=== PATIENT | male | born 1970 | race Caucasian/White ===

== ENCOUNTER 2016-03-31 20:56 | Emergency (ER) | payer MEDICARE, MEDICAID ==
[~2016-03-31] VITALS: Ht 162.6 cm; Wt 72.7 kg
[~2016-03-31 20:56] MED LIST: AGM875T PO
[2016-03-31 21:12] VITALS: BP 136/99; PULSE 100; RESP 18; O2SAT 100
--- NOTE | 2016-03-31 22:31 | ED.REPORT ---
HPI-General Illness Date of Service Mar 31, 2016 ED Provider: Austin Kaur MD Patient is a homeless 46 year old male with a history of polysubstance abuse, spina bifida, diverting colostomy, and hypertension who presents to the ED via EMS after he lost his colostomy bag and supplies today, with the patient presenting to the ED covered in stool. The patient states that he recently met some people that have been helping him and they dropped him off at the [facility] today. The [facility] did not have space for him and he was just waiting for his friends to return. He therefore called EMS because he was cold and needed assistance with his colostomy. His friends will be able to pick him up in the morning. The patient was staying at another house prior to this, but states that he was not treated well there. Per EMS his house is to be raided tonight, which is why he cannot return there. He is on SSA and states that he was recently paid, but that his "money disappeared". Patient is wheelchair bound. He reports ongoing swelling of his legs denies any other medical complaints. Nursing Notes Stated Complaint: HOMELESS, PEDAL EDEMA Chief Complaint: General Complaint Nursing Notes Reviewed: Yes Allergies: Coded Allergies: No Known Allergies (Verified Allergy, Unknown, 10/10/15) Scheduled Amoxicillin/Clav K 875-125 mg (Amoxicillin/Clav K 875-125 mg) 875 Mg Tab 1 TAB PO BID General Time Seen by MD: 22:30 Chief Complaint Multip medical complaints (lost ostomy supplies) Hx Obtained From: Patient, EMS Arrived By: Ambulance Sudden in Onset?: No Onset Occurred: Onset unknown (today) Symptom Duration: Since onset Location: : Abdomen Quality: Painful Severity: Current: Mild Severity: Maximum: Mild Recent Healthcare: No recent doctor visit, No recent hospitalization Similar Sx Previous: No Past Medical History Past Medical History Notes: PCP: [facility] Past Medical History Spina bifida History of abdominal wall cellulitis July 2015, resolved (treated with zinc and Zosyn initially, switch to by mouth Augmentin, resolved) GERD History of substance abuse per EMR skin breakdown of buttocks, s/p diveriting colostomy Chiari 2 malformation s/p CHURCH [employer]IC[employer] shunt with revision in 2001 prediabetic Substance abuse: Amphetamine, ETOH, tobacco. Reports: Hypertension Past Surgical History Diverting colostomy Shunt revisions Smoking History Current Every Day Smoker Social History Homeless per notes Alcohol Use: 1-3 per week Drug Use: In recovery, THC Other Social History: Poor social support, Homeless Ambulatory Status Wheelchair Review of Systems Full Review of Systems Constitutional: Denies: Chills, Fever GI: Reports: Abdominal pain, Denies: Diarrhea Musculoskeletal: Reports: Extremity swelling, Denies: Extremity pain Complete sys rev & neg: except as marked. Physical Exam Vital Signs Vital Signs Date Time Temp Pulse Resp B/P Pulse Ox O2 Delivery O2 Flow Rate FiO2 04/01/16 04:32 36.9 100 18 122/69 98 Room Air 03/31/16 21:12 36.6 100 18 136/99 100 Room Air Initial VS: Reviewed, Vital signs abnormal Skin: Warm, Dry, No cyanosis Neurologic: Alert, Oriented, Nonfocal Psychiatric: Mood/affect normal, Behavior normal, Normal thought content General/Constitutional: Awake, Alert, No acute distress wheelchair bound Head / Eyes: Normocephalic, PERRL ENT: Airway patent, Mucous membranes moist Neck: Supple, Full range of motion Respiratory / Chest: Breath sounds NL, Breath sounds = bilat, No respiratory distress, No rales, No rhonchi, No wheezing Cardiovascular: Heart rate NL, Regular rhythm, No murmurs Abdomen: Soft, Non-tender stoma present, with minor skin breakdown surrounding the stoma Upper Extremities Upper Extremity / MS: Neurologic intact, Vascular intact Lower Extremity / Pelvis / MS: Neurologic intact, Vascular intact bilareral below the knee leg atrophy and 3+ pitting edema Re-Eval/Medical Decision Med Decision/Clinical Course 46-year-old male who lost his housing and lost his colostomy supplies. He presents here covered with stool. He was cleaned up and a new colostomy bag was put on. He also has long-standing peripheral edema both ankles. He has some skin breakdown around the colostomy bag. He is wheelchair-bound due to his spina bifida. With the given weather and the baseline condition of this patient would not be schulte to discharge him to the streets. He will be seen by social work for disposition this morning. His care is being turned over at change of shift to the oncoming physician. Source of Hx: Old records Time of Eval: 22:45 Re-Evaluation/Progress Note: Patient will be allowed to stay in the ED overnight until he can be picked up in the morning. Patient understands and agrees with this plan. All questions addressed. Discharge & Departure Shift Change Sign-Out Patient Care Transferred: Yes Discussed Complaint(s): Yes Patient is waiting to be picked up in the AM Primary Impression: Complication of ostomy Additional Impression: Homelessness Referrals: [facility] (PCP) Care Transferred to: Dr. May Care Transferred at: 06:00 Marleni Attestation Portions of this note were transcribed by Sandra Zavala. I, Dr. Kaur personally performed the history, physical exam and medical decision-making; I reviewed and confirmed the accuracy of the information in the transcribed note. Signed by: Marleni Pineda, 04/01/2016 0542 copies to: [facility] Austin Kaur MD Mar 31, 2016 22:31 Sandra Zavala Mar 31, 2016 22:47
[2016-04-01 04:32] VITALS: BP 122/69; PULSE 100; RESP 18; O2SAT 98
== END 2016-04-01 10:30 ==
LOC: SED 20:56 → EDBD 20:56 → SED 04-01 10:30
DX: K94.09 Other complications of colostomy (principal); I10 Essential (primary) hypertension; F17.200 Nicotine dependence, unspecified, uncomplicated; Q05.9 Spina bifida, unspecified; R60.0 Localized edema; F15.10 Other stimulant abuse, uncomplicated; F12.10 Cannabis abuse, uncomplicated; Z59.0 Homelessness; Z99.3 Dependence on wheelchair

== ENCOUNTER 2016-04-04 18:31 | Inpatient (IN) | payer MEDICARE, MEDICAID ==
[~2016-04-04] VITALS: Ht 162.6 cm; Wt 67.2 kg
--- NOTE | 2016-04-04 18:49 | ED.REPORT ---
HPI-Rash / Abscess Date of Service Apr 04, 2016 ED Provider: Judith Whyte MD The patient is a 46 year old homeless male with history of spina bifida an who presents to the ED complaining of a blistering rash to his groin and backside. Associated symptoms of incontinence of bowel and bladder (baseline). The patient has been wheelchair bound since a recent fall and living on the street in a cardboard box while waiting to get into the [facility]. He denies fever, abdominal pain, and any other symptoms at this time. He has been seen in the ED for similar symptoms before. Nursing Notes Stated Complaint: MENTAL HEALTH EVALUATION Chief Complaint: Skin Rash/Abscess Nursing Notes Reviewed: Yes Allergies: Coded Allergies: No Known Allergies (Verified Allergy, Unknown, 10/10/15) Scheduled Amoxicillin/Clav K 875-125 mg (Amoxicillin/Clav K 875-125 mg) 875 Mg Tab 1 TAB PO BID General Time Seen by MD: 18:48 Chief Complaint Blisters, Rash Hx Obtained From: Patient Arrived By: Walk-in Onset Occurred: Onset unknown Symptom Duration: Since onset Location: : Back Quality: Painful Severity: Current: Moderate Severity: Maximum: Moderate Recent Healthcare: No recent doctor visit, No recent hospitalization Similar Sx Previous: Yes Past Medical History Past Medical History Notes: PCP: [facility] Past Medical History Spina bifida History of abdominal wall cellulitis July 2015, resolved (treated with zinc and Zosyn initially, switch to by mouth Augmentin, resolved) GERD History of substance abuse per EMR skin breakdown of buttocks, s/p diveriting colostomy Chiari 2 malformation s/p MANAGER REIMBURSEMENT shunt with revision in 2001 prediabetic Substance abuse: Amphetamine, ETOH, tobacco. Reports: Hypertension Past Surgical History Diverting colostomy Shunt revisions Smoking History Current Every Day Smoker Social History Homeless per notes Alcohol Use: 1-3 per week Drug Use: In recovery, THC Other Social History: Poor social support, Homeless Ambulatory Status Wheelchair Review of Systems Respiratory: Denies: Non-productive cough, Shortness of breath Cardiovascular: Denies: Chest pain GI: Denies: Abdominal pain Skin: Reports Rash Complete sys rev & neg: except as marked. Male: Reports Incontinence Neurologic: Reports: Numbness (lower extremities, secondary to spina bifida) Physical Exam Initial Vital Signs Vital Signs (First) Date Time Temp Pulse Resp B/P Pulse Ox O2 Delivery O2 Flow Rate FiO2 04/04/16 18:48 36.2 04/04/16 19:44 89 18 133/83 96 Room Air Initial VS: Reviewed Head / Eyes: Atraumatic, Normocephalic, PERRL ENT: Mucous membranes moist, Conjunctiva normal, No scleral icterus Neck: Supple, Non-tender, Full range of motion Cardiovascular: Regular rate & rhythm, Heart sounds normal, Intact distal pulses Neurologic: Alert, Oriented, Nonfocal Psychiatric: Mood/affect normal, Behavior normal, Normal thought content General/Constitutional: Awake, Alert, No acute distress Presents in clothing soaked in his own waste Eryhthema, induration, and edema over entire right lateral to medial thigh, extends to left medial thigh but left lateral thigh spared. Extends over perineum and across entire. Confluent vesicular rash over abdomen, extremely tender to palpation. No hemorrhagic bullae. Respiratory / Chest: Atraumatic, Breath sounds NL, Breath sounds = bilat, No respiratory distress, No rales, No rhonchi, No wheezing, No crepitus Abdomen/GI: Confluent vesicular rash over abdomen, extremely tender to palpation. No hemorrhagic bullae. Red stoma in colostomy bag, left side of abdomen Back: Atraumatic, Full range of motion Interpretation & Diagnostics Lab Results Interpretation Result Diagram: 04/04/16192404/04/161924 Test 04/04/16 19:25 04/04/16 20:00 White Blood Count 11.0th/mm3 (3.8-10.1) Red Blood Count 4.82mil/mm3 (4.40-5.80) Hemoglobin 13.6g/dL (13.8-17.2) Hematocrit 42.0% (41.0-50.0) Mean Corpuscular Volume 87.1fL (81-100) Mean Corpuscular Hemoglobin 28.2pg (27.0-35.0) Mean Corpuscular Hemoglobin Concent 32.4% (32.0-37.0) Red Cell Distribution Width 15.8% (12.3-15.4) Platelet Count 485bil/L (150-400) Neutrophils (%) (Auto) 56.6% (40-74) Lymphocytes (%) (Auto) 32.3% (14-46) Monocytes (%) (Auto) 7.9% (4-12) Eosinophils (%) (Auto) 2.5% (0-5) Basophils (%) (Auto) 0.3% (0-3) Sodium Level 141mEq/L (134-144) Potassium Level 4.4mEq/L (3.5-5.2) Chloride Level 103mEq/L (97-108) Carbon Dioxide Level 22mmol/L (18-29) Blood Urea Nitrogen 17mg/dL (6-24) Creatinine 0.73mg/dL (0.76-1.27) Estimat Glomerular Filtration Rate 122mL/min (>59) Glucose Level 145mg/dL (60-99) Calcium Level 8.4mg/dL (8.5-10.1) Magnesium Level 2.0mg/dL (1.6-2.6) Total Bilirubin 0.2mg/dL (0.0-1.2) Aspartate Amino Transf (AST/SGOT) 12U/L (0-50) Alanine Aminotransferase (ALT/SGPT) 8U/L (0-44) Alkaline Phosphatase 104U/L (25-150) Total Protein 7.3g/dL (6.4-8.4) Albumin 3.2g/dL (3.4-5.0) Procalcitonin 0.05ng/mL (0.00-0.08) Urine Color Yellow (YELLOW) Urine Appearance Cloudy (CLEAR,HAZY) Urine pH 8.5 (5.0-8.0) Urine Specific [place] 1.020 (1.003-1.035) Urine Protein 100mg/dL (NEG,TRACE) Urine Glucose (UA) Negativemg/dL (NEGATIVE) Urine Ketones Tracemg/dL (NEGATIVE) Urine Occult Blood Trace (NEGATIVE) Urine Nitrite Positive (NEGATIVE) Urine Bilirubin Negative (NEGATIVE) Urine Urobilinogen Normalmg/dL (NORMAL) Urine Leukocyte Esterase Moderate (NEGATIVE) Urine RBC 0-2/hpf (0-2) Urine WBC 6-10/hpf (0-5) Urine Epithelial Cells None/hpf (NONE-MOD) Urine Crystals None seen (NONE SEEN) Urine Bacteria Few/hpf (NONE-FEW) Urine Hyaline Casts None/lpf (NONE) Urine Granular Casts None seen (NONE SEEN) Urine Waxy Casts None seen (NONE SEEN) Urine Red Blood Cell Casts None seen (NONE SEEN) Urine White Blood Cell Casts None seen (NONE SEEN) Urine Mucus None seen (None Seen) Urine Trichomonas None seen (NONE SEEN) Urine Yeast None (NONE SEEN) Urinalysis Comment Amorphous sediment Urine Culture Reflexed Indicated CT Abd / Pelvis Interpretation IMPRESSION: No definite perineal inflammatory stranding or abscess. Normal appendix. No acute abnormality. Dictated by: Tone Inman M.D. on 04/04/2016 at 21:05 Approved by: Tone Inman M.D. on 04/04/2016 at 21:11 Study type: Abdominal CT IV contrast Interpretation / Wet Read by: Interpret - Radiologist Re-Eval/Medical Decision Med Decision/Clinical Course 46-year-old male with past medical history of spina bifida here with rash to his groin. Differential diagnosis includes but is not limited to cellulitis versus necrotizing fasciitis versus Remington's gangrene versus fungal infection. Patient shows a very mild lactic acidosis, along with leukocytosis. He also has urinary tract infection, likely secondary to his spina bifida. Given the constellation of disease, along with his inability to care for himself properly I have admitted him to the hospital. He had a CT scan which did not show any evidence of air in his perineum. He does not have tenderness out of proportion to exam, and I do not feel he has necrotizing fasciitis or Remington's gangrene at this time. He is accepted by the hospitalist and is amenable to admission at this time. I have started him on broad-spectrum antibiotics along with fluid resuscitation Source of Hx: Old records Re-Evaluation/Progress : Time of Eval: 21:48 Re-Evaluation/Progress Note: Rechecked the patient. Discussed plan for admission. The patient understands and agrees to the plan. All questions addressed. Consultation : Referral / Consult Name: Issa Winn MD Consulted With: Hospitalist Call Returned at: 21:34 Note: Discussed the patient's history and symptoms with Dr. Winn, hospitalist, who agrees to admit the patient. Counseled Regarding: Diagnosis, Lab results, Need for admission Discharge & Departure Impression: Primary Impression: Cellulitis Site of cellulitis: trunk Site of cellulitis of trunk: groin Qualified Code : L03.314 - Cellulitis of groin Disposition: ADMITTED TO HOSPITAL Discharge Condition All VS Reviewed: Yes Condition: Stable Referrals: [facility] (PCP) Scribe Attestation Portions of this note were transcribed by Norman Gayle. I, Dr. Whyte, personally performed the history, physical exam, and medical decision-making; I reviewed and confirmed the accuracy of the information in the transcribed note. Signed by: Marleni John. 04/04/16, 21:49. copies to: [facility] Judith Whyte MD Apr 04, 2016 18:49 NORMAN GAYLE Apr 04, 2016 19:18
[2016-04-04] MEDS ORDERED: 0.9% Sodium Chloride 1,000 ML IV ONE ×2 (19:11→21:30)
[2016-04-04] MEDS ORDERED: Piperacillin-Tazo 3.375 Gm Inj 3.375 GM in Dextrose 5% Minibag Plus 50 ML IV ONE (19:15)
[2016-04-04] MEDS ORDERED: Vancomycin Dose per Pharmacist XX ONE (19:15)
[2016-04-04 19:44] VITALS: BP 133/83; PULSE 89; RESP 18; O2SAT 96
[2016-04-04] MEDS ORDERED: Vancomycin Inj 1,250 MG in 0.9% Sodium Chloride 250 ML IV ONE (19:45)
[2016-04-04 19:47] LABS: BASOPHILS % (AUTO) 0.3 % (0-3); EOSINOPHILS % (AUTO) 2.5 % (0-5); MONOCYTES % (AUTO) 7.9 % (4-12); Mean Corpuscular Hemoglobin 28.2 pg (27.0-35.0); Mean Corpuscular Volume 87.1 fL (81-100); NEUTROPHILS % (AUTO) 56.6 % (40-74); Platelet Count 485 bil/L (150-400)
[2016-04-04 20:30] LABS: APPEARANCE,URINE CLOUDY (CLEAR,HAZY); COLOR,URINE YELLOW (YELLOW); OCCULT BLOOD,URINE TRACE (NEGATIVE); PH,URINE 8.5 (5.0-8.0); UROBILINOGEN,URINE NORMAL (NORMAL)
--- NOTE | 2016-04-04 21:13 | DRSVH ---
PROCEDURE: CT ABDOMEN AND PELVIS WITH CONTRAST ([id number]) INDICATIONS: perineal cellulitis TECHNIQUE: After the administration of intravenous contrast, 5 mm thick sections acquired from the diaphragm to the symphysis. 5 mm coronal and sagittal reformats were acquired. For radiation dose reduction, the following was used: automated exposure control, adjustment of mA and/or kV according to patient rafaela harris COMPARISON: [facility], CT, CT ABD PELVIS W CON, 08/04/2015, 8:11. FINDINGS: Image quality: Excellent. ABDOMEN: Lung bases: Lung bases are clear. Heart size is normal. Solid organs: Liver and spleen are normal in size and enhancement. Gallbladder absent or contracted .. Biliary system is non dilated. Pancreas enhances normally. No adrenal nodules. Kidneys demonst rate normal size and enhancement, without hydronephrosis. Peritoneum and bowel: Bowel loops demonstrate normal wall thickness and caliber. No free fluid or a ir. There is a left-sided ostomy. Ventricular shunt tubing incidentally noted. Normal appendix Nodes and vessels: No retroperitoneal or mesenteric adenopathy by size criteria. Aorta and inferior vena cava are normal in size. Miscellaneous: No ventral hernias. Diffuse muscle atrophy PELVIS: Genitourinary: The bladder is decompressed and a Melgar catheter is present Miscellaneous: No inguinal hernias or adenopathy. No definite perineal stranding. No abscess seen. There is subcutaneous stranding superficial to the initial tuberosities bilaterally however this is g rossly unchanged since 08/04/15 Bones: No suspicious bony lesions. Age indeterminate mild anterior wedging of T12, possibly physiolo gic IMPRESSION: No definite perineal inflammatory stranding or abscess. Normal appendix. No acute abnormality. Dictated by: Tone Inman M.D. on 04/04/2016 at 21:05 Approved by: Tone Inman M.D. on 04/04/2016 at 21:11
--- NOTE | 2016-04-04 21:40 | NUR ---
Admit Pt arrived by stretcher with all belongings, moved from stretcher to bed without assistance. Alert and oriented, pleasant and cooperative. Oriented to room and call light. Will continue to monitor.
[2016-04-04] MEDS ORDERED: Alum-Mag Hydrox-Simeth 30 mL Suspension PO PRN (21:45)
[2016-04-04] MEDS ORDERED: Ondansetron 2 mg/mL 2 mL Inj IVPUSH PRN (21:45)
[2016-04-04] MEDS ORDERED: Polyethylene Glycol (PEG) 17 Gm Powder PO PRN (22:15)
[2016-04-04] MEDS ORDERED: Alum-Mag Hydrox-Simeth 30 mL Suspension PO ONE (22:15)
[2016-04-04 23:13] VITALS: BP 142/86; PULSE 81; RESP 18; O2SAT 98
--- NOTE | 2016-04-05 00:21 | PCM.HPMED ---
Subjective Date of Service Apr 04, 2016 Primary Provider: Admitting Physician: Issa Winn MD Primary Care Physician: [facility] Attending Physician: Issa Winn MD Chief Complaint: Abdominal skin irritation History of Present Illness: Patient is a 46-year-old homeless male with spina bifida with colostomy and urinary incontinence, and Chiari 2 malformation s/p CERTIFIED DRUG COUNSELOR shunt presenting with "skin irritation" to his abdomen, groin and back. Of note, the patient has been seen in the ED and been hospitalized in the past for similar issues relating to cellulitis and skin breakdown as a result of ostomy and urinary incontinence. The patient reports that he has been awaiting placement into the [facility] and in the meantime has been staying in a makeshift group home made of plywood where he is exposed to the elements. The patient has urinary incontinence and ambulating issues as a result of the spina bifida and reports that he does not have the opportunity to move very much in the makeshift group home , thus he routinely soils himself. The patient says the skin around his abdomen , groin and flank has become increasingly irritating and painful over the past two or three days which prompted him to visit the ED for further evaluation. The patient denies any drainage or bleeding from these areas; denies fever, chills, abdominal pain, nausea, emesis, dysuria. In the ED, vitals: temp 36.2, HR 89, RR 18 satting 96% on room air, BP 133/83. Notable labs: WBC 11.0, lactic acid 2.7. Patient was started on vancomycin and Zosyn in the ED. Review of Systems: Review of Systems: A comprehensive review of systems was conducted with the patient and found to be negative except as above in the History of Present Illness. Allergies Coded Allergies: No Known Allergies (Verified Allergy, Unknown, 10/10/15) Home Medications None reported PMH Spinal Bifida with leg weakness Bowel and bladder incontinence Chiari 2 malformation s/p CERTIFIED DRUG COUNSELOR shunt with multiple revisions, most recent revision in 2001 Prediabetic Hypertension GERD Substance abuse: Amphetamine, ETOH, tobacco Surgical History Diverting colostomy CERTIFIED DRUG COUNSELOR shunt with multiple revisions, most recent revision in 2001 Family History Mother is alive but health is unknown Father had pancreatic cancer but in his 70s from unknown cause Social History Occupation: Unemployed Hx Alcohol Use: Yes Hx Substance Use: Yes (Last used meth one week ago) Smoking Status: Current Every Day Smoker (1/2 to 1PPD) Living Arrangement: Homeless Exam Vital Signs Vital Sign - Last Date Time Temp Pulse Resp B/P Pulse Ox O2 Delivery O2 Flow Rate FiO2 04/04/16 23:13 36.7 81 18 142/86 98 Room Air Exam General: Disheveled. No acute distress, well-developed, well-nourished, appropriately interactive HEENT: Normocephalic, atraumatic. External ears without defect. Pupils equal, round, and reactive to light. Anicteric sclerae, moist conjunctivae, and no lid lag. Oropharynx free of erythema and cobble stoning with moist mucosa. Poor dentition. Neck: Supple. Small palpable mass, either lymphadenopathy of right cervical lymph nodes or part of CERTIFIED DRUG COUNSELOR shunt. Well healed surgical incision scars. Cardiovascular: Regular rate and rhythm with no murmurs, rubs, or gallops appreciated Pulmonary: Clear to auscultation bilaterally with no crackles, wheezes, or rhonchi. Normal respiratory effort with no use of accessory muscles. Abdomen: Bowel tones present. Soft, nontender, nondistended. Lower abdomen with erythema and skin breakdown. Colostomy on left side of abdomen. Well healed surgical incisions. Genitourinary: Melgar catheter in place. Extremities: No clubbing, cyanosis, edema, or lymphadenopathy appreciated. Right 5th toe with dried blood and healing wound over nail bed. Skin: Erythema and areas of skin breakdown of lower abdomen, groin, flank and buttock. 1.5 to 2cm ulcer with eschar proximal to left malleolus. Neurological: Cranial nerves grossly intact. Decreased motor strength in lower extremities bilaterally. Atrophy of lower extremities, left > right. Psychiatric: Normal mood and affect. Alert and oriented to person, place, and time. Lab and Diagnostics Result Diagram: 04/04/16192404/04/161924 X-Rays, CTs and MRIs Date of Service: 04/04/161910 PROCEDURE: CT ABDOMEN AND PELVIS WITH CONTRAST ([id number]) INDICATIONS: perineal cellulitis TECHNIQUE: After the administration of intravenous contrast, 5 mm thick sections acquired from the diaphragm to the symphysis. 5 mm coronal and sagittal reformats were acquired. For radiation dose reduction, the following was used: automated exposure control, adjustment of mA and/or kV according to patient size. COMPARISON: [facility], CT, CT ABD PELVIS W CON, 08/04/2015, 8:11. FINDINGS: Image quality: Excellent. ABDOMEN: Lung bases: Lung bases are clear. Heart size is normal. Solid organs: Liver and spleen are normal in size and enhancement. Gallbladder absent or contracted.. Biliary system is non dilated. Pancreas enhances normally. No adrenal nodules. Kidneys demonstrate normal size and enhancement, without hydronephrosis. Peritoneum and bowel: Bowel loops demonstrate normal wall thickness and caliber. No free fluid or air. There is a left-sided ostomy. Ventricular shunt tubing incidentally noted. Normal appendix Nodes and vessels: No retroperitoneal or mesenteric adenopathy by size criteria. Aorta and inferior vena cava are normal in size. Miscellaneous: No ventral hernias. Diffuse muscle atrophy PELVIS: Genitourinary: The bladder is decompressed and a Melgar catheter is present Miscellaneous: No inguinal hernias or adenopathy. No definite perineal stranding. No abscess seen. There is subcutaneous stranding superficial to the initial tuberosities bilaterally however this is grossly unchanged since 08/04/15 Bones: No suspicious bony lesions. Age indeterminate mild anterior wedging of T12, possibly physiologic IMPRESSION: No definite perineal inflammatory stranding or abscess. Normal appendix. No acute abnormality. Dictated by: Tone Inman M.D. on 04/04/2016 at 21:05 Approved by: Tone Inman M.D. on 04/04/2016 at 21:11 Assessment & Plan Patient is a 46-year-old homeless male with spina bifida with colostomy and urinary incontinence, and Chiari 2 malformation s/p CERTIFIED DRUG COUNSELOR shunt presenting with "skin irritation" to his abdomen, groin and back and admitted for cellulitis. 1. Cellulitis of lower abdomen, groin. Present on admission. Active -CT abdomen and pelvis reads no definite perineal inflammatory stranding or abscess. -Likely result of prolonged exposure to urine and feces -Pending: Blood cultures, MRSA screen, urine culture -Continue Zosyn and vancomycin. De-escalate with results of tests, cultures -Wound care 2. Urinary tract infection, chronic. Present on admission. Active -UA with nitrite, leukocyte esterase, pyuria and bacteria -Urine culture -Antibiotics per #1 3. Hyperlactatemia, acute. Present on admission. Active -Lactic acid 2.7 on admit -IV fluids -Trend 4. Substance abuse, chronic. Present on admission. Active -Patient reports last using methamphetamine last week -Social work referral for substance abuse and to possibly assist with placement 5. GERD, chronic. Present on admission -Pantoprazole daily -Maalox PRN 6. Hypertension, chronic. Present on admission -Currently normotensive -Follow with vitals Patient Status: Patient is admitted under inpatient status with expected length of stay greater than 2 midnights due to severity of presenting symptoms and complexity of treatment plan. VTE Prophylaxis: Sub-Q Heparin (Unfractionated) Resuscitation Status: CPR: Attempt Resuscitation Attending Statement The patient was seen and examined together with Dr. Grimes on 04/04 and I agree with the history, exam and plan as outlined in the note above. Karl Grimes DO Apr 04, 2016 23:43 Issa Winn MD Apr 05, 2016 00:32
[2016-04-05] MEDS: Heparin 5,000 Unit/mL Inj SUBQ SCH ×3 (01:06→16:30)
--- NOTE | 2016-04-05 01:21 | PCM.CONPHA ---
Subjective Date of Service: Apr 05, 2016 Requesting Provider: Karl Grimes DO Abdominal skin irritation Reason for Pharmacy Consult: Vancomycin Dosing Objective Vital Signs Date Time Temp Pulse Resp B/P Pulse Ox O2 Delivery O2 Flow Rate FiO2 04/04/16 23:13 36.7 81 18 142/86 98 Room Air 04/04/16 22:16 89 18 133/83 96 Room Air 04/04/16 19:44 89 18 133/83 96 Room Air 04/04/16 18:48 36.2 Intake and Output 04/03/16 04/04/16 04/05/16 00:00 00:00 00:00 Intake Total 2000 ml Balance 2000 ml Weight (Kilograms): 70.000 Height (Feet): 5 Height (Inches): 4.00 Test 04/04/16 19:25 04/04/16 20:00 04/04/16 22:50 White Blood Count 11.0th/mm3 (3.8-10.1) Red Blood Count 4.82mil/mm3 (4.40-5.80) Hemoglobin 13.6g/dL (13.8-17.2) Hematocrit 42.0% (41.0-50.0) Mean Corpuscular Volume 87.1fL (81-100) Mean Corpuscular Hemoglobin 28.2pg (27.0-35.0) Mean Corpuscular Hemoglobin Concent 32.4% (32.0-37.0) Red Cell Distribution Width 15.8% (12.3-15.4) Platelet Count 485bil/L (150-400) Neutrophils (%) (Auto) 56.6% (40-74) Lymphocytes (%) (Auto) 32.3% (14-46) Monocytes (%) (Auto) 7.9% (4-12) Eosinophils (%) (Auto) 2.5% (0-5) Basophils (%) (Auto) 0.3% (0-3) Sodium Level 141mEq/L (134-144) Potassium Level 4.4mEq/L (3.5-5.2) Chloride Level 103mEq/L (97-108) Carbon Dioxide Level 22mmol/L (18-29) Blood Urea Nitrogen 17mg/dL (6-24) Creatinine 0.73mg/dL (0.76-1.27) Estimat Glomerular Filtration Rate 122mL/min (>59) Glucose Level 145mg/dL (60-99) Calcium Level 8.4mg/dL (8.5-10.1) Magnesium Level 2.0mg/dL (1.6-2.6) Total Bilirubin 0.2mg/dL (0.0-1.2) Aspartate Amino Transf (AST/SGOT) 12U/L (0-50) Alanine Aminotransferase (ALT/SGPT) 8U/L (0-44) Alkaline Phosphatase 104U/L (25-150) Total Protein 7.3g/dL (6.4-8.4) Albumin 3.2g/dL (3.4-5.0) Procalcitonin 0.05ng/mL (0.00-0.08) Urine Color Yellow (YELLOW) Urine Appearance Cloudy (CLEAR,HAZY) Urine pH 8.5 (5.0-8.0) Urine Specific [place] 1.020 (1.003-1.035) Urine Protein 100mg/dL (NEG,TRACE) Urine Glucose (UA) Negativemg/dL (NEGATIVE) Urine Ketones Tracemg/dL (NEGATIVE) Urine Occult Blood Trace (NEGATIVE) Urine Nitrite Positive (NEGATIVE) Urine Bilirubin Negative (NEGATIVE) Urine Urobilinogen Normalmg/dL (NORMAL) Urine Leukocyte Esterase Moderate (NEGATIVE) Urine RBC 0-2/hpf (0-2) Urine WBC 6-10/hpf (0-5) Urine Epithelial Cells None/hpf (NONE-MOD) Urine Crystals None seen (NONE SEEN) Urine Bacteria Few/hpf (NONE-FEW) Urine Hyaline Casts None/lpf (NONE) Urine Granular Casts None seen (NONE SEEN) Urine Waxy Casts None seen (NONE SEEN) Urine Red Blood Cell Casts None seen (NONE SEEN) Urine White Blood Cell Casts None seen (NONE SEEN) Urine Mucus None seen (None Seen) Urine Trichomonas None seen (NONE SEEN) Urine Yeast None (NONE SEEN) Urinalysis Comment Amorphous sediment Urine Culture Reflexed Indicated Lactic Acid Level 2.5mmol/L (0.4-2.0) Assessment/Plan Assessment/Plan A: * Vancomycin dosing for 46 y/o man with cellulitis and UTI * Patient received a vancomycin 1250 mg IV loading dose in the ED * He is also being started on Zosyn * Estimated CrCL is 96 mL/min (Cockcroft & Gault) * Estimated vancomycin half-life is 8 hours and estimated Vd is 45 liters P: * Start vancomycin 1000 mg IV every 12 hours * This dose is estimated to result in a trough of about 14 mcg/mL * Target trough range of 10 - 15 mcg/mL * Drawing a trough level prior to the fourth vancomycin dose Thank you. Pharmacy will continue to follow. Mary Anderson, PharmD Mary Anderson Apr 05, 2016 01:21
[2016-04-05 06:29] VITALS: BP 113/73; PULSE 80; RESP 18; O2SAT 97
[2016-04-05] MEDS: Piperacillin-Tazo 3.375 Gm Inj 3.375 GM in Dextrose 5% Minibag Plus 50 ML IV SCH ×2 (08:00→19:43)
[2016-04-05] MEDS: Vancomycin Dose per Pharmacist XX SCH (08:30)
[2016-04-05] MEDS ORDERED: Vancomycin Inj 1,000 MG in IV Premix 1 EACH IV SCH (08:30)
[2016-04-05 09:26] LABS: BASOPHILS % (AUTO) 0.4 % (0-3); EOSINOPHILS % (AUTO) 3.4 % (0-5); MONOCYTES % (AUTO) 8.5 % (4-12); Mean Corpuscular Volume 88.2 fL (81-100); NEUTROPHILS % (AUTO) 46.3 % (40-74); Platelet Count 401 bil/L (150-400)
[2016-04-05] MEDS: Alum-Mag Hydrox-Simeth 30 mL Suspension PO PRN ×3 (09:28→19:43)
[2016-04-05] MEDS: 0.9% Sodium Chloride 1,000 ML IV SCH ×3 (10:53→19:31)
[2016-04-05] MEDS: Vancomycin Inj 1,000 MG in IV Premix 1 EACH IV SCH ×2 (10:54→23:20)
--- NOTE | 2016-04-05 13:03 | NUR ---
[facility] signed
[2016-04-05 13:06] VITALS: BP 135/85; PULSE 86; RESP 20; O2SAT 97
--- NOTE | 2016-04-05 14:55 | NUR ---
heartburn pt continues to complain of heartburn and "acid burps". MOM given earlier with temp. relief. This RN suggested to pt to cut back on the coffee and increase the water intake. This RN also suggested that pt have the head of bed up while he eats and for some time after.
[2016-04-05] MEDS: Ondansetron 2 mg/mL 2 mL Inj IVPUSH PRN ×2 (15:27→19:43)
--- NOTE | 2016-04-05 15:34 | NUR ---
nausea/vomiting vomiting, pt states that this has just happened to him throughout his life. pt states that it is gas build up. He requests "7-up" ramon mist given and 8mg Zofran. pt resting in bed with emesis basin.
--- NOTE | 2016-04-05 17:02 | PCM.PNMED ---
Subjective Date of Service Apr 05, 2016 Subjective denies any new issues/complaints Exam Vital Signs Vital Sign - Last Date Time Temp Pulse Resp B/P Pulse Ox O2 Delivery O2 Flow Rate FiO2 04/05/16 13:06 36.9 86 20 135/85 97 Room Air Intake and Output 04/04/16 04/04/16 04/05/16 Cumulative From/Thru 15:00 23:00 07:00 04/04/16 18:48 - 04/05/16 06:27 Intake Total 2000 ml 641 ml 2641 ml Balance 2000 ml 641 ml 2641 ml IV Total 2000 ml 641 ml 2641 ml Exam General: No acute distress, cooperative. alert HEENT: Normocephalic, atraumatic.Anicteric sclerae Neck: Supple. Full ROM Cardiovascular: Regular rate and rhythm with no murmurs Pulmonary: Clear to auscultation bilaterally with no crackles, wheezes, or rhonchi. Normal respiratory effort with no use of accessory muscles. Abdomen: Bowel tones present. Soft, nontender, nondistended. Lower abdomen with erythema and skin breakdown. Colostomy on left side of abdomen. Well healed surgical incisions. Genitourinary: Melgar catheter in place. Extremities: No clubbing, cyanosis, edema, or lymphadenopathy appreciated. Right 5th toe with dried blood and healing wound over nail bed. Skin: Erythema and areas of skin breakdown of lower abdomen, groin, flank and buttock. 1.5 to 2cm ulcer with eschar proximal to left malleolus. Neurological: Cranial nerves grossly intact. Decreased motor strength in lower extremities bilaterally. Atrophy of lower extremities, left > right. Psychiatric: Normal mood and affect. Alert and oriented to person, place, and time. IVs and Medications Medications Reviewed: Medications were reviewed in detail Lab and Diagnostics Result Diagram: 04/05/1691404/05/16914 X-Rays, CTs and MRIs Date of Service: 04/04/161910 PROCEDURE: CT ABDOMEN AND PELVIS WITH CONTRAST ([id number]) INDICATIONS: perineal cellulitis TECHNIQUE: After the administration of intravenous contrast, 5 mm thick sections acquired from the diaphragm to the symphysis. 5 mm coronal and sagittal reformats were acquired. For radiation dose reduction, the following was used: automated exposure control, adjustment of mA and/or kV according to patient size. COMPARISON: [facility], CT, CT ABD PELVIS W CON, 08/04/2015, 8:11. FINDINGS: Image quality: Excellent. ABDOMEN: Lung bases: Lung bases are clear. Heart size is normal. Solid organs: Liver and spleen are normal in size and enhancement. Gallbladder absent or contracted.. Biliary system is non dilated. Pancreas enhances normally. No adrenal nodules. Kidneys demonstrate normal size and enhancement, without hydronephrosis. Peritoneum and bowel: Bowel loops demonstrate normal wall thickness and caliber. No free fluid or air. There is a left-sided ostomy. Ventricular shunt tubing incidentally noted. Normal appendix Nodes and vessels: No retroperitoneal or mesenteric adenopathy by size criteria. Aorta and inferior vena cava are normal in size. Miscellaneous: No ventral hernias. Diffuse muscle atrophy PELVIS: Genitourinary: The bladder is decompressed and a Melgar catheter is present Miscellaneous: No inguinal hernias or adenopathy. No definite perineal stranding. No abscess seen. There is subcutaneous stranding superficial to the initial tuberosities bilaterally however this is grossly unchanged since 08/04/15 Bones: No suspicious bony lesions. Age indeterminate mild anterior wedging of T12, possibly physiologic IMPRESSION: No definite perineal inflammatory stranding or abscess. Normal appendix. No acute abnormality. Dictated by: Tone Inman M.D. on 04/04/2016 at 21:05 Approved by: Tone Inman M.D. on 04/04/2016 at 21:11 Assessment & Plan 46-year-old homeless male with spina bifida with colostomy and urinary incontinence, and Chiari 2 malformation s/p COIN BOX COLLECTOR shunt presenting with "skin irritation" to his abdomen, groin and back and admitted for cellulitis. # Cellulitis of lower abdomen, groin. Present on admission. Active -CT abdomen and pelvis reads no definite perineal inflammatory stranding or abscess. -Likely result of prolonged exposure to urine and feces -Pending: Blood cultures, MRSA screen, urine culture -Continue Zosyn and vancomycin. De-escalate with results of tests, cultures -Wound care # Urinary tract infection, chronic. Present on admission. Active -UA with nitrite, leukocyte esterase, pyuria and bacteria -Urine culture -Antibiotics as noted above # Hyperlactatemia, acute. Present on admission. Resolved -Lactic acid 2.7 on admit # Substance abuse, chronic. Present on admission. Active -Patient reports last using methamphetamine last week -Social work referral for substance abuse and to possibly assist with placement # GERD, chronic. Present on admission -Pantoprazole daily -Maalox PRN # Hypertension, chronic. Present on admission -Currently normotensive -Follow with vitals Dispo: 2-4 days VTE Prophylaxis: Sub-Q Heparin (Unfractionated) VTE Mechanical Devices: Venous Foot Pump Resuscitation Status: CPR: Attempt Resuscitation Titi Trevino Apr 05, 2016 17:02
[2016-04-05 21:06] VITALS: BP 155/85; PULSE 83; RESP 18; O2SAT 97
[2016-04-06] MEDS: Heparin 5,000 Unit/mL Inj SUBQ SCH ×4 (00:10→23:37)
[2016-04-06 04:26] VITALS: BP 152/87; PULSE 64; RESP 16; O2SAT 98
--- NOTE | 2016-04-06 05:30 | NUR ---
Pressure Ulcer/Heartburn Pt have a pressure on left sacral area. Cleanse pt's ulcer wound with saline and applied xeroform dressing on the area of ulcer and cover with 4x4 gauze and hypafix. Pt denies sensation around sacral area per pt, because of his condition. Noted Liquid stool passing on pt's colostomy bag. Pt would complain of heartburn and would frequently request some maalox. No further complains after. Addendum: 04/06/16 at 0557 by KEATON MIKE RN Q2 turns and P500 LEONIDES bed currently on pt.
[2016-04-06] MEDS: 0.9% Sodium Chloride 1,000 ML IV SCH ×2 (05:52→16:12)
[2016-04-06] MEDS: Piperacillin-Tazo 3.375 Gm Inj 3.375 GM in Dextrose 5% Minibag Plus 50 ML IV SCH ×2 (08:15→20:31)
[2016-04-06] MEDS: Vancomycin Dose per Pharmacist XX SCH (08:30)
[2016-04-06] MEDS: Alum-Mag Hydrox-Simeth 30 mL Suspension PO PRN ×2 (08:42→23:37)
[2016-04-06] MEDS ORDERED: Vancomycin Serum Trough XX ONE ×2 (10:30→22:30)
[2016-04-06] MEDS: Vancomycin Inj 1,000 MG in IV Premix 1 EACH IV SCH ×2 (10:56→23:30)
--- NOTE | 2016-04-06 12:51 | NUR ---
vanco trough drawn while being infused with vanco pharmacy re-ordered trough for 2229
--- NOTE | 2016-04-06 12:59 | PCM.PHAPRO ---
Progress Abdominal skin irritation Lab drawn late and after start of vanco infusion. New trough set for next dose. Chavo Potts Apr 06, 2016 12:59
--- NOTE | 2016-04-06 15:18 | NUR ---
Social Work Note: Initial Assessment Data& Assessment: EMR reviewed. SW met with pt at bedside to discuss discharge planning, SW role explained. Alcon Redmond Jr is a 46 year old male admitted on 04/04/2016 for cellulitis. Pt has Medicare and [facility] supplemental insurance coverage. Pt goes to [facility] and denies any problems with obtaining his ostomy supplies. Pt states, "it gets changed when it needs to." Pt is independent at baseline and can walk when he is feeling his best but does have a wheelchair for ambulation assistance otherwise. Pt is homeless in [place] and receives enough resources every month to stay in a hotel. Pt explained he trusted the wrong people and "a lot of my money is missing from my account." Pt did state he is making connections at [employer] [facility] recently and hopes to get a spot at the skilled nursing when a bed becomes available. Pt reflected on the fact that the skilled nursing has become more strict over the years. Pt stated that he is unable to return to two local hotels due to being kicked out from having other people stay with him. Per MD, pt has had recent meth use. Pt explained he used last week, but "only sporadically, I am not addicted...What I am addicted to is nicotine." Pt denies any discomfort from lack of nicotine at this time and declines the need for a patch. Pt declines any DPOA paperwork at this time, explained "my family is useless." Pt denies any other needs at this time. SW to continue to follow for any further MD recommendations. SW to continue to follow if any needs arise. RAD[facility] phone number provided on pt [facility]. Plan: Anticipated discharge back into the community when medically ready. Pt denies any other needs at this time. SW to continue to follow for any further MD recommendations. SW to continue to follow if any needs arise. [facility] phone number provided on pt [facility]. TONY Moses Addendum: 02/12/17 at 1529 by JOE DELGADO Amended: Links added.
--- NOTE | 2016-04-06 16:16 | PCM.PNMED ---
Subjective Date of Service Apr 06, 2016 Subjective denies any new issues/complaints Exam Vital Signs Vital Sign - Last Date Time Temp Pulse Resp B/P Pulse Ox O2 Delivery O2 Flow Rate FiO2 04/06/16 04:26 36.8 64 16 152/87 98 Room Air Intake and Output 04/05/16 04/05/16 04/06/16 Cumulative From/Thru 15:00 23:00 07:00 04/04/16 18:48 - 04/06/16 06:01 Intake Total 400 ml 2957 ml 1323 ml 7321 ml Output Total 900 ml 1600 ml 3900 ml 6400 ml Balance -500 ml 1357 ml -2577 ml 921 ml Intake Oral 400 ml 1044 ml 300 ml 1744 ml IV Total 1913 ml 1023 ml 5577 ml Output Urine Total 550 ml 1600 ml 2800 ml 4950 ml Stool Total 350 ml 350 ml Emesis 1100 ml 1100 ml # Bowel Movements 1 1 Exam General: No acute distress, cooperative. alert HEENT: Normocephalic, atraumatic.Anicteric sclerae Neck: Supple. Full ROM Cardiovascular: Regular rate and rhythm with no murmurs Pulmonary: Clear to auscultation bilaterally with no crackles, wheezes, or rhonchi. Normal respiratory effort with no use of accessory muscles. Abdomen: Bowel tones present. Soft, nontender, nondistended. Lower abdomen with erythema and skin breakdown. Colostomy on left side of abdomen. Well healed surgical incisions. Genitourinary: Melgar catheter in place. Extremities: No clubbing, cyanosis, edema, or lymphadenopathy appreciated. Right 5th toe with dried blood and healing wound over nail bed. Skin: Erythema and areas of skin breakdown of lower abdomen, groin, flank and buttock. 1.5 to 2cm ulcer with eschar proximal to left malleolus. (improving) Neurological: Cranial nerves grossly intact. Decreased motor strength in lower extremities bilaterally. Atrophy of lower extremities, left > right. Psychiatric: Normal mood and affect. Alert and oriented to person, place, and time. IVs and Medications Medications Reviewed: Medications were reviewed in detail Lab and Diagnostics Result Diagram: 04/05/1691404/05/16914 X-Rays, CTs and MRIs Date of Service: 04/04/161910 PROCEDURE: CT ABDOMEN AND PELVIS WITH CONTRAST ([id number]) INDICATIONS: perineal cellulitis TECHNIQUE: After the administration of intravenous contrast, 5 mm thick sections acquired from the diaphragm to the symphysis. 5 mm coronal and sagittal reformats were acquired. For radiation dose reduction, the following was used: automated exposure control, adjustment of mA and/or kV according to patient size. COMPARISON: [facility], CT, CT ABD PELVIS W CON, 08/04/2015, 8:11. FINDINGS: Image quality: Excellent. ABDOMEN: Lung bases: Lung bases are clear. Heart size is normal. Solid organs: Liver and spleen are normal in size and enhancement. Gallbladder absent or contracted.. Biliary system is non dilated. Pancreas enhances normally. No adrenal nodules. Kidneys demonstrate normal size and enhancement, without hydronephrosis. Peritoneum and bowel: Bowel loops demonstrate normal wall thickness and caliber. No free fluid or air. There is a left-sided ostomy. Ventricular shunt tubing incidentally noted. Normal appendix Nodes and vessels: No retroperitoneal or mesenteric adenopathy by size criteria. Aorta and inferior vena cava are normal in size. Miscellaneous: No ventral hernias. Diffuse muscle atrophy PELVIS: Genitourinary: The bladder is decompressed and a Melgar catheter is present Miscellaneous: No inguinal hernias or adenopathy. No definite perineal stranding. No abscess seen. There is subcutaneous stranding superficial to the initial tuberosities bilaterally however this is grossly unchanged since 08/04/15 Bones: No suspicious bony lesions. Age indeterminate mild anterior wedging of T12, possibly physiologic IMPRESSION: No definite perineal inflammatory stranding or abscess. Normal appendix. No acute abnormality. Dictated by: Tone Inman M.D. on 04/04/2016 at 21:05 Approved by: Tone Inman M.D. on 04/04/2016 at 21:11 Assessment & Plan 46-year-old homeless male with spina bifida with colostomy and urinary incontinence, and Chiari 2 malformation s/p PROGRAMMING DIRECTOR shunt presenting with "skin irritation" to his abdomen, groin and back and admitted for cellulitis. # Cellulitis of lower abdomen, groin. Present on admission. Active -CT abdomen and pelvis reads no definite perineal inflammatory stranding or abscess. -Likely result of prolonged exposure to urine and feces -Pending: Blood cultures, MRSA screen, urine culture -Continue Zosyn and vancomycin. De-escalate with results of tests, cultures -Wound care # Acute bacteremia. poa. - blood culture from admission coming back positive - c/w Abx as noted above and f/u final culture results - ID consult when available # Urinary tract infection, chronic. Present on admission. Active -UA with nitrite, leukocyte esterase, pyuria and bacteria -Urine culture -Antibiotics as noted above # Hyperlactatemia, acute. Present on admission. Resolved -Lactic acid 2.7 on admit # Substance abuse, chronic. Present on admission. Active -Patient reports last using methamphetamine last week -Social work referral for substance abuse and to possibly assist with placement # GERD, chronic. Present on admission -Pantoprazole daily -Maalox PRN # Hypertension, chronic. Present on admission -Currently normotensive -Follow with vitals Dispo: 2-4 days VTE Prophylaxis: Sub-Q Heparin (Unfractionated) VTE Mechanical Devices: Venous Foot Pump Resuscitation Status: CPR: Attempt Resuscitation Time spent 35 min Titi Trevino Apr 06, 2016 16:16
--- NOTE | 2016-04-06 18:21 | NUR ---
wound dressing hospital out of small Mepilex so this RN cut a large Mepilex to cover deep tissue injury. Wound care has been ordered to evaluate.
--- NOTE | 2016-04-06 18:22 | NUR ---
heartburn pt continues to complain of chronic heartburn, doc paged per patient request to get some Prevacid-no response yet. pt given M.O.M. with relief eventually.
[2016-04-06 21:14] VITALS: BP 136/84; PULSE 81; RESP 20; O2SAT 97
--- NOTE | 2016-04-07 00:35 | PCM.PHAPRO ---
Progress Date of Service: Apr 07, 2016 Vancomycin dosing for 46 y/o man O: * The patient is on vancomycin 1000 mg IV every 12 hours * Trough level prior to the fifth dose of vancomycin was 13.8 mcg/mL * SCr was 0.61 mg/dL on 04/05 * MRSA nasal screen is negative * 1/2 blood cultures is positive so far A: * The trough level is appropriate and will likely increase as vancomycin concentrations reaches steady-state * Renal function appears stable P: * Continue current vancomycin dose * Draw another trough level after 3 more doses * Target vancomycin trough range of 15 - 20 mcg/mL due to the positive blood culture * Continue to monitor renal function Thank you. Pharmacy will continue to follow. Mary Anderson, PharmD Mary Anderson Apr 07, 2016 00:35
[2016-04-07 05:43] VITALS: BP 149/101; PULSE 90; RESP 20; O2SAT 98
[2016-04-07] MEDS: Alum-Mag Hydrox-Simeth 30 mL Suspension PO PRN ×3 (05:48→18:02)
--- NOTE | 2016-04-07 07:21 | NUR ---
Acid Reflux Pt complaint of acid reflux all night and received Maalox over the sift PRN. Md communication sent asking for daily antacid.
[2016-04-07 07:33] LABS: BASOPHILS % (AUTO) 0.4 % (0-3); MONOCYTES % (AUTO) 7.2 % (4-12); Mean Corpuscular Hemoglobin 28.6 pg (27.0-35.0); Mean Corpuscular Volume 87.7 fL (81-100); NEUTROPHILS % (AUTO) 44.1 % (40-74); Platelet Count 414 bil/L (150-400)
[2016-04-07 08:28] LABS: Magnesium 2.7 mg/dL (1.6-2.6)
[2016-04-07] MEDS: Vancomycin Dose per Pharmacist XX SCH (08:30)
[2016-04-07] MEDS: Piperacillin-Tazo 3.375 Gm Inj 3.375 GM in Dextrose 5% Minibag Plus 50 ML IV SCH ×2 (09:24→21:34)
[2016-04-07] MEDS: Heparin 5,000 Unit/mL Inj SUBQ SCH ×2 (09:24→17:10)
[2016-04-07] MEDS: Vancomycin Inj 1,000 MG in IV Premix 1 EACH IV SCH ×2 (11:26→23:20)
[2016-04-07 12:16] VITALS: BP 167/101; PULSE 83; RESP 20; O2SAT 97
--- NOTE | 2016-04-07 12:56 | NUR ---
Wound Care Patient seen for wound care evaluation for left leg and left sacrum. Rash to abdomen and groin largely resolved at this time. Patient has tube of moisturizing cream at bedside. Instructed to cont to apply to abdomen and groin as needed for itching and to reduce dry skin. Patient found to have unstageable pressure ulcer to left buttock measuring 2.7cm W x 3.2cm L x 0.1cm D, 100% yellow slough and minimal yellow drainage. Pressure ulcer present on admission. Cleaned wound with NS. Applied aquacel AG and covered with sacral Mepliex. Wound to left lateral leg, however patient reports no known cause but likely trauma. Patient reports he cannot feel that area of his leg. Loose scab covering wound removed with cleaning with 4x4. Wound measures 1cmW x 1cmL x 0.1cmD with 100% beefy red granulation tissue and no drainage. Applied aquacel AG and covered with 1/2 of 4x4 and secured with tape. Feet examined. patient has lost toe nail to right 5th toe. Toe with dark brown/bloody scab present but no apparent open area. Instructed patient in importance of checking feet daily due to no sensation in feet. Instructed patient to wear shoes as much as able to protect feet and to check for sores or areas of redness daily. Due to patient being homeless, self-care is very challenging for patient. Discussed ostomy supplies with patient. He states he goes to pick them up, but does not remember where he gets them. Patient states he typically does not have a problem with leaks using current appliances. Nursing to change wound q48 hours and PRN soiling. Wound care to follow up as needed. Patient instructed to keep weight off of left buttock by resting on right side or fully on left side and avoiding supine position. Pt repositions self toward right side to eat lunch following wound care visit. Recommend continued use of P500 bed and turning q2 hours.
[2016-04-07] MEDS: Pantoprazole 40 mg ER24 Tablet PO SCH (13:05)
[2016-04-07] MEDS ORDERED: 0.9% Sodium Chloride 250 ML ONE (15:05)
[2016-04-07] MEDS: Ondansetron 2 mg/mL 2 mL Inj IVPUSH PRN (15:14)
--- NOTE | 2016-04-07 15:19 | PCM.PNMED ---
Subjective Date of Service Apr 07, 2016 Subjective denies any new issues/complaints Exam Vital Signs Vital Sign - Last Date Time Temp Pulse Resp B/P Pulse Ox O2 Delivery O2 Flow Rate FiO2 04/07/16 12:16 36.8 83 20 167/101 97 Room Air Intake and Output 04/06/16 04/06/16 04/07/16 Cumulative From/Thru 15:00 23:00 07:00 04/04/16 18:48 - 04/06/16 20:14 Intake Total 2363 ml 9684 ml Output Total 4100 ml 39020 ml Balance -1737 ml -816 ml Intake Oral 992 ml 2736 ml IV Total 1371 ml 6948 ml Output Urine Total 4050 ml 9000 ml Stool Total 50 ml 400 ml Emesis 1100 ml # Bowel Movements 1 Exam General: No acute distress, cooperative. alert HEENT: Normocephalic, atraumatic.Anicteric sclerae Neck: Supple. Full ROM Cardiovascular: Regular rate and rhythm with no murmurs Pulmonary: Clear to auscultation bilaterally with no crackles, wheezes, or rhonchi. Normal respiratory effort with no use of accessory muscles. Abdomen: Bowel tones present. Soft, nontender, nondistended. Lower abdomen with erythema and skin breakdown. Colostomy on left side of abdomen. Well healed surgical incisions. Genitourinary: Melgar catheter in place. Extremities: No clubbing, cyanosis, edema, or lymphadenopathy appreciated. Right 5th toe with dried blood and healing wound over nail bed. Skin: Erythema and areas of skin breakdown of lower abdomen, groin, flank and buttock. 1.5 to 2cm ulcer with eschar proximal to left malleolus. (improving) Neurological: Cranial nerves grossly intact. Decreased motor strength in lower extremities bilaterally. Atrophy of lower extremities, left > right. Psychiatric: Normal mood and affect. Alert and oriented to person, place, and time. IVs and Medications Medications Reviewed: Medications were reviewed in detail Lab and Diagnostics Result Diagram: 04/07/1671904/07/16719 X-Rays, CTs and MRIs Date of Service: 04/04/161910 PROCEDURE: CT ABDOMEN AND PELVIS WITH CONTRAST ([id number]) INDICATIONS: perineal cellulitis TECHNIQUE: After the administration of intravenous contrast, 5 mm thick sections acquired from the diaphragm to the symphysis. 5 mm coronal and sagittal reformats were acquired. For radiation dose reduction, the following was used: automated exposure control, adjustment of mA and/or kV according to patient size. COMPARISON: [facility], CT, CT ABD PELVIS W CON, 08/04/2015, 8:11. FINDINGS: Image quality: Excellent. ABDOMEN: Lung bases: Lung bases are clear. Heart size is normal. Solid organs: Liver and spleen are normal in size and enhancement. Gallbladder absent or contracted.. Biliary system is non dilated. Pancreas enhances normally. No adrenal nodules. Kidneys demonstrate normal size and enhancement, without hydronephrosis. Peritoneum and bowel: Bowel loops demonstrate normal wall thickness and caliber. No free fluid or air. There is a left-sided ostomy. Ventricular shunt tubing incidentally noted. Normal appendix Nodes and vessels: No retroperitoneal or mesenteric adenopathy by size criteria. Aorta and inferior vena cava are normal in size. Miscellaneous: No ventral hernias. Diffuse muscle atrophy PELVIS: Genitourinary: The bladder is decompressed and a Melgar catheter is present Miscellaneous: No inguinal hernias or adenopathy. No definite perineal stranding. No abscess seen. There is subcutaneous stranding superficial to the initial tuberosities bilaterally however this is grossly unchanged since 08/04/15 Bones: No suspicious bony lesions. Age indeterminate mild anterior wedging of T12, possibly physiologic IMPRESSION: No definite perineal inflammatory stranding or abscess. Normal appendix. No acute abnormality. Dictated by: Tone Inman M.D. on 04/04/2016 at 21:05 Approved by: Tone Inman M.D. on 04/04/2016 at 21:11 Assessment & Plan 46-year-old homeless male with spina bifida with colostomy and urinary incontinence, and Chiari 2 malformation s/p [employer] shunt presenting with "skin irritation" to his abdomen, groin and back and admitted for cellulitis. # Cellulitis of lower abdomen, groin. Present on admission. Active -CT abdomen and pelvis reads no definite perineal inflammatory stranding or abscess. -Likely result of prolonged exposure to urine and feces -Pending: Blood cultures, MRSA screen, urine culture -Continue Zosyn and vancomycin. De-escalate with results of tests, cultures -Wound care # Acute bacteremia. poa. - blood culture from admission coming back positive - c/w Abx as noted above and f/u final culture results - ID consult when available # Urinary tract infection, chronic. Present on admission. Active -UA with nitrite, leukocyte esterase, pyuria and bacteria -Urine culture -Antibiotics as noted above # Hyperlactatemia, acute. Present on admission. Resolved -Lactic acid 2.7 on admit # Substance abuse, chronic. Present on admission. Active -Patient reports last using methamphetamine last week -Social work referral for substance abuse and to possibly assist with placement # GERD, chronic. Present on admission -Pantoprazole daily -Maalox PRN # Hypertension, chronic. Present on admission -Currently normotensive -Follow with vitals Dispo: 2-4 days VTE Prophylaxis: Sub-Q Heparin (Unfractionated) VTE Mechanical Devices: Venous Foot Pump Resuscitation Status: CPR: Attempt Resuscitation Time spent 25 min Titi Trevino Apr 07, 2016 15:19
--- NOTE | 2016-04-07 18:08 | NUR ---
VIPIN/acid reflux Pt experienced intermittent VIPIN in 2nd half of day shift, pt thinks from acid reflux. Maalox x2 given and zofran given in addition to PO protonix. Pt encouraged to eat conservatively, but ate full dinner and had VIPIN again. Continuing to monitor, aware.
[2016-04-07 21:34] VITALS: BP 148/82; PULSE 87; RESP 18; O2SAT 97
[2016-04-08] MEDS: Heparin 5,000 Unit/mL Inj SUBQ SCH ×3 (00:47→16:28)
[2016-04-08 05:10] VITALS: BP 120/79; PULSE 83; RESP 20; O2SAT 97
--- NOTE | 2016-04-08 05:33 | NUR ---
NOC Activity Pt denies chest pain, sob, n/v or abd discomfort. VSS and has been afebrile overnight. Colostomy reinforced and emptied as needed. Catheter care provided and cleansed perineal area. IV ABx administered as scheduled. Will continue to monitor.
[2016-04-08] MEDS: Pantoprazole 40 mg ER24 Tablet PO SCH (06:37)
[2016-04-08 08:07] VITALS: BP 147/98; PULSE 83; RESP 20; O2SAT 97
[2016-04-08] MEDS: Piperacillin-Tazo 3.375 Gm Inj 3.375 GM in Dextrose 5% Minibag Plus 50 ML IV SCH ×2 (08:27→21:10)
[2016-04-08] MEDS: Vancomycin Dose per Pharmacist XX SCH (08:30)
[2016-04-08] MEDS ORDERED: Vancomycin Serum Trough XX ONE (10:30)
[2016-04-08 13:31] VITALS: BP 148/79; PULSE 88; RESP 20; O2SAT 97
--- NOTE | 2016-04-08 14:26 | PCM.PHAPRO ---
Progress Date of Service: Apr 08, 2016 Vancomycin dosing for 46 y/o man O: The patient is on vancomycin 1000 mg IV every 12 hours Trough level prior to the fifth dose of vancomycin was 13.8 mcg/Ml, and today is 18.7 which is right in range SCr yesterday was 0.81 mg/dL on 04/07 MRSA nasal screen is negative 1/2 blood cultures is positive so far A: The trough level is appropriate Renal function appears stable P: Continue current vancomycin dose which has not yet been given due to patient loosing iv access. Dose scheduled for 11 am currently 1430, nursing to give as soon as new line established and pharmacy to retime Draw another trough level after 3 more doses Target vancomycin trough range of 15 - 20 mcg/mL due to the positive blood culture Continue to monitor renal function Thank you. Pharmacy will continue to follow. Marianela Martinez PharmD Apr 08, 2016 14:26
[2016-04-08] MEDS: Vancomycin Inj 1,000 MG in IV Premix 1 EACH IV SCH (16:28)
--- NOTE | 2016-04-08 16:35 | NUR ---
LASHELL Assumed care of pt at 1500. Per pt report, lashell to Talib pineda changed "a few hours ago." Lashell is CDI. Addendum: 04/08/16 at 1819 by MARILEE TORRE RN ordered cx of wound bed, done this afternoon. Pt tolerated well.
--- NOTE | 2016-04-08 17:06 | PCM.PNMED ---
Subjective Date of Service Apr 08, 2016 Subjective denies any new issues/complaints Exam Vital Signs Vital Sign - Last Date Time Temp Pulse Resp B/P Pulse Ox O2 Delivery O2 Flow Rate FiO2 04/08/16 13:31 36.9 88 20 148/79 97 Room Air Intake and Output 04/07/16 04/07/16 04/08/16 Cumulative From/Thru 15:00 23:00 07:00 04/04/16 18:48 - 04/08/16 06:53 Intake Total 592 ml 1788 ml 746 ml 58991 ml Output Total 2300 ml 2540 ml 1350 ml 40611 ml Balance -1708 ml -752 ml -604 ml -3880 ml Intake Oral 592 ml 670 ml 637 ml 4635 ml IV Total 1118 ml 109 ml 8175 ml Output Urine Total 2200 ml 1400 ml 750 ml 60260 ml Stool Total 100 ml 1140 ml 600 ml 2240 ml Emesis 1100 ml # Bowel Movements 1 Exam General: No acute distress, cooperative. alert HEENT: Normocephalic, atraumatic.Anicteric sclerae Neck: Supple. Full ROM Cardiovascular: Regular rate and rhythm with no murmurs Pulmonary: Clear to auscultation bilaterally with no crackles, wheezes, or rhonchi. Normal respiratory effort with no use of accessory muscles. Abdomen: Bowel tones present. Soft, nontender, nondistended. Lower abdomen with erythema and skin breakdown. Colostomy on left side of abdomen. Well healed surgical incisions. Genitourinary: Melgar catheter in place. Extremities: No clubbing, cyanosis, edema, or lymphadenopathy appreciated. Right 5th toe with dried blood and healing wound over nail bed. Skin: Erythema and areas of skin breakdown of lower abdomen, groin, flank and buttock. 1.5 to 2cm ulcer with eschar proximal to left malleolus. (improving) Neurological: Cranial nerves grossly intact. Decreased motor strength in lower extremities bilaterally. Atrophy of lower extremities, left > right. Psychiatric: Normal mood and affect. Alert and oriented to person, place, and time. IVs and Medications Medications Reviewed: Medications were reviewed in detail Lab and Diagnostics Result Diagram: 04/07/16 0720 04/07/16 0720 X-Rays, CTs and MRIs Date of Service: 04/04/161910 PROCEDURE: CT ABDOMEN AND PELVIS WITH CONTRAST ([id number]) INDICATIONS: perineal cellulitis TECHNIQUE: After the administration of intravenous contrast, 5 mm thick sections acquired from the diaphragm to the symphysis. 5 mm coronal and sagittal reformats were acquired. For radiation dose reduction, the following was used: automated exposure control, adjustment of mA and/or kV according to patient size. COMPARISON: [facility], CT, CT ABD PELVIS W CON, 08/04/2015, 8:11. FINDINGS: Image quality: Excellent. ABDOMEN: Lung bases: Lung bases are clear. Heart size is normal. Solid organs: Liver and spleen are normal in size and enhancement. Gallbladder absent or contracted.. Biliary system is non dilated. Pancreas enhances normally. No adrenal nodules. Kidneys demonstrate normal size and enhancement, without hydronephrosis. Peritoneum and bowel: Bowel loops demonstrate normal wall thickness and caliber. No free fluid or air. There is a left-sided ostomy. Ventricular shunt tubing incidentally noted. Normal appendix Nodes and vessels: No retroperitoneal or mesenteric adenopathy by size criteria. Aorta and inferior vena cava are normal in size. Miscellaneous: No ventral hernias. Diffuse muscle atrophy PELVIS: Genitourinary: The bladder is decompressed and a Melgar catheter is present Miscellaneous: No inguinal hernias or adenopathy. No definite perineal stranding. No abscess seen. There is subcutaneous stranding superficial to the initial tuberosities bilaterally however this is grossly unchanged since 08/04/15 Bones: No suspicious bony lesions. Age indeterminate mild anterior wedging of T12, possibly physiologic IMPRESSION: No definite perineal inflammatory stranding or abscess. Normal appendix. No acute abnormality. Dictated by: Tone Inman M.D. on 04/04/2016 at 21:05 Approved by: Tone Inman M.D. on 04/04/2016 at 21:11 Assessment & Plan 46-year-old homeless male with spina bifida with colostomy and urinary incontinence, and Chiari 2 malformation s/p [place] [employer] shunt presenting with "skin irritation" to his abdomen, groin and back and admitted for cellulitis. # Cellulitis of lower abdomen, groin. Present on admission. Active -CT abdomen and pelvis reads no definite perineal inflammatory stranding or abscess. -Likely result of prolonged exposure to urine and feces -Pending: Blood cultures, - MRSA screen negative -Continue Zosyn - stop vancomycin. -Wound care -ID consulted today. will f/u w/ recs # Acute bacteremia. poa. - blood culture from admission coming back positive - c/w Abx as noted above and f/u final culture results - ID consult as noted # Urinary tract infection, chronic. Present on admission. Active -UA with nitrite, leukocyte esterase, pyuria and bacteria -Urine culture suggests contamination -Antibiotics as noted above # Hyperlactatemia, acute. Present on admission. Resolved -Lactic acid 2.7 on admit # Substance abuse, chronic. Present on admission. Active -Patient reports last using methamphetamine last week -Social work referral for substance abuse and to possibly assist with placement # GERD, chronic. Present on admission -Pantoprazole daily -Maalox PRN # Hypertension, chronic. Present on admission -Currently normotensive -Follow with vitals Dispo: 2-4 days VTE Prophylaxis: Sub-Q Heparin (Unfractionated) VTE Mechanical Devices: Venous Foot Pump Resuscitation Status: CPR: Attempt Resuscitation Time spent 35 min Titi Trevino Apr 08, 2016 17:06
--- NOTE | 2016-04-08 19:45 | PROG NOTE ---
[address] [address] PROGRESS NOTE PATIENT: RAMIREZ HATFIELD : 1970 MR#: [id number] ADMIT: 04/04/2016 JOB ID: [id number] DATE: 04/08/[address] Trevino for this timely consult. REASON FOR CONSULT: Decubitus ulcer and diffuse buttock and perianal inflammation. HISTORY OF PRESENT ILLNESS: The patient is an unfortunate, 46-year-old gentleman with spina bifida whose ability to ambulate is quite limited. He is also anesthetic below the waist and is incontinent of stool in urine. He has a colostomy for stool and uses a Melgar catheter for urine but, unfortunately, often has troubles in terms of taking care of these appliances as he is essentially homeless and has been admitted in the past with basically skin breakdown and irritation from urine and/or stool on his skin. I saw the patient a couple of times last year, most recently in July. At that time, he had inflammation of his buttocks and genital area due to incontinence. We treated him with a short course of oral antibiotics as it was difficult to exclude a soft tissue infection. He improved but, unfortunately, there was no real answer to his living situation so he ended up essentially becoming homeless in a wheelchair again. Most recently he has been staying in a lean-to a friend helped him construct which basically is a piece of plywood over his head and no protection from the cold with limited protection from wind and rain afforded by the plywood over his head. He is hoping to get into [facility], but this as I recall is exactly what he was hoping for seven months ago when we last interacted with him. He continues to have troubles with his colostomy and with fecal soilage. The patient was admitted once again this time on April 04 with issues related to skin breakdown due to urine and stool incontinence. The patient reports he can ambulate small distances but usually is in a wheelchair as his legs are quite weak. He reports that he often has stool and sometimes urine around his groin and buttocks leading to the skin irritation and redness. This has become slowly more irritating and led friends or associates to bring him to the ED where he was admitted on April 04 for possible new infection and/or skin breakdown. Despite all the skin excoriation, inflammation and at least one small ulcer, the patient says he has no fevers, chills, or sweats. He additionally denies any pulmonary or GI symptoms and states he is able to eat without difficulty. He reports he continues to smoke cigarettes, drink alcohol occasionally and use meth when available. PAST MEDICAL HISTORY: 1. Spina bifida with lower extremity weakness which we would best characterize as paraparesis rather than paraplegia as he can use his legs a bit and walk short distances. 2. Diverting colostomy done 2016 at [facility] to facilitate healing of a chronic left buttock wound. 3. Urinary incontinence which is usually managed by either a condom or Melgar catheter. 4. Hydrocephalus with failed DP and VA shunts and a currently functioning VA shunt. 5. Chronic homelessness. SOCIAL HISTORY: The patient smokes cigarettes on a daily basis when he is not in the hospital. He drinks alcohol occasionally and occasionally uses meth. He uses meth by the inhalational route. FAMILY HISTORY: Negative for tuberculosis in parents, siblings or associates. REVIEW OF SYSTEMS: Was done. The patient says he has no headache, sore throat, cough, shortness of breath, chest pain, nausea or vomiting. He has not had increased stool output out of his colostomy, but at times it has not been functioning well and he has had stool all over his lower body. When available, he will use a condom or Melgar catheter. He has no sensation below the waist and is not aware of any painful skin lesions obviously below that level. He can ambulate short distances as was noted. He has noticed no real change in his overall strength. The remainder of the review of systems was done but was negative or noncontributory. PHYSICAL EXAMINATION: Reveals a consistently afebrile gentleman who is currently 36.9 temperature, pulse 88, respiratory rate 20, blood pressure 148/79, saturating well on room air. Examination of oral cavity is unremarkable. No thrush or hairy leukoplakia is noted. The eyes are without conjunctivitis or scleral icterus. Nose is normal. Head without temporal wasting. The patient is quite alert and oriented x3. Neck is supple. Lungs relatively clear anteriorly and posteriorly. Cardiac tones: Regular rate and rhythm without new murmur or gallop. Abdomen is soft and nontender. A colostomy is present and the appliance is well applied at this time. He has a Melgar catheter present. There is diffuse erythema but without any overwhelming evidence of cellulitis which is basically everywhere between his upper thighs and around his buttocks and in the perineal area. This area appears excoriated and inflamed because of the presence of urine and/or feces but is not grossly infected. There is, however, noted a 3 x 2 cm open decubitus ulcer on the left buttock area and it is about 1 cm deep and I did culture the bottom of this area. The lower extremities are weak and somewhat contractured, but the patient can move them and is able to very easily move himself around in bed and stretch his legs or move his legs as needed to facilitate the exam. I did not attempt to watch him walk, but I did on a prior admission and he can ambulate short distances though with some difficulty. He is completely anesthetic below the waist, however. The feet are without evidence of inflammation. There is no edema or skin breakdown around the heels and the area below the knees is free of any of the excoriation or inflammation seen above the knees. LABORATORIES: Include white count 10,000, basically normal diff, platelet count slightly increased to 414,000. Creatinine 0.81. Pro calcitonin is negative x2. Urinalysis with 6-10 white cells. Streptozyme negative. Micro studies include one set of apparently heavily contaminated blood cultures which grew Staph saprophyticus, interestingly, as well as Staph epidermidis and diphtheroids. The other set of blood cultures was sterile. Urine grew mixed giacomo. MRSA screen was negative. IMAGING: Has included an abdominal CT which shows no definite peroneal inflammatory stranding or abscess. IMPRESSION: I see no evidence for ongoing infection in this patient. As before, when I had the opportunity to evaluate him in the summer of 2016, the patient appears to have a lot of soft tissue irritation from living out in the elements and being intermittently incontinent of stool and/or urine and spending time, unfortunately, sitting in his own stool or urine. Essentially all of his skin and soft tissue problems are related to being homeless and living in the elements with poorly fitting or no stool colostomy and/or urinary appliance. At this point, I see nothing that really looks like infection though the decubitus area could, of course, be infected but it appears to have a fairly clean base and no surrounding cellulitis. RECOMMENDATIONS: 1. I have obtained a culture of the decubitus ulcer. 2. I would stop the vancomycin as it will add nothing but toxicity here and the patient is MRSA negative. 3. We can continue short-term with the Zosyn, but I think that a long course of antibiotics will not be indicated here as I am not certain there is any infection. 4. I will check back in two days to see what we found with our culture and to recommend some outpatient antibiotics if needed. 5. The real solution to this patient's issues and frequent admissions, of course, is a place to live rather than expensive medical care. If the patient had a room over his head and a warm and dry environment with as good a fitting colostomy appliance as available, I am almost certain he would not require hospital admission on a recurrent basis. 6. Thank you very much for this consult.
[2016-04-08 21:06] VITALS: BP 127/77; PULSE 92; RESP 20; O2SAT 97
[2016-04-09] MEDS: Heparin 5,000 Unit/mL Inj SUBQ SCH ×4 (00:07→23:18)
[2016-04-09 06:03] VITALS: BP 137/90; PULSE 74; RESP 20; O2SAT 97
--- NOTE | 2016-04-09 06:33 | NUR ---
NOC activity/Wound Care Pt denies chest pain, sob, n/v or abd discomfort. VSS, Afebrile overnight. Wound care to pt's decubitus ulcer provided, cleansed with saline spray and applied aquacell dressing and covered with mepilex per wound care instructions. Hourly rounding done, colostomy emptied as needed.
[2016-04-09] MEDS: Pantoprazole 40 mg ER24 Tablet PO SCH (08:25)
[2016-04-09] MEDS: Piperacillin-Tazo 3.375 Gm Inj 3.375 GM in Dextrose 5% Minibag Plus 50 ML IV SCH ×2 (08:26→21:06)
--- NOTE | 2016-04-09 11:28 | NUR ---
Social Work: Continued d/c planning Data: Pt is on day 5 of hospitalization. EMR reviewed, pt discussed in rounds. MD states pt likely to remain in hospital for at least 2 more days. No d/c planning needs anticipated at this time. ACADEMIC ADVISING DIRECTOR will continue to follow if needs arise. Assessment: Pt who is independent at baseline. Plan: Pt will d/c back to community when medically stable for d/c. No d/c planning needs anticipated at this time. ACADEMIC ADVISING DIRECTOR will continue to follow if needs arise. TONY Engle
[2016-04-09 14:50] VITALS: BP 139/92; PULSE 51; RESP 20; O2SAT 98
--- NOTE | 2016-04-09 17:34 | PCM.PNMED ---
Subjective Date of Service Apr 09, 2016 Subjective denies any new issues/complaints Exam Vital Signs Vital Sign - Last Date Time Temp Pulse Resp B/P Pulse Ox O2 Delivery O2 Flow Rate FiO2 04/09/16 14:50 37.3 51 20 139/92 98 Room Air Intake and Output 04/08/16 04/08/16 04/09/16 Cumulative From/Thru 15:00 23:00 07:00 04/04/16 18:48 - 04/09/16 06:40 Intake Total 1516 ml 700 ml 40538 ml Output Total 2400 ml 1800 ml 18014 ml Balance -884 ml -1100 ml -5864 ml Intake Oral 1172 ml 700 ml 6507 ml IV Total 344 ml 8519 ml Output Urine Total 2200 ml 1800 ml 49672 ml Stool Total 200 ml 0 ml 2440 ml Emesis 1100 ml # Bowel Movements 1 Exam General: No acute distress, cooperative. alert HEENT: Normocephalic, atraumatic.Anicteric sclerae Neck: Supple. Full ROM Cardiovascular: Regular rate and rhythm Pulmonary: Clear to auscultation bilaterally Abdomen: Bowel tones present. Soft, nontender, nondistended. Colostomy on left side of abdomen. Genitourinary: Melgar catheter in place. Extremities: No clubbing, cyanosis, edema, Skin: Erythema and areas of skin breakdown of lower abdomen, groin, flank and buttock much improved compared to admission. Neurological: non-focal. normal speech Psychiatric: Normal mood and affect. Alert and oriented to person, place, and time. IVs and Medications Medications Reviewed: Medications were reviewed in detail Lab and Diagnostics Result Diagram: 04/07/1671904/07/16719 X-Rays, CTs and MRIs Date of Service: 04/04/161910 PROCEDURE: CT ABDOMEN AND PELVIS WITH CONTRAST (PNL-7102) INDICATIONS: perineal cellulitis TECHNIQUE: After the administration of intravenous contrast, 5 mm thick sections acquired from the diaphragm to the symphysis. 5 mm coronal and sagittal reformats were acquired. For radiation dose reduction, the following was used: automated exposure control, adjustment of mA and/or kV according to patient size. COMPARISON: [facility], CT, CT ABD PELVIS W CON, 08/04/2015, 8:11. FINDINGS: Image quality: Excellent. ABDOMEN: Lung bases: Lung bases are clear. Heart size is normal. Solid organs: Liver and spleen are normal in size and enhancement. Gallbladder absent or contracted.. Biliary system is non dilated. Pancreas enhances normally. No adrenal nodules. Kidneys demonstrate normal size and enhancement, without hydronephrosis. Peritoneum and bowel: Bowel loops demonstrate normal wall thickness and caliber. No free fluid or air. There is a left-sided ostomy. Ventricular shunt tubing incidentally noted. Normal appendix Nodes and vessels: No retroperitoneal or mesenteric adenopathy by size criteria. Aorta and inferior vena cava are normal in size. Miscellaneous: No ventral hernias. Diffuse muscle atrophy PELVIS: Genitourinary: The bladder is decompressed and a Melgar catheter is present Miscellaneous: No inguinal hernias or adenopathy. No definite perineal stranding. No abscess seen. There is subcutaneous stranding superficial to the initial tuberosities bilaterally however this is grossly unchanged since 08/04/15 Bones: No suspicious bony lesions. Age indeterminate mild anterior wedging of T12, possibly physiologic IMPRESSION: No definite perineal inflammatory stranding or abscess. Normal appendix. No acute abnormality. Dictated by: Tone Inman M.D. on 04/04/2016 at 21:05 Approved by: Tone Inman M.D. 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 # Cellulitis of lower abdomen, groin. Present on admission. Active -CT abdomen and pelvis reads no definite perineal inflammatory stranding or abscess. -Likely result of prolonged exposure to urine and feces -Pending: Blood cultures, - MRSA screen negative -Continue Zosyn - stopped vancomycin. -Wound care - appreciate ID consult. will f/u w/ recs # Acute bacteremia. poa. - blood culture from admission showing Coag Neg Staph and Diphtheroids - ID consult and Abx as noted # Urinary tract infection, chronic. Present on admission. Active -UA with nitrite, leukocyte esterase, pyuria and bacteria -Urine culture suggests contamination -Antibiotics as noted above # Hyperlactatemia, acute. Present on admission. Resolved -Lactic acid 2.7 on admit # Substance abuse, chronic. Present on admission. Active -Patient reports last using methamphetamine last week -Social work referral for substance abuse and to possibly assist with placement # GERD, chronic. Present on admission -Pantoprazole daily -Maalox PRN # Hypertension, chronic. Present on admission -Currently normotensive -Follow with vitals Dispo: 1-2 days VTE Prophylaxis: Sub-Q Heparin (Unfractionated) VTE Mechanical Devices: Venous Foot Pump Resuscitation Status: CPR: Attempt Resuscitation Time spent 25 min Titi Trevino Apr 09, 2016 17:34
[2016-04-09] MEDS ORDERED: 0.9% Sodium Chloride 250 ML ONE (19:55)
[2016-04-09 20:40] VITALS: BP 149/84; PULSE 88; RESP 20; O2SAT 98
[2016-04-10 04:43] VITALS: BP 153/92; PULSE 93; RESP 20; O2SAT 96
[2016-04-10] MEDS: Pantoprazole 40 mg ER24 Tablet PO SCH ×2 (06:25→08:17)
[2016-04-10] MEDS: Heparin 5,000 Unit/mL Inj SUBQ SCH ×2 (08:15→17:37)
[2016-04-10] MEDS: Piperacillin-Tazo 3.375 Gm Inj 3.375 GM in Dextrose 5% Minibag Plus 50 ML IV SCH ×2 (08:15→20:09)
[2016-04-10] MEDS ORDERED: Vancomycin Serum Trough XX ONE (10:30)
[2016-04-10 14:00] VITALS: BP 139/84; PULSE 88; RESP 20; O2SAT 96
--- NOTE | 2016-04-10 15:55 | PROG NOTE ---
[address] [address] PROGRESS NOTE PATIENT: RAMIREZ HATFIELD : 1970 MR#: [id number] ADMIT: 04/04/2016 JOB ID: [id number] DATE: 04/10/2016 INFECTIOUS DISEASE FOLLOW UP NOTE: REASON FOR FOLLOW UP: Decubitus ulcer right buttock. INTERVAL HISTORY: Overnight, the patient has had no fevers, chills or sweats. He denies any pulmonary or GI symptoms. He does have some degree of perirectal pain which is a chronic problem. PHYSICAL EXAMINATION: Reveals an afebrile gentleman, temperature 36.6, pulse 93, respiratory rate 20, blood pressure 153/92, saturating 96% on room air. He is in no acute distress. Abdomen benign. The decubitus ulcer measuring about 3 x 1 cm has not changed significantly. It is fairly shallow and appears uninfected and it is located just lateral to the anus on the right buttock cheek. The diffuse excoriation and erythema around the groin and genitals is resolving as the patient is here in the hospital with good hygiene and clean bedding. No other notable changes. LABORATORIES: Include a white count of 10,200. Creatinine 0.81. Procalcitonin 0. Micro studies include a nasal screen for MRSA which interestingly was negative. Urine with mixed giacomo. A single blood culture grew two species of coag-negative Staph and diphtheroids, all of which were sensitive to tetracycline. Of greatest interest, however, is the swab that I had done on the decub which grew MRSA. This is a bit surprising in view of the fact that his nasal swab has not grown MRSA and he has not been MRSA positive in the past. IMPRESSION: This patient has a diffuse excoriation and inflammation around the groin and buttock area which is due to be living out in the elements and sitting sometimes in stool and urine. He has problems like this recurrently. It gets better when he is in the hospital. This time he has a significant but fairly shallow ulceration with a clean base and no surrounding significant cellulitis. It does not appear really to be very infected but it is growing MRSA. RECOMMENDATIONS: 1. The patient is on Zosyn and has been for the past six days. I would end this tomorrow night as we will be able to basically complete one week of therapy. 2. I would start the patient on doxycycline 100 p.o. b.i.d. This should be taken for two weeks or so. 3. Nasal mupirocin or Bactroban should be used for the next 10 days. 4. As I have mentioned in this admission and prior notes, the main thing for this patient is to find a place to live where he could take good care of his colostomy, stay clean, dry and out of his own urine and feces. He currently lives in a lean to and basically is subjected to the ravages of the elements plus problems with his colostomy not fitting well and ending up sitting in stool and urine. If this gentleman with paraparesis and spina bifida could be maintained in better surroundings, I think many or all of his admissions could be prevented. 5. ID will go ahead and sign off on this case. There are no longer any active issues. Please do not hesitate to call me back if problems develop.
--- NOTE | 2016-04-10 17:59 | NUR ---
Wound Pt seen at bedside, he reports ostomy appliance is working well. Ulceration at his left buttock is without a dressing on it as dressing has migrated to another part of his anatomy. Wound is cleaned with saline and gauze, unstageable pressure ulcer to left buttock measuring 2.7cm W x 3.2cm L x 0.1cm D, 100% yellow slough and minimal yellow drainage. Redressed with a larger sacral adhesive foam dressing. Spoke to nursing later in the day, nurse reports ostomy appliance not working well, will follow up on that in the am.
[2016-04-10] MEDS: Mupirocin 2% 22 Gm Ointment NASAL SCH (20:09)
[2016-04-10 20:14] VITALS: BP 149/85; PULSE 68; RESP 18; O2SAT 98
[2016-04-11] MEDS: Heparin 5,000 Unit/mL Inj SUBQ SCH ×4 (00:13→23:34)
--- NOTE | 2016-04-11 02:17 | NUR ---
Uneventful Night: Pt rested intermittently through the night with no complaints of pain or discomfort. Denies n/v or SOB. Colostomy empted frequently during the night. Call light within reach, using appropriately. Pleasant and cooperative with care.
[2016-04-11 05:09] VITALS: BP 152/78; PULSE 74; RESP 18; O2SAT 97
[2016-04-11 07:13] LABS: BASOPHILS % (AUTO) 0.6 % (0-3); EOSINOPHILS % (AUTO) 5.5 % (0-5); MONOCYTES % (AUTO) 7.2 % (4-12); Mean Corpuscular Hemoglobin 28.5 pg (27.0-35.0); Mean Corpuscular Volume 88.3 fL (81-100); NEUTROPHILS % (AUTO) 43.5 % (40-74); Platelet Count 390 bil/L (150-400)
[2016-04-11 07:39] LABS: Magnesium 2.2 mg/dL (1.6-2.6)
[2016-04-11] MEDS: Piperacillin-Tazo 3.375 Gm Inj 3.375 GM in Dextrose 5% Minibag Plus 50 ML IV SCH ×2 (08:03→23:26)
[2016-04-11] MEDS: Mupirocin 2% 22 Gm Ointment NASAL SCH ×2 (08:05→21:46)
[2016-04-11] MEDS: Pantoprazole 40 mg ER24 Tablet PO SCH (08:07)
[2016-04-11] MEDS ORDERED: MUPI22OI2 NASAL (09:25)
[2016-04-11] MEDS ORDERED: DOXY100T2 PO (09:25)
[2016-04-11 10:40] VITALS: BP 153/104; PULSE 89; RESP 16; O2SAT 98
--- NOTE | 2016-04-11 11:46 | NUR ---
Evaluation completed. Please go to "Notes" then click on "Assessments and Notes" (bottom left corner of screen). Then select appropriate discipline tab on top of screen.
[2016-04-11 12:58] VITALS: BP 130/84; PULSE 66; RESP 16; O2SAT 99
--- NOTE | 2016-04-11 13:26 | PCM.PNMED ---
Subjective Date of Service Apr 11, 2016 Subjective Pt notes no acute changes. He still feels weaker than his previous baseline. He is none the less able to get around some. Denies fever/chills. Pain at ulcer site is minimal , well tolerated. NO other acute complaints/concerns at time of my exam. Exam Vital Signs Vital Sign - Last Date Time Temp Pulse Resp B/P Pulse Ox O2 Delivery O2 Flow Rate FiO2 04/11/16 12:58 36.8 66 16 130/84 99 Room Air Intake and Output 04/10/16 04/10/16 04/11/16 Cumulative From/Thru 15:00 23:00 07:00 04/04/16 18:48 - 04/11/16 06:43 Intake Total 1300 ml 400 ml 82411 ml Output Total 1800 ml 2600 ml 21785 ml Balance -500 ml -2200 ml -9909 ml Intake Oral 1300 ml 400 ml 68743 ml IV Total 8574 ml Output Urine Total 1400 ml 2000 ml 69168 ml Stool Total 400 ml 600 ml 3940 ml Emesis 1100 ml # Bowel Movements 1 General: Alert, Oriented X3, Cooperative, No Acute Distress Mouth: Mucous Membr Moist/[place] Chest & Lungs: Chest Wall Normal Cardiovascular: Exam Unremarkable Extremities: No cyanosis/clubbing/edma bilat, Other (chronic defmorjtiy opf feet/lower extremity. ) Skin: Other (stable ulceration of perineal region, well healing, no evidence of worsening infection. Good granulation tissue noted. ) Neurological: Other (chornic neurologic defiits, stable from previous exam. ) IVs and Medications Medications Reviewed: Medications were reviewed in detail Lab and Diagnostics Result Diagram: 04/11/16 0704/11/16 07 X-Rays, CTs and MRIs Date of Service: 04/04/161910 PROCEDURE: CT ABDOMEN AND PELVIS WITH CONTRAST ([id number]) INDICATIONS: perineal cellulitis TECHNIQUE: After the administration of intravenous contrast, 5 mm thick sections acquired from the diaphragm to the symphysis. 5 mm coronal and sagittal reformats were acquired. For radiation dose reduction, the following was used: automated exposure control, adjustment of mA and/or kV according to patient size. COMPARISON: [facility], CT, CT ABD PELVIS W CON, 08/04/2015, 8:11. FINDINGS: Image quality: Excellent. ABDOMEN: Lung bases: Lung bases are clear. Heart size is normal. Solid organs: Liver and spleen are normal in size and enhancement. Gallbladder absent or contracted.. Biliary system is non dilated. Pancreas enhances normally. No adrenal nodules. Kidneys demonstrate normal size and enhancement, without hydronephrosis. Peritoneum and bowel: Bowel loops demonstrate normal wall thickness and caliber. No free fluid or air. There is a left-sided ostomy. Ventricular shunt tubing incidentally noted. Normal appendix Nodes and vessels: No retroperitoneal or mesenteric adenopathy by size criteria. Aorta and inferior vena cava are normal in size. Miscellaneous: No ventral hernias. Diffuse muscle atrophy PELVIS: Genitourinary: The bladder is decompressed and a Melgar catheter is present Miscellaneous: No inguinal hernias or adenopathy. No definite perineal stranding. No abscess seen. There is subcutaneous stranding superficial to the initial tuberosities bilaterally however this is grossly unchanged since 08/04/15 Bones: No suspicious bony lesions. Age indeterminate mild anterior wedging of T12, possibly physiologic IMPRESSION: No definite perineal inflammatory stranding or abscess. Normal appendix. No acute abnormality. Dictated by: Tone Inman M.D. on 04/04/2016 at 21:05 Approved by: Tone Inman M.D. 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 # Cellulitis of lower abdomen, groin. Present on admission. Active -CT abdomen and pelvis reads no definite perineal inflammatory stranding or abscess. -Likely result of prolonged exposure to urine and feces -Pending: Blood cultures, - MRSA screen negative -Continue Zosyn while in hospital, plan for 1 time antibiotic dose as per ID recs prior to discharge. - stopped vancomycin. -Wound care - Appreciate ID consult and advice. #Mood disorder/Thoughts of self harm: - As per PT note, pt stated during exam he would take his life if discharged home. We will discuss further, however this must be considered and addressed prior to DC which should be occurring shortly. # Acute bacteremia. poa. - Blood culture from admission showing Coag Neg Staph and Diphtheroids - ID consult and Abx as noted # Urinary tract infection, chronic. Present on admission. Active -UA with nitrite, leukocyte esterase, pyuria and bacteria -Urine culture suggests contamination -Antibiotics as noted above # Hyperlactatemia, acute. Present on admission. Resolved -Lactic acid 2.7 on admit # Substance abuse, chronic. Present on admission. Active -Patient reports last using methamphetamine last week -Social work referral for substance abuse and to possibly assist with placement # GERD, chronic. Present on admission -Pantoprazole daily -Maalox PRN # Hypertension, chronic. Present on admission -Currently normotensive -Follow with vitals Dispo: 1 day either to home (street/homeless) or perhaps psychiatric facility. VTE Prophylaxis: Sub-Q Heparin (Unfractionated) VTE Mechanical Devices: Venous Foot Pump Resuscitation Status: CPR: Attempt Resuscitation Time spent 25 minutes Santana Roberts DO Apr 11, 2016 13:26
--- NOTE | 2016-04-11 13:28 | PCM.PNMED ---
Subjective Date of Service Apr 10, 2016 Subjective Please note, care provided on 04/10/2016 , at which time interview history and physical examination was obtained . Assessment and plan was documented to reflect active planning at time of my evaluation , documentation was delayed one day yet none low last reflex decision making , and clinical assessment on day of examination Pt notes still experiencing no significant pain in region of ulceration, but has been observing during wound care dressing and notes its presence. denies fever/chills overnight. Good appetite. No acute changes over past 24 hours. Exam Vital Signs Vital Sign - Last Date Time Temp Pulse Resp B/P Pulse Ox O2 Delivery O2 Flow Rate FiO2 04/11/16 12:58 36.8 66 16 130/84 99 Room Air Intake and Output 04/10/16 04/10/16 04/11/16 Cumulative From/Thru 15:00 23:00 07:00 04/04/16 18:48 - 04/11/16 06:43 Intake Total 1300 ml 400 ml 97720 ml Output Total 1800 ml 2600 ml 53893 ml Balance -500 ml -2200 ml -9909 ml Intake Oral 1300 ml 400 ml 13606 ml IV Total 8574 ml Output Urine Total 1400 ml 2000 ml 50160 ml Stool Total 400 ml 600 ml 3940 ml Emesis 1100 ml # Bowel Movements 1 Exam General: Alert, Oriented X3, Cooperative, No Acute Distress Mouth: Mucous Membrane Moist/[place] Chest & Lungs: Chest Wall Normal Cardiovascular: Exam Unremarkable Extremities: Chronic deformity of feet/lower extremity. Otherwise well perfused. Skin: Appears to be healing ulceration of perineal region, beefy red tissue with no evidence of worsening infection. Good granulation tissue noted. No odor. Neurological: Chronic neurologic deficits, stable from previous exam. ) IVs and Medications Medications Reviewed: Medications were reviewed in detail Lab and Diagnostics Result Diagram: 04/11/16 0704/11/16 07 X-Rays, CTs and MRIs Date of Service: 04/04/161910 PROCEDURE: CT ABDOMEN AND PELVIS WITH CONTRAST ([id number]) INDICATIONS: perineal cellulitis TECHNIQUE: After the administration of intravenous contrast, 5 mm thick sections acquired from the diaphragm to the symphysis. 5 mm coronal and sagittal reformats were acquired. For radiation dose reduction, the following was used: automated exposure control, adjustment of mA and/or kV according to patient size. COMPARISON: [facility], CT, CT ABD PELVIS W CON, 08/04/2015, 8:11. FINDINGS: Image quality: Excellent. ABDOMEN: Lung bases: Lung bases are clear. Heart size is normal. Solid organs: Liver and spleen are normal in size and enhancement. Gallbladder absent or contracted.. Biliary system is non dilated. Pancreas enhances normally. No adrenal nodules. Kidneys demonstrate normal size and enhancement, without hydronephrosis. Peritoneum and bowel: Bowel loops demonstrate normal wall thickness and caliber. No free fluid or air. There is a left-sided ostomy. Ventricular shunt tubing incidentally noted. Normal appendix Nodes and vessels: No retroperitoneal or mesenteric adenopathy by size criteria. Aorta and inferior vena cava are normal in size. Miscellaneous: No ventral hernias. Diffuse muscle atrophy PELVIS: Genitourinary: The bladder is decompressed and a Melgar catheter is present Miscellaneous: No inguinal hernias or adenopathy. No definite perineal stranding. No abscess seen. There is subcutaneous stranding superficial to the initial tuberosities bilaterally however this is grossly unchanged since 08/04/15 Bones: No suspicious bony lesions. Age indeterminate mild anterior wedging of T12, possibly physiologic IMPRESSION: No definite perineal inflammatory stranding or abscess. Normal appendix. No acute abnormality. Dictated by: Tone Inman M.D. on 04/04/2016 at 21:05 Approved by: Tone Inman M.D. on 04/04/2016 at 21:11 Assessment & Plan 46-year-old homeless male with spina bifida with colostomy and urinary incontinence, and Chiari 2 malformation s/p RN SURGERY ICU shunt presenting with "skin irritation" to his abdomen, groin and back and admitted for cellulitis. # Cellulitis of lower abdomen, groin. Present on admission. Active -CT abdomen and pelvis reads no definite perineal inflammatory stranding or abscess. -Likely result of prolonged exposure to urine and feces -Pending: Blood cultures, - MRSA screen negative -Continue Zosyn at this time, awaiting further recommendations from ID specialist. - stopped vancomycin. -Wound care - Appreciate ID consult and advice. # Acute bacteremia. poa. - Blood culture from admission showing Coag Neg Staph and Diphtheroids - ID consult and Abx as noted # Urinary tract infection, chronic. Present on admission. Active -UA with nitrite, leukocyte esterase, pyuria and bacteria -Urine culture suggests contamination -Antibiotics as noted above # Hyperlactatemia, acute. Present on admission. Resolved -Lactic acid 2.7 on admit # Substance abuse, chronic. Present on admission. Active -Patient reports last using methamphetamine last week -Social work referral for substance abuse and to possibly assist with placement # GERD, chronic. Present on admission -Pantoprazole daily -Maalox PRN # Hypertension, chronic. Present on admission -Currently normotensive -Follow with vitals Dispo: 1-2 days pending antibiotic recommendation from ID regarding DC plan. Please note, care provided on 04/10/2016 , at which time interview history and physical examination was obtained . Assessment and plan was documented to reflect active planning at time of my evaluation , documentation was delayed one day yet none low last reflex decision making , and clinical assessment on day of examination Pain Evaluation: Adequate Pain Control VTE Prophylaxis: Sub-Q Heparin (Unfractionated) VTE Mechanical Devices: Venous Foot Pump Resuscitation Status: CPR: Attempt Resuscitation Time spent 20 minutes Santana Roberts DO Apr 11, 2016 13:28
--- NOTE | 2016-04-11 16:02 | NUR ---
Social Work: Readiness for d/c Data: Pt is on day 7 of hospitalization. EMR reviewed. Pt discussed in rounds. MD states pt likely ready for d/c. PT states that pt reported to them that "if I go back to the streets, I'll off myself". AIDS NURSE notified who states he will request a consult from Psych. AIDS NURSE will continue to follow. Assessment: homeless pt, independent at baseline. Plan: Pt will likely d/c back to homelessness when medically stable, psych to see pt on 04/12/16. AIDS NURSE will continue to follow. TONY Engle
--- NOTE | 2016-04-11 19:13 | NUR ---
Suicidal Ideation, Colostomy Pt had D/C proposed for today. During PT eval, patient stated he would "off himself" if discharged back to the street instead of to a home. Provider notified; psych eval planned for tomorrow. Colostomy leaking; assisted with redressing. Skin intact. Appliance intact at this time.
[2016-04-11 20:46] VITALS: BP 134/78; PULSE 82; RESP 16; O2SAT 98
[2016-04-12 05:12] VITALS: BP 122/81; PULSE 66; RESP 16; O2SAT 99
--- NOTE | 2016-04-12 06:12 | NUR ---
IV Pt IV infiltrated. Removed, intact. New access in Right hand. Call light within reach. No complaints of pain or discomfort during the night. Pleasant and cooperative with care.
[2016-04-12] MEDS: Pantoprazole 40 mg ER24 Tablet PO SCH (06:24)
[2016-04-12] MEDS: Heparin 5,000 Unit/mL Inj SUBQ SCH ×2 (10:29→17:14)
[2016-04-12] MEDS: Mupirocin 2% 22 Gm Ointment NASAL SCH ×2 (10:29→20:38)
[2016-04-12 13:40] VITALS: BP 132/81; PULSE 86; RESP 16; O2SAT 97
--- NOTE | 2016-04-12 15:32 | PCM.PNMED ---
Subjective Date of Service Apr 12, 2016 Subjective Patient is doing overall well, but his responses guarded. Says his relief having Melgar catheter removed. Nonetheless his outlook for future remains weak, and considerations of taking his life should he find himself back on the street are still present. No other acute complaints concerns at this time. As any fever chills over the past 24 hours. Exam Vital Signs Vital Sign - Last Date Time Temp Pulse Resp B/P Pulse Ox O2 Delivery O2 Flow Rate FiO2 04/12/16 14:53 Room Air 04/12/16 13:40 36.6 86 16 132/81 97 Intake and Output 04/11/16 04/11/16 04/12/16 Cumulative From/Thru 15:00 23:00 07:00 04/04/16 18:48 - 04/12/16 06:30 Intake Total 1282 ml 400 ml 85518 ml Output Total 900 ml 0 ml 39562 ml Balance 382 ml 400 ml -9127 ml Intake Oral 1192 ml 400 ml 99031 ml IV Total 90 ml 8664 ml Output Urine Total 400 ml 98373 ml Stool Total 500 ml 0 ml 4440 ml Emesis 1100 ml # Voids 2 3 5 # Bowel Movements 1 Exam General: Alert, Oriented X3, Cooperative, No Acute Distress Mouth: Mucous Membrane Moist/[place] Chest & Lungs: Chest Wall Normal Cardiovascular: Exam Unremarkable Extremities: No cyanosis/clubbing/edema bilaterally,chronic deformity of feet/ lower extremity. Skin: Stable ulceration of perineal region, well healing, no evidence of worsening infection. Good granulation tissue noted. Neurological: Chronic neurologic deficits, stable from previous exam. IVs and Medications Medications Reviewed: Medications were reviewed in detail Lab and Diagnostics Result Diagram: 04/11/1669904/11/16 07 X-Rays, CTs and MRIs Date of Service: 04/04/161910 PROCEDURE: CT ABDOMEN AND PELVIS WITH CONTRAST ([id number]) INDICATIONS: perineal cellulitis TECHNIQUE: After the administration of intravenous contrast, 5 mm thick sections acquired from the diaphragm to the symphysis. 5 mm coronal and sagittal reformats were acquired. For radiation dose reduction, the following was used: automated exposure control, adjustment of mA and/or kV according to patient size. COMPARISON: [facility], CT, CT ABD PELVIS W CON, 08/04/2015, 8:11. FINDINGS: Image quality: Excellent. ABDOMEN: Lung bases: Lung bases are clear. Heart size is normal. Solid organs: Liver and spleen are normal in size and enhancement. Gallbladder absent or contracted.. Biliary system is non dilated. Pancreas enhances normally. No adrenal nodules. Kidneys demonstrate normal size and enhancement, without hydronephrosis. Peritoneum and bowel: Bowel loops demonstrate normal wall thickness and caliber. No free fluid or air. There is a left-sided ostomy. Ventricular shunt tubing incidentally noted. Normal appendix Nodes and vessels: No retroperitoneal or mesenteric adenopathy by size criteria. Aorta and inferior vena cava are normal in size. Miscellaneous: No ventral hernias. Diffuse muscle atrophy PELVIS: Genitourinary: The bladder is decompressed and a Melgar catheter is present Miscellaneous: No inguinal hernias or adenopathy. No definite perineal stranding. No abscess seen. There is subcutaneous stranding superficial to the initial tuberosities bilaterally however this is grossly unchanged since 08/04/15 Bones: No suspicious bony lesions. Age indeterminate mild anterior wedging of T12, possibly physiologic IMPRESSION: No definite perineal inflammatory stranding or abscess. Normal appendix. No acute abnormality. Dictated by: Tone Inman M.D. on 04/04/2016 at 21:05 Approved by: Tone Inman M.D. on 04/04/2016 at 21:11 Assessment & Plan 46-year-old homeless male with spina bifida with colostomy and urinary incontinence, and Chiari 2 malformation s/p LORRY WEIGHER shunt presenting with "skin irritation" to his abdomen, groin and back and admitted for cellulitis. # Cellulitis of lower abdomen, groin. Present on admission. Active -CT abdomen and pelvis reads no definite perineal inflammatory stranding or abscess. -Likely result of prolonged exposure to urine and feces -Pending: Blood cultures, - MRSA screen negative -Continue Zosyn while in hospital, plan for transition to oral antibiotic therapy at time of discharge. - stopped vancomycin. -Wound care consulted. - Appreciate ID consult and advice. #Mood disorder/Thoughts of self harm/suicidal ideation: - Patient continues to experience some thoughts of self-harm . Psychiatric consultation to evaluate further as still pending . We will discuss further, however this must be considered and addressed prior to DC which should be occurring shortly. # Acute bacteremia. poa. - Blood culture from admission showing Coag Neg Staph and Diphtheroids - ID consult and Abx as noted # Urinary tract infection, chronic. Present on admission. Active -UA with nitrite, leukocyte esterase, pyuria and bacteria -Urine culture suggests contamination -Antibiotics as noted above # Hyperlactatemia, acute. Present on admission. Resolved -Lactic acid 2.7 on admit # Substance abuse, chronic. Present on admission. Active -Patient reports last using methamphetamine last week -Social work referral for substance abuse and to possibly assist with placement # GERD, chronic. Present on admission -Pantoprazole daily -Maalox PRN # Hypertension, chronic. Present on admission -Currently normotensive -Follow with vitals Pain Evaluation: Adequate Pain Control VTE Prophylaxis: Sub-Q Heparin (Unfractionated) VTE Mechanical Devices: Venous Foot Pump Resuscitation Status: CPR: Attempt Resuscitation Time spent 25 minutes Santana Roberts DO Apr 12, 2016 15:32
--- NOTE | 2016-04-12 18:22 | NUR ---
Dressing Change/skin Dressing change for R posterior buttock would per intervention notes Q48H. Change pt brief, Dressing had fallen partially off. Open wound had slough build up, used aqua irene and patted dry with 4x4 gauze. Placed Mepilex over as directed, smaller mepilex can be used to limit covering area.
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
[2016-04-12 20:30] VITALS: BP 123/87; PULSE 74; RESP 16; O2SAT 97
[2016-04-13] MEDS: Heparin 5,000 Unit/mL Inj SUBQ SCH ×3 (00:37→16:36)
--- NOTE | 2016-04-13 04:23 | NUR ---
IV PT accidentally pulled IV out of arm, intact. No redness or swelling at site. New access established in left hand. Call light within reach. Pleasant and cooperative with care.
[2016-04-13 05:12] VITALS: BP 120/73; PULSE 66; RESP 16; O2SAT 98
[2016-04-13] MEDS: Pantoprazole 40 mg ER24 Tablet PO SCH (06:46)
[2016-04-13 07:09] LABS: BASOPHILS % (AUTO) 0.6 % (0-3); EOSINOPHILS % (AUTO) 4.9 % (0-5); MONOCYTES % (AUTO) 6.9 % (4-12); Mean Corpuscular Hemoglobin 28.6 pg (27.0-35.0); Mean Corpuscular Volume 89.4 fL (81-100); NEUTROPHILS % (AUTO) 48.8 % (40-74); Platelet Count 400 bil/L (150-400)
[2016-04-13] MEDS: Mupirocin 2% 22 Gm Ointment NASAL SCH ×2 (09:06→21:31)
--- NOTE | 2016-04-13 09:50 | NUR ---
AUDREY signed TONY Engle
[2016-04-13 13:02] VITALS: BP 128/78; PULSE 71; RESP 16; O2SAT 97
--- NOTE | 2016-04-13 17:05 | PCM.PNMED ---
Subjective Date of Service Apr 13, 2016 Subjective Patient is still feeling down, not optimistic about future, overall in stable condition. Denies fever chills overnight. He is eating well, no other acute complaints. Exam Vital Signs Vital Sign - Last Date Time Temp Pulse Resp B/P Pulse Ox O2 Delivery O2 Flow Rate FiO2 04/13/16 14:06 Room Air 04/13/16 13:02 36.5 71 16 128/78 97 Intake and Output 04/12/16 04/12/16 04/13/16 Cumulative From/Thru 15:00 23:00 07:00 04/04/16 18:48 - 04/13/16 06:53 Intake Total 1458 ml 400 ml 03965 ml Output Total 300 ml 250 ml 92788 ml Balance 1158 ml 150 ml -7819 ml Intake Oral 1458 ml 400 ml 25734 ml IV Total 8664 ml Output Urine Total 00642 ml Stool Total 300 ml 250 ml 4990 ml Emesis 1100 ml # Voids 2 3 10 # Bowel Movements 1 Exam General: Alert, Oriented X3, Cooperative, No Acute Distress Mouth: Mucous Membrane Moist/[place] Chest & Lungs: Chest Wall Normal Cardiovascular: Exam Unremarkable Extremities: No cyanosis/clubbing/edema bilaterally,chronic deformity of feet/ lower extremity. Skin: Stable ulceration of perineal region, well healing, no evidence of worsening infection. Good granulation tissue noted. Neurological: Chronic neurologic deficits, stable from previous exam. IVs and Medications Medications Reviewed: Medications were reviewed in detail Lab and Diagnostics Result Diagram: 04/13/1662404/13/16624 X-Rays, CTs and MRIs Date of Service: 04/04/161910 PROCEDURE: CT ABDOMEN AND PELVIS WITH CONTRAST ([id number]) INDICATIONS: perineal cellulitis TECHNIQUE: After the administration of intravenous contrast, 5 mm thick sections acquired from the diaphragm to the symphysis. 5 mm coronal and sagittal reformats were acquired. For radiation dose reduction, the following was used: automated exposure control, adjustment of mA and/or kV according to patient size. COMPARISON: [facility], CT, CT ABD PELVIS W CON, 08/04/2015, 8:11. FINDINGS: Image quality: Excellent. ABDOMEN: Lung bases: Lung bases are clear. Heart size is normal. Solid organs: Liver and spleen are normal in size and enhancement. Gallbladder absent or contracted.. Biliary system is non dilated. Pancreas enhances normally. No adrenal nodules. Kidneys demonstrate normal size and enhancement, without hydronephrosis. Peritoneum and bowel: Bowel loops demonstrate normal wall thickness and caliber. No free fluid or air. There is a left-sided ostomy. Ventricular shunt tubing incidentally noted. Normal appendix Nodes and vessels: No retroperitoneal or mesenteric adenopathy by size criteria. Aorta and inferior vena cava are normal in size. Miscellaneous: No ventral hernias. Diffuse muscle atrophy PELVIS: Genitourinary: The bladder is decompressed and a Melgar catheter is present Miscellaneous: No inguinal hernias or adenopathy. No definite perineal stranding. No abscess seen. There is subcutaneous stranding superficial to the initial tuberosities bilaterally however this is grossly unchanged since 08/04/15 Bones: No suspicious bony lesions. Age indeterminate mild anterior wedging of T12, possibly physiologic IMPRESSION: No definite perineal inflammatory stranding or abscess. Normal appendix. No acute abnormality. Dictated by: Tone Inman M.D. on 04/04/2016 at 21:05 Approved by: Tone Inman M.D. on 04/04/2016 at 21:11 Assessment & Plan 46-year-old homeless male with spina bifida with colostomy and urinary incontinence, and Chiari 2 malformation s/p RN OUTPATIENT SURGERY shunt presenting with "skin irritation" to his abdomen, groin and back and admitted for cellulitis. # Cellulitis of lower abdomen, groin. Present on admission. Active -CT abdomen and pelvis reads no definite perineal inflammatory stranding or abscess. -Likely result of prolonged exposure to urine and feces - MRSA screen negative - Continue Zosyn while in hospital, plan for transition to oral antibiotic therapy at time of discharge. - stopped vancomycin as there is no sign of MRSA -Wound care consulted for treatment while inpatient. - Appreciate ID consulted and appreciate advice. - Patient demonstrated a returning white count past 2 days, he will remain in hospital overnight further evaluation and trending of leukocytosis, anticipate discharge with stable medical condition and downtrending white count as soon as tomorrow. #Mood disorder/Thoughts of self harm/suicidal ideation: - Patient continues to experience some thoughts of self-harm . However following psychiatric consultation and appears not much more can be done for him in inpatient setting and he does not seem a good candidate for inpatient mental health facility. - Psychiatrist recommends outpatient follow-up for further treatment of mood disorder. - Additionally they initiated Prozac yesterday, for treatment of mood disorder, this should be continued on discharge and may be titrated to good effect an outpatient setting. # Acute bacteremia. poa. - Blood culture from admission showing Coag Neg Staph and Diphtheroids - ID consult and Abx as noted # Urinary tract infection, chronic. Present on admission. Active -UA with nitrite, leukocyte esterase, pyuria and bacteria -Urine culture suggests contamination -Antibiotics as noted above # Hyperlactatemia, acute. Present on admission. Resolved -Lactic acid 2.7 on admit # Substance abuse, chronic. Present on admission. Active -Patient reports last using methamphetamine last week -Social work referral for substance abuse and to possibly assist with placement # GERD, chronic. Present on admission -Pantoprazole daily -Maalox PRN # Hypertension, chronic. Present on admission -Currently normotensive -Follow with vitals Disposition: Likely discharge back to Street, with them returning white count as soon as tomorrow. Patient unfortunately has few resources and no alternative placement is available at this time as per social work. Pain Evaluation: Adequate Pain Control VTE Prophylaxis: Sub-Q Heparin (Unfractionated) VTE Mechanical Devices: Venous Foot Pump Resuscitation Status: CPR: Attempt Resuscitation Time spent 20 minutes Santana Roberts DO Apr 13, 2016 17:05
[2016-04-13 21:31] VITALS: BP 149/74; PULSE 73; RESP 16; O2SAT 97
[2016-04-14] MEDS: Heparin 5,000 Unit/mL Inj SUBQ SCH ×3 (01:56→18:09)
--- NOTE | 2016-04-14 03:59 | NUR ---
Dressing change: Mepilex dressing changed to left buttock. Minimal yellow drainage noted to dressing. Pt has been incontinent of urine a couple time thus far this shift, unclear if Mepilex was soiled so the dressing was just changed. Wound washed with saline.
[2016-04-14 05:14] VITALS: BP 138/81; PULSE 83; RESP 16; O2SAT 98
[2016-04-14] MEDS: Pantoprazole 40 mg ER24 Tablet PO SCH (06:16)
[2016-04-14 08:36] LABS: BASOPHILS % (AUTO) 0.6 % (0-3); EOSINOPHILS % (AUTO) 3.9 % (0-5); MONOCYTES % (AUTO) 7.6 % (4-12); Mean Corpuscular Hemoglobin 28.7 pg (27.0-35.0); Mean Corpuscular Volume 89.8 fL (81-100); NEUTROPHILS % (AUTO) 47.1 % (40-74); Platelet Count 420 bil/L (150-400)
[2016-04-14] MEDS: Mupirocin 2% 22 Gm Ointment NASAL SCH ×2 (09:16→20:04)
[2016-04-14 13:30] VITALS: BP 139/90; PULSE 76; RESP 16; O2SAT 97
--- NOTE | 2016-04-14 15:43 | PCM.PNMED ---
Subjective Date of Service Apr 14, 2016 Subjective Leukocytosis persists at 11.2, on doxycycline, patient continues to threaten suicidal ideation if discharged to the streets. Exam Vital Signs Vital Sign - Last Date Time Temp Pulse Resp B/P Pulse Ox O2 Delivery O2 Flow Rate FiO2 04/14/16 13:30 36.8 76 16 139/90 97 Room Air Intake and Output 04/13/16 04/13/16 04/14/16 Cumulative From/Thru 15:00 23:00 07:00 04/04/16 18:48 - 04/13/16 19:21 Intake Total 1192 ml 61705 ml Output Total 900 ml 50528 ml Balance 292 ml -7527 ml Intake Oral 1192 ml 82162 ml IV Total 8664 ml Output Urine Total 450 ml 44737 ml Stool Total 450 ml 5440 ml Emesis 1100 ml # Voids 10 # Bowel Movements 1 Exam General: Alert, Oriented X3, Cooperative, No Acute Distress Mouth: Mucous Membrane Moist/[place] Chest & Lungs: Chest Wall Normal Cardiovascular: Exam Unremarkable abd colostomy in place. Mild erythema around colostomy site Extremities: No cyanosis/clubbing/edema bilaterally,chronic deformity of feet/ lower extremity. Skin: Stable ulceration of perineal region, well healing, no evidence of worsening infection. Good granulation tissue noted. Neurological: Chronic neurologic deficits, stable from previous exam. IVs and Medications Medications Reviewed: Medications were reviewed in detail Lab and Diagnostics Result Diagram: 04/14/1681404/14/16814 X-Rays, CTs and MRIs Date of Service: 04/04/161910 PROCEDURE: CT ABDOMEN AND PELVIS WITH CONTRAST ([id number]) INDICATIONS: perineal cellulitis TECHNIQUE: After the administration of intravenous contrast, 5 mm thick sections acquired from the diaphragm to the symphysis. 5 mm coronal and sagittal reformats were acquired. For radiation dose reduction, the following was used: automated exposure control, adjustment of mA and/or kV according to patient size. COMPARISON: [facility], CT, CT ABD PELVIS W CON, 08/04/2015, 8:11. FINDINGS: Image quality: Excellent. ABDOMEN: Lung bases: Lung bases are clear. Heart size is normal. Solid organs: Liver and spleen are normal in size and enhancement. Gallbladder absent or contracted.. Biliary system is non dilated. Pancreas enhances normally. No adrenal nodules. Kidneys demonstrate normal size and enhancement, without hydronephrosis. Peritoneum and bowel: Bowel loops demonstrate normal wall thickness and caliber. No free fluid or air. There is a left-sided ostomy. Ventricular shunt tubing incidentally noted. Normal appendix Nodes and vessels: No retroperitoneal or mesenteric adenopathy by size criteria. Aorta and inferior vena cava are normal in size. Miscellaneous: No ventral hernias. Diffuse muscle atrophy PELVIS: Genitourinary: The bladder is decompressed and a Melgar catheter is present Miscellaneous: No inguinal hernias or adenopathy. No definite perineal stranding. No abscess seen. There is subcutaneous stranding superficial to the initial tuberosities bilaterally however this is grossly unchanged since 08/04/15 Bones: No suspicious bony lesions. Age indeterminate mild anterior wedging of T12, possibly physiologic IMPRESSION: No definite perineal inflammatory stranding or abscess. Normal appendix. No acute abnormality. Dictated by: Tone Inman M.D. on 04/04/2016 at 21:05 Approved by: Tone Inman M.D. on 04/04/2016 at 21:11 Assessment & Plan 46-year-old homeless male with spina bifida with colostomy and urinary incontinence, and Chiari 2 malformation s/p PARADICHLOROBENZENE TENDER shunt presenting with "skin irritation" to his abdomen, groin and back and admitted for cellulitis. # Cellulitis of lower abdomen, groin. Present on admission. Active -CT abdomen and pelvis reads no definite perineal inflammatory stranding or abscess. -Likely result of prolonged exposure to urine and feces - MRSA screen negative -Currently on doxycycline. Plan to treat for 2 Weeks .Initially treated with Zosyn and vancomycin - Appreciate ID consulted and appreciate advice. - Patient demonstrated a returning white count past 2 days, he will remain in hospital overnight further evaluation and trending of leukocytosis, anticipate discharge with stable medical condition and downtrending white count in 1-2 days #Mood disorder/Thoughts of self harm/suicidal ideation: - Patient continues to experience some thoughts of self-harm . However following psychiatric consultation and appears not much more can be done for him in inpatient setting and he does not seem a good candidate for inpatient mental health facility. - Psychiatrist recommends outpatient follow-up for further treatment of mood disorder. - Additionally they initiated Prozac 04/12, for treatment of mood disorder, this should be continued on discharge and may be titrated to good effect an outpatient setting. # Acute bacteremia. poa. - Blood culture from admission showing Coag Neg Staph and Diphtheroids - ID consult and Abx as noted # Urinary tract infection, chronic. Present on admission. Active -UA with nitrite, leukocyte esterase, pyuria and bacteria -Urine culture suggests contamination -Antibiotics as noted above # Hyperlactatemia, acute. Present on admission. Resolved -Lactic acid 2.7 on admit # Substance abuse, chronic. Present on admission. Active -Patient reports last using methamphetamine last week -Social work referral for substance abuse and to possibly assist with placement # GERD, chronic. Present on admission -Pantoprazole daily -Maalox PRN # Hypertension, chronic. Present on admission -Currently normotensive -Follow with vitals Disposition: Likely discharge back to Street, if leukocytosis continues to improve. Patient unfortunately has few resources and no alternative placement is available at this time as per social work. VTE Prophylaxis: Sub-Q Heparin (Unfractionated) Resuscitation Status: CPR: Attempt Resuscitation Pablo Clay MD Apr 14, 2016 15:43
--- NOTE | 2016-04-14 16:53 | NUR ---
Ostomy Ostomy appliance changed. Skin intact. Only c/o at this time is increased gas production at this time. Pt comfortable at this time and making needs known with call light.
[2016-04-14 20:51] VITALS: BP 124/75; PULSE 67; RESP 16; O2SAT 96
[2016-04-15] MEDS: Heparin 5,000 Unit/mL Inj SUBQ SCH ×2 (01:09→08:38)
[2016-04-15 04:49] VITALS: BP 115/73; PULSE 70; RESP 16; O2SAT 96
[2016-04-15] MEDS: Pantoprazole 40 mg ER24 Tablet PO SCH (06:30)
--- NOTE | 2016-04-15 06:37 | NUR ---
Uneventful Night Pt no complains,denies any pain/SOB/NV/Fever/chills. Colostomy no leaking, Mepilex CDI at left buttock.Alert and orientedx3, pleasant, cooperative,no suicide ideation, sleeping most night. VSS.
[2016-04-15] MEDS: Mupirocin 2% 22 Gm Ointment NASAL SCH (08:38)
[2016-04-15 08:56] LABS: BASOPHILS % (AUTO) 0.6 % (0-3); EOSINOPHILS % (AUTO) 4.4 % (0-5); MONOCYTES % (AUTO) 7.2 % (4-12); Mean Corpuscular Hemoglobin 28.6 pg (27.0-35.0); Mean Corpuscular Volume 89.3 fL (81-100); NEUTROPHILS % (AUTO) 50.2 % (40-74); Platelet Count 390 bil/L (150-400)
[2016-04-15 13:27] VITALS: BP 136/86; PULSE 73; RESP 18; O2SAT 97
[2016-04-15] MEDS ORDERED: FLUO20CA25 PO (13:58)
--- NOTE | 2016-04-15 13:58 | PCM.DIMED ---
Discharge Instructions Date of Service Apr 15, 2016 Dates of Hospitalization Apr 04, 2016 at 22:08 Discharge Diagnosis Discharge Diagnosis perianal cellulitis due to leakage of colostomy bag Medication Instructions Please finish taking Doxycyclin, antibiotics for your infection Please take prozac 20mg everyday You can use Mupirocin ointment on your infected area twice a day Patient Instructions You were hospitalized with infection in your perineal area, which likely due to poor management of colostomy bag, You were recommended to go to assisted and information, resources and transportation were given upon discharge. Please note that it's very important to keep your colostomy bag clean, make sure it's not leaking, change the bag as scheduled. Follow-up plan You will be set up with new primary doctor in Residency clinic. Please follow up in 2weeks. Follow-up with PCP in: 2 weeks Fliippo Levy MD Apr 15, 2016 13:57 Filippo Levy MD Apr 15, 2016 13:57
--- NOTE | 2016-04-15 14:53 | NUR ---
NUTRITION ASSESSMENT ASSESS: Pt is a 46 yo male admitted w/ perirectal cellulitis. Per notes, CT of pts abdomen showed no definite abscess or inflammation; cellulitis likely related to prolonged exposure to urine and feces. Psychiatry is following pt as he states suicidal ideation. Pt continues to have good PO intake w/ 100% of all meals consumed. PMHX: Spinal bifida w/ leg weakness, bowel/bladder incontinence, Chiari 2 malformation s/p SECURITY SYSTEMS INTEGRATOR shunt w/ multiple revisions, prediabetic, HTN, GERD, substance abuse, diverting colostomy. LABS: Reviewed. 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 GI: 800 ml via colostomy SKIN: Inder 21 unstageable PU to left buttock per wound eval. CURRENT WT: 67.2 kg BMI: 25.4 kg/m2 Admit Wt: 70 kg DIET: General PO 100% EST. NEEDS: Wound Kcals: 6501-1408 kcal/day (30-35 kcal/kg BW) Pro: 80-100 g/day (1.2-1.5 g/kg BW) NUTRITION DIAGNOSIS: 1.) Increased nutrient needs related to wound healing as evidenced by unstageable pressure ulcer. NUTRITION INTERVENTION: 1.) Will continue to monitor PO intake. MONITOR / EVAL: PO intake, GI, skin, wt, nutrition status, POC. Will continue to monitor per low nutritional risk guidelines. Addendum: 04/15/16 at [address] Student documentation reviewed and I agree with above note. MOISES.
--- NOTE | 2016-04-15 15:58 | NUR ---
Faxed [facility] form to [facility] for 1600 brain picker. Patient did not bring his wheelchair to hospital and he is [facility]. Addendum: 04/15/16 at 1612 by ALICIA REEVES Patient is not able to be transported via [facility] because he is not eligible for the transportation program anymore. Spoke with DEPARTMENT CHAIR operations supervisor 2nd shift and she okayed wheelchair van through [facility] for return to [facility]. Called and left message at [employer] [facility] with information for brain picker.
--- NOTE | 2016-04-15 17:00 | NUR ---
DISCHARGE Pt discharged this afternoon at 1700 [facility]. Pt states he was admitted with a w/c. RADHA, charge weigher and this RN reviewed all admission notes as well at ER notes which state pt arrived to ED via EMS and no mention of w/c. economic adviser called ED who denied having a w/c. No mention of w/c anywhere in any notes from this stay. Pt transported back to [facility] as he states it "may have been left there." IV dc'd intact. All belongings returned including phone and insulation cupola charger and 3 bags of belongings. Discussed discharge paperwork and all instructions for diet, activity, medications, wound care and follow up which pt reported as understanding.
--- NOTE | 2016-04-15 17:18 | NUR ---
Social Work Discharge: Order for discharge acknowledged. Homeless [facility] resources provided to patient. Patient states having transported to hospital with wheelchair. Patient was brought in by EMT and no documentation of a wheelchair being present with patient upon arrival. Patient now states possibility of wheelchair being at the [facility]. UR specialist coordinated transport to the [facility] today at 5pm. Patient in agreement. No other needs identified at this time. PLAN: [facility] via [facility] transport Ab JIMENEZ
--- NOTE | 2016-04-16 16:46 | PCM.DC.MED ---
Discharge Summary Date of Service Apr 16, 2016 Dates of Hospitalization Date of Hospital Admission Apr 04, 2016 at 22:08 Date of Discharge: Apr 15, 2016 Providers: Admitting Physician: Issa Winn MD Primary Care Physician: [facility] Attending Physician: Issa Winn MD Diagnosis at Time of Discharge Diagnosis at Time of Discharge perianal cellulitis due to leakage of colostomy bag Consultations Psychiatry Procedures XRay, CTs & MRIs Date of Service: 04/04/161910 PROCEDURE: CT ABDOMEN AND PELVIS WITH CONTRAST ([id number]) INDICATIONS: perineal cellulitis TECHNIQUE: After the administration of intravenous contrast, 5 mm thick sections acquired from the diaphragm to the symphysis. 5 mm coronal and sagittal reformats were acquired. For radiation dose reduction, the following was used: automated exposure control, adjustment of mA and/or kV according to patient size. COMPARISON: [facility], CT, CT ABD PELVIS W CON, 08/04/2015, 8:11. FINDINGS: Image quality: Excellent. ABDOMEN: Lung bases: Lung bases are clear. Heart size is normal. Solid organs: Liver and spleen are normal in size and enhancement. Gallbladder absent or contracted.. Biliary system is non dilated. Pancreas enhances normally. No adrenal nodules. Kidneys demonstrate normal size and enhancement, without hydronephrosis. Peritoneum and bowel: Bowel loops demonstrate normal wall thickness and caliber. No free fluid or air. There is a left-sided ostomy. Ventricular shunt tubing incidentally noted. Normal appendix Nodes and vessels: No retroperitoneal or mesenteric adenopathy by size criteria. Aorta and inferior vena cava are normal in size. Miscellaneous: No ventral hernias. Diffuse muscle atrophy PELVIS: Genitourinary: The bladder is decompressed and a Melgar catheter is present Miscellaneous: No inguinal hernias or adenopathy. No definite perineal stranding. No abscess seen. There is subcutaneous stranding superficial to the initial tuberosities bilaterally however this is grossly unchanged since 08/04/15 Bones: No suspicious bony lesions. Age indeterminate mild anterior wedging of T12, possibly physiologic IMPRESSION: No definite perineal inflammatory stranding or abscess. Normal appendix. No acute abnormality. Dictated by: Tone Inman M.D. on 04/04/2016 at 21:05 Approved by: Tone Inman M.D. on 04/04/2016 at 21:11 Brief History History of present illness performed by on 04/04 Patient is a 46-year-old homeless male with spina bifida with colostomy and urinary incontinence, and Chiari 2 malformation s/p EXPLOSIVE ORDNANCE TECHNICIAN shunt presenting with "skin irritation" to his abdomen, groin and back. Of note, the patient has been seen in the ED and been hospitalized in the past for similar issues relating to cellulitis and skin breakdown as a result of ostomy and urinary incontinence. The patient reports that he has been awaiting placement into the [facility] and in the meantime has been staying in a makeshift retirement made of [employer] where he is exposed to the elements. The patient has urinary incontinence and ambulating issues as a result of the spina bifida and reports that he does not have the opportunity to move very much in the makeshift retirement , thus he routinely soils himself. The patient says the skin around his abdomen , groin and flank has become increasingly irritating and painful over the past two or three days which prompted him to visit the ED for further evaluation. The patient denies any drainage or bleeding from these areas; denies fever, chills, abdominal pain, nausea, emesis, dysuria. In the ED, vitals: temp 36.2, HR 89, RR 18 satting 96% on room air, BP 133/83. Notable labs: WBC 11.0, lactic acid 2.7. Patient was started on vancomycin and Zosyn in the ED. Hospital Course 46-year-old homeless male with spina bifida with colostomy and urinary incontinence, and Chiari 2 malformation s/p EXPLOSIVE ORDNANCE TECHNICIAN shunt presenting with "skin irritation" to his abdomen, groin and back and admitted for cellulitis. # Cellulitis of lower abdomen, groin. CT abdomen and pelvis reads no definite perineal inflammatory stranding or abscess, it was thought be the result of prolonged exposure to urine and feces from poor management of colostomy bag with leakage. MRSA screen negative, pt Initially treated with Zosyn and vancomycin then switched to doxycycline. Plan to treat for 2 Weeks per ID consult. #Mood disorder/Thoughts of self harm/suicidal ideation, Patient continues to experience some thoughts of self-harm . However following psychiatric consultation and appears not much more can be done for him in inpatient setting and he does not seem a good candidate for inpatient mental health facility. Psychiatrist recommends outpatient follow-up with [facility] for further treatment of mood disorder. initiated Prozac 04/12, for treatment of mood disorder, continued upon d/c # GERD, chronic. Pantoprazole daily # Hypertension, chronic. Present on admission disposition: pt is undomiciled, therefore, discharge to [facility]" pt was informed about resources regarding his supplies, future follow up, [facility]CP [facility] also arranged prior to d /c Exam Vital Signs (Last) Date Time Temp Pulse Resp B/P Pulse Ox O2 Delivery O2 Flow Rate FiO2 04/15/16 13:27 36.8 73 18 136/86 97 Room Air Exam NAD, comfortably laying down on the bed no JVD, MMM, no LAD RRR, nl s1, s2 no mrg CTAB, no w,c S,ND,NT,normoactive BS+ warm, no edema, pulses 2/2 Test 04/04/16 20:00 04/05/16 02:59 04/06/16 06:05 04/07/16 07:20 Urine Color Yellow (YELLOW) Urine Appearance Cloudy (CLEAR,HAZY) Urine pH 8.5 (5.0-8.0) Urine Specific [place] 1.020 (1.003-1.035) Urine Protein 100mg/dL (NEG,TRACE) Urine Glucose (UA) Negativemg/dL (NEGATIVE) Urine Ketones Tracemg/dL (NEGATIVE) Urine Occult Blood Trace (NEGATIVE) Urine Nitrite Positive (NEGATIVE) Urine Bilirubin Negative (NEGATIVE) Urine Urobilinogen Normalmg/dL (NORMAL) Urine Leukocyte Esterase Moderate (NEGATIVE) Urine RBC 0-2/hpf (0-2) Urine WBC 6-10/hpf (0-5) Urine Epithelial Cells None/hpf (NONE-MOD) Urine Crystals None seen (NONE SEEN) Urine Bacteria Few/hpf (NONE-FEW) Urine Hyaline Casts None/lpf (NONE) Urine Granular Casts None seen (NONE SEEN) Urine Waxy Casts None seen (NONE SEEN) Urine Red Blood Cell Casts None seen (NONE SEEN) Urine White Blood Cell Casts None seen (NONE SEEN) Urine Mucus None seen (None Seen) Urine Trichomonas None seen (NONE SEEN) Urine Yeast None (NONE SEEN) Urinalysis Comment Amorphous sediment Urine Culture Reflexed Indicated Lactic Acid Level 1.8mmol/L (0.4-2.0) Hold Purple Top Tube Received (Received) Hold [place] Top Tube Received (Received) Procalcitonin 0.05ng/mL (0.00-0.08) Test 04/08/16 10:15 04/11/16 07:00 04/15/16 08:30 Vancomycin Level Trough 18.7mcg/mL Magnesium Level 2.2mg/dL (1.6-2.6) White Blood Count 10.3th/mm3 (3.8-10.1) Red Blood Count 4.47mil/mm3 (4.40-5.80) Hemoglobin 12.8g/dL (13.8-17.2) Hematocrit 39.9% (41.0-50.0) Mean Corpuscular Volume 89.3fL (81-100) Mean Corpuscular Hemoglobin 28.6pg (27.0-35.0) Mean Corpuscular Hemoglobin Concent 32.1% (32.0-37.0) Red Cell Distribution Width 17.2% (12.3-15.4) Platelet Count 390bil/L (150-400) Neutrophils (%) (Auto) 50.2% (40-74) Lymphocytes (%) (Auto) 36.6% (14-46) Monocytes (%) (Auto) 7.2% (4-12) Eosinophils (%) (Auto) 4.4% (0-5) Basophils (%) (Auto) 0.6% (0-3) Sodium Level 138mEq/L (134-144) Potassium Level 4.2mEq/L (3.5-5.2) Chloride Level 103mEq/L (97-108) Carbon Dioxide Level 23mmol/L (18-29) Blood Urea Nitrogen 18mg/dL (6-24) Creatinine 0.72mg/dL (0.76-1.27) Estimat Glomerular Filtration Rate 124mL/min (>59) Glucose Level 117mg/dL (60-99) Calcium Level 8.9mg/dL (8.5-10.1) Total Bilirubin 0.2mg/dL (0.0-1.2) Aspartate Amino Transf (AST/SGOT) 27U/L (0-50) Alanine Aminotransferase (ALT/SGPT) 39U/L (0-44) Alkaline Phosphatase 77U/L (25-150) Total Protein 6.4g/dL (6.4-8.4) Albumin 3.6g/dL (3.4-5.0) Discharge Medications Discharge Medications Doxycycline Hyclate (Doxycycline Hyclate) 100 Mg Tablet 100 MG PO BID Prescribed by: FELICIA FONG DO Fluoxetine (Fluoxetine) 20 Mg Capsule 20 MG PO DAILY Prescribed by: FILIPPO YEN MD Mupirocin (Mupirocin Ointment) 22 Gm Oint...g. 1 APPLIC NASAL BID Prescribed by: FELICIA FONG,DO Additional med instructions Please finish taking Doxycyclin, antibiotics for your infection Please take prozac 20mg everyday You can use Mupirocin ointment on your infected area twice a day Followup Plan Disposition: [facility] Follow-up plan You will be set up with new primary doctor in [facility]. Please follow up in 2weeks. Patient Instructions You were hospitalized with infection in your perineal area, which likely due to poor management of colostomy bag, You were recommended to go to retirement and information, resources and transportation were given upon discharge. Please note that it's very important to keep your colostomy bag clean, make sure it's not leaking, change the bag as scheduled. Follow-up with PCP in: 2 weeks Time spent 65min Filippo Yen MD Apr 16, 2016 16:46
== END 2016-04-15 17:06 | disposition home or self-care (01) | DRG 603 ==
LOC: EDUNIT# 18:31 → SED 18:31 → EDBD 18:31 → MPC 22:08 → OBSVTOIN 22:08
PROVIDERS: ADMIT Hospitalist; ATTEND Hospitalist
DX: L03.314 Cellulitis of groin (principal); E87.2 Acidosis; R78.81 Bacteremia; G82.20 Paraplegia, unspecified; N39.0 Urinary tract infection, site not specified; R45.851 Suicidal ideations; L89.320 Pressure ulcer of left buttock, unstageable; F39 Unspecified mood [affective] disorder; K21.9 Gastro-esophageal reflux disease without esophagitis; F17.200 Nicotine dependence, unspecified, uncomplicated; R32 Unspecified urinary incontinence; I10 Essential (primary) hypertension; Z59.0 Homelessness; Q07.01 Arnold-Chiari syndrome with spina bifida; Z93.3 Colostomy status

== ENCOUNTER 2016-04-15 17:37 | Emergency (ER) | payer MEDICARE, MEDICAID ==
[~2016-04-15] VITALS: Ht 162.6 cm; Wt 72.0 kg
[~2016-04-15 17:37] MED LIST changes: -AGM875T PO; +DOXY100T2 PO; +FLUO20CA25 PO; +MUPI22OI2 NASAL
[2016-04-15 17:59] VITALS: PULSE 80; RESP 18; O2SAT 100
--- NOTE | 2016-04-15 19:04 | ED.REPORT ---
HPI-General Illness Date of Service Apr 15, 2016 ED Provider: Raman May MD A 46 year old male with a history of colostomy, spina bifida, hypertension, and GERD was referred to the ED from the [facility]. The pt was discharged from the hospital today and told that he had a bed at [facility]. When he arrived at [facility], he was informed that there was no bed and told to come back to the ED. Pt states that he has "nowhere to go" and is "stuck here." Nursing Notes Stated Complaint: NO BED AT [facility], WAS TOLD TO COME TO ER Chief Complaint: General Complaint Nursing Notes Reviewed: Yes Allergies: Coded Allergies: No Known Allergies (Verified Allergy, Unknown, 04/05/16) Scheduled Doxycycline Hyclate (Doxycycline Hyclate) 100 Mg Tablet 100 MG PO BID Fluoxetine (Fluoxetine) 20 Mg Capsule 20 MG PO DAILY Mupirocin (Mupirocin Ointment) 22 Gm Oint...g. 1 APPLIC NASAL BID General Time Seen by MD: 18:23 Chief Complaint Other (Homelessness) Hx Obtained From: Patient Arrived By: Wheelchair Sudden in Onset?: No Recent Healthcare: Recent doctor visit, Recent hospitalization Similar Sx Previous: Yes Past Medical History Past Medical History Notes: PCP: [facility] Past Medical History Spina bifida History of abdominal wall cellulitis July 2015, resolved (treated with zinc and Zosyn initially, switch to by mouth Augmentin, resolved) GERD History of substance abuse per EMR skin breakdown of buttocks, s/p diveriting colostomy Chiari 2 malformation s/p PICKER MACHINE OPERATOR shunt with revision in 2001 prediabetic Substance abuse: Amphetamine, ETOH, tobacco. Reports: Hypertension Past Surgical History Diverting colostomy Shunt revisions Smoking History Current Every Day Smoker Social History Homeless per notes Alcohol Use: 1-3 per week Drug Use: In recovery, THC Other Social History: Poor social support, Homeless Ambulatory Status Wheelchair Review of Systems no bed at [facility] Full Review of Systems Constitutional: Denies: Fever Cardiovascular: Denies: Chest pain GI: Denies: Abdominal pain Musculoskeletal: Denies: Back pain Skin: Denies Rash Complete sys rev & neg: except as marked. Physical Exam Vital Signs Vital Signs Date Time Temp Pulse Resp B/P Pulse Ox O2 Delivery O2 Flow Rate FiO2 04/15/16 17:59 36.0 80 18 100 Room Air Initial VS: Reviewed General/Constitutional: Awake, Alert disheveled wheelchair-bound Head / Eyes: Atraumatic, Normocephalic, PERRL, EOMI ENT: Atraumatic, Airway patent, Mucous membranes moist Neck: Atraumatic, Full range of motion Respiratory / Chest: Atraumatic, No respiratory distress Cardiovascular: Heart rate NL Abdomen: Atraumatic Back: Atraumatic, Full range of motion Upper Extremities Upper Extremity / MS: Atraumatic, Full range of motion Lower Extremity / Pelvis / MS: Atraumatic Skin: Atraumatic, Color NL, Warm, Dry Neurologic: Oriented X3, Speech NL, No sensory deficits Psychiatric: Affect NL, Mood NL Re-Eval/Medical Decision Med Decision/Clinical Course 46-year-old male who was discharged today from the hospital plan to go to [facility]. He went there and they did not have any beds and told him to come here. He is requesting a place to stay. I consulted the case management social worker who informed me there is no housing options for him at this time. He will unfortunately have to be discharged to the streets. He is advised to check with [facility] again tomorrow. Return precautions given. Source of Hx: Old records Time of Eval: 18:23 Re-Evaluation/Progress Note: Pt informed of the plan for discharge during the intial interview. The pt understands and agrees with the plan. All questions are addressed at this time. Counseled Regarding: Diagnosis, Need for follow-up, When/why to return to ED Discharge & Departure Primary Impression: Homelessness Disposition: Home Discharge Condition All VS Reviewed: Yes Condition: Stable Additional Instructions: Thank you for entrusting us with your care today. Check back with the [facility] tomorrow morning to see if they have a bed at that point. Return to the emergency department if you develop any new or worsening symptoms. Referrals: [facility] (PCP) Marleni Attestation Portions of this note were transcribed by Hue De León. I, Dr. May personally performed the history, physical exam and medical decision-making; I reviewed and confirmed the accuracy of the information in the transcribed note. Signed by: Marleni Kerr, 04/15/2016 and 19:57. copies to: [facility] Rmaan May MD Apr 15, 2016 19:04 HUE DE LEÓN Apr 15, 2016 19:10
== END 2016-04-15 19:19 | disposition home or self-care (01) ==
LOC: SED 17:37
DX: Z59.0 Homelessness (principal); K21.9 Gastro-esophageal reflux disease without esophagitis; I10 Essential (primary) hypertension; F17.200 Nicotine dependence, unspecified, uncomplicated

== ENCOUNTER 2016-04-16 20:22 | Emergency (ER) | payer MEDICARE, MEDICAID ==
[2016-04-16 20:30] VITALS: BP 145/96; PULSE 102; RESP 16; O2SAT 98
--- NOTE | 2016-04-16 20:34 | ED.REPORT ---
HPI-General Illness Date of Service Apr 16, 2016 ED Provider: MD Jose This is a 46 year old male with a history of spina bifida presenting to the emergency department complaining of pain at ostomy site that worsened today. Also reports diffuse myalgias and low back pain. Denies fever, chills, nausea, vomiting, constipation, diarrhea, cough, or shortness of breath. Pt is homeless Nursing Notes Stated Complaint: COLOSTOMY ISSUE Chief Complaint: General Complaint Nursing Notes Reviewed: Yes Allergies: Coded Allergies: No Known Allergies (Verified Allergy, Unknown, 04/05/16) Scheduled Doxycycline Hyclate (Doxycycline Hyclate) 100 Mg Tablet 100 MG PO BID Fluoxetine (Fluoxetine) 20 Mg Capsule 20 MG PO DAILY Mupirocin (Mupirocin Ointment) 22 Gm Oint...g. 1 APPLIC NASAL BID General Time Seen by MD: 20:34 Chief Complaint Other Hx Obtained From: Patient Arrived By: Walk-in Sudden in Onset?: Yes Onset Occurred: Yesterday Symptom Duration: Since onset Severity: Current: Mild Recent Healthcare: No recent doctor visit, No recent hospitalization Similar Sx Previous: No Past Medical History Past Medical History Notes: PCP: [facility] Past Medical History Spina bifida History of abdominal wall cellulitis July 2015, resolved (treated with zinc and Zosyn initially, switch to by mouth Augmentin, resolved) GERD History of substance abuse per EMR skin breakdown of buttocks, s/p diveriting colostomy 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 Reports: Hypertension Past Surgical History Diverting colostomy Shunt revisions Smoking History Current Every Day Smoker Social History Homeless per notes Alcohol Use: 1-3 per week Drug Use: In recovery, THC Other Social History: Poor social support, Homeless Ambulatory Status Wheelchair Review of Systems Full Review of Systems Constitutional: Reports: Malaise, Denies: Chills, Fever Respiratory: Denies: Non-productive cough, Shortness of breath GI: Denies: Nausea, Vomiting Male: Denies Dysuria Complete sys rev & neg: except as marked. Physical Exam Vital Signs Vital Signs Date Time Temp Pulse Resp B/P Pulse Ox O2 Delivery O2 Flow Rate FiO2 04/16/16 23:07 36.8 94 16 105/84 99 Room Air 04/16/16 23:06 94 16 105/84 99 Room Air 04/16/16 20:30 36.8 102 16 145/96 98 Room Air Initial VS: Reviewed Head / Eyes: Atraumatic, Normocephalic, PERRL ENT: Mucous membranes moist, Conjunctiva normal, No scleral icterus Neck: Supple, Non-tender, Full range of motion Respiratory: Breath sounds normal, Clear to auscultation, No respiratory distress Cardiovascular: Regular rate & rhythm, Heart sounds normal, Intact distal pulses Extremities: Vascular intact, No swelling, No tenderness Skin: Warm, Dry, No cyanosis Psychiatric: Mood/affect normal, Behavior normal, Normal thought content General/Constitutional: Awake, Alert Abdomen: Soft, No rebound Erythema with surrounding excoriation at ostomy site. Neurologic: Oriented X3, Speech NL Chronic neurologic deficits Interpretation & Diagnostics Lab Results Interpretation Result Diagram: 04/16/16205004/16/162050 Test 04/16/16 20:51 04/16/16 21:57 White Blood Count 15.1th/mm3 (3.8-10.1) Red Blood Count 5.25mil/mm3 (4.40-5.80) Hemoglobin 15.2g/dL (13.8-17.2) Hematocrit 45.7% (41.0-50.0) Mean Corpuscular Volume 87.0fL (81-100) Mean Corpuscular Hemoglobin 29.0pg (27.0-35.0) Mean Corpuscular Hemoglobin Concent 33.3% (32.0-37.0) Red Cell Distribution Width 17.3% (12.3-15.4) Platelet Count 454bil/L (150-400) Neutrophils (%) (Auto) 72.8% (40-74) Lymphocytes (%) (Auto) 19.3% (14-46) Monocytes (%) (Auto) 6.5% (4-12) Eosinophils (%) (Auto) 0.8% (0-5) Basophils (%) (Auto) 0.3% (0-3) Sodium Level 134mEq/L (134-144) Potassium Level 4.0mEq/L (3.5-5.2) Chloride Level 97mEq/L (97-108) Carbon Dioxide Level 21mmol/L (18-29) Blood Urea Nitrogen 23mg/dL (6-24) Creatinine 0.79mg/dL (0.76-1.27) Estimat Glomerular Filtration Rate 111mL/min (>59) Glucose Level 111mg/dL (60-99) Calcium Level 9.1mg/dL (8.5-10.1) Total Bilirubin 0.2mg/dL (0.0-1.2) Aspartate Amino Transf (AST/SGOT) 17U/L (0-50) Alanine Aminotransferase (ALT/SGPT) 35U/L (0-44) Alkaline Phosphatase 95U/L (25-150) Total Protein 7.5g/dL (6.4-8.4) Albumin 3.8g/dL (3.4-5.0) Hold Mock Top Tube Received (Received) Urine Color Yellow (YELLOW) Urine Appearance Hazy (CLEAR,HAZY) Urine pH 5.5 (5.0-8.0) Urine Specific [place] 1.030 (1.003-1.035) Urine Protein Negativemg/dL (NEG,TRACE) Urine Glucose (UA) Negativemg/dL (NEGATIVE) Urine Ketones Negativemg/dL (NEGATIVE) Urine Occult Blood Trace (NEGATIVE) Urine Nitrite Negative (NEGATIVE) Urine Bilirubin Negative (NEGATIVE) Urine Urobilinogen Normalmg/dL (NORMAL) Urine Leukocyte Esterase Trace (NEGATIVE) Urine RBC 0-2/hpf (0-2) Urine WBC 6-10/hpf (0-5) Urine Epithelial Cells Moderate/hpf (NONE-MOD) Urine Crystals None seen (NONE SEEN) Urine Bacteria Moderate/hpf (NONE-FEW) Urine Hyaline Casts 5/20/lpf (NONE) Urine Granular Casts None seen (NONE SEEN) Urine Waxy Casts None seen (NONE SEEN) Urine Red Blood Cell Casts None seen (NONE SEEN) Urine White Blood Cell Casts None seen (NONE SEEN) Urine Mucus Present (None Seen) Urine Trichomonas None seen (NONE SEEN) Urine Yeast None (NONE SEEN) Urinalysis Comment None Urine Culture Reflexed Indicated Re-Eval/Medical Decision Med Decision/Clinical Course 46-year-old male with very mild appearing cellulitis around his ostomy site as well as evidence of a urinary tract infection. No indicators of sepsis. He was tachycardic on presentation however this came down to about 95. He tells me that he had to use his wheelchair and wheeled himself up a hill before getting her hospital anything since with heart rate was fast. Otherwise heart rate came down to the 90s. He was never tachypneic or hypotensive. He does have a mild leukocytosis but otherwise labs look good. I will place him on a course of Keflex and Bactrim. This should cover staph and strep to the anterior abdominal wall as well as urinary tract pathogens. Short course of [place] present provided as a take home pack. Recommended close outpatient follow -up. Counseled Regarding: Diagnosis, Lab results, Need for follow-up Discharge & Departure Primary Impression: Abdominal wall cellulitis Additional Impression: UTI (urinary tract infection) Urinary tract infection type: acute cystitis Hematuria presence: without hematuria Qualified Code: N30.00 - Acute cystitis without hematuria Disposition: Home Discharge Condition All VS Reviewed: Yes Condition: Stable Patient Instructions: Cellulitis (ED), Urinary Tract Infection in Men (ED) Additional Instructions: Take Keflex 4 times daily for 5 days. Take Bactrim twice daily for 5 days. These are both for your urinary tract infection as well as the abdominal wall cellulitis. Take 1-2 [place] every 6 hours as needed for the pain. Do not drive or drink alcohol or consume acetaminophen for taking the [place]. You do have an elevated white blood cell count 80 be followed up with. I would like to set up a follow-up with [facility] for the next 2-3 days. Return to the department for any problems or any worsening symptoms. Referrals: [facility] (PCP) Scribe Attestation Portions of this note were transcribed by Robe Cardona. I, Dr. Garcia personally performed the history, physical exam and medical decision-making; I reviewed and confirmed the accuracy of the information in the transcribed note. Signed by: Robe Cardona. 04/16/2016, 03:00. Artemio Garcia DO Apr 16, 2016 20:34 ROBE CARDONA Apr 16, 2016 20:44
[2016-04-16] MEDS ORDERED: HYDROcodone-APAP 5-325 mg Tablet PO ONE (20:45)
[2016-04-16 21:01] LABS: BASOPHILS % (AUTO) 0.3 % (0-3); EOSINOPHILS % (AUTO) 0.8 % (0-5); MONOCYTES % (AUTO) 6.5 % (4-12); NEUTROPHILS % (AUTO) 72.8 % (40-74); Platelet Count 454 bil/L (150-400)
[2016-04-16] MEDS ORDERED: _HYDROcodone/APAP 5-325 mg Tablet PO PRN (21:50)
[2016-04-16 22:08] LABS: APPEARANCE,URINE HAZY (CLEAR,HAZY); COLOR,URINE YELLOW (YELLOW)
[2016-04-16 22:09] LABS: OCCULT BLOOD,URINE TRACE (NEGATIVE); PH,URINE 5.5 (5.0-8.0); UROBILINOGEN,URINE NORMAL (NORMAL)
[2016-04-16] MEDS ORDERED: Trimethoprim-Sulfa 160 mg-800 mg Tablet PO ONE (22:40)
[2016-04-16 23:06] VITALS: BP 105/84; PULSE 94; RESP 16; O2SAT 99
[2016-04-16 23:07] VITALS: BP 105/84; PULSE 94; RESP 16; O2SAT 99
== END 2016-04-16 23:08 | disposition home or self-care (01) ==
LOC: SED 20:22 → EDBD 20:22 → SED 23:08
DX: L03.311 Cellulitis of abdominal wall (principal); N30.00 Acute cystitis without hematuria; M54.5 Low back pain; M79.1 Myalgia; K21.9 Gastro-esophageal reflux disease without esophagitis; I10 Essential (primary) hypertension; F17.200 Nicotine dependence, unspecified, uncomplicated; Z59.0 Homelessness; Z93.3 Colostomy status

== ENCOUNTER 2016-06-01 17:00 | Emergency (ER) | payer MEDICARE, MEDICAID ==
[~2016-06-01] VITALS: Ht 162.6 cm; Wt 72.7 kg
[2016-06-01 17:06] VITALS: BP 133/84; PULSE 96; RESP 18; O2SAT 100
--- NOTE | 2016-06-01 17:21 | ED.REPORT ---
HPI-General Illness Date of Service Jun 01, 2016 ED Provider: Nursing Notes Stated Complaint: COLOSTOMY SUPPLIES Chief Complaint: General Complaint Allergies: Coded Allergies: No Known Allergies (Verified Allergy, Unknown, 04/05/16) Scheduled Doxycycline Hyclate (Doxycycline Hyclate) 100 Mg Tablet 100 MG PO BID Fluoxetine (Fluoxetine) 20 Mg Capsule 20 MG PO DAILY Mupirocin (Mupirocin Ointment) 22 Gm Oint...g. 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 Reports: Hypertension Past Surgical History Diverting colostomy Shunt revisions Smoking History Current Every Day Smoker Social History Homeless per notes Alcohol Use: 1-3 per week Drug Use: In recovery, THC Other Social History: Poor social support, Homeless Ambulatory Status Wheelchair Physical Exam Vital Signs Vital Signs Date Time Temp Pulse Resp B/P Pulse Ox O2 Delivery O2 Flow Rate FiO2 06/01/16 17:06 36.8 96 18 133/84 100 Room Air Discharge & Departure Referrals: [facility] (PCP) Raman May MD Jun 01, 2016 17:21
--- NOTE | 2016-06-01 18:07 | ED.REPORT ---
HPI-General Illness Date of Service Jun 01, 2016 ED Provider: Raman May MD This is a 46 year old homeless male with a history of spina bifida with colostomy and urinary incontinence, Chiari 2 malformation s/p LEARNING DEVELOPER shunt , GERD, HTN, substance abuse presenting to the emergency department via EMS after found in urine and feces just prior to arrival. Patient is homeless and reports he is out of colostomy supplies. Recent admission 04/04-04/16/16 due to perianal cellulitis. Pt was provided with housing resources at last visit. However, pt states he is homeless at this time. He is no longer living with the roommate he was placed with and states, "On pay day I do mine and he does his thing." Patient is unable to provide additional information when questioned about this. Of note, [facility] report states: "utilize ED for emergent situations only, PCP almost always has same day appointments, patient is able to get ostomy supplies with PCP, pt is connected with Wound Care, BARIATRIC NURSE for consult for community resources." Nursing Notes Stated Complaint: COLOSTOMY SUPPLIES Chief Complaint: General Complaint Nursing Notes Reviewed: Yes Allergies: Coded Allergies: No Known Allergies (Verified Allergy, Unknown, 04/05/16) Scheduled Doxycycline Hyclate (Doxycycline Hyclate) 100 Mg Tablet 100 MG PO BID Fluoxetine (Fluoxetine) 20 Mg Capsule 20 MG PO DAILY Mupirocin (Mupirocin Ointment) 22 Gm Oint...g. 1 APPLIC NASAL BID General Time Seen by MD: 18:06 Chief Complaint Other Hx Obtained From: Patient Arrived By: Walk-in Sudden in Onset?: Yes Onset Occurred: Yesterday Symptom Duration: Since onset Severity: Current: Mild Pertinent Negative: Pt denies other symptoms Recent Healthcare: No recent doctor visit, No recent hospitalization Similar Sx Previous: No Past Medical History Past Medical History Notes: PCP: [facility] Past Medical History Spina bifida History of abdominal wall cellulitis July 2015, resolved (treated with zinc and Zosyn initially, switch to by mouth Augmentin, resolved) GERD History of substance abuse per EMR skin breakdown of buttocks, s/p diveriting colostomy Chiari 2 malformation s/p LEARNING DEVELOPER shunt with revision in 2001 prediabetic Substance abuse: Amphetamine, ETOH, tobacco. Reports: Hypertension Past Surgical History Diverting colostomy Shunt revisions Smoking History Current Every Day Smoker Social History Homeless per notes Alcohol Use: 1-3 per week Drug Use: In recovery, THC Other Social History: Poor social support, Homeless Ambulatory Status Wheelchair Review of Systems Full Review of Systems Constitutional: Denies: Chills, Fever Complete sys rev & neg: except as marked. Physical Exam Vital Signs Vital Signs Date Time Temp Pulse Resp B/P Pulse Ox O2 Delivery O2 Flow Rate FiO2 06/01/16 17:06 36.8 96 18 133/84 100 Room Air Initial VS: Reviewed Head / Eyes: Atraumatic, Normocephalic, PERRL ENT: Mucous membranes moist, Conjunctiva normal, No scleral icterus Neck: Supple, Non-tender, Full range of motion Respiratory: Breath sounds normal, Clear to auscultation, No respiratory distress Cardiovascular: Regular rate & rhythm, Heart sounds normal, Intact distal pulses Abdomen / GI: Soft, Non-tender, No guarding, No rebound, No distention Extremities: Vascular intact, Neuro intact Neurologic: Alert Psychiatric: Mood/affect normal, Behavior normal, Normal thought content Lower Extremity / Pelvis / MS: Neurologic intact, Vascular intact Bilateral lower extremities are edematous and erythematous which is unchanged from usual examination Skin: Warm, Dry Stage III decubitus ulcer to the L of sacrum with granulation tissue, no surroudning erythema or edema. Re-Eval/Medical Decision Med Decision/Clinical Course 46-year-old male frequent utilizer of the emergency department with past medical history of spina bifida, colostomy, homelessness here with concern for ulcer on his sacrum. Differential diagnosis includes but is not limited to sacral decub versus cellulitis versus malingering versus misuse of the emergency department. I have seen this patient several times, and his sacral decubitus ulcer actually looks much better than it usually does. Additionally, the blistering in his groin and stomach also look vastly improved from the last several times I have seen him. He has no signs of sepsis at this time, with no hypotension, no tachycardia, no fever. I do not feel he requires any lab work or imaging. He has been cleaned up, advised to follow-up with his primary care physician for ostomy supplies, advised to follow up with wound care, and given very strict return precautions. He is amenable to discharge. Counseled Regarding: Diagnosis, Lab results, Need for follow-up Discharge & Departure Primary Impression: Decubitus ulcer Pressure ulcer location: sacral region Pressure ulcer stage: stage 3 Qualified Code: L89.153 - Pressure ulcer of sacral region, stage 3 Disposition: Home Discharge Condition All VS Reviewed: Yes Condition: Stable Additional Instructions: Please use the resources that have been provided to you previously by the social media content specialist. Follow up with your primary care provider and with Wound Care, call tomorrow to schedule an appointment. Return to the emergency department for any new or worsening symptoms Referrals: [facility] (PCP) Scribe Attestation Portions of this note were transcribed by Jesika Durham. I, Dr. Whyte personally performed the history, physical exam and medical decision-making; I reviewed and confirmed the accuracy of the information in the transcribed note. Signed by: aimee Lawrence. 06/01/2016, 03:00. Judith Whyte MD Jun 01, 2016 18:07 JESIKA DURHAM Jun 01, 2016 18:28
[2016-06-01 20:24] VITALS: BP 144/89; PULSE 102; RESP 18; O2SAT 100
[2016-06-01 20:35] VITALS: BP 144/89; PULSE 102; RESP 18; O2SAT 100
--- NOTE | 2016-06-10 10:08 | NUR ---
Ostomy supplies Patient uses a 1 piece EasiClose Wide outlet [employer] Ostomy Pouch. #[id number] 04/30"-2 03/02".
== END 2016-06-01 20:43 | disposition home or self-care (01) ==
LOC: SED 17:00
DX: L89.153 Pressure ulcer of sacral region, stage 3 (principal); I10 Essential (primary) hypertension; Z93.3 Colostomy status; Z59.0 Homelessness; F17.200 Nicotine dependence, unspecified, uncomplicated

== ENCOUNTER 2016-06-13 10:04 | Inpatient (IN) | payer MEDICARE, MEDICAID ==
[~2016-06-13] VITALS: Ht 162.6 cm; Wt 70.9 kg
--- NOTE | 2016-06-13 10:43 | ED.REPORT ---
HPI-General Illness Date of Service Jun 13, 2016 ED Provider: Janes Marin MD The patient is a 46 year old homeless male with history of spina bifida, abdominal wall cellulitis, s/p diverting colostomy, Chiari 2 malformation s/p [employer] shunt with revision in 2001, hypertension, GERD, and substance abuse, who was brought to the emergency department by medics covered in feces complaining of a colostomy problem. The patient has not been able to take care of his colostomy like he should. He has multiple skin lesions to his abdomen and thighs. He complains of abdominal pain. He denies fever, chills, chest pain, shortness of breath or cough. He is currently in a wheelchair due to weakness and regular falls. Nursing Notes Stated Complaint: ABDOMINAL PAIN Nursing Notes Reviewed: Yes Allergies: Coded Allergies: No Known Allergies (Verified Allergy, Unknown, 04/05/16) Scheduled Doxycycline Hyclate (Doxycycline Hyclate) 100 Mg Tablet 100 MG PO BID Fluoxetine (Fluoxetine) 20 Mg Capsule 20 MG PO DAILY Mupirocin (Mupirocin Ointment) 22 Gm Oint...g. 1 APPLIC NASAL BID General Time Seen by MD: 10:26 Chief Complaint Abdominal pain, Other (multiple skin lesions) Hx Obtained From: Patient, EMS Arrived By: Ambulance Sudden in Onset?: No Onset Occurred: More than a week ago... Symptom Duration: Since onset Location: : Abdomen Quality: Painful Severity: Current: Moderate Severity: Maximum: Severe Recent Healthcare: No recent hospitalization Similar Sx Previous: Yes Past Medical History Past Medical History Notes: PCP: [facility] Past Medical History Spina bifida History of abdominal wall cellulitis July 2015, resolved (treated with zinc and Zosyn initially, switch to by mouth Augmentin, resolved) GERD History of substance abuse per EMR Skin breakdown of buttocks, s/p diveriting colostomy Chiari 2 malformation s/p [employer] 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 Reports: Hypertension Past Surgical History Diverting colostomy Shunt revisions Family History Noncontributory Smoking History Current Every Day Smoker Social History Homeless per notes Alcohol Use: 1-3 per week Drug Use: In recovery, THC Other Social History: Poor social support, Homeless Ambulatory Status Wheelchair Review of Systems +multiple skin ulcerations Full Review of Systems Constitutional: Denies: Chills, Fever Respiratory: Denies: Non-productive cough, Shortness of breath Cardiovascular: Denies: Chest pain GI: Reports: Abdominal pain Skin: Reports Rash Complete sys rev & neg: except as marked. Physical Exam Vital Signs Vital Signs Date Time Temp Pulse Resp B/P Pulse Ox O2 Delivery O2 Flow Rate FiO2 06/13/16 13:27 106 14 96/45 100 Room Air 06/13/16 11:05 36.7 104 14 125/92 100 Room Air Initial VS: Reviewed Head / Eyes: Atraumatic, Normocephalic, PERRL ENT: Mucous membranes moist, Conjunctiva normal Neck: Supple, Non-tender, Full range of motion Respiratory: Breath sounds normal, Clear to auscultation, No respiratory distress Cardiovascular: Regular rate & rhythm, Heart sounds normal, Intact distal pulses Extremities: Neuro intact Neurologic: Alert, Oriented, Nonfocal Psychiatric: Mood/affect normal, Behavior normal, Normal thought content General/Constitutional: Awake, Alert Abdomen: Soft There is an ostomy present in the LLQ. There is sign surrounding skin erythema and breakdown. Upper Extremities Upper Extremity / MS: No deformity, Neurologic intact, Vascular intact Lower Extremity / Pelvis / MS: Neurologic intact He has pitting edema about his bilateral feet. His feet are cold but do appear well perfused. He has a significant ulceration of his right little toe that extends down to bone. There is erythema extending proximally up to the mid foot. Skin: Warm : There is significant skin breakdown about the groin and scrotum region with erythema and induration of the penis, scrotum, and perineum. He also has a large ulcer about the left buttock that appears to extend down to the subcutaneous region. I am unable to see if it involves the bone. Interpretation & Diagnostics Lab Results Interpretation Result Diagram: 06/13/16 1306 06/13/16 1306 Test 06/13/16 13:06 06/13/16 16:25 White Blood Count 16.1th/mm3 (3.8-10.1) Red Blood Count 4.83mil/mm3 (4.40-5.80) Hemoglobin 13.8g/dL (13.8-17.2) Hematocrit 43.5% (41.0-50.0) Mean Corpuscular Volume 90.1fL (81-100) Mean Corpuscular Hemoglobin 28.6pg (27.0-35.0) Mean Corpuscular Hemoglobin Concent 31.7% (32.0-37.0) Red Cell Distribution Width 15.6% (12.3-15.4) Platelet Count 564bil/L (150-400) Neutrophils (%) (Auto) 70.3% (40-74) Lymphocytes (%) (Auto) 17.7% (14-46) Monocytes (%) (Auto) 9.6% (4-12) Eosinophils (%) (Auto) 1.3% (0-5) Basophils (%) (Auto) 0.7% (0-3) Prothrombin Time 10.7sec (8.1-12.5) Prothromb Time International Ratio 1.00ratio Sodium Level 138mEq/L (134-144) Potassium Level 4.1mEq/L (3.5-5.2) Chloride Level 103mEq/L (97-108) Carbon Dioxide Level 16mmol/L (18-29) Blood Urea Nitrogen 21mg/dL (6-24) Creatinine 0.58mg/dL (0.76-1.27) Estimat Glomerular Filtration Rate 159mL/min (>59) Glucose Level 99mg/dL (60-99) Lactic Acid Level 1.7mmol/L (0.4-2.0) Calcium Level 9.3mg/dL (8.5-10.1) Total Bilirubin 0.3mg/dL (0.0-1.2) Aspartate Amino Transf (AST/SGOT) 13U/L (0-50) Alanine Aminotransferase (ALT/SGPT) 10U/L (0-44) Alkaline Phosphatase 87U/L (25-150) Total Protein 7.2g/dL (6.4-8.4) Albumin 3.6g/dL (3.4-5.0) Urine Color Yellow (YELLOW) Urine Appearance Hazy (CLEAR,HAZY) Urine pH 5.5 (5.0-8.0) Urine Specific [place] 1.020 (1.003-1.035) Urine Protein Tracemg/dL (NEG,TRACE) Urine Glucose (UA) Negativemg/dL (NEGATIVE) Urine Ketones Tracemg/dL (NEGATIVE) Urine Occult Blood Moderate (NEGATIVE) Urine Nitrite Negative (NEGATIVE) Urine Bilirubin Negative (NEGATIVE) Urine Urobilinogen Normalmg/dL (NORMAL) Urine Leukocyte Esterase Moderate (NEGATIVE) Urine RBC 3-10/hpf (0-2) Urine WBC >50/hpf (0-5) Urine Epithelial Cells Many/hpf (NONE-MOD) Urine Crystals None seen (NONE SEEN) Urine Bacteria Few/hpf (NONE-FEW) Urine Hyaline Casts None/lpf (NONE) Urine Granular Casts None seen (NONE SEEN) Urine Waxy Casts None seen (NONE SEEN) Urine Red Blood Cell Casts None seen (NONE SEEN) Urine White Blood Cell Casts None seen (NONE SEEN) Urine Mucus None seen (None Seen) Urine Trichomonas None seen (NONE SEEN) Urine Yeast None (NONE SEEN) Urinalysis Comment None Urine Culture Reflexed Indicated ECG Interpretation ECG Interpretation: Sinus rhythm with a rate of [address] segment elevations No T wave abnormalities Inferior Q waves are present No prior EKG available for comparison Time: 13:10 Interpreted by: ED physician X-Ray Chest Interpretation Chest Xray Interpretation: IMPRESSION: No acute cardiopulmonary disease. Dictated by: Kathy Hernandez M.D. on 06/13/2016 at 12:31 Interpretation / Wet Read by: Interpret - Radiologist CT Abd / Pelvis Interpretation IMPRESSION: 1. No CT findings to suggest Remington's gangrene. No perineal soft tissue abscesses. 2. Irregularly contracted gallbladder as before may reflect extensive mural scarring. Recommend correlation with any prior gallbladder surgeries, and consider nonemergent limited abdominal ultrasound for further characterization. 3. Left lower quadrant peristomal hernia as before, containing several nonobstructed small bowel loops. 4. Background spina bifida as before. Dictated by: Fei Stern M.D. on 06/13/2016 at 16:09 Interpretation / Wet Read by: Interpret - Radiologist Re-Eval/Medical Decision Med Decision/Clinical Course The patient is a 46 year old homeless male with history of spina bifida, abdominal wall cellulitis, s/p diverting colostomy, Chiari 2 malformation s/p [employer] shunt with revision in 2001, hypertension, GERD, and substance abuse, who was brought to the emergency department by medics covered in feces complaining of a colostomy problem. The patient has not been able to take care of his colostomy like he should. He has multiple skin lesions to his abdomen and thighs. He complains of abdominal pain. He denies fever, chills, chest pain, shortness of breath or cough. He is currently in a wheelchair due to weakness and regular falls. Upon arrival the patient is borderline tachycardic though otherwise hemodynamically stable and afebrile. He is nontoxic in appearance however examination of his perineum and scrotum reveals extensive skin breakdown, erythema, induration and a large decubitus ulcer that is deep and probes down at least into the subcutaneous tissues. There is significant swelling and erythema of the scrotum and penis as well. There is no crepitance. Given initial concern for possible evolving Remington's gangrene the patient was aggressively treated with vancomycin, meropenem, and clindamycin. CT scan was obtained as below: 1. No CT findings to suggest Remington's gangrene. No perineal soft tissue abscesses. 2. Irregularly contracted gallbladder as before may reflect extensive mural scarring. Recommend correlation with any prior gallbladder surgeries, and consider nonemergent limited abdominal ultrasound for further characterization. 3. Left lower quadrant peristomal hernia as before, containing several nonobstructed small bowel loops. 4. Background spina bifida as before. Laboratory studies were notable as below: Leukocytosis of 16 Stable hematocrit CMP unremarkable Lactic acid 1.7 Coag studies normal Urinalysis consistent with UTI Given the above imaging findings the patient's presentation at this time seems more consistent with significant skin breakdown, maceration, fungal infection and cellulitis. He has been initially treated with broad-spectrum antibiotics of these can likely be narrowed somewhat. Regardless, the patient is unable to care for himself with significant infection, skin breakdown and ulceration about the perineum and buttock region. He requires admission and IV antibiotics. He likely requires placement in a long-term care facility as he is unable to care for himself and is currently homeless and at serious risk for developing life-threatening infection related to the condition of his skin and perineum. Discussed with admitting hospitalist and accepted for further management. Source of Hx: Old records, EMS Time of Eval: 16:00 Re-Evaluation/Progress Note: The patient is aware of plan for admission. Consultation : Referral / Consult Name: Filippo Levy MD Consulted With: Hospitalist Call Returned at: 17:07 Traffic Supervisor: Will see patient, Agrees with eval, Agrees with plan, Accepts admit Counseled Regarding: Diagnosis, Lab results, Need for admission Discharge & Departure Primary Impression: Sepsis Sepsis type: sepsis due to unspecified organism Qualified Code: A41.9 - Sepsis, unspecified organism Additional Impressions: Abdominal wall cellulitis Cellulitis of perineum Scrotal edema Spina bifida Spinal region: unspecified Presence of hydrocephalus: unspecified hydrocephalus presence Qualified Code: Q05.9 - Spina bifida, unspecified Leukocytosis Leukocytosis type: unspecified Qualified Code: D72.829 - Elevated white blood cell count, unspecified Urinary tract infection Urinary tract infection type: site unspecified Hematuria presence: with hematuria Qualified Code: N39.0 - Urinary tract infection, site not specified History of colostomy Disposition: ADMITTED TO HOSPITAL Discharge Condition All VS Reviewed: Yes Condition: Stable Referrals: [facility] (PCP) Crit Care Except Billable Proc Time Spent: 105-134 minutes Services Performed: Patient management by me, Time spent at bedside, Reviewing test results, Reviewing imaging, Discussing patient care, Documentation in record, Time with fam/surrogate Scribe Attestation Portions of this note were transcribed by Etelvina Mccurdy. I, Dr. Marin personally performed the history, physical exam and medical decision-making; I reviewed and confirmed the accuracy of the information in the transcribed note. Signed by: Marleni Valentin, 06/13/2016 at 1715. copies to: [facility] Janes Marin MD Jun 13, 2016 10:43 Etelvina Mccurdy Jun 13, 2016 11:09
[2016-06-13 11:05] VITALS: BP 125/92; PULSE 104; RESP 14; O2SAT 100
[2016-06-13] MEDS ORDERED: 0.9% Sodium Chloride 1,000 ML IV ONE (11:17)
[2016-06-13] MEDS ORDERED: HYDROmorphone 0.5 mg/0.5 mL iSecure Syringe IVPUSH PRN (11:20)
[2016-06-13] MEDS ORDERED: Ondansetron 2 mg/mL 2 mL Inj IVPUSH ONE (11:20)
[2016-06-13] MEDS ORDERED: Clindamycin Inj 900 MG in IV Premix 1 EACH IV ONE (11:20)
[2016-06-13] MEDS ORDERED: Meropenem Inj 2,000 MG in 0.9% Sodium Chloride 100 ML IV ONE (11:20)
[2016-06-13] MEDS ORDERED: Vancomycin Dose per Pharmacist XX ONE (11:20)
[2016-06-13] MEDS ORDERED: Ondansetron 2 mg/mL 2 mL Inj IVPUSH PRN (11:25)
[2016-06-13] MEDS ORDERED: Vancomycin Inj 1,500 MG in 0.9% Sodium Chloride 500 ML IV ONE (12:20)
--- NOTE | 2016-06-13 12:33 | DRSVH ---
PROCEDURE: X-RAY CHEST ONE VIEW, PORTABLE ([id number]) INDICATIONS: SHORTNESS OF BREATH TECHNIQUE: One view of the chest was acquired. COMPARISON: [facility], CR, XR CHEST 2VW, 08/04/2015, 9:15. FINDINGS: Lordotic AP view. Surgical changes and devices: None. Lungs and pleura: No pleural effusions or pneumothorax. Lungs are clear. Mediastinum: Mediastinal contours appear normal. Heart size is normal. Bones and chest wall: No suspicious bony lesions. Overlying soft tissues appear unremarkable. IMPRESSION: No acute cardiopulmonary disease. Dictated by: Kathy Hernandez M.D. on 06/13/2016 at 12:31 Approved by: Kathy Hernandez M.D. on 06/13/2016 at 12:32
[2016-06-13 13:13] LABS: BASOPHILS % (AUTO) 0.7 % (0-3); EOSINOPHILS % (AUTO) 1.3 % (0-5); MONOCYTES % (AUTO) 9.6 % (4-12); Mean Corpuscular Hemoglobin 28.6 pg (27.0-35.0); Mean Corpuscular Volume 90.1 fL (81-100); NEUTROPHILS % (AUTO) 70.3 % (40-74); Platelet Count 564 bil/L (150-400)
[2016-06-13 13:27] VITALS: BP 96/45; PULSE 106; RESP 14; O2SAT 100
--- NOTE | 2016-06-13 15:17 | DRSVH ---
PROCEDURE: X-RAY PICC LINE PLACEMENT BY NURSE ([id number]) INDICATIONS: 46-year-old male with PICC placement. COMPARISON: [facility], CR, XR CHEST 1VW (PORTABLE), 06/13/2016, 11:22. FINDINGS: PICC was placed by the intravenous therapy team from the left side. Fluoroscopic spot aicha m demonstrates tip of PICC in the lower superior vena cava. Portions of ventriculoperitoneal shunt p roject over the medial right thorax. IMPRESSION: Tip of left PICC lies within the lower superior vena cava. Dictated by: Fei Stern M.D. on 06/13/2016 at 15:15 Approved by: Fei Stern M.D. on 06/13/2016 at 15:16
--- NOTE | 2016-06-13 16:20 | DRSVH ---
PROCEDURE: CT ABDOMEN AND PELVIS WITH CONTRAST ([id number]) INDICATIONS: 46-year-old male with perineal scrotal infection. Assess for Remington's gangrene. TECHNIQUE: After the administration of intravenous contrast, 5 mm thick sections acquired from the diaphragm to the symphysis. 5 mm coronal and sagittal reformats were acquired. For radiation dose reduction, the following was used: automated exposure control, adjustment of mA and/or kV according to patient siz e. COMPARISON: [facility], CT, CT ABD PELVIS W CON, 04/04/2016, 20:33. [facility], CT, CT ABD PELVIS W CON, 08/04/2015, 8:11. FINDINGS: Image quality: Excellent. ABDOMEN: Lung bases: Lung bases are clear. Heart size is normal. Solid organs: Liver and spleen are normal in size and enhancement. Gallbladder remains small and ir regular in overall shape. Biliary system is non dilated. Pancreas enhances normally. No adrenal no dules. Kidneys demonstrate normal size and enhancement, without hydronephrosis. Peritoneum and bowel: Bowel loops demonstrate normal wall thickness and caliber, status post segment al sigmoid colon resection with left lower quadrant colostomy. The appendix is normal in caliber. Ilor triculoperitoneal shunt is again noted, with small free fluid around the inferior portions of the vinay nt. Nodes and vessels: No retroperitoneal or mesenteric adenopathy by size criteria. Aorta and inferior vena cava are normal in size, with mild aortic atherosclerosis. Miscellaneous: Peristomal hernia is again noted, containing several nonobstructed small bowel loops. PELVIS: Genitourinary: The bladder is decompressed by a Melgar catheter as before. Miscellaneous: No inguinal hernias. Bilateral prominent inguinal lymph nodes are unchanged. The per ineal soft tissues demonstrate no suspicious gas or rim-enhancing fluid collections to suggest absces s. Bones: No suspicious bony lesions. No vertebral body compression fractures. Spina bifida is again n oted. IMPRESSION: 1. No CT findings to suggest Remington's gangrene. No perineal soft tissue abscesses. 2. Irregularly contracted gallbladder as before may reflect extensive mural scarring. Recommend corre lation with any prior gallbladder surgeries, and consider nonemergent limited abdominal ultrasound fo r further characterization. 3. Left lower quadrant peristomal hernia as before, containing several nonobstructed small bowel loop s. 4. Background spina bifida as before. Dictated by: Fei Stern M.D. on 06/13/2016 at 16:09 Approved by: Fei Stern M.D. on 06/13/2016 at 16:18
[2016-06-13 16:45] LABS: APPEARANCE,URINE HAZY (CLEAR,HAZY); COLOR,URINE YELLOW (YELLOW); PH,URINE 5.5 (5.0-8.0)
[2016-06-13 16:46] LABS: OCCULT BLOOD,URINE MODERATE (NEGATIVE); UROBILINOGEN,URINE NORMAL (NORMAL)
[2016-06-13] MEDS: Vancomycin Dose per Pharmacist XX SCH (17:15)
[2016-06-13 17:40] VITALS: BP 106/74; PULSE 88; RESP 18; O2SAT 98
--- NOTE | 2016-06-13 18:05 | PCM.HPMED ---
Subjective Date of Service Jun 13, 2016 Primary Provider: Admitting Physician: [facility]: Chief Complaint: multiple skin breaks with leaking urine, History of Present Illness: Patient is a 46-year-old homeless male with spina bifida with colostomy and urinary incontinence, and Chiari 2 malformation s/p CEREAL CHEMIST shunt presenting with "skin irritation" to his abdomen, groin and back. Of note, pt had been hospitalized with similar problems in the past, last hospitalization in , pt was treated for celullitis, likely resuled from urinary incontinence, limited mobility with Spina Bifida. [facility], however, pt stated that he was rejected, therefore stayed on the street since then, getting free meal from [employer]. About week ago, pt noticed his skin lesions on his lower abdomen getting worse, oozing, progressively got worse, irritated and painful. decided to seek for help today. ED, VS BP stable, [id number], RR14, afebrile, 100% on RA. patient was noticed extensive excoriated erythema on lower abdomen, perineum and sacral area , with foul smelly, oozing and tender given concern for Remington's gangrene, ABD CT obtained which showed no Remington's gangrene or abscess, no bony involvement. patient received vancomycin, meropenem, clindamycin. labs showed elevated wbc, lactate1.7, UA showed hazy urine, pyuria, many epithelial cells, few bacteria, moderate leukEST. CXR showed no acute findings. Upon interview, pt was pleasant, but not very good historian, c/o pain on skin lesions, but able to communicate, answer some questions. Review of Systems: Pertinent positives as noted in history of present illness. All other systems were reviewed and are negative Allergies Coded Allergies: No Known Allergies (Verified Allergy, Unknown, 04/05/16) Home Medications none PMH PMH Spinal Bifida with leg weakness Bowel and bladder incontinence Chiari 2 malformation s/p CEREAL CHEMIST shunt with multiple revisions, most recent revision in 2001 Prediabetic Hypertension GERD Substance abuse: Amphetamine, ETOH, tobacco Surgical History Diverting colostomy CEREAL CHEMIST shunt with multiple revisions, most recent revision in 2001 Family History Mother is alive but health is unknown Father had pancreatic cancer but in his 70s from unknown cause Social History Hx Alcohol Use: Yes (a week ago) Hx Substance Use: Yes (meth a week ago) Smoking Status: Current Every Day Smoker Exam Vital Signs Vital Sign - Last Date Time Temp Pulse Resp B/P Pulse Ox O2 Delivery O2 Flow Rate FiO2 06/13/16 13:27 106 14 96/45 100 Room Air 06/13/16 11:05 36.7 Exam relatively groomed upper body, clean skin, NAD MMM, no JVD RRR, nl s1 s2 no mrg CTAB no w,c below periumbilical area to upper thigh, diffuse erythema with multiple excoriations with scabs, tender to palpate, oozing. Lt buttock, gr3 pressure sore covered with foul smelly urine, irritated, erythematous. bilateral lower distal ext: mild diffuse erythema, blanching, non-tender. Lab and Diagnostics Result Diagram: 06/13/16 1306 06/13/16 1306 X-Rays, CTs and MRIs PROCEDURE: CT ABDOMEN AND PELVIS WITH CONTRAST ([id number]) INDICATIONS: 46-year-old male with perineal scrotal infection. Assess for Remington's gangrene. TECHNIQUE: After the administration of intravenous contrast, 5 mm thick sections acquired from the diaphragm to the symphysis. 5 mm coronal and sagittal reformats were acquired. For radiation dose reduction, the following was used: automated exposure control, adjustment of mA and/or kV according to patient size. COMPARISON: [facility], CT, CT ABD PELVIS W CON, 04/04/2016, 20:33. [facility], CT, CT ABD PELVIS W CON, 08/04/2015, 8:11. FINDINGS: Image quality: Excellent. ABDOMEN: Lung bases: Lung bases are clear. Heart size is normal. Solid organs: Liver and spleen are normal in size and enhancement. Gallbladder remains small and irregular in overall shape. Biliary system is non dilated. Pancreas enhances normally. No adrenal nodules. Kidneys demonstrate normal size and enhancement, without hydronephrosis. Peritoneum and bowel: Bowel loops demonstrate normal wall thickness and caliber , status post segmental sigmoid colon resection with left lower quadrant colostomy. The appendix is normal in caliber. Ventriculoperitoneal shunt is again noted, with small free fluid around the inferior portions of the shunt. Nodes and vessels: No retroperitoneal or mesenteric adenopathy by size criteria. Aorta and inferior vena cava are normal in size, with mild aortic atherosclerosis. Miscellaneous: Peristomal hernia is again noted, containing several nonobstructed small bowel loops. PELVIS: Genitourinary: The bladder is decompressed by a Melgar catheter as before. Miscellaneous: No inguinal hernias. Bilateral prominent inguinal lymph nodes are unchanged. The perineal soft tissues demonstrate no suspicious gas or rim- enhancing fluid collections to suggest abscess. Bones: No suspicious bony lesions. No vertebral body compression fractures. Spina bifida is again noted. IMPRESSION: 1. No CT findings to suggest Remington's gangrene. No perineal soft tissue abscesses. 2. Irregularly contracted gallbladder as before may reflect extensive mural scarring. Recommend correlation with any prior gallbladder surgeries, and consider nonemergent limited abdominal ultrasound for further characterization. 3. Left lower quadrant peristomal hernia as before, containing several nonobstructed small bowel loops. 4. Background spina bifida as before. Dictated by: Fei Stern M.D. on 06/13/2016 at 16:09 Approved by: Fei Stern M.D. on 06/13/2016 at 16:18 PROCEDURE: X-RAY CHEST ONE VIEW, PORTABLE ([id number]) INDICATIONS: SHORTNESS OF BREATH TECHNIQUE: One view of the chest was acquired. COMPARISON: [facility], CR, XR CHEST 2VW, 08/04/2015, 9:15. FINDINGS: Lordotic AP view. Surgical changes and devices: None. Lungs and pleura: No pleural effusions or pneumothorax. Lungs are clear. Mediastinum: Mediastinal contours appear normal. Heart size is normal. Bones and chest wall: No suspicious bony lesions. Overlying soft tissues appear unremarkable. IMPRESSION: No acute cardiopulmonary disease. Dictated by: Kathy Hernandez M.D. on 06/13/2016 at 12:31 Approved by: Kathy Hernandez M.D. on 06/13/2016 at 12:32 Assessment & Plan Patient is a 46-year-old homeless male with spina bifida with colostomy and urinary incontinence, and Chiari 2 malformation s/p CEREAL CHEMIST shunt presenting with "skin irritation" to his abdomen, groin and back. acute, active extensive erythematous rash, likely cellulitis resulted from urinary leakage with incontinence, POA, CT abd didn't show deep tissue involvement, gangrene or abscess.pt dosen't look toxic and only have elevated wbc. -s/p vanc, meropenem, clindamycin, Of note, pt was given vanc/zosyn last time, then switched to Doxycyclin oral upon d/c for 2wk per ID rec. -Given last hospitalization MRSA+ with relatively nontoxic cellulitis with clean base, which seems very similar at this admission, will continue vancomycin only, -MRSA swab, -wound care consult placed, surgery consult was considered with discussion with ED provider, however, given no focus for surgical intervention, it was deferred. chronic, stable Spina Bifida, ostomy care, per RN staffs previously documented Mood disorder/Thoughts of self harm/suicidal ideation, currently denied, patient was previously given Prozac for mood disorder, but unfortunately lost follow up. hx of Substance abuse, chronic. previous using methamphetamine GERD, chronic. Pantoprazole prn, HTN, diet controlled dispo:Patient will be admitted with inpatient status with expectation of inpatient therapy for more than 2 midnights greatly appreciate SW/CM input, as this is recurrent admission with similar problems. diet:regular dvt ppx:LMWH Full Code Time spent 65min Filippo Levy MD Jun 13, 2016 17:08
[2016-06-13 19:10] VITALS: BP 102/69; PULSE 87; RESP 16; O2SAT 98
[2016-06-13 19:14] VITALS: BP 129/84; PULSE 111; RESP 20; O2SAT 100
--- NOTE | 2016-06-13 19:21 | NUR ---
Admission Patient arrived to floor via gurney from ED. Belongings placed in closet in room. Patient states he can ambulate yet mostly uses a WC which is not currently with him. Multiple skin breakdown areas. Placed in P500 bed. Report given to Manju jimenes RN.
--- NOTE | 2016-06-13 19:33 | PCM.PHAPRO ---
Progress Date of Service: Jun 13, 2016 multiple skin breaks with leaking urine, Vancomycin Management Per Pharmacy: Indication: Cellulitis Goal vancomycin trough: 10-15 Labs: WBC: 16.1 SrCr: 0.58 mg/dL Est CrCl ~ 120 mL/min Nephrotoxic Risk Factors: None Recommendation: Bolus: Vancomycin 1500 mg IV x 1 (~20 mg/kg) Maintenance: Vancomycin 1000 mg IV Q12h Vanco Trough: Draw on 06/16 @ 0730 prior to 5th dose Pharmacy to continue to monitor and adjust medications as needed. Thank You, April Duncan, Pharm D. April Duncan Jun 13, 2016 19:33
--- NOTE | 2016-06-13 20:01 | NUR ---
MED REC PATIENT REPORTS HE HAS NOT TAKEN ANY PRESCRIPTION MEDICATIONS IN AT LEAST A MONTH.
--- NOTE | 2016-06-13 20:02 | NUR ---
ADMIT RN NOTE PATIENT'S HISTORY OBTAINED. PATIENT DID GET ANGRY AT TIMES DURING THE INTERIVEW, BECAUSE HE STATES "I CANT REMEMBER EVERYTHING." VERBAL REPORT TO BINDERY MANAGER RN. PLAN TO ORDER SKIN PROTOCOL. PATIENT IS CURRENTLY IN A LEONIDES BED.
[2016-06-13] MEDS: 0.9% Sodium Chloride 1,000 ML IV SCH (20:46)
[2016-06-13] MEDS ORDERED: OMEP20CA11 PO (20:58)
[2016-06-13] MEDS ORDERED: FLUT9.9S NS (20:58)
[2016-06-13] MEDS ORDERED: ALBU8.5H2 INHALATION (20:58)
[2016-06-13] MEDS ORDERED: LISI-567 PO (20:58)
[2016-06-13] MEDS ORDERED: AMIT10TA6 PO (20:59)
[2016-06-13] MEDS ORDERED: FLUO20CA25 PO (20:59)
--- NOTE | 2016-06-13 23:48 | NUR ---
Skin Integrity/Clinitron Bed 2 Nurse skin check performed with list on white board of areas of concern. Pt is NOT MOBILE, despite prior reports. He "can't remember the last time he walked" and uses a wheelchair. Legs and feet are very swollen and red, with BL 5th toe sores/scabs, upper leg scabs and blisters, scrotal/eugene area with deeper blisters/scabs and sores. Very Large area with escar on Left Hip - wound care will need to evaluate further if pressure ulcer. Low back and sacral area has the blisters and scabs as well. Upper body relatively unscathed. See Skin assessment for more details.
--- NOTE | 2016-06-14 00:39 | NUR ---
Assessment time should state 06/13/16 @ 2000 (not 0800) Addendum: 06/14/16 at 0040 by JOYCE CLEANING RN Amended: Links added.
--- NOTE | 2016-06-14 00:42 | NUR ---
Transfer of Care Report and Transfer of Care was given at 0020 to Lyly Conn RN. Patient is currently resting quietly in Clinitron Bed. No complaints of pain or discomfort, SOB or chest pain since admit.
--- NOTE | 2016-06-14 03:17 | NUR ---
dressing - skin integrity placed wet to dry dressing on left buttock. one gauze damp with normal saline and abd placed on top with hypa fix tape. criticaid ointment placed on sacral/eugene area excoriated skin. patient tolerated moderately. has alot of feeling to the scrotal/groin area. given emotional support. Addendum: 06/14/16 at 0608 by MARA HOLLIS RN small skin tear to right buttock, sanguinoous drainage applied moist saline gauze to wound.
[2016-06-14 05:59] VITALS: BP 103/67; PULSE 100; RESP 18; O2SAT 95
[2016-06-14] MEDS: 0.9% Sodium Chloride 1,000 ML IV SCH ×2 (06:11→18:07)
[2016-06-14 08:00] VITALS: PULSE 100
[2016-06-14 08:20] LABS: BASOPHILS % (AUTO) 0.7 % (0-3); EOSINOPHILS % (AUTO) 3.4 % (0-5); MONOCYTES % (AUTO) 8.3 % (4-12); Mean Corpuscular Hemoglobin 28.7 pg (27.0-35.0); NEUTROPHILS % (AUTO) 55.3 % (40-74); Platelet Count 466 bil/L (150-400)
[2016-06-14] MEDS: Vancomycin Dose per Pharmacist XX SCH (08:30)
[2016-06-14 08:51] LABS: Magnesium 1.9 mg/dL (1.6-2.6); Phosphorus 2.7 mg/dL (2.5-4.9)
[2016-06-14] MEDS: Vancomycin 1 Gm/200 mL NS Premix IV SCH ×2 (09:21→21:28)
[2016-06-14 09:49] VITALS: BP 100/67; PULSE 100; RESP 20; O2SAT 99
--- NOTE | 2016-06-14 11:05 | PCM.PNMED ---
Subjective Date of Service Jun 14, 2016 Subjective No overnight event Patient thinks that his lesions were less painful Exam Vital Signs Vital Sign - Last Date Time Temp Pulse Resp B/P Pulse Ox O2 Delivery O2 Flow Rate FiO2 06/14/16 09:49 36.9 100 20 100/67 99 Room Air Intake and Output 06/13/16 06/13/16 06/14/16 Cumulative From/Thru 15:00 23:00 07:00 06/13/16 11:05 - 06/14/16 06:44 Intake Total 2248 ml 2248 ml Output Total 650 ml 650 ml Balance 1598 ml 1598 ml Intake Oral 960 ml 960 ml IV Total 1288 ml 1288 ml Output Urine Total 450 ml 450 ml Stool Total 200 ml 200 ml Exam relatively groomed upper body, clean skin, NAD MMM, no JVD RRR, nl s1 s2 no mrg CTAB no w,c below periumbilical area to upper thigh, diffuse erythema with multiple excoriations with scabs, tender to palpate, oozing. less erythematous than previous day Lt buttock, gr3 pressure sore covered with foul smelly urine, irritated, erythematous. bilateral lower distal ext: mild diffuse erythema, 2+pitting edema, blanching, non-tender. Rt foot big toe-blackish discolored. IVs and Medications Medications Reviewed: Medications were reviewed in detail Lab and Diagnostics Result Diagram: 06/14/16 0800 06/14/16 0800 X-Rays, CTs and MRIs PROCEDURE: CT ABDOMEN AND PELVIS WITH CONTRAST ([id number]) INDICATIONS: 46-year-old male with perineal scrotal infection. Assess for Remington's gangrene. TECHNIQUE: After the administration of intravenous contrast, 5 mm thick sections acquired from the diaphragm to the symphysis. 5 mm coronal and sagittal reformats were acquired. For radiation dose reduction, the following was used: automated exposure control, adjustment of mA and/or kV according to patient size. COMPARISON: [facility], CT, CT ABD PELVIS W CON, 04/04/2016, 20:33. [facility], CT, CT ABD PELVIS W CON, 08/04/2015, 8:11. FINDINGS: Image quality: Excellent. ABDOMEN: Lung bases: Lung bases are clear. Heart size is normal. Solid organs: Liver and spleen are normal in size and enhancement. Gallbladder remains small and irregular in overall shape. Biliary system is non dilated. Pancreas enhances normally. No adrenal nodules. Kidneys demonstrate normal size and enhancement, without hydronephrosis. Peritoneum and bowel: Bowel loops demonstrate normal wall thickness and caliber , status post segmental sigmoid colon resection with left lower quadrant colostomy. The appendix is normal in caliber. Ventriculoperitoneal shunt is again noted, with small free fluid around the inferior portions of the shunt. Nodes and vessels: No retroperitoneal or mesenteric adenopathy by size criteria. Aorta and inferior vena cava are normal in size, with mild aortic atherosclerosis. Miscellaneous: Peristomal hernia is again noted, containing several nonobstructed small bowel loops. PELVIS: Genitourinary: The bladder is decompressed by a Melgar catheter as before. Miscellaneous: No inguinal hernias. Bilateral prominent inguinal lymph nodes are unchanged. The perineal soft tissues demonstrate no suspicious gas or rim- enhancing fluid collections to suggest abscess. Bones: No suspicious bony lesions. No vertebral body compression fractures. Spina bifida is again noted. IMPRESSION: 1. No CT findings to suggest Remington's gangrene. No perineal soft tissue abscesses. 2. Irregularly contracted gallbladder as before may reflect extensive mural scarring. Recommend correlation with any prior gallbladder surgeries, and consider nonemergent limited abdominal ultrasound for further characterization. 3. Left lower quadrant peristomal hernia as before, containing several nonobstructed small bowel loops. 4. Background spina bifida as before. Dictated by: Fei Stern M.D. on 06/13/2016 at 16:09 Approved by: Fei Stern M.D. on 06/13/2016 at 16:18 PROCEDURE: X-RAY CHEST ONE VIEW, PORTABLE ([id number]) INDICATIONS: SHORTNESS OF BREATH TECHNIQUE: One view of the chest was acquired. COMPARISON: [facility], CR, XR CHEST 2VW, 08/04/2015, 9:15. FINDINGS: Lordotic AP view. Surgical changes and devices: None. Lungs and pleura: No pleural effusions or pneumothorax. Lungs are clear. Mediastinum: Mediastinal contours appear normal. Heart size is normal. Bones and chest wall: No suspicious bony lesions. Overlying soft tissues appear unremarkable. IMPRESSION: No acute cardiopulmonary disease. Dictated by: Kathy Hernandez M.D. on 06/13/2016 at 12:31 Approved by: Kathy Hernandez M.D. 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 acute, active extensive erythematous rash, likely cellulitis resulted from urinary leakage with incontinence, POA, CT abd didn't show deep tissue involvement, gangrene or abscess.pt dosen't look toxic and only have elevated wbc. -pt clinically improving with current tx. -s/p vanc, meropenem, clindamycin, Of note, pt was given vanc/zosyn last time, then switched to Doxycyclin oral upon d/c for 2wk per ID rec. -Given last hospitalization MRSA+ with relatively nontoxic cellulitis with clean base, which seems very similar at this admission, will continue vancomycin only, -MRSA swab, -wound care consult placed, surgery consult was considered with discussion with ED provider, however, given no focus for surgical intervention, it was deferred. Rt foot gangrene looking toe, POA, -appreciate Podiatry input, -foot xray today chronic, stable Spina Bifida, ostomy care, per RN staffs previously documented Mood disorder/Thoughts of self harm/suicidal ideation, currently denied, patient was previously given Prozac for mood disorder, but unfortunately lost follow up. hx of Substance abuse, chronic. previous using methamphetamine GERD, chronic. Pantoprazole prn, HTN, diet controlled dispo:likely 3-4more days, needs to have better dispo plan prior to d/c greatly appreciate SW/CM input, as this is recurrent admission with similar problems. diet:regular dvt ppx:LMWH Full Code Time spent 35min Filippo Levy MD Jun 14, 2016 11:05
--- NOTE | 2016-06-14 11:10 | DRSVH ---
PROCEDURE: X-RAY RIGHT FOOT COMPLETE, MINIMUM THREE VIEWS ([id number]) INDICATIONS: Rt gangrenous big toe TECHNIQUE: 3 views of the foot were acquired. COMPARISON: None. FINDINGS: Bones: No fractures or dislocations. No suspicious bony lesions. Soft tissues: No tibiotalar joint effusion. Achilles tendon appears normal. IMPRESSION: There is soft tissue swelling over the forefoot but no gas in the soft tissues or evidenc e of osteomyelitis or foreign body is found. Dictated by: Mariano Martinez M.D. on 06/14/2016 at 11:06 Approved by: Mariano Martinez M.D. on 06/14/2016 at 11:08
[2016-06-14] MEDS: HYDROmorphone 1 mg/mL Inj IVPUSH PRN (11:50)
[2016-06-14 13:09] VITALS: BP 116/73; PULSE 102; RESP 20; O2SAT 97
--- NOTE | 2016-06-14 14:42 | NUR ---
Social Work: Initial Assessment Data & Assessment: See initial Assessment. EMR reviewed. Patient is a 46 y/o male that admitted for sepsis and cellulitis per H&P. SW met with patient at bedside to complete initial assessment, SW role reviewed and discharge planning discussed. Patient confirmed that tiffany gies to [facility] for primary care and has medicare and [facility] for insurance coverage. Patient does not have a NOK/Advance Directive/DPOA and declined the information. Patient stated that he does have a sister named Ana Paula Redmond that lives in [place]. Patient does not have any VA or LTC benefits. Patient re-admit score is 3 high risk. Patient is homeless and stated that [facility]. Patient denied any drug use or history, but patient's pass medical records document meth. use. Patient declined CDP or CD assessment. Patient states that he has a WC, but [facility]. Patient does not drive. Patient declined CDP or CD assessment. SW provided contact information on patient's board. SW will continue to follow patient for discharge planning needs. Plan: Patient is likely to discharge back to homelessness. SW will continue to follow and assist patient throughout stay. Kristen Garner LMSW, [facility] Addendum: 06/14/16 at 1506 by KRISTEN GARNER Amended: Links added.
[2016-06-14] MEDS: Alum-Mag Hydrox-Simeth 30 mL Suspension PO PRN (15:46)
--- NOTE | 2016-06-14 17:37 | PCM.CHPPOD ---
Subjective Date of service Jun 14, 2016 History of Present Illness 46-year-old homeless male visit for cellulitis and sepsis, podiatry consult requested regarding gangrenous fifth digit right foot. Patient is wheelchair bound although states he can "technically walk". [place] [address] He denies history of foot infections or nonhealing wound previously. He acknowledges that his feet are completely insensate due to spina bifida. He states that he feels reasonably well systemically at the moment. Reason for Consultation Gangrene fifth digit right foot Allergy Allergies: Coded Allergies: No Known Allergies (Verified Allergy, Unknown, 04/05/16) Medications Albuterol HFA (Proair HFA) 8.5 Gm Hfa.aer.ad 2 PUFFS INHALATION Q4H PRN PRN For Shortness of Breath Amitriptyline (Amitriptyline) 10 Mg Tablet 10 MG PO HS PRN PRN For Insomnia Fluoxetine (Fluoxetine) 20 Mg Capsule 20 MG PO QAM Fluticasone Propionate (Flonase Allergy Relief) 50 Mcg/Actuation [place].susp 1 SPRAY NS HS Lisinopril (Lisinopril) 20 Mg Tablet 20 MG PO QAM Omeprazole (Omeprazole) 20 Mg Capsule.dr 20 MG PO QAM Past Medical History Surgeries: Yes (shunt revision, colostomy, skin graft for pressure ulcer) Medical History: Surgical History: Social History Hx Alcohol Use: Yes (3-4x monthly) Hx Substance Use: Yes (over 2 weeks ago meth, rarely marijuana) Smoking Status: Current Every Day Smoker Podiatry Consult Exam Vital Signs Vital Sign - Last Date Time Temp Pulse Resp B/P Pulse Ox O2 Delivery O2 Flow Rate FiO2 06/14/16 13:09 37.1 102 20 116/73 97 Room Air Intake and Output 06/13/16 06/13/16 06/14/16 Cumulative From/Thru 15:00 23:00 07:00 06/13/16 11:05 - 06/14/16 06:44 Intake Total 2248 ml 2248 ml Output Total 650 ml 650 ml Balance 1598 ml 1598 ml Intake Oral 960 ml 960 ml IV Total 1288 ml 1288 ml Output Urine Total 450 ml 450 ml Stool Total 200 ml 200 ml Result Diagram: 06/14/16 0800 06/14/16 0800 Lab Test 06/13/16 13:06 06/13/16 16:25 4/22/17 08:00 Prothrombin Time 10.7sec (8.1-12.5) Prothromb Time International Ratio 1.00ratio Lactic Acid Level 1.7mmol/L (0.4-2.0) Prealbumin 17mg/dL (20-40) Urine Color Yellow (YELLOW) Urine Appearance Hazy (CLEAR,HAZY) Urine pH 5.5 (5.0-8.0) Urine Specific [place] 1.020 (1.003-1.035) Urine Protein Tracemg/dL (NEG,TRACE) Urine Glucose (UA) Negativemg/dL (NEGATIVE) Urine Ketones Tracemg/dL (NEGATIVE) Urine Occult Blood Moderate (NEGATIVE) Urine Nitrite Negative (NEGATIVE) Urine Bilirubin Negative (NEGATIVE) Urine Urobilinogen Normalmg/dL (NORMAL) Urine Leukocyte Esterase Moderate (NEGATIVE) Urine RBC 3-10/hpf (0-2) Urine WBC >50/hpf (0-5) Urine Epithelial Cells Many/hpf (NONE-MOD) Urine Crystals None seen (NONE SEEN) Urine Bacteria Few/hpf (NONE-FEW) Urine Hyaline Casts None/lpf (NONE) Urine Granular Casts None seen (NONE SEEN) Urine Waxy Casts None seen (NONE SEEN) Urine Red Blood Cell Casts None seen (NONE SEEN) Urine White Blood Cell Casts None seen (NONE SEEN) Urine Mucus None seen (None Seen) Urine Trichomonas None seen (NONE SEEN) Urine Yeast None (NONE SEEN) Urinalysis Comment None Urine Culture Reflexed Indicated White Blood Count 10.1th/mm3 (3.8-10.1) Red Blood Count 3.48mil/mm3 (4.40-5.80) Hemoglobin 10.0g/dL (13.8-17.2) Hematocrit 32.0% (41.0-50.0) Mean Corpuscular Volume 92.0fL (81-100) Mean Corpuscular Hemoglobin 28.7pg (27.0-35.0) Mean Corpuscular Hemoglobin Concent 31.3% (32.0-37.0) Red Cell Distribution Width 15.5% (12.3-15.4) Platelet Count 466bil/L (150-400) Neutrophils (%) (Auto) 55.3% (40-74) Lymphocytes (%) (Auto) 32.0% (14-46) Monocytes (%) (Auto) 8.3% (4-12) Eosinophils (%) (Auto) 3.4% (0-5) Basophils (%) (Auto) 0.7% (0-3) Erythrocyte Sedimentation Rate 46mm/hr (0-15) Sodium Level 140mEq/L (134-144) Potassium Level 3.5mEq/L (3.5-5.2) Chloride Level 109mEq/L (97-108) Carbon Dioxide Level 19mmol/L (18-29) Blood Urea Nitrogen 14mg/dL (6-24) Creatinine 0.54mg/dL (0.76-1.27) Estimat Glomerular Filtration Rate 173mL/min (>59) Glucose Level 91mg/dL (60-99) Calcium Level 7.9mg/dL (8.5-10.1) Phosphorus Level 2.7mg/dL (2.5-4.9) Magnesium Level 1.9mg/dL (1.6-2.6) Total Bilirubin 0.2mg/dL (0.0-1.2) Aspartate Amino Transf (AST/SGOT) 7U/L (0-50) Alanine Aminotransferase (ALT/SGPT) 7U/L (0-44) Alkaline Phosphatase 68U/L (25-150) Total Protein 5.3g/dL (6.4-8.4) Albumin 2.5g/dL (3.4-5.0) Procalcitonin 0.06ng/mL (0.00-0.08) Exam General: Alert Lower Extremities: Bilateral: Edema localized Extremity pink Extremity warm Lower Extremity Pulses: Palpable: Left Dorsalis Pedis Left Posterior Tibal Right Dorsalis Pedis Right Posterior Tibal Podiatry WOUND : Wound Location/Description Conversant male resting comfortably on a Clinitron bed. The feet do appear to be sufficiently pressure offloaded. Feet are insensate. Pulses are readily palpable, capillary refill is brisk. There is +2-3 over 4 generalized bilateral pedal edema. There are diffuse localized areas of superficial epithelial necrosis, none of which appear to be actually ulcerative. The fifth digit right foot and soft tissues overlying the fifth metatarsophalangeal joint do show dry gangrene with no fluctuance, exudation or purulence at the necrotic/ soft tissue interface. Nails are mildly dystrophic, webspaces without fissures or maceration. There are no significant forefoot or digital deformities. Diffuse atrophy of the calves noted bilaterally. X-ray exam negative for osteomyelitis or soft tissue gas, fractures but are positive for diffuse bilateral pedal edema. Assessment & Plan Assessment Dry gangrene fifth digit right foot, multiple superficial epithelial pressure sores none of which appear frankly ulcerative at present. Severe bilateral insensitivity secondary to spina bifida. Bilateral pedal edema. Problems: Plan Findings discussed with patient and at this juncture I do not feel surgical intervention is warranted would be indicated if wet gangrene develops. My preference is to allow dry gangrenous digits to evolve naturally. I do not feel the fifth digit needs any dressings of present. Stress need to this patient the importance of strict pressure avoidance, keeping his feet protected in warm and monitoring closely for evidence of developing lesions such that they may be addressed early. Patient would benefit through periodic at risk foot care on an outpatient basis. We will have nursing staff monitor the feet and contact the podiatry service if there is a developing need for surgical debridement. Abiel Bowens DPM Jun 14, 2016 17:37
[2016-06-14 18:03] VITALS: BP 117/69; PULSE 90; RESP 20; O2SAT 97
--- NOTE | 2016-06-14 18:18 | NUR ---
Skin Care/Dressing Change Tunneling skin wound on L buttock. Wet to dry gauze with ABD covering and Hypafix tape securement. Dressing to be changed every 12H or PRN soiling. WC to be following up on Thursday as reported by previous shift. Applied criticaid ointment over eugene area scabs/scars/sores. And Skin care with shield wipes. Pt reports no sensation in lower legs down to feet and on buttock/seat area. Did not c/o pain with skin care/dressing change.
--- NOTE | 2016-06-14 18:25 | NUR ---
Mood/Personal items Pt inquired about cell phone and wanted to make a call. Help pt to look through belongings in closet. Could not find. Most all belongings are soiled with foul odor. Pt reports that EMS services told him they had it when they brought him in. Pt became agitated and started swearing. Told pt I would look into it to see if they were in the ED. Made call to ED, told that pt had accused hospital staff of stealing his wheelchair during last visit, so they confirmed that his belongings were [facility] where he was picked up at. Updated pt with information. Pt calmed and apologized for outburst. Pt mostly pleasant and cooperative.
[2016-06-14 22:18] VITALS: BP 121/77; PULSE 94; RESP 22; O2SAT 96
[2016-06-15] VITALS (10 sets, daily range): BP systolic 111–134; BP diastolic 66–83; PULSE 66–97; RESP 20–22; O2SAT 95–99
--- NOTE | 2016-06-15 00:07 | NUR ---
skin care/ dressing change changed left buttock wound - wet to dry dressing. normal saline with 4x4. covered with abd. and secured with hypafix tape. patient tolerated. lomas exudate. foul smelling. black tissue also observed. previous dressing quite dry when removed, used ns wound wash to ease the gauze off. cleaned groin sacral and eugene areas with moist wash cloths. then applied critic aid ointment. left groin has more sores than the right. it is difficult to clean the scrotum because of limited range of motion to bilateral lower extremities. there appears to be a small wound to the lower scrotum. but visiblity is very limited. i applied criticaid to the scrotum. cleaned penis and correia. cleaned abdomen and applied criticaid. cleaned lumbar area and applied criticaid. reminded patient not to put his feet on the foot rail. applied pillow to the rail for protection. changed linen. given supportive care.
[2016-06-15] MEDS: 0.9% Sodium Chloride 1,000 ML IV SCH ×3 (00:22→22:02)
[2016-06-15] MEDS: Ondansetron 2 mg/mL 2 mL Inj IVPUSH PRN ×2 (04:48→10:58)
[2016-06-15 04:52] LABS: BASOPHILS % (AUTO) 0.3 % (0-3); MONOCYTES % (AUTO) 7.7 % (4-12); Mean Corpuscular Volume 91.8 fL (81-100); NEUTROPHILS % (AUTO) 60.9 % (40-74); Platelet Count 493 bil/L (150-400)
[2016-06-15 05:15] LABS: Magnesium 1.5 mg/dL (1.6-2.6); Phosphorus 2.6 mg/dL (2.5-4.9)
[2016-06-15] MEDS: Alum-Mag Hydrox-Simeth 30 mL Suspension PO PRN (05:17)
--- NOTE | 2016-06-15 05:22 | NUR ---
Nausea and Vomiting pt had more than 500mL of emesis while vomiting. Observed undigested food on the emesis. Zofran administered. MD notified and aware. Stoma cleaned and new colostomy bag provided. VSS and has been afebrile. Will continue to monitor.
[2016-06-15] MEDS ORDERED: Magnesium Sulf 2 Gm/50mL Water 2 GM in IV Premix 1 EACH IV ONE (07:20)
[2016-06-15] MEDS: Vancomycin Dose per Pharmacist XX SCH (08:30)
[2016-06-15] MEDS: cefTRIAXone Inj 2,000 MG in Dextrose 5% Minibag Plus 50 ML IV SCH (09:27)
[2016-06-15] MEDS: Vancomycin 1 Gm/200 mL NS Premix IV SCH ×2 (10:17→22:04)
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
[2016-06-15 15:42] LABS: APPEARANCE,URINE CLEAR (CLEAR,HAZY); COLOR,URINE YELLOW (YELLOW); OCCULT BLOOD,URINE TRACE (NEGATIVE); PH,URINE 7.5 (5.0-8.0); UROBILINOGEN,URINE NORMAL (NORMAL)
--- NOTE | 2016-06-15 18:13 | NUR ---
Nausea/Vomiting Patient complained of nausea with vomiting. Patient was administered 8mg IV Ondansetron. Medication was effective and patient stopped vomiting and was able to rest.
[2016-06-16] VITALS (8 sets, daily range): BP systolic 113–135; BP diastolic 71–89; PULSE 74–87; RESP 18–20; O2SAT 95–98
[2016-06-16] MEDS: Alum-Mag Hydrox-Simeth 30 mL Suspension PO PRN ×2 (01:03→17:29)
--- NOTE | 2016-06-16 06:37 | NUR ---
Dressing Change buttock dressings were changed by RN with assistance around 00:30, wet to dry 4x4 guaze dressings were placed, abd pad on top, held on by hypaflex tape. pt tolerated well. Criticaid was placed on macerated skin in the groin region after area cleansed. clean pad was placed under pt. drainage was noted to be sero-sang on some areas, purulent drainage on other areas, strong odor is present. skin has scattered scabs that flake away, scattered areas had minimal dried blood, the pt verbalized "I don't like scabs, I get rid of them". pt is on a Clinitron bed, tolerating well. using call light to make needs known, placed within reach. hourly rounding in effect.
[2016-06-16 06:42] LABS: BASOPHILS % (AUTO) 0.4 % (0-3); EOSINOPHILS % (AUTO) 3.7 % (0-5); MONOCYTES % (AUTO) 7.4 % (4-12); Mean Corpuscular Hemoglobin 28.4 pg (27.0-35.0); Mean Corpuscular Volume 90.8 fL (81-100); NEUTROPHILS % (AUTO) 50.2 % (40-74); Platelet Count 393 bil/L (150-400)
[2016-06-16 07:17] LABS: Magnesium 2.3 mg/dL (1.6-2.6); Phosphorus 2.4 mg/dL (2.5-4.9)
[2016-06-16] MEDS ORDERED: Vancomycin Serum Trough XX ONE (07:30)
[2016-06-16] MEDS: cefTRIAXone Inj 2,000 MG in Dextrose 5% Minibag Plus 50 ML IV SCH (07:43)
--- NOTE | 2016-06-16 08:10 | PCM.PHAPRO ---
Progress multiple skin breaks with leaking urine, Vancomycin trough returned at 15.9. Target of 10-15. Preceding dose administered late and trough drawn early. True trough likely in target. Will continue therapy and continue to monitor. RTM PharmD. Chavo Potts Pharm.D Jun 16, 2016 08:10
--- NOTE | 2016-06-16 09:02 | NUR ---
AUDREY AUDREY signed
[2016-06-16] MEDS: Vancomycin Dose per Pharmacist XX SCH (09:14)
[2016-06-16] MEDS: Vancomycin 1 Gm/200 mL NS Premix IV SCH (10:07)
[2016-06-16] MEDS: 0.9% Sodium Chloride 1,000 ML IV SCH (10:07)
--- NOTE | 2016-06-16 10:44 | NUR ---
Evaluation completed. Please go to "Notes" then click on "Assessments and Notes" (bottom left corner of screen). Then select appropriate discipline tab on top of screen.
--- NOTE | 2016-06-16 13:13 | NUR ---
Wound Care [facility] Patient well-known to wound care services from previous hospitalizations. Patient with long-standing pressure ulcer to left buttock. Patient is homeless and has history of spina bifida with colostomy and urinary incontinence. Patient unable to ambulate and uses wheelchair with absent to decreased sensation in bilateral legs and buttocks leading to multiple pressure ulcers. Due to homelessness, patient with poor hygiene leading to history of rashes and cellulitis. Patient now admitted for abdominal wall cellulitis and pressure ulcers. All wounds present on admission and are chronic ulcers. Cellulitis improving with IV antibiotic treatment. Recommend continued use of moisture barrier cream to abdomen and groin to diffuse red rash. Patient with unstageable pressure ulcer to right 5th toe with significant areas of eschar that extend to lateral ankle. This area has been evaluated by fountain operator who recommends no dressing and keeping area dry. Entire area measures 15cmL x 5cm W with area of breakdown 100% dry black eschar. Patient also with unstageable pressure ulcer to left distal lateral leg measuring 6cm L x 5cm W with excoriated area, non-blanchable redness and area of 100% black hard eschar measuring 2cmL x 2cm W to proximal, posterior edge. Discussed pressure resulting from sitting posture when patient is in wheelchair. Patient states he crosses left leg over right leg and right foot presses agains foot pedal in wheelchair. Patient states he uses only right footrest for wheelchair, therefore unable to change position of legs frequently. Patient instructed in importance of eliminating pressure to lateral right foot and area of breakdown on left leg to decrease further breakdown of right foot and facilitate healing of left leg. Patient teaches back need to eliminate pressure and teaches back other ways to position in wheelchair. Patient with unstageable pressure ulcer to right buttock (ischial tuberosity) measuring 2.7cm L x 1.2cm W x 0.2cm D. Wound bed 50% black hard eschar and 50% dark red tissues. Minimal bloody drainage. Cleansed with sterile water. Covered with sterile water moist AquacelAG and covered with Mepilex foam and Hypafix tape. Wound to left buttock Stage IV down to tendon and possible bone but unable to fully visualize. Wound measures 6.2cm L x 3cm W x 3.6cm D with moderate bloody drainage noted. Wound bed 10% dry eschar around edges, 75% red dusky tissue, and 15% tendon at base of wound. Cleansed with sterile water. Packed with sterile water moist AquacelAG and covered with mepilex foam and hypafix tape. Patient with multiple pin-hole sized openings and scabs to posterior left thigh. patient instructed not to scratch these areas and allow to heal. Larger unstageable pressure ulcer to left greater trochanter measuring 3cm L x 1.2cm W with 100% intact scab. Wound left open to air due to intact scab and patient with ostomy and catheter. Patient using Clinitron bed to decrease overall pressure to skin. Patient is able to turn and reposition in bed using rails. Nursing to change wound dressings PRN soiling. Wound care to follow up as needed.
--- NOTE | 2016-06-16 13:58 | NUR ---
NUTRITION ASSESSMENT ASSESS: 46 yo male admitted with sepsis and cellulitis likely related to prolonged exposure to urine and feces. Pt with good po intake. PMHX: Spinal bifida w/ leg weakness, bowel/bladder incontinence, Chiari 2 malformation s/p PLUMBING TECHNICIAN shunt w/ multiple revisions, prediabetic, HTN, GERD, substance abuse, diverting colostomy. LABS: Reviewed. Cr 8.2, Phos 2.4, Alb 2.7, PAB 15. MEDS: Reviewed. GI: 75 ml via colostomy today. SKIN: Unstageable PU on R 5 toe, left distal lateral leg, R buttock (ischial tuberosity) and L greater trochanter. Stage IV PU on L buttock. CURRENT WT: Admit Wt: 70.9 kg DIET: General PO 100% EST. NEEDS: Wounds Kcals: 5240-3863 kcal/day (35-40 kcal/kg BW) Pro: 105-140 g/day (1.5-2.0 g/kg BW) NUTRITION DIAGNOSIS: 1.) Increased nutrient needs related to increased demand for nutrients for wound healing as evidenced by multiple pressure ulcers. NUTRITION INTERVENTION: 1.) Will add melia BID. 2.) Will add Ensure BID to encourage adequate po intake to meet pt est. needs. MONITOR / EVAL: PO intake, labs, weights, wounds, nutrition status. Will continue to monitor per moderate nutritional risk guidelines.
--- NOTE | 2016-06-16 21:10 | CONS ---
[address] [address] CONSULTATION REPORT PATIENT: RAMIREZ HATFIELD : 1970 MR#: [id number] ADMIT: 06/13/2016 JOB ID: [id number] DATE OF SERVICE: 06/16/[address] Octavio Braun for this consult. REASON FOR CONSULTATION: Proteus urinary tract infection and possible soft tissue infection in a gentleman with spina bifida and hemiplegia and paraparesis. HISTORY OF THE PRESENT ILLNESS: This is a 46-year-old gentleman who is well known to me from multiple prior admissions. The patient's primary problem is underlying spina bifida which has left him with paraparesis and very weak lower extremities, as well as urinary incontinence. He also has a history of recurrent decubitus-type ulcers and for that reason received an elective colostomy in the past to divert stool away from his decubitus. He sometimes uses a Melgar but oftentimes does not. In addition to his spina bifida, his main problem in life is homelessness. Patient is occasionally at [facility] but oftentimes is literally on the street living in a wheelchair. Because of a colostomy bag that does not fit well, he is often sitting in a combination of stool and urine secondary to his urinary incontinence and has almost continual skin breakdown around his perineum, buttocks and lower intertriginous zones, I last saw the patient at this facility in March. We were unsure as to whether he had a soft tissue infection, which is often the case, and elected to treat him for about one week with Zosyn before discontinuing antibiotics. The patient is now readmitted with a variety of issues, including worsening condition of the skin over his lower abdomen and perineum and dry gangrene found on the right side of his forefoot. There were concerns that he might even have Remington-type gangrene when he 1st arrived in the ED and was admitted on June 13, but the patient really did not have a lot of constitutional symptoms to go along with his cutaneous symptoms and has improved here in the hospital over the last two or three days. At the time of admission and now the patient denies fevers, chills, or sweats. He has no significant new pulmonary symptoms though he does have a great deal of GERD, which is painful to him and for which he is requesting help. He does not have diarrhea but he does have a colostomy which has some rather loose stool in it and occasionally breaks and leaves him covered. He has irritation all around his lower abdomen and perineum on an ongoing basis. He notes that he used to be able to walk a few steps with a cane which was very beneficial and more recently he has gotten weaker in the lower extremities and can get around only in very limited fashion and primarily has to use his wheelchair. He is completely unaware of the dry gangrene which has evolved just over the last couple months in his right lateral forefoot. He has no idea how this started or what factors may be associated with its progression. PAST MEDICAL HISTORY: 1. Spina bifida with paraparesis and an absence of sensation below the waist. 2. Diverting colostomy done in 2016 at [facility] to help heal a large left buttock decubitus. 3. Urinary incontinence which is sometimes managed by [place] condom or Melgar catheter or sometimes with nothing. 4. Hydrocephalus with a functioning ventricular shunt. Notes in the chart differ as to whether this is a CREDIT CHECKER or a [facility] shunt. 5. Chronic homelessness. SOCIAL HISTORY: The patient smokes cigarettes. Drinks alcohol occasionally and sometimes uses methamphetamine. He also smokes marijuana, and when he uses meth he smokes it as well. FAMILY HISTORY: Negative for tuberculosis in 1st degree relatives, though he has been to [facility] where he was treated empirically with a prolonged course of rifampin after a close contact with tuberculosis. REVIEW OF SYSTEMS: The patient currently has no headache. No change in vision. No trouble swallowing, though he does have severe, painful gastric reflux. No nausea or vomiting at this point, though he did have some episode of nausea three days ago. He has a colostomy which is functioning but occasionally breaks and leaves him soiled. He is not currently using a Melgar or a condom catheter prior to admission, but since admission, a Melgar has been installed and it is not giving him any problems. He notes chronic pain and excoriation around his perineum and genital area. Patient also notes his lower extremities are becoming weaker which limits his ambulation greatly. He is insensate below the waist and that has not changed. Remainder of the review of systems was noncontributory or was negative. PHYSICAL EXAMINATION: Reveals a gentleman who appears about the same as I have seen him on many prior admissions. His temperature is 36.8, and he has been afebrile since admission. Note that he was afebrile on his March admission as well. Pulse 76, respiratory rate 20, blood pressure 113/71. He is saturating well on room air. He is in no acute distress. He is awake and alert. Eyes without conjunctivitis. Oral cavity negative. No thrush or pharyngitis. His neck is supple. No cervical adenopathy is noted. Eyes: Without conjunctivitis or scleral icterus. Lungs reasonably clear posteriorly. Cardiac tones: Regular rate and rhythm. Abdomen soft, nontender. A colostomy is present. Below the level of the colostomy, there is diffuse inflammation of the lower abdominal wall, perineum, inguinal zone, extending up onto the buttocks. This area is diffusely erythematous, angry-looking, and really unchanged from prior admissions, when his skin has had exactly the same appearance. There is no skin breakdown, however, open wounds, or areas of necrosis that would be consistent with Remington gangrene. He has a Melgar catheter present today. No suprapubic fullness is noted. The legs are wasted bilaterally and with minimal overlying edema, about 1+ perhaps. The knees and hips are without evidence of synovitis. The patient's lower extremities in general are without cellulitis but the right lateral forefoot is grossly ischemic with dry gangrene enveloping the right 5th toe and extending a bit up onto the surface of the foot itself. This area has no odor and there is obviously no wet gangrene. This is purely a dry gangrene phenomenon. The remainder of his toes seem reasonably uninvolved with this process. None of this is painful given the patient's insensate lower extremities. Neurologically, the patient has about 3/5 strength in his lower extremities bilaterally and that is unchanged from prior. He does not have flexion contractures but rather just weak, somewhat atrophic legs. Remainder of the physical exam is unremarkable. LABORATORIES: White count was 15 when he came in. Within 12 hours, it had dropped, interestingly, to 10,000 and has remained there thereafter. A diff on the white count is basically normal, and has been normal since admission. Sed rate is 46 at this time. Creatinine 0.58. LFTs are normal. Procalcitonin basically negative. Toxicology on this admission: Vancomycin trough 16. Urinalysis, when he came in, had greater than 50 white cells, and that urine grew Proteus. A followup urinalysis was negative. Streptozyme was negative. MRSA PCR of the nares negative. Blood cultures are negative. Urine growing Proteus which is quite susceptible to all standard agents except nitrofurantoin. A chest x-ray done on admission shows no acute cardiopulmonary disease. An abdominal CT scan shows no changes consistent with Remington's. Possible scarring of the gallbladder, and spina bifida. An x-ray of the right foot shows soft tissue swelling over the forefoot but no gas or osteo. IMPRESSION: This is always a challenging case. This patient has been admitted on numerous occasions with basically soft tissue inflammation around the perineum, groin, and buttocks secondary to stool and urine resting on these surfaces for prolonged periods. The new feature of this admission is the dry gangrene involving the right lateral forefoot and specifically the fifth toe. I have read the family member caretaker's consultation and I am inclined to agree that the dry gangrene does not need immediate surgical intervention and I suspect it also does not need any antibiotic intervention. The patient's Proteus urinary tract infection does deserve a short course of therapy but it does seem to be strictly a lower urinary tract infection and probably five days or so of ceftriaxone would be adequate. There is currently no evidence for MRSA infection or any infection that would require vancomycin. RECOMMENDATIONS: 1. I would continue ceftriaxone for a total of 3-5 days. 2. I have taken the liberty of discontinuing the vancomycin as I see no indication. 3. As I have noted in prior consults on this patient over the last couple years, I think the main thing that would help this patient is to have a clean dry place to live where he can take care of himself. Having the patient out on the street in the rain with an ill-fitting colostomy and urinary incontinence will inevitably lead to more soft tissue inflammation and problems. Sitting in a wheelchair with his right forefoot resting against a solid object probably also contributed to the dry gangrene we see now, and if he had a place to stay, it would seem to alleviate or prevent a lot of these ongoing problems.
[2016-06-16] MEDS ORDERED: Vancomycin 1 Gm/200 mL NS Premix IV SCH (22:00)
--- NOTE | 2016-06-16 23:14 | PCM.PNMED ---
Subjective Date of Service Jun 16, 2016 Subjective The patient is feeling better and has no new complaints. Exam Vital Signs Vital Sign - Last Date Time Temp Pulse Resp B/P Pulse Ox O2 Delivery O2 Flow Rate FiO2 06/16/16 22:17 37.0 74 18 127/77 97 Room Air Intake and Output 06/15/16 06/15/16 06/16/16 Cumulative From/Thru 15:00 23:00 07:00 06/13/16 11:05 - 06/16/16 06:42 Intake Total 1958 ml 1535 ml 00642 ml Output Total 900 ml 1000 ml 6950 ml Balance 1058 ml 535 ml 3628 ml Intake Oral 837 ml 400 ml 4565 ml IV Total 1121 ml 1135 ml 6013 ml Output Urine Total 900 ml 925 ml 5825 ml Stool Total 75 ml 625 ml Emesis 500 ml # Bowel Movements 1 Exam General: Patient is resting comfortably on his Clinitron bed. He is in no apparent distress. HEENT: Head is atraumatic and normocephalic. Eyes: Pupils are equally round and reactive to light and accommodation. Extraocular muscles are intact. Sclera are white, anicteric. Subconjunctival mucosa is pink. Ears and nose are unremarkable. Oropharynx: There is no mucosal lesions, there is no thrush, there is no pharyngitis. Neck: Is supple, there are no nodes, or masses or tenderness. Chest: Is clear to auscultation and percussion. There are no rales, rhonchi, wheezes or rubs. Heart: Rate, rhythm is regular. There is no murmur, rub or gallop. Abdomen: Good bowel sounds are present. Abdomen is soft, nontender, no organomegaly or masses were appreciated. The ostomy in the left lower quadrant is unremarkable the surrounding erythema has improved and there is some dry skin. The erythema in the perineal area also has improved Extremities: Are symmetrical and well perfused. The erythema on the left inner thigh has improved significantly. Neurologic: Patient has spina bifida and weakness of the lower extremities. Gait was not tested this time apparently patient is unable to walk very well at all. Normally gets around in a wheelchair. Cranial nerves II through XII are intact. There are no new sensory or motor deficits. Psychiatric: Patients mood is calm and shows no sign of agitation. Genital: Deferred Rectal: Deferred Lab and Diagnostics Result Diagram: 06/16/1662406/16/16624 X-Rays, CTs and MRIs PROCEDURE: CT ABDOMEN AND PELVIS WITH CONTRAST ([id number]) INDICATIONS: 46-year-old male with perineal scrotal infection. Assess for Remington's gangrene. TECHNIQUE: After the administration of intravenous contrast, 5 mm thick sections acquired from the diaphragm to the symphysis. 5 mm coronal and sagittal reformats were acquired. For radiation dose reduction, the following was used: automated exposure control, adjustment of mA and/or kV according to patient size. COMPARISON: [facility], CT, CT ABD PELVIS W CON, 04/04/2016, 20:33. [facility], CT, CT ABD PELVIS W CON, 08/04/2015, 8:11. FINDINGS: Image quality: Excellent. ABDOMEN: Lung bases: Lung bases are clear. Heart size is normal. Solid organs: Liver and spleen are normal in size and enhancement. Gallbladder remains small and irregular in overall shape. Biliary system is non dilated. Pancreas enhances normally. No adrenal nodules. Kidneys demonstrate normal size and enhancement, without hydronephrosis. Peritoneum and bowel: Bowel loops demonstrate normal wall thickness and caliber , status post segmental sigmoid colon resection with left lower quadrant colostomy. The appendix is normal in caliber. Ventriculoperitoneal shunt is again noted, with small free fluid around the inferior portions of the shunt. Nodes and vessels: No retroperitoneal or mesenteric adenopathy by size criteria. Aorta and inferior vena cava are normal in size, with mild aortic atherosclerosis. Miscellaneous: Peristomal hernia is again noted, containing several nonobstructed small bowel loops. PELVIS: Genitourinary: The bladder is decompressed by a Melgar catheter as before. Miscellaneous: No inguinal hernias. Bilateral prominent inguinal lymph nodes are unchanged. The perineal soft tissues demonstrate no suspicious gas or rim- enhancing fluid collections to suggest abscess. Bones: No suspicious bony lesions. No vertebral body compression fractures. Spina bifida is again noted. IMPRESSION: 1. No CT findings to suggest Remington's gangrene. No perineal soft tissue abscesses. 2. Irregularly contracted gallbladder as before may reflect extensive mural scarring. Recommend correlation with any prior gallbladder surgeries, and consider nonemergent limited abdominal ultrasound for further characterization. 3. Left lower quadrant peristomal hernia as before, containing several nonobstructed small bowel loops. 4. Background spina bifida as before. Dictated by: Fei Stern M.D. on 06/13/2016 at 16:09 Approved by: Fei Stern M.D. on 06/13/2016 at 16:18 PROCEDURE: X-RAY CHEST ONE VIEW, PORTABLE ([id number]) INDICATIONS: SHORTNESS OF BREATH TECHNIQUE: One view of the chest was acquired. COMPARISON: [facility], CR, XR CHEST 2VW, 08/04/2015, 9:15. FINDINGS: Lordotic AP view. Surgical changes and devices: None. Lungs and pleura: No pleural effusions or pneumothorax. Lungs are clear. Mediastinum: Mediastinal contours appear normal. Heart size is normal. Bones and chest wall: No suspicious bony lesions. Overlying soft tissues appear unremarkable. IMPRESSION: No acute cardiopulmonary disease. Dictated by: Kathy Hernandez M.D. on 06/13/2016 at 12:31 Approved by: Kathy Hernandez M.D. on 06/13/2016 at 12:32 Assessment & Plan Patient is a 46-year-old homeless male with spina bifida with colostomy and urinary incontinence, and Chiari 2 malformation s/p PILOT BOAT CAPTAIN shunt presenting with "skin irritation" to his abdomen, groin and back. # The patient has an extensive erythematous rash, likely cellulitis resulted from urinary leakage with incontinence, present at the time of admission, CT abd didn't show deep tissue involvement, gangrene or abscess -Erythema improving with current tx. -s/p vanc, meropenem, clindamycin, Of note, pt was given vanc/zosyn last time, then switched to Doxycyclin oral upon d/c for 2wk per ID rec. -Given last hospitalization MRSA+ with relatively nontoxic cellulitis with clean base, which seems very similar at this admission, will continue vancomycin only, -However, MRSA swab this admission was negative -A wound care consult placed, surgery consult was considered with discussion with ED provider, however, given no focus for surgical intervention, it was deferred. - I have consulted Dr. Phillip of infectious disease and his consult was appreciated and his recommendations are as follows: "IMPRESSION: This is always a challenging case. This patient has been admitted on numerous occasions with basically soft tissue inflammation around the perineum, groin, and buttocks secondary to stool and urine resting on these surfaces for prolonged periods. The new feature of this admission is the dry gangrene involving the right lateral forefoot and specifically the fifth toe. I have read the farmworker pul[facility] farm's consultation and I am inclined to agree that the dry gangrene does not need immediate surgical intervention and I suspect it also does not need any antibiotic intervention. The patient's Proteus urinary tract infection does deserve a short course of therapy but it does seem to be strictly a lower urinary tract infection and probably five days or so of ceftriaxone would be adequate. There is currently no evidence for MRSA infection or any infection that would require vancomycin. RECOMMENDATIONS: 1. I would continue ceftriaxone for a total of 3-5 days. 2. I have taken the liberty of discontinuing the vancomycin as I see no indication. 3. As I have noted in prior consults on this patient over the last couple years, I think the main thing that would help this patient is to have a clean dry place to live where he can take care of himself. Having the patient out on the street in the rain with an ill-fitting colostomy and urinary incontinence will inevitably lead to more soft tissue inflammation and problems. Sitting in a wheelchair with his right forefoot resting against a solid object probably also contributed to the dry gangrene we see now, and if he had a place to stay, it would seem to alleviate or prevent a lot of these ongoing problems." # Nausea, vomiting, weakness, present at the time of admission, likely due to UTI, proteus+ -Continue Rocephine 2g qd -Continue zofran prn for n/v # Rt foot dry gangrene, POA, foot xray unremarkable, as per Podiatry, no indication for surgery unless it becomes wet gangrene # Spina Bifida, ostomy care, per RN staffs # Patient has a previously documented Mood disorder/Thoughts of self harm/ suicidal ideation, currently denied, patient was previously given Prozac for mood disorder, but unfortunately lost follow up. # History of Substance abuse, chronic. previous using methamphetamine # GERD, chronic. Pantoprazole prn # HTN, diet controlled Disposition: As per Dr. Phillip's note patient will require likely 2-3more days , needs to have better dispo plan prior to d/c greatly appreciate SW/CM input, as this is recurrent admission with similar problems. Pain Evaluation: Adequate Pain Control GI Prophylaxis: Not indicated VTE Prophylaxis: Sub-Q Enoxaparin Resuscitation Status: CPR: Attempt Resuscitation [place] MD Jun 16, 2016 23:13
[2016-06-17] MEDS: 0.9% Sodium Chloride 1,000 ML IV SCH ×4 (00:01→22:26)
--- NOTE | 2016-06-17 05:16 | NUR ---
Noc/Pressure Ulcer dressing pt denies chest pain, sob, n/v or abd discomfort. VSS and afebrile overnight. IV ABx administered as scheduled. Pressure ulcer dressings change as per Wound Care instructions. Intentional hourly rounding in effect.
[2016-06-17 05:31] LABS: BASOPHILS % (AUTO) 0.6 % (0-3); EOSINOPHILS % (AUTO) 4.6 % (0-5); MONOCYTES % (AUTO) 8.3 % (4-12); Mean Corpuscular Hemoglobin 28.1 pg (27.0-35.0); Mean Corpuscular Volume 91.2 fL (81-100); NEUTROPHILS % (AUTO) 41.8 % (40-74); Platelet Count 358 bil/L (150-400)
[2016-06-17 06:07] LABS: Magnesium 2.1 mg/dL (1.6-2.6)
[2016-06-17 06:35] VITALS: BP 120/72; PULSE 79; RESP 18; O2SAT 96
[2016-06-17] MEDS: cefTRIAXone Inj 2,000 MG in Dextrose 5% Minibag Plus 50 ML IV SCH (08:27)
[2016-06-17 08:30] VITALS: BP 132/83; PULSE 77; RESP 18; O2SAT 93; O2SAT 96
[2016-06-17] MEDS: Alum-Mag Hydrox-Simeth 30 mL Suspension PO PRN ×2 (10:12→16:14)
[2016-06-17] MEDS: HYDROmorphone 1 mg/mL Inj IVPUSH PRN ×2 (10:15→13:19)
[2016-06-17 12:30] VITALS: BP 157/82; PULSE 91; RESP 21; O2SAT 98
--- NOTE | 2016-06-17 14:51 | NUR ---
PRESSURE ULCER/DISCHARGE P-Patient has bilateral pressure ulcers on bottom, lives on street prior to hospitalization. I- Dressing changed on bottom per WC instructions, barrier cream applied to excoriated skin eugene skin area. SW working on placement to SNF/custodial. E- Right pressure ulcer appears to small (2cm) and healing well. Left side larger and deeper but appears to be healing well too. SW to follow up and coordinate with facilities maintenance worker AVIVA Epps.
[2016-06-17 17:30] VITALS: BP 125/78; PULSE 78; O2SAT 92
--- NOTE | 2016-06-17 19:28 | PROG NOTE ---
[address] [address] PROGRESS NOTE PATIENT: RAMIREZ HATFIELD : 1970 MR#: [id number] ADMIT: 06/13/2016 JOB ID: [id number] DATE: 06/17/2016 REASON FOR FOLLOWUP: Right forefoot dry gangrene and diffuse ulcerations and excoriations around the perineum and buttocks. INTERVAL HISTORY: Overnight, the patient reports no fevers, no chills, no sweats. He still has a very severe esophageal reflux he has been complaining about and a little bit of back pain. The inflammation around the genitals and perineum seems to have subsided as he is now in a better environment and a Clinitron bed. He has had little bit of bleeding from the area around his right forefoot dry gangrene but, of course, he has no pain there as he is insensate below the waist. PHYSICAL EXAMINATION: Reveals an afebrile gentleman, temperature 36.8, pulse 78, respiratory rate 21, blood pressure 125/78, he is saturating well on room air. He is in no acute distress at all. His lungs are clear. His abdomen is basically benign. He has a colostomy which is functioning. The erythema and inflammation in the groin and around the perineum has subsided considerably since admission. His right foot with an ischemic dry gangrene on the forefoot looks about the same as it did before, though there is a shallow skin tear with a small amount of bleeding now present, but it does not look cellulitic or especially infected. LABORATORIES: Include white count down to 10,000 which is about where it started actually. It went up a little bit to 11, now back down to 10. Completely normal differential. Sed rate 48, creatinine 0.58. LFTs are normal. Streptozyme is still pending. Urine grew Proteus mirabilis. Blood cultures negative. MRSA is PCR negative. IMPRESSION: This is a patient who is admitted on recurrent occasions with soft tissue inflammation where urine and stool have been allowed to remain on the skin for prolonged periods. He is back with basically that same problem and it is already starting to improve here in the hospital as it always does. More significantly, he does now have some right lateral forefoot dry gangrene but otherwise looks quite well. His urinary tract infection is being treated with ceftriaxone and there is no evidence for MRSA. RECOMMENDATIONS: 1. Would continue the ceftriaxone for a couple more days. 2. The patient is doing well without vancomycin. 3. This patient needs some sort of place where he can stay out of the rain or I am afraid he may be readmitted again. 4. ID will go ahead and sign off as there is no additional active issues on this patient.
[2016-06-17 20:26] VITALS: BP 125/81; PULSE 89; RESP 18; O2SAT 98
--- NOTE | 2016-06-17 21:05 | NUR ---
Colostomy P: Pts colostomy bag was unattaching from the skin. I: Removed old bag and flange and cleaned the stoma. Applied new flange and bag with patient's help. E: New flange is sealed and patient is able to ambulate without the bag leaking. S: Bed down and locked, 3 side rails up, call light within reach.
--- NOTE | 2016-06-17 22:37 | PCM.PNMED ---
Subjective Date of Service Jun 17, 2016 Subjective Patient has no new complaints today. He believes that he is beginning to feel little bit better. Exam Vital Signs Vital Sign - Last Date Time Temp Pulse Resp B/P Pulse Ox O2 Delivery O2 Flow Rate FiO2 06/17/16 20:26 36.4 89 18 125/81 98 Room Air Intake and Output 06/16/16 06/16/16 06/17/16 Cumulative From/Thru 15:00 23:00 07:00 06/13/16 11:05 - 06/17/16 06:15 Intake Total 816 ml 1566 ml 1221 ml 23556 ml Output Total 2800 ml 9750 ml Balance 816 ml -1234 ml 1221 ml 4431 ml Intake Oral 1356 ml 5921 ml IV Total 816 ml 210 ml 1221 ml 8260 ml Output Urine Total 2700 ml 8525 ml Stool Total 100 ml 725 ml Emesis 500 ml # Bowel Movements 1 Exam General: Patient is resting comfortably on his Clinitron bed. He continues to be in no apparent distress. HEENT: Head is atraumatic and normocephalic. Eyes: Pupils are equally round and reactive to light and accommodation. Extraocular muscles are intact. Sclera are white, anicteric. Subconjunctival mucosa is pink. Ears and nose are unremarkable. Oropharynx: There is no mucosal lesions, there is no thrush, there is no pharyngitis. Neck: Is supple, there are no nodes, or masses or tenderness. Chest: Is clear to auscultation and percussion. There are no rales, rhonchi, wheezes or rubs. Heart: Rate, rhythm is regular. There is no murmur, rub or gallop. Abdomen: Good bowel sounds are present. Abdomen is soft, nontender, no organomegaly or masses were appreciated. The ostomy in the left lower quadrant is unremarkable the surrounding erythema has improved and there is some dry skin. The erythema in the perineal area also has improved. Barrier cream has been placed over these areas and there is improvement in the integrity of the skin. Extremities: Are symmetrical and well perfused. The erythema on the left inner thigh has improved overall. There is dry gangrene of the right fifth toe and surrounding tissues. This is unchanged. Neurologic: Patient has spina bifida and weakness of the lower extremities. Gait was not tested this time apparently patient is unable to walk very well at all. Normally gets around in a wheelchair. Cranial nerves II through XII are intact. There are no new sensory or motor deficits. Psychiatric: Patients mood is calm and shows no sign of agitation. Genital: Deferred Rectal: Deferred Lab and Diagnostics Result Diagram: 06/17/1644906/17/16449 X-Rays, CTs and MRIs PROCEDURE: CT ABDOMEN AND PELVIS WITH CONTRAST ([id number]) INDICATIONS: 46-year-old male with perineal scrotal infection. Assess for Remington's gangrene. TECHNIQUE: After the administration of intravenous contrast, 5 mm thick sections acquired from the diaphragm to the symphysis. 5 mm coronal and sagittal reformats were acquired. For radiation dose reduction, the following was used: automated exposure control, adjustment of mA and/or kV according to patient size. COMPARISON: [facility], CT, CT ABD PELVIS W CON, 04/04/2016, 20:33. [facility], CT, CT ABD PELVIS W CON, 08/04/2015, 8:11. FINDINGS: Image quality: Excellent. ABDOMEN: Lung bases: Lung bases are clear. Heart size is normal. Solid organs: Liver and spleen are normal in size and enhancement. Gallbladder remains small and irregular in overall shape. Biliary system is non dilated. Pancreas enhances normally. No adrenal nodules. Kidneys demonstrate normal size and enhancement, without hydronephrosis. Peritoneum and bowel: Bowel loops demonstrate normal wall thickness and caliber , status post segmental sigmoid colon resection with left lower quadrant colostomy. The appendix is normal in caliber. Ventriculoperitoneal shunt is again noted, with small free fluid around the inferior portions of the shunt. Nodes and vessels: No retroperitoneal or mesenteric adenopathy by size criteria. Aorta and inferior vena cava are normal in size, with mild aortic atherosclerosis. Miscellaneous: Peristomal hernia is again noted, containing several nonobstructed small bowel loops. PELVIS: Genitourinary: The bladder is decompressed by a Melgar catheter as before. Miscellaneous: No inguinal hernias. Bilateral prominent inguinal lymph nodes are unchanged. The perineal soft tissues demonstrate no suspicious gas or rim- enhancing fluid collections to suggest abscess. Bones: No suspicious bony lesions. No vertebral body compression fractures. Spina bifida is again noted. IMPRESSION: 1. No CT findings to suggest Remington's gangrene. No perineal soft tissue abscesses. 2. Irregularly contracted gallbladder as before may reflect extensive mural scarring. Recommend correlation with any prior gallbladder surgeries, and consider nonemergent limited abdominal ultrasound for further characterization. 3. Left lower quadrant peristomal hernia as before, containing several nonobstructed small bowel loops. 4. Background spina bifida as before. Dictated by: Fei Stern M.D. on 06/13/2016 at 16:09 Approved by: Fei Stern M.D. on 06/13/2016 at 16:18 PROCEDURE: X-RAY CHEST ONE VIEW, PORTABLE ([id number]) INDICATIONS: SHORTNESS OF BREATH TECHNIQUE: One view of the chest was acquired. COMPARISON: [facility], CR, XR CHEST 2VW, 08/04/2015, 9:15. FINDINGS: Lordotic AP view. Surgical changes and devices: None. Lungs and pleura: No pleural effusions or pneumothorax. Lungs are clear. Mediastinum: Mediastinal contours appear normal. Heart size is normal. Bones and chest wall: No suspicious bony lesions. Overlying soft tissues appear unremarkable. IMPRESSION: No acute cardiopulmonary disease. Dictated by: Kathy Hernandez M.D. on 06/13/2016 at 12:31 Approved by: Kathy Hernandez M.D. on 06/13/2016 at 12:32 Assessment & Plan Patient is a 46-year-old homeless male with spina bifida with colostomy and urinary incontinence, and Chiari 2 malformation s/p PATIENT RESOURCE COORDINATOR shunt presenting with "skin irritation" to his abdomen, groin and back. # The patient has an extensive erythematous rash, likely cellulitis resulted from urinary leakage with incontinence, present at the time of admission, CT abd didn't show deep tissue involvement, gangrene or abscess -Erythema improving with current tx. -s/p vanc, meropenem, clindamycin, Of note, pt was given vanc/zosyn last time, then switched to Doxycyclin oral upon d/c for 2wk per ID rec. -Given last hospitalization MRSA+ with relatively nontoxic cellulitis with clean base, which seems very similar at this admission, will continue vancomycin only, -However, MRSA swab this admission was negative -A wound care consult placed, surgery consult was considered with discussion with ED provider, however, given no focus for surgical intervention, it was deferred. - I have consulted Dr. Phillip of infectious disease and his consult was appreciated and his recommendations are as follows: "IMPRESSION: This is always a challenging case. This patient has been admitted on numerous occasions with basically soft tissue inflammation around the perineum, groin, and buttocks secondary to stool and urine resting on these surfaces for prolonged periods. The new feature of this admission is the dry gangrene involving the right lateral forefoot and specifically the fifth toe. I have read the engineering agent's consultation and I am inclined to agree that the dry gangrene does not need immediate surgical intervention and I suspect it also does not need any antibiotic intervention. The patient's Proteus urinary tract infection does deserve a short course of therapy but it does seem to be strictly a lower urinary tract infection and probably five days or so of ceftriaxone would be adequate. There is currently no evidence for MRSA infection or any infection that would require vancomycin. RECOMMENDATIONS: 1. I would continue ceftriaxone for a total of 3-5 days. 2. I have taken the liberty of discontinuing the vancomycin as I see no indication. 3. As I have noted in prior consults on this patient over the last couple years, I think the main thing that would help this patient is to have a clean dry place to live where he can take care of himself. Having the patient out on the street in the rain with an ill-fitting colostomy and urinary incontinence will inevitably lead to more soft tissue inflammation and problems. Sitting in a wheelchair with his right forefoot resting against a solid object probably also contributed to the dry gangrene we see now, and if he had a place to stay, it would seem to alleviate or prevent a lot of these ongoing problems." # Nausea, vomiting, weakness, present at the time of admission, likely due to UTI, proteus+ -Continue Rocephine 2g qd -Continue zofran prn for n/v # Rt foot dry gangrene, POA, foot xray unremarkable, as per Podiatry, no indication for surgery unless it becomes wet gangrene # Spina Bifida, ostomy care, per RN staffs # Patient has a previously documented Mood disorder/Thoughts of self harm/ suicidal ideation, currently denied, patient was previously given Prozac for mood disorder, but unfortunately lost follow up. # History of Substance abuse, chronic. previous using methamphetamine # GERD, chronic. Pantoprazole prn # HTN, diet controlled Disposition: As per Dr. Phillip's note patient will require likely 2-3more days , needs to have better dispo plan prior to d/c greatly appreciate SW/CM input, as this is recurrent admission with similar problems. Pain Evaluation: Adequate Pain Control GI Prophylaxis: Not indicated VTE Prophylaxis: Sub-Q Enoxaparin Resuscitation Status: CPR: Attempt Resuscitation CayutaReji MD Jun 17, 2016 22:37
[2016-06-18 05:11] VITALS: BP 144/89; PULSE 72; RESP 18; O2SAT 99
[2016-06-18 05:36] LABS: BASOPHILS % (AUTO) 0.6 % (0-3); EOSINOPHILS % (AUTO) 4.7 % (0-5); MONOCYTES % (AUTO) 7.8 % (4-12); Mean Corpuscular Hemoglobin 28.5 pg (27.0-35.0); Mean Corpuscular Volume 91.1 fL (81-100); Platelet Count 396 bil/L (150-400)
[2016-06-18 06:05] LABS: Magnesium 2.2 mg/dL (1.6-2.6)
[2016-06-18] MEDS: HYDROmorphone 1 mg/mL Inj IVPUSH PRN (06:09)
--- NOTE | 2016-06-18 06:27 | NUR ---
pain Pt has been sleeping throughout the night w/o s/s of discomfort. pt on clinitron bed. Pt c/o 08/02 "rectum discomfort" and requested Dilaudid. 1mg given; pt stated pain is gone but he feel "loopy". will closely monitor.
[2016-06-18] MEDS: cefTRIAXone Inj 2,000 MG in Dextrose 5% Minibag Plus 50 ML IV SCH (07:39)
[2016-06-18] MEDS: 0.9% Sodium Chloride 1,000 ML IV SCH ×2 (07:40→17:37)
[2016-06-18] MEDS: Alum-Mag Hydrox-Simeth 30 mL Suspension PO PRN (07:44)
--- NOTE | 2016-06-18 08:31 | NUR ---
RADHA - Continued Discharge Planning - Late entry Data: Pt is on day 5 of hospitalization for sepsis, cellulitis. EMR reviewed. In rounds 06/17 RN and MD expressed concerns re: discharging the pt to homelessness and believe he needs a higher level of care. Demetriusft message for EDSON Bliss [phone] requesting to consult on pt and meet with him 06/18 to discuss options including potential SNF placement or [facility]. Assessment: Pt who is homeless and would benefit from higher level of care, SNF vs [facility]. Plan: RADHA will meet with pt to discuss options 06/18 before proceeding with pursuing placement. RADHA left message for EDSON. RADHA will continue to follow. TONY Navarrete
[2016-06-18] MEDS ORDERED: Vancomycin Serum Trough XX ONE (09:30)
--- NOTE | 2016-06-18 10:40 | NUR ---
Social Work Note - Continued D/C planning QUALITY CONTROL ANALYST met with pt - pt is alert and oriented - Pt known from previous admissions. QUALITY CONTROL ANALYST completed EMR review: Per EDSON, pt has 16 ED visits in the past year. Pt is homeless, has been sleeping outside for the past few weeks after being asked to leave a friend's house. Pt is open with community casemanagement with [facility] who is working with Pt to identify housing, community mental health services. He has lived in the [facility] all of his life and identifies knowing about community resources. He does not have good family supports. QUALITY CONTROL ANALYST explored options for d/c planning. QUALITY CONTROL ANALYST offered SNF for rehab - Pt states that he would not agree to go to SNF because he wants his "freedom" to leave facility for a few hours every day and does not want to "be in a long-term". QUALITY CONTROL ANALYST offered to explore AFH - explaining that he would commit to giving up his SSI income to pay for his care. He states that that is unreasonable and he would not agree to paying that much for his care. Pt would be willing to go to [facility] - but states that they have turned him down in the past due to his wheelchair. He gave QUALITY CONTROL ANALYST permission to call [facility] on his behalf. Pt states that he was picked up by EMS and is not sure where his wheelchair and back pack are. He thinks it might be at [facility]. QUALITY CONTROL ANALYST updated TONY Flores and will continue to follow. Plan: Likely return to Homelessness - will continue to explore longterm at [facility]. ROXY London
[2016-06-18 14:53] VITALS: BP 117/77; PULSE 79; RESP 20; O2SAT 97
--- NOTE | 2016-06-18 18:21 | NUR ---
Pain Patient alert and oriented X3. Patient denied pain all day today, but did have complaints of slight pressure to rectum. Patient stated that he has been having this pressure off and on for years. Patient stated he didn't feel that he needed any pain medication for the pressure at this point.
[2016-06-18 20:56] VITALS: BP 121/77; PULSE 86; RESP 20; O2SAT 97
--- NOTE | 2016-06-18 23:22 | PCM.PNMED ---
Subjective Date of Service Jun 18, 2016 Subjective Patient is lying in his clinic tried bed watching TV eating crackers with peanut butter and jelly. He states that his buttock area is slightly more painful today. He has no other new complaints. Exam Vital Signs Vital Sign - Last Date Time Temp Pulse Resp B/P Pulse Ox O2 Delivery O2 Flow Rate FiO2 06/18/16 20:56 36.9 86 20 121/77 97 Room Air Intake and Output 06/17/16 06/17/16 06/18/16 Cumulative From/Thru 15:00 23:00 07:00 06/13/16 11:05 - 06/18/16 06:32 Intake Total 700 ml 2436 ml 1835 ml 01711 ml Output Total 3050 ml 2900 ml 2230 ml 13072 ml Balance -2350 ml -464 ml -395 ml 1222 ml Intake Oral 700 ml 1236 ml 800 ml 8657 ml IV Total 1200 ml 1035 ml 59664 ml Output Urine Total 3050 ml 2650 ml 2200 ml 66735 ml Stool Total 250 ml 30 ml 1005 ml Emesis 500 ml # Bowel Movements 0 1 Exam General: Patient is resting comfortably on his Clinitron bed. He continues to be in no apparent distress. HEENT: Head is atraumatic and normocephalic. Eyes: Pupils are equally round and reactive to light and accommodation. Extraocular muscles are intact. Sclera are white, anicteric. Subconjunctival mucosa is pink. Ears and nose are unremarkable. Oropharynx: There is no mucosal lesions, there is no thrush, there is no pharyngitis. Neck: Is supple, there are no nodes, or masses or tenderness. Chest: Is clear to auscultation and percussion. There are no rales, rhonchi, wheezes or rubs. Heart: Rate, rhythm is regular. There is no murmur, rub or gallop. Abdomen: Good bowel sounds are present. Abdomen is soft, nontender, no organomegaly or masses were appreciated. The ostomy in the left lower quadrant is unremarkable the surrounding erythema has improved and there is some dry skin. The erythema in the perineal area continues to improve. Barrier cream has been placed over these areas and there is improvement in the integrity of the skin. Extremities: Are symmetrical and well perfused. The erythema on the left inner thigh has improved overall. There is dry gangrene of the right fifth toe and surrounding tissues. This is unchanged. Neurologic: Patient has spina bifida and weakness of the lower extremities. Gait was not tested this time apparently patient is unable to walk very well at all. Normally gets around in a wheelchair. Cranial nerves II through XII are intact. There are no new sensory or motor deficits. Psychiatric: Patients mood is calm and shows no sign of agitation. Genital: Deferred Rectal: Deferred Lab and Diagnostics Result Diagram: 06/18/1650906/18/16509 X-Rays, CTs and MRIs PROCEDURE: CT ABDOMEN AND PELVIS WITH CONTRAST ([id number]) INDICATIONS: 46-year-old male with perineal scrotal infection. Assess for Remington's gangrene. TECHNIQUE: After the administration of intravenous contrast, 5 mm thick sections acquired from the diaphragm to the symphysis. 5 mm coronal and sagittal reformats were acquired. For radiation dose reduction, the following was used: automated exposure control, adjustment of mA and/or kV according to patient size. COMPARISON: [facility], CT, CT ABD PELVIS W CON, 04/04/2016, 20:33. [facility], CT, CT ABD PELVIS W CON, 08/04/2015, 8:11. FINDINGS: Image quality: Excellent. ABDOMEN: Lung bases: Lung bases are clear. Heart size is normal. Solid organs: Liver and spleen are normal in size and enhancement. Gallbladder remains small and irregular in overall shape. Biliary system is non dilated. Pancreas enhances normally. No adrenal nodules. Kidneys demonstrate normal size and enhancement, without hydronephrosis. Peritoneum and bowel: Bowel loops demonstrate normal wall thickness and caliber , status post segmental sigmoid colon resection with left lower quadrant colostomy. The appendix is normal in caliber. Ventriculoperitoneal shunt is again noted, with small free fluid around the inferior portions of the shunt. Nodes and vessels: No retroperitoneal or mesenteric adenopathy by size criteria. Aorta and inferior vena cava are normal in size, with mild aortic atherosclerosis. Miscellaneous: Peristomal hernia is again noted, containing several nonobstructed small bowel loops. PELVIS: Genitourinary: The bladder is decompressed by a Melgar catheter as before. Miscellaneous: No inguinal hernias. Bilateral prominent inguinal lymph nodes are unchanged. The perineal soft tissues demonstrate no suspicious gas or rim- enhancing fluid collections to suggest abscess. Bones: No suspicious bony lesions. No vertebral body compression fractures. Spina bifida is again noted. IMPRESSION: 1. No CT findings to suggest Remington's gangrene. No perineal soft tissue abscesses. 2. Irregularly contracted gallbladder as before may reflect extensive mural scarring. Recommend correlation with any prior gallbladder surgeries, and consider nonemergent limited abdominal ultrasound for further characterization. 3. Left lower quadrant peristomal hernia as before, containing several nonobstructed small bowel loops. 4. Background spina bifida as before. Dictated by: Fei Stern M.D. on 06/13/2016 at 16:09 Approved by: Fei Stern M.D. on 06/13/2016 at 16:18 PROCEDURE: X-RAY CHEST ONE VIEW, PORTABLE ([id number]) INDICATIONS: SHORTNESS OF BREATH TECHNIQUE: One view of the chest was acquired. COMPARISON: [facility], CR, XR CHEST 2VW, 08/04/2015, 9:15. FINDINGS: Lordotic AP view. Surgical changes and devices: None. Lungs and pleura: No pleural effusions or pneumothorax. Lungs are clear. Mediastinum: Mediastinal contours appear normal. Heart size is normal. Bones and chest wall: No suspicious bony lesions. Overlying soft tissues appear unremarkable. IMPRESSION: No acute cardiopulmonary disease. Dictated by: Kathy Hernandez M.D. on 06/13/2016 at 12:31 Approved by: Kathy Hernandez M.D. on 06/13/2016 at 12:32 Assessment & Plan Patient is a 46-year-old homeless male with spina bifida with colostomy and urinary incontinence, and Chiari 2 malformation s/p ELEMENTARY EDUCATOR shunt presenting with "skin irritation" to his abdomen, groin and back. # The patient has an extensive erythematous rash, likely cellulitis resulted from urinary leakage with incontinence, present at the time of admission, CT abd didn't show deep tissue involvement, gangrene or abscess -Erythema improving with current tx. -s/p vanc, meropenem, clindamycin, Of note, pt was given vanc/zosyn last time, then switched to Doxycyclin oral upon d/c for 2wk per ID rec. -Given last hospitalization MRSA+ with relatively nontoxic cellulitis with clean base, which seems very similar at this admission, will continue vancomycin only, -However, MRSA swab this admission was negative -A wound care consult placed, surgery consult was considered with discussion with ED provider, however, given no focus for surgical intervention, it was deferred. - I have consulted Dr. Phillip of infectious disease and his consult was appreciated and his recommendations are as follows: "IMPRESSION: This is always a challenging case. This patient has been admitted on numerous occasions with basically soft tissue inflammation around the perineum, groin, and buttocks secondary to stool and urine resting on these surfaces for prolonged periods. The new feature of this admission is the dry gangrene involving the right lateral forefoot and specifically the fifth toe. I have read the nurse wound's consultation and I am inclined to agree that the dry gangrene does not need immediate surgical intervention and I suspect it also does not need any antibiotic intervention. The patient's Proteus urinary tract infection does deserve a short course of therapy but it does seem to be strictly a lower urinary tract infection and probably five days or so of ceftriaxone would be adequate. There is currently no evidence for MRSA infection or any infection that would require vancomycin. RECOMMENDATIONS: 1. I would continue ceftriaxone for a total of 3-5 days. 2. I have taken the liberty of discontinuing the vancomycin as I see no indication. 3. As I have noted in prior consults on this patient over the last couple years, I think the main thing that would help this patient is to have a clean dry place to live where he can take care of himself. Having the patient out on the street in the rain with an ill-fitting colostomy and urinary incontinence will inevitably lead to more soft tissue inflammation and problems. Sitting in a wheelchair with his right forefoot resting against a solid object probably also contributed to the dry gangrene we see now, and if he had a place to stay, it would seem to alleviate or prevent a lot of these ongoing problems." # Nausea, vomiting, weakness, present at the time of admission, likely due to UTI, proteus+ -Continue Rocephine 2g qd -Continue zofran prn for n/v # Rt foot dry gangrene, POA, foot xray unremarkable, as per Podiatry, no indication for surgery unless it becomes wet gangrene # Spina Bifida, ostomy care, per RN staffs # Patient has a previously documented Mood disorder/Thoughts of self harm/ suicidal ideation, currently denied, patient was previously given Prozac for mood disorder, but unfortunately lost follow up. # History of Substance abuse, chronic. previous using methamphetamine # GERD, chronic. Pantoprazole prn # HTN, diet controlled Disposition: As per Dr. Phillip's note patient will require likely 2-3more days , needs to have better dispo plan prior to d/c greatly appreciate SW/CM input, as this is recurrent admission with similar problems. Pain Evaluation: Adequate Pain Control GI Prophylaxis: Not indicated VTE Prophylaxis: Sub-Q Enoxaparin Resuscitation Status: CPR: Attempt Resuscitation EdgewaterReji MD Jun 18, 2016 23:21
[2016-06-19] MEDS: 0.9% Sodium Chloride 1,000 ML IV SCH ×2 (03:46→14:16)
[2016-06-19 04:17] LABS: BASOPHILS % (AUTO) 0.4 % (0-3); EOSINOPHILS % (AUTO) 4.2 % (0-5); MONOCYTES % (AUTO) 6.8 % (4-12); Mean Corpuscular Hemoglobin 28.8 pg (27.0-35.0); Mean Corpuscular Volume 90.6 fL (81-100); NEUTROPHILS % (AUTO) 51.4 % (40-74); Platelet Count 224 bil/L (150-400)
[2016-06-19 05:14] VITALS: BP 124/83; PULSE 76; RESP 20; O2SAT 96
--- NOTE | 2016-06-19 06:11 | NUR ---
Pain/Dressings/I/O Pt denies pain this shift. Pt's dressings remain clean, dry and intact. Pt in clinitron bed, repositioning self independently in bed. Melgar draining pale yellow urine. Colostomy draining brown/soft/liquid stool. Call light within reach, frequent rounding.
[2016-06-19] MEDS: cefTRIAXone Inj 2,000 MG in Dextrose 5% Minibag Plus 50 ML IV SCH (08:14)
--- NOTE | 2016-06-19 09:50 | NUR ---
Pt concern Pt reports is feeling internal rectal discomfrt/pressure. Sts "It feels like someone is shoving a res hot poker up my butt". MD at bedside, educated pt may experience rectal pressure from time to time even with colostomy bag. Pt reports has had this concern for many years however no one has been able to tell him why. Position changes encouraged. Intentional rounding in place, will continue to monitor. Addendum: 06/19/16 at 1835 by EDWINA AMBROCIO RN Rectal discomfrt/pressure decreased to 1/10 on pain scale.
[2016-06-19 11:21] VITALS: BP 135/77; PULSE 71; RESP 21; O2SAT 96
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
[2016-06-19] MEDS: Pantoprazole 40 mg ER24 Tablet PO SCH (15:45)
--- NOTE | 2016-06-19 15:59 | NUR ---
Wound care Patient seen for wound care, continues to present in a clinitron fluid bed. Left buttock wound measures 7 cm L x 5 cm W x 4 cm D, wound bed is primarily granulation tissue with fascia or periosteum in the depth of the wound, periwound skin is healthy, no induration or erythema noted. Wound cleaned with saline and gauze then redressed with aquacell ag moist with saline, mepilex foam and tape. Right buttock wound is superficial, 1 cm in diameter and covered with aquacell and foam and tape. Stable ulcers without infection, nursing to change dressings q 48 hrs. Continue with clinitron bed.
--- NOTE | 2016-06-19 16:24 | NUR ---
Called [facility] to inquire about referral - Emi and Leandra are gone for the day. Advised okay to let me know tomorrow. faxed facesheet and gave access to [facility]. faxed clinicals to Ryan Nunes and [facility].
[2016-06-19 16:28] VITALS: BP 119/69; PULSE 67; RESP 20; O2SAT 94
[2016-06-19] MEDS: Alum-Mag Hydrox-Simeth 30 mL Suspension PO PRN ×2 (16:30→23:41)
[2016-06-19 19:43] VITALS: BP 124/74; PULSE 72; RESP 20; O2SAT 98
--- NOTE | 2016-06-19 20:12 | CONS ---
[address] [address] CONSULTATION REPORT PATIENT: RAMIREZ HATFIELD : 1970 MR#: [id number] ADMIT: 06/13/2016 JOB ID: [id number] DATE OF SERVICE: 06/19/2016 CHIEF COMPLAINT: Dr. Braun has asked me to consult on this 46-year-old man regarding rectal pain. HISTORY OF PRESENT ILLNESS: The patient was admitted to the hospital on the with multiple skin breakdowns and urinary incontinence as well as a pressure sore on his right foot in the setting of homelessness. The patient did relate a chronic problem of rectal pain to Dr. Braun and requested a consultation with a specialist and Dr. Braun has asked me to evaluate the patient. The patient was born with spina bifida and meningomyelocele, has had issues of urinary and fecal incontinence most of his life and approximately two years ago had a diverting colostomy at [facility]. He is a somewhat rambling historian and includes his opinion that they "talked me into it" regarding his colostomy. Regarding his rectal pain, he describes having rectal pain all his life, intermittent, as if there is a "hot, burning poker inserted up there." He says that this has been present all his life intermittently, but most recently has become much more frequent. It is difficult to pin him down as to the time frame that this has progressed, but at this point he tells me that he has an attack of rectal pain every day, usually 1-2, with difficulty in describing how long they last. There are no other associated symptoms. There is nothing that he does to bring these on. There is nothing he can do to make them go away. He tells me that he passes nothing through his rectum, not stool nor mucus. He is followed by Wound Care and was seen today with bilateral buttock ulcers that are felt to be stable without infection. PHYSICAL EXAMINATION: The patient is seen in an air bed. His BMI is 26. He is afebrile with a temperature 36.8, pulse is recorded at 71, his blood pressure is 135/77. He is in no acute distress. No further exam was performed. LABORATORY DATA: White count is 11.3, hematocrit is 38.7. Chemistries are normal. Albumin is 3.2. IMAGING: He had an abdominal and pelvic CT scan on admission. I have reviewed the films and the report and other than his background spina bifida, I see nothing abnormal in his rectum. IMPRESSION AND PLAN: A 46-year-old man with increasingly bothersome chronic rectal pain in the setting of longstanding spina bifida. I am not an expert on spina bifida, but what he describes sounds like intermittent neuropathic pain that is increasing in frequency. I do not think that this in and of itself is an indication for colonoscopy though the patient is 46 and would be approaching the age where screening colonoscopy might be recommended anyway. To that effect, GI consultation as an outpatient could be obtained. More importantly, I would recommend that he be seen by a neurologist for consideration of treatment of a neuropathic etiology of his rectal pain. Thank you for asking us to see this patient. General Surgery will not follow the patient unless requested back.
--- NOTE | 2016-06-19 23:42 | PCM.PNMED ---
Subjective Date of Service Jun 19, 2016 Subjective Patient complains of burning pain in his rectum which is often they are in a daily basis but he states it is making him "scream" today. He has no other new complaints. Exam Vital Signs Vital Sign - Last Date Time Temp Pulse Resp B/P Pulse Ox O2 Delivery O2 Flow Rate FiO2 06/19/16 19:43 36.4 72 20 124/74 98 Room Air Intake and Output 06/18/16 06/18/16 06/19/16 Cumulative From/Thru 15:00 23:00 07:00 06/13/16 11:05 - 06/19/16 06:43 Intake Total 2900 ml 1033 ml 35821 ml Output Total 2300 ml 2600 ml 34123 ml Balance 600 ml -1567 ml 1255 ml Intake Oral 1790 ml 40881 ml IV Total 1110 ml 1033 ml 20588 ml Output Urine Total 2000 ml 2600 ml 80866 ml Stool Total 300 ml 1305 ml Emesis 500 ml # Bowel Movements 1 2 Exam General: Patient is resting comfortably on his Clinitron bed. He continues to be in no apparent distress. HEENT: Head is atraumatic and normocephalic. Eyes: Pupils are equally round and reactive to light and accommodation. Extraocular muscles are intact. Sclera are white, anicteric. Subconjunctival mucosa is pink. Ears and nose are unremarkable. Oropharynx: There is no mucosal lesions, there is no thrush, there is no pharyngitis. Neck: Is supple, there are no nodes, or masses or tenderness. Chest: Is clear to auscultation and percussion. There are no rales, rhonchi, wheezes or rubs. Heart: Rate, rhythm is regular. There is no new murmur, rub or gallop. Abdomen: Good bowel sounds are present. Abdomen is soft, nontender, no organomegaly or masses were appreciated. The ostomy in the left lower quadrant is unremarkable the surrounding erythema continues to improve and there is some dry skin. The erythema in the perineal area continues to improve. Barrier cream has been placed over these areas and there is improvement in the integrity of the skin. Extremities: Are symmetrical and well perfused. The erythema on the left inner thigh continues to improve. There is dry gangrene of the right fifth toe and surrounding tissues. This is unchanged. The left buttock wound was examined with Kimani from the wound care team and their wound is approximately 2 cm in depth and 2 cm in width and extremely thin appearing with beefy red tissue. There is no S Shweta is no purulent drainage appears be no tunneling. The right buttock skin breakdown is very superficial. Neurologic: Patient has spina bifida and weakness of the lower extremities. Gait was not tested this time apparently patient is unable to walk very well at all. Normally gets around in a wheelchair. Cranial nerves II through XII are intact. There are no new sensory or motor deficits. Psychiatric: Patients mood is calm and shows no sign of agitation. Genital: Deferred Rectal: Deferred Lab and Diagnostics Result Diagram: 06/19/1640506/19/16405 Microbiology Name: RAMIREZ HATFIELD JR Age/Sex: 46/M Attend Dr: Filippo Levy MD Acct: [id number] Unit: [id number] Status: ADM IN Location: [facility] 3010-1 Re06/13/16 Disch: Specimen: [id number] Collected: 06/13/16 Status: COMP Req#: [id number] Received: 06/13/16 Source: RANDOM Sp Desc : Subm Dr: Janes Marin MD Ordered: URINE CULT Procedure Result Verified Site Microbiology HUSEYIN CULT URINE Final 06/15/16-37 Organism 1 PROTEUS MIRABILIS U COLONY COUNT/QUANTITY >100,000 CFU/ml PROTEUS MIRABILIS Cefazolin-predicts results for the oral agents, cefaclor,cefdinir, cefpodoximen, cefprozil, cefuroximne axetil, cephalexin and loracarbed when used for therapy of uncomplicated UTI's due to E. coli, K. pneumoniae, and Proteus mirabilis. Cefpodoxime, cefdinir and cefuroxime axetil may be tested individually because some isolates may be susceptible to these agents while testing resistant to cefazolin. (CLSI B626-V87 pg 53) 1. PROTEUS MIRABILIS M.I.C Interp --------- ------ * AMPICILLIN <=2 S * CEFAZOLIN (CEPHALOSPORIN) UTI 4 S * CEFEPIME <=1 S * CEFTRIAXONE <=1 S * CEFUROXIME SODIUM 4 S * CIPROFLOXACIN <=0.25 S * ERTAPENEM <=0.5 S * GENTAMICIN <=1 S * LEVOFLOXACIN <=0.12 S * NITROFURANTOIN 128 R * TETRACYCLINE >=16 R * TOBRAMYCIN <=1 S * TRIMETHOPRIM/SULFAMETHOXAZOLE <=20 S X-Rays, CTs and MRIs PROCEDURE: CT ABDOMEN AND PELVIS WITH CONTRAST ([id number]) INDICATIONS: 46-year-old male with perineal scrotal infection. Assess for Remington's gangrene. TECHNIQUE: After the administration of intravenous contrast, 5 mm thick sections acquired from the diaphragm to the symphysis. 5 mm coronal and sagittal reformats were acquired. For radiation dose reduction, the following was used: automated exposure control, adjustment of mA and/or kV according to patient size. COMPARISON: [facility], CT, CT ABD PELVIS W CON, 04/04/2016, 20:33. [facility], CT, CT ABD PELVIS W CON, 08/04/2015, 8:11. FINDINGS: Image quality: Excellent. ABDOMEN: Lung bases: Lung bases are clear. Heart size is normal. Solid organs: Liver and spleen are normal in size and enhancement. Gallbladder remains small and irregular in overall shape. Biliary system is non dilated. Pancreas enhances normally. No adrenal nodules. Kidneys demonstrate normal size and enhancement, without hydronephrosis. Peritoneum and bowel: Bowel loops demonstrate normal wall thickness and caliber , status post segmental sigmoid colon resection with left lower quadrant colostomy. The appendix is normal in caliber. Ventriculoperitoneal shunt is again noted, with small free fluid around the inferior portions of the shunt. Nodes and vessels: No retroperitoneal or mesenteric adenopathy by size criteria. Aorta and inferior vena cava are normal in size, with mild aortic atherosclerosis. Miscellaneous: Peristomal hernia is again noted, containing several nonobstructed small bowel loops. PELVIS: Genitourinary: The bladder is decompressed by a Melgar catheter as before. Miscellaneous: No inguinal hernias. Bilateral prominent inguinal lymph nodes are unchanged. The perineal soft tissues demonstrate no suspicious gas or rim- enhancing fluid collections to suggest abscess. Bones: No suspicious bony lesions. No vertebral body compression fractures. Spina bifida is again noted. IMPRESSION: 1. No CT findings to suggest Remington's gangrene. No perineal soft tissue abscesses. 2. Irregularly contracted gallbladder as before may reflect extensive mural scarring. Recommend correlation with any prior gallbladder surgeries, and consider nonemergent limited abdominal ultrasound for further characterization. 3. Left lower quadrant peristomal hernia as before, containing several nonobstructed small bowel loops. 4. Background spina bifida as before. Dictated by: Fei Stern M.D. on 06/13/2016 at 16:09 Approved by: Fei Stern M.D. on 06/13/2016 at 16:18 PROCEDURE: X-RAY CHEST ONE VIEW, PORTABLE ([id number]) INDICATIONS: SHORTNESS OF BREATH TECHNIQUE: One view of the chest was acquired. COMPARISON: [facility], CR, XR CHEST 2VW, 08/04/2015, 9:15. FINDINGS: Lordotic AP view. Surgical changes and devices: None. Lungs and pleura: No pleural effusions or pneumothorax. Lungs are clear. Mediastinum: Mediastinal contours appear normal. Heart size is normal. Bones and chest wall: No suspicious bony lesions. Overlying soft tissues appear unremarkable. IMPRESSION: No acute cardiopulmonary disease. Dictated by: Kathy Hernandez M.D. on 06/13/2016 at 12:31 Approved by: Kathy Hernandez M.D. on 06/13/2016 at 12:32 Assessment & Plan Patient is a 46-year-old homeless male with spina bifida with colostomy and urinary incontinence, and Chiari 2 malformation s/p WORSHIP PASTOR shunt presenting with "skin irritation" to his abdomen, groin and back. # The patient has an extensive erythematous rash, likely cellulitis resulted from urinary leakage with incontinence, present at the time of admission, CT abd didn't show deep tissue involvement, gangrene or abscess -Erythema improving with current tx. -s/p vanc, meropenem, clindamycin, Of note, pt was given vanc/zosyn last time, then switched to Doxycyclin oral upon d/c for 2wk per ID rec. -MRSA swab this admission was negative -A wound care consult placed, - I have consulted Dr. Phillip of infectious disease and his consult was appreciated and his recommendations are as follows: "IMPRESSION: This is always a challenging case. This patient has been admitted on numerous occasions with basically soft tissue inflammation around the perineum, groin, and buttocks secondary to stool and urine resting on these surfaces for prolonged periods. The new feature of this admission is the dry gangrene involving the right lateral forefoot and specifically the fifth toe. I have read the financial service representative's consultation and I am inclined to agree that the dry gangrene does not need immediate surgical intervention and I suspect it also does not need any antibiotic intervention. The patient's Proteus urinary tract infection does deserve a short course of therapy but it does seem to be strictly a lower urinary tract infection and probably five days or so of ceftriaxone would be adequate. There is currently no evidence for MRSA infection or any infection that would require vancomycin. RECOMMENDATIONS: 1. I would continue ceftriaxone for a total of 3-5 days. 2. I have taken the liberty of discontinuing the vancomycin as I see no indication. 3. As I have noted in prior consults on this patient over the last couple years, I think the main thing that would help this patient is to have a clean dry place to live where he can take care of himself. Having the patient out on the street in the rain with an ill-fitting colostomy and urinary incontinence will inevitably lead to more soft tissue inflammation and problems. Sitting in a wheelchair with his right forefoot resting against a solid object probably also contributed to the dry gangrene we see now, and if he had a place to stay, it would seem to alleviate or prevent a lot of these ongoing problems." # Nausea, vomiting, weakness, present at the time of admission, likely due to UTI, proteus+ -Continue Rocephine 2g qd -Continue zofran prn for n/v # Rectal pain - Have consulted Dr. Abiel Rodríguez of general surgery to evaluate the patient and he was kind enough to do so. Dr. Rodríguez's recommendations are as follows: "A 46-year-old man with increasingly bothersome chronic rectal pain in the setting of longstanding spina bifida. I am not an expert on spina bifida, but what he describes sounds like intermittent neuropathic pain that is increasing in frequency. I do not think that this in and of itself is an indication for colonoscopy though the patient is 46 and would be approaching the age where screening colonoscopy might be recommended anyway. To that effect, GI consultation as an outpatient could be obtained. More importantly, I would recommend that he be seen by a neurologist for consideration of treatment of a neuropathic etiology of his rectal pain." # Rt foot dry gangrene, POA, foot xray unremarkable, as per Podiatry, no indication for surgery unless it becomes wet gangrene # Spina Bifida, ostomy care, per RN staffs # Patient has a previously documented Mood disorder/Thoughts of self harm/ suicidal ideation, currently denied, patient was previously given Prozac for mood disorder, but unfortunately lost follow up. # History of Substance abuse, chronic. previous using methamphetamine # GERD, chronic. Pantoprazole prn # HTN, diet controlled Disposition: As per Dr. Phillip's note patient will require likely 2 more days, and patient needs to have better disposition plan prior to d/c greatly appreciate SW/CM input, as this is recurrent admission with similar problems. Pain Evaluation: Adequate Pain Control GI Prophylaxis: Not indicated VTE Prophylaxis: Sub-Q Enoxaparin Resuscitation Status: CPR: Attempt Resuscitation Reji Braun MD Jun 19, 2016 23:42
[2016-06-20 00:29] VITALS: BP 115/75; PULSE 75; RESP 20; O2SAT 99
[2016-06-20] MEDS: 0.9% Sodium Chloride 1,000 ML IV SCH ×3 (00:30→19:28)
[2016-06-20] MEDS: Pantoprazole 40 mg ER24 Tablet PO SCH (05:25)
[2016-06-20] MEDS: Alum-Mag Hydrox-Simeth 30 mL Suspension PO PRN ×2 (05:30→13:17)
[2016-06-20 05:31] VITALS: BP 118/66; PULSE 68; RESP 20; O2SAT 98
[2016-06-20 06:00] LABS: BASOPHILS % (AUTO) 0.4 % (0-3); EOSINOPHILS % (AUTO) 4.9 % (0-5); MONOCYTES % (AUTO) 8.5 % (4-12); Mean Corpuscular Hemoglobin 28.8 pg (27.0-35.0); Mean Corpuscular Volume 90.6 fL (81-100); NEUTROPHILS % (AUTO) 50.1 % (40-74); Platelet Count 385 bil/L (150-400)
--- NOTE | 2016-06-20 06:00 | NUR ---
Acid reflux Pt c/o acid reflux, medicated pt with maalox X2 and scheduled protonix. Pt resting in bed after medication admin. No further c/o acid reflux.
[2016-06-20 06:19] LABS: Magnesium 2.3 mg/dL (1.6-2.6)
--- NOTE | 2016-06-20 08:47 | NUR ---
Social Work: continued Discharge Planning SW received a call from Nery at [facility] stating hat they are unable to accept the patient. SW received a call from Gus at [facility] stating that they will need to complete a bedside assessment on the patient befor they can give us an answer in reference to acceptance or denial of the patient. [facility] will send Aminata Kirkpatrick out to complete an assessment on 06/20/16. SW will continue to follow and assist patient with discharge planning. Ame Lee LMSW, TINO
[2016-06-20] MEDS: cefTRIAXone Inj 2,000 MG in Dextrose 5% Minibag Plus 50 ML IV SCH (10:08)
[2016-06-20 12:56] VITALS: BP 120/78; PULSE 92; RESP 20; O2SAT 97
--- NOTE | 2016-06-20 13:23 | NUR ---
NUTRITION FOLLOW-UP: ASSESS: 46 yo male admitted with sepsis and cellulitis likely related to prolonged exposure to urine and feces. Pt continues to have good po intake. PMHX: Spinal bifida w/ leg weakness, bowel/bladder incontinence, Chiari 2 malformation s/p TECHNOLOGY SALES CONSULTANT shunt w/ multiple revisions, prediabetic, HTN, GERD, substance abuse, diverting colostomy. LABS: Reviewed. Cr 0.68, Alb 3.7 MEDS: Reviewed. GI: 1050 ml stool output reported so far today. SKIN: Unstageable PU on R 5 toe, left distal lateral leg, R buttock (ischial tuberosity) and L greater trochanter. 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 CURRENT WT: Admit Wt: 70.9 kg DIET: General, Ensure and Rosalio BID. PO 75-100% EST. NEEDS: Wounds Kcals: 0838-9187 kcal/day (35-40 kcal/kg BW) Pro: 105-140 g/day (1.5-2.0 g/kg BW) NUTRITION DIAGNOSIS: 1.) Increased nutrient needs related to increased demand for nutrients for wound healing as evidenced by multiple pressure ulcers. NUTRITION INTERVENTION: 1.) Continue to send Rosalio and Ensure BID to encourage adequate po intake to meet pt est. needs. MONITOR / EVAL: PO intake, labs, weights, wounds, nutrition status. Continue to monitor per moderate nutritional risk guidelines.
--- NOTE | 2016-06-20 16:35 | NUR ---
Wound Care Patient seen for wound care, continues to present in a clinitron fluid bed. Left buttock wound measures 7 cm L x 5 cm W x 4 cm D, wound bed is primarily granulation tissue with fascia or periostium in the depth of the wound, periwound skin is healthy, no induration or erythema noted. Wound cleaned with saline and gauze then redressed with aquacell ag moist with saline, mepilex foam and tape. Right buttock wound is superficial, 1 cm in diameter and covered with aquacell and foam and tape. Stable ulcers without infection, nursing to change dressings q 48 hrs. Necrotic toe is painted with betadine Continue with clinitron bed.
--- NOTE | 2016-06-20 18:06 | NUR ---
Student Nurse PIE note P: pt complaining of acid reflux and vomited 2x during shift. Patient reports 0 out of 10 pain. History of spinal bifida which causes numbness and tingling in lower extremities. Pressure ulcer to left buttocks, scabbing and abrasions to lower extremities, and black/discoloration to the right foot's 5th toe. Trace edema to lower extremities, bilaterally. Bruising to arms from prior IV sticks. I: Provided Maalox and continuing to monitor emesis. Continued antibiotics. Wound therapy changed wound dressings and provided wound care to feet. Clinitron bed in use. Monitor scabs and bruising. Dietary increased protein intake with additional Rosalio and Ensures. Patient education provided on diet and self care regarding colostomy and wound healing. E: Patient continues to complain of acid reflux and requests Maalox; vomited undigested food twice during shift. Patient able to reposition independently in bed, uses wheelchair when not in hospital. Bruising on arms from prior IV sticks. Patient able to eat meal trays and adds nutritional powder to drink at each meal. VS stable. Alert and oriented x4. 93% room air. PICC Line patent, NS running at 100ml/hr. Addendum: 06/20/16 at 1828 by JACINTO FLORES Emptied ostomy bag 3x on shift. >300ml out each time. Patient pleasant in conversation.
[2016-06-20] MEDS: HYDROmorphone 1 mg/mL Inj IVPUSH PRN (19:29)
[2016-06-20] MEDS: Nystatin 100,000 Unit/Gm 15 Gm Powder TOPICAL SCH (19:39)
[2016-06-20 21:16] VITALS: BP 128/68; PULSE 78; RESP 20; O2SAT 98
--- NOTE | 2016-06-21 00:22 | PCM.PNMED ---
Subjective Date of Service Jun 21, 2016 Subjective Patient states that his rectal pain as about a 1 out of 10 at this time however there are times during the day that he gets a piercing stabbing pain in his rectum and then it will go away after a period of time. He has no other new complaints. Exam Vital Signs Vital Sign - Last Date Time Temp Pulse Resp B/P Pulse Ox O2 Delivery O2 Flow Rate FiO2 06/20/16 21:16 36.0 78 20 128/68 98 Room Air Intake and Output 06/20/16 06/20/16 06/21/16 Cumulative From/Thru 15:00 23:00 07:00 06/13/16 11:05 - 06/20/16 18:43 Intake Total 863 ml 704 ml 96413 ml Output Total 300 ml 1600 ml 86189 ml Balance 563 ml -896 ml -676 ml Intake Oral 450 ml 704 ml 27374 ml IV Total 413 ml 05396 ml Output Urine Total 1600 ml 01233 ml Stool Total 300 ml 3005 ml Emesis 500 ml # Bowel Movements 4 Exam General: Patient is resting comfortably on his Clinitron bed. He continues to be in no apparent distress. HEENT: Head is atraumatic and normocephalic. Eyes: Pupils are equally round and reactive to light and accommodation. Extraocular muscles are intact. Sclera are white, anicteric. Subconjunctival mucosa is pink. Ears and nose are unremarkable. Oropharynx: There is no mucosal lesions, there is no thrush, there is no pharyngitis. Neck: Is supple, there are no nodes, or masses or tenderness. Chest: Is clear to auscultation and percussion. There are no rales, rhonchi, wheezes or rubs. Heart: Rate, rhythm is regular. There is no new murmur, rub or gallop. Abdomen: Good bowel sounds are present. Abdomen is soft, nontender, no organomegaly or masses were appreciated. The ostomy in the left lower quadrant is unremarkable the surrounding erythema continues to improve and there is some dry skin. The erythema in the perineal area continues to improve. Barrier cream has been placed over these areas and there is improvement in the integrity of the skin. Extremities: Are symmetrical and well perfused. The erythema on the left inner thigh continues to improve. There is dry gangrene of the right fifth toe and surrounding tissues. Some of the eschar has fallen off since yesterday. The underlying tissue is healthy appearing. The left buttock wound was examined with Kimani from the wound care team and their wound is approximately 2 cm in depth and 2 cm in width and extremely thin appearing with beefy red tissue. There is no purulent drainage and there appears to be no tunneling. The right buttock skin breakdown is very superficial. Neurologic: Patient has spina bifida and weakness of the lower extremities. Gait was not tested this time apparently patient is unable to walk very well at all. Normally gets around in a wheelchair. Cranial nerves II through XII are intact. There are no new sensory or motor deficits. Psychiatric: Patients mood is calm and shows no sign of agitation. Genital: Deferred Rectal: Deferred Lab and Diagnostics Result Diagram: 06/20/1648 06/20/1648 Microbiology Name: LBRAMIREZ ALVAREZ JR Age/Sex: 46/M Attend Dr: Filippo Levy MD Acct: [id number] Unit: [id number] Status: ADM IN Location: [facility] 3010-1 Re06/13/16 Disch: Specimen: [id number] Collected: 06/13/16 Status: COMP Req#: [id number] Received: 06/13/16 Source: [facility]OM Sp Desc : Subm Dr: Janes Marin MD Ordered: URINE CULT Procedure Result Verified Site Microbiology HUSEYIN CULT URINE Final 06/15/16-37 Organism 1 PROTEUS MIRABILIS U COLONY COUNT/QUANTITY >100,000 CFU/ml PROTEUS MIRABILIS Cefazolin-predicts results for the oral agents, cefaclor,cefdinir, cefpodoximen, cefprozil, cefuroximne axetil, cephalexin and loracarbed when used for therapy of uncomplicated UTI's due to E. coli, K. pneumoniae, and Proteus mirabilis. Cefpodoxime, cefdinir and cefuroxime axetil may be tested individually because some isolates may be susceptible to these agents while testing resistant to cefazolin. (CLSI K853-T29 pg 53) 1. PROTEUS MIRABILIS M.I.C Interp --------- ------ * AMPICILLIN <=2 S * CEFAZOLIN (CEPHALOSPORIN) UTI 4 S * CEFEPIME <=1 S * CEFTRIAXONE <=1 S * CEFUROXIME SODIUM 4 S * CIPROFLOXACIN <=0.25 S * ERTAPENEM <=0.5 S * GENTAMICIN <=1 S * LEVOFLOXACIN <=0.12 S * NITROFURANTOIN 128 R * TETRACYCLINE >=16 R * TOBRAMYCIN <=1 S * TRIMETHOPRIM/SULFAMETHOXAZOLE <=20 S X-Rays, CTs and MRIs PROCEDURE: CT ABDOMEN AND PELVIS WITH CONTRAST ([id number]) INDICATIONS: 46-year-old male with perineal scrotal infection. Assess for Remington's gangrene. TECHNIQUE: After the administration of intravenous contrast, 5 mm thick sections acquired from the diaphragm to the symphysis. 5 mm coronal and sagittal reformats were acquired. For radiation dose reduction, the following was used: automated exposure control, adjustment of mA and/or kV according to patient size. COMPARISON: [facility], CT, CT ABD PELVIS W CON, 04/04/2016, 20:33. [facility], CT, CT ABD PELVIS W CON, 08/04/2015, 8:11. FINDINGS: Image quality: Excellent. ABDOMEN: Lung bases: Lung bases are clear. Heart size is normal. Solid organs: Liver and spleen are normal in size and enhancement. Gallbladder remains small and irregular in overall shape. Biliary system is non dilated. Pancreas enhances normally. No adrenal nodules. Kidneys demonstrate normal size and enhancement, without hydronephrosis. Peritoneum and bowel: Bowel loops demonstrate normal wall thickness and caliber , status post segmental sigmoid colon resection with left lower quadrant colostomy. The appendix is normal in caliber. Ventriculoperitoneal shunt is again noted, with small free fluid around the inferior portions of the shunt. Nodes and vessels: No retroperitoneal or mesenteric adenopathy by size criteria. Aorta and inferior vena cava are normal in size, with mild aortic atherosclerosis. Miscellaneous: Peristomal hernia is again noted, containing several nonobstructed small bowel loops. PELVIS: Genitourinary: The bladder is decompressed by a Melgar catheter as before. Miscellaneous: No inguinal hernias. Bilateral prominent inguinal lymph nodes are unchanged. The perineal soft tissues demonstrate no suspicious gas or rim- enhancing fluid collections to suggest abscess. Bones: No suspicious bony lesions. No vertebral body compression fractures. Spina bifida is again noted. IMPRESSION: 1. No CT findings to suggest Remington's gangrene. No perineal soft tissue abscesses. 2. Irregularly contracted gallbladder as before may reflect extensive mural scarring. Recommend correlation with any prior gallbladder surgeries, and consider nonemergent limited abdominal ultrasound for further characterization. 3. Left lower quadrant peristomal hernia as before, containing several nonobstructed small bowel loops. 4. Background spina bifida as before. Dictated by: Fei Stern M.D. on 06/13/2016 at 16:09 Approved by: Fei Stern M.D. on 06/13/2016 at 16:18 PROCEDURE: X-RAY CHEST ONE VIEW, PORTABLE ([id number]) INDICATIONS: SHORTNESS OF BREATH TECHNIQUE: One view of the chest was acquired. COMPARISON: [facility], CR, XR CHEST 2VW, 08/04/2015, 9:15. FINDINGS: Lordotic AP view. Surgical changes and devices: None. Lungs and pleura: No pleural effusions or pneumothorax. Lungs are clear. Mediastinum: Mediastinal contours appear normal. Heart size is normal. Bones and chest wall: No suspicious bony lesions. Overlying soft tissues appear unremarkable. IMPRESSION: No acute cardiopulmonary disease. Dictated by: Kathy Hernandez M.D. on 06/13/2016 at 12:31 Approved by: Kathy Hernandez M.D. on 06/13/2016 at 12:32 Assessment & Plan Patient is a 46-year-old homeless male with spina bifida with colostomy and urinary incontinence, and Chiari 2 malformation s/p ENTRY LEVEL RECEPTIONIST shunt presenting with "skin irritation" to his abdomen, groin and back. # The patient has an extensive erythematous rash, likely cellulitis resulted from urinary leakage with incontinence, present at the time of admission, CT abd didn't show deep tissue involvement, gangrene or abscess -Erythema improving with current tx. -s/p vanc, meropenem, clindamycin, Of note, pt was given vanc/zosyn last time, then switched to Doxycyclin oral upon d/c for 2wk per ID rec. -MRSA swab this admission was negative -A wound care consult placed, - As her appears to be a candidal element to the patient's skin rash will add nystatin powder and oral Diflucan. - I have consulted Dr. Phillip of infectious disease and his consult was appreciated and his recommendations are as follows: "IMPRESSION: This is always a challenging case. This patient has been admitted on numerous occasions with basically soft tissue inflammation around the perineum, groin, and buttocks secondary to stool and urine resting on these surfaces for prolonged periods. The new feature of this admission is the dry gangrene involving the right lateral forefoot and specifically the fifth toe. I have read the house cleaner supervisor's consultation and I am inclined to agree that the dry gangrene does not need immediate surgical intervention and I suspect it also does not need any antibiotic intervention. The patient's Proteus urinary tract infection does deserve a short course of therapy but it does seem to be strictly a lower urinary tract infection and probably five days or so of ceftriaxone would be adequate. There is currently no evidence for MRSA infection or any infection that would require vancomycin. RECOMMENDATIONS: 1. I would continue ceftriaxone for a total of 3-5 days. 2. I have taken the liberty of discontinuing the vancomycin as I see no indication. 3. As I have noted in prior consults on this patient over the last couple years, I think the main thing that would help this patient is to have a clean dry place to live where he can take care of himself. Having the patient out on the street in the rain with an ill-fitting colostomy and urinary incontinence will inevitably lead to more soft tissue inflammation and problems. Sitting in a wheelchair with his right forefoot resting against a solid object probably also contributed to the dry gangrene we see now, and if he had a place to stay, it would seem to alleviate or prevent a lot of these ongoing problems." # Nausea, vomiting, weakness, present at the time of admission, likely due to UTI, proteus+ -Continue Rocephine 2g qd -Continue zofran prn for n/v # Rectal pain - Have consulted Dr. Abiel Rodríguez of general surgery to evaluate the patient and he was kind enough to do so. Dr. Rodríguez's recommendations are as follows: "A 46-year-old man with increasingly bothersome chronic rectal pain in the setting of longstanding spina bifida. I am not an expert on spina bifida, but what he describes sounds like intermittent neuropathic pain that is increasing in frequency. I do not think that this in and of itself is an indication for colonoscopy though the patient is 46 and would be approaching the age where screening colonoscopy might be recommended anyway. To that effect, GI consultation as an outpatient could be obtained. More importantly, I would recommend that he be seen by a neurologist for consideration of treatment of a neuropathic etiology of his rectal pain." # Rt foot dry gangrene, POA, foot xray unremarkable, as per Podiatry, no indication for surgery unless it becomes wet gangrene # Spina Bifida, ostomy care, per RN staffs # Patient has a previously documented Mood disorder/Thoughts of self harm/ suicidal ideation, currently denied, patient was previously given Prozac for mood disorder, but unfortunately lost follow up. # History of Substance abuse, chronic. previous using methamphetamine # GERD, chronic. Pantoprazole prn # HTN, diet controlled Disposition: As per Dr. Phillip's note patient will require likely 2 more days, and patient needs to have better disposition plan prior to d/c greatly appreciate SW/CM input, as this is recurrent admission with similar problems. Pain Evaluation: Adequate Pain Control GI Prophylaxis: Not indicated VTE Prophylaxis: Sub-Q Enoxaparin Resuscitation Status: CPR: Attempt Resuscitation AparnaReji MD Jun 21, 2016 00:22
--- NOTE | 2016-06-21 00:45 | NUR ---
Right foot wound Patient reported at about 2200 that he accidently scraped off the black scab covering the lateral portion of his fifth toe on his right foot. Assessed wound- scab completely off, oozing blood. Patient said that he was trying to stop the bleeding by putting pressure on affected area with his left foot. Cleansed with saline, applied adaptic, non-adhering gauze, then Kerlix wrap. Will continue to monitor.
[2016-06-21 02:30] VITALS: BP 116/64; PULSE 70; RESP 20; O2SAT 97
[2016-06-21] MEDS: 0.9% Sodium Chloride 1,000 ML IV SCH ×2 (04:56→15:02)
[2016-06-21 05:22] VITALS: BP 114/64; PULSE 74; RESP 20; O2SAT 97
[2016-06-21] MEDS: cefTRIAXone Inj 2,000 MG in Dextrose 5% Minibag Plus 50 ML IV SCH (08:52)
[2016-06-21] MEDS: Pantoprazole 40 mg ER24 Tablet PO SCH (08:53)
[2016-06-21] MEDS: Nystatin 100,000 Unit/Gm 15 Gm Powder TOPICAL SCH ×2 (08:53→21:06)
[2016-06-21 09:27] VITALS: BP 120/72; PULSE 68; RESP 16; O2SAT 100
--- NOTE | 2016-06-21 13:42 | NUR ---
[facility] signed
[2016-06-21 14:06] VITALS: BP 133/79; PULSE 70; RESP 18; O2SAT 99
--- NOTE | 2016-06-21 17:59 | NUR ---
Student nurse shift note Patient alert and oriented x4, pleasant to converse with, but needs prompting and redirecting when asking questions. Patient is engaged with care. Wounds to right and left buttocks C/D/I. Wound to right 5th toe wrapped in Curlex and is C/D/I. Ostomy site has good attachment and is producing moderately. Trace edema noted in feet. Dry, scabbing skin on lower extremities and bruising to upper extremities from prior IV sticks. Itchy rash on abdomen and inner thighs, using Nystatin powder and patient says, "it's working well. I really like it". Placed a pillowcase in between thigh folds to assist with moisture. Patient stayed in Clinitron bed during shift. Patient eating well. Melgar catheter patent, pale cloudy urine being produced.
[2016-06-21 18:08] VITALS: BP 146/84; PULSE 79; RESP 18; O2SAT 99
--- NOTE | 2016-06-21 20:00 | PCM.PNMED ---
Subjective Date of Service Jun 21, 2016 Subjective Patient continues to complain of intermittent rectal pain. He has no other new complaints. Exam Vital Signs Vital Sign - Last Date Time Temp Pulse Resp B/P Pulse Ox O2 Delivery O2 Flow Rate FiO2 06/21/16 18:08 36.9 79 18 146/84 99 Room Air Intake and Output 06/20/16 06/20/16 06/21/16 Cumulative From/Thru 15:00 23:00 07:00 06/13/16 11:05 - 06/21/16 06:04 Intake Total 863 ml 704 ml 2310 ml 06153 ml Output Total 300 ml 1600 ml 3455 ml 74964 ml Balance 563 ml -896 ml -1145 ml -1821 ml Intake Oral 450 ml 704 ml 400 ml 84250 ml IV Total 413 ml 1910 ml 60067 ml Output Urine Total 1600 ml 3000 ml 43945 ml Stool Total 300 ml 455 ml 3460 ml Emesis 500 ml # Bowel Movements 4 Exam General: Patient is resting comfortably on his [place] bed. He continues to be in no apparent distress. HEENT: Head is atraumatic and normocephalic. Eyes: Pupils are equally round and reactive to light and accommodation. Extraocular muscles are intact. Sclera are white, anicteric. Subconjunctival mucosa is pink. Ears and nose are unremarkable. Oropharynx: There is no mucosal lesions, there is no thrush, there is no pharyngitis. Neck: Is supple, there are no nodes, or masses or tenderness. Chest: Is clear to auscultation and percussion. There are no rales, rhonchi, wheezes or rubs. Heart: Rate, rhythm is regular. There is no new murmur, rub or gallop. Abdomen: Good bowel sounds are present. Abdomen is soft, nontender, no organomegaly or masses were appreciated. The ostomy in the left lower quadrant is unremarkable the surrounding erythema continues to improve and there is some dry skin. The erythema in the perineal area continues to improve. Barrier cream has been placed over these areas and there is improvement in the integrity of the skin. Extremities: Are symmetrical and well perfused. The erythema on the left inner thigh continues to improve. There is dry gangrene of the right fifth toe and surrounding tissues. Some of the eschar has fallen off since 06/19/2016. The underlying tissue is healthy appearing. The right fifth toe continues to show evidence of dry gangrene. The left buttock wound was examined with Kimani from the wound care team and their wound is approximately 2 cm in depth and 2 cm in width and extremely thin appearing with beefy red tissue. There is no purulent drainage and there appears to be no tunneling. The right buttock skin breakdown is very superficial. Neurologic: Patient has spina bifida and weakness of the lower extremities. Gait was not tested this time, apparently patient is unable to walk very well at all. Normally gets around in a wheelchair. Cranial nerves II through XII are intact. There are no new sensory or motor deficits. Psychiatric: Patients mood is calm and shows no sign of agitation. Genital: Deferred Rectal: Deferred Lab and Diagnostics Result Diagram: 06/20/1648 06/20/1648 Microbiology Name: RAMIREZ HATFIELD JR Age/Sex: 46/M Attend Dr: Filippo Levy MD Acct: [id number] Unit: [id number] Status: [place] [facility] [place]06/13/16 Disch: Specimen: [id number] Collected: 06/13/16 Status: COMP Req#: [id number] Received: 06/13/16 Source: [facility]OM Sp Desc : Subm Dr: Janes Marin MD Ordered: URINE CULT Procedure Result Verified Site Microbiology HUSEYIN CULT URINE Final 06/15/16-37 Organism 1 PROTEUS MIRABILIS U COLONY COUNT/QUANTITY >100,000 CFU/ml PROTEUS MIRABILIS Cefazolin-predicts results for the oral agents, cefaclor,cefdinir, cefpodoximen, cefprozil, cefuroximne axetil, cephalexin and loracarbed when used for therapy of uncomplicated UTI's due to E. coli, K. pneumoniae, and Proteus mirabilis. Cefpodoxime, cefdinir and cefuroxime axetil may be tested individually because some isolates may be susceptible to these agents while testing resistant to cefazolin. (CLSI O187-M52 pg 53) 1. PROTEUS MIRABILIS M.I.C Interp --------- ------ * AMPICILLIN <=2 S * CEFAZOLIN (CEPHALOSPORIN) UTI 4 S * CEFEPIME <=1 S * CEFTRIAXONE <=1 S * CEFUROXIME SODIUM 4 S * CIPROFLOXACIN <=0.25 S * ERTAPENEM <=0.5 S * GENTAMICIN <=1 S * LEVOFLOXACIN <=0.12 S * NITROFURANTOIN 128 R * TETRACYCLINE >=16 R * TOBRAMYCIN <=1 S * TRIMETHOPRIM/SULFAMETHOXAZOLE <=20 S X-Rays, CTs and MRIs PROCEDURE: CT ABDOMEN AND PELVIS WITH CONTRAST ([id number]) INDICATIONS: 46-year-old male with perineal scrotal infection. Assess for Remington's gangrene. TECHNIQUE: After the administration of intravenous contrast, 5 mm thick sections acquired from the diaphragm to the symphysis. 5 mm coronal and sagittal reformats were acquired. For radiation dose reduction, the following was used: automated exposure control, adjustment of mA and/or kV according to patient size. COMPARISON: [facility], CT, CT ABD PELVIS W CON, 04/04/2016, 20:33. [facility], CT, CT ABD PELVIS W CON, 08/04/2015, 8:11. FINDINGS: Image quality: Excellent. ABDOMEN: Lung bases: Lung bases are clear. Heart size is normal. Solid organs: Liver and spleen are normal in size and enhancement. Gallbladder remains small and irregular in overall shape. Biliary system is non dilated. Pancreas enhances normally. No adrenal nodules. Kidneys demonstrate normal size and enhancement, without hydronephrosis. Peritoneum and bowel: Bowel loops demonstrate normal wall thickness and caliber , status post segmental sigmoid colon resection with left lower quadrant colostomy. The appendix is normal in caliber. Ventriculoperitoneal shunt is again noted, with small free fluid around the inferior portions of the shunt. Nodes and vessels: No retroperitoneal or mesenteric adenopathy by size criteria. Aorta and inferior vena cava are normal in size, with mild aortic atherosclerosis. Miscellaneous: Peristomal hernia is again noted, containing several nonobstructed small bowel loops. PELVIS: Genitourinary: The bladder is decompressed by a Melgar catheter as before. Miscellaneous: No inguinal hernias. Bilateral prominent inguinal lymph nodes are unchanged. The perineal soft tissues demonstrate no suspicious gas or rim- enhancing fluid collections to suggest abscess. Bones: No suspicious bony lesions. No vertebral body compression fractures. Spina bifida is again noted. IMPRESSION: 1. No CT findings to suggest Remington's gangrene. No perineal soft tissue abscesses. 2. Irregularly contracted gallbladder as before may reflect extensive mural scarring. Recommend correlation with any prior gallbladder surgeries, and consider nonemergent limited abdominal ultrasound for further characterization. 3. Left lower quadrant peristomal hernia as before, containing several nonobstructed small bowel loops. 4. Background spina bifida as before. Dictated by: Fei Stern M.D. on 06/13/2016 at 16:09 Approved by: Fei Stern M.D. on 06/13/2016 at 16:18 PROCEDURE: X-RAY CHEST ONE VIEW, PORTABLE ([id number]) INDICATIONS: SHORTNESS OF BREATH TECHNIQUE: One view of the chest was acquired. COMPARISON: [facility], CR, XR CHEST 2VW, 08/04/2015, 9:15. FINDINGS: Lordotic AP view. Surgical changes and devices: None. Lungs and pleura: No pleural effusions or pneumothorax. Lungs are clear. Mediastinum: Mediastinal contours appear normal. Heart size is normal. Bones and chest wall: No suspicious bony lesions. Overlying soft tissues appear unremarkable. IMPRESSION: No acute cardiopulmonary disease. Dictated by: Kathy Hernandez M.D. on 06/13/2016 at 12:31 Approved by: Kathy Hernandez M.D. on 06/13/2016 at 12:32 Assessment & Plan Patient is a 46-year-old homeless male with spina bifida with colostomy and urinary incontinence, and Chiari 2 malformation s/p UPHOLSTERED GOODS CRAFTER shunt presenting with "skin irritation" to his abdomen, groin and back. # The patient has an extensive erythematous rash, likely cellulitis resulted from urinary leakage with incontinence, present at the time of admission, CT abd didn't show deep tissue involvement, gangrene or abscess -Erythema improving with current tx. -s/p vanc, meropenem, clindamycin, Of note, pt was given vanc/zosyn last time, then switched to Doxycyclin oral upon d/c for 2wk per ID rec. -MRSA swab this admission was negative -A wound care consult placed, - As her appears to be a candidal element to the patient's skin rash will add nystatin powder and oral Diflucan. - I have consulted Dr. Phillip of infectious disease and his consult was appreciated and his recommendations are as follows: "IMPRESSION: This is always a challenging case. This patient has been admitted on numerous occasions with basically soft tissue inflammation around the perineum, groin, and buttocks secondary to stool and urine resting on these surfaces for prolonged periods. The new feature of this admission is the dry gangrene involving the right lateral forefoot and specifically the fifth toe. I have read the rabbet operator's consultation and I am inclined to agree that the dry gangrene does not need immediate surgical intervention and I suspect it also does not need any antibiotic intervention. The patient's Proteus urinary tract infection does deserve a short course of therapy but it does seem to be strictly a lower urinary tract infection and probably five days or so of ceftriaxone would be adequate. There is currently no evidence for MRSA infection or any infection that would require vancomycin. RECOMMENDATIONS: 1. I would continue ceftriaxone for a total of 3-5 days. 2. I have taken the liberty of discontinuing the vancomycin as I see no indication. 3. As I have noted in prior consults on this patient over the last couple years, I think the main thing that would help this patient is to have a clean dry place to live where he can take care of himself. Having the patient out on the street in the rain with an ill-fitting colostomy and urinary incontinence will inevitably lead to more soft tissue inflammation and problems. Sitting in a wheelchair with his right forefoot resting against a solid object probably also contributed to the dry gangrene we see now, and if he had a place to stay, it would seem to alleviate or prevent a lot of these ongoing problems." # Nausea, vomiting, weakness, present at the time of admission, likely due to UTI, proteus+. Resolved -Continue Rocephine 2g qd -Continue zofran prn for n/v # Rectal pain - Have consulted Dr. Abiel Rodríguez of general surgery to evaluate the patient and he was kind enough to do so. Dr. Rodríguez's recommendations are as follows: "A 46-year-old man with increasingly bothersome chronic rectal pain in the setting of longstanding spina bifida. I am not an expert on spina bifida, but what he describes sounds like intermittent neuropathic pain that is increasing in frequency. I do not think that this in and of itself is an indication for colonoscopy though the patient is 46 and would be approaching the age where screening colonoscopy might be recommended anyway. To that effect, GI consultation as an outpatient could be obtained. More importantly, I would recommend that he be seen by a neurologist for consideration of treatment of a neuropathic etiology of his rectal pain." - I have discussed this with patient and he agrees to try Neurontin to help control his rectal pain which is potentially neurogenic. We will start with low dose of gabapentin 100 mg by mouth every 8 hours # Rt foot dry gangrene, POA, foot xray unremarkable, as per Podiatry, no indication for surgery unless it becomes wet gangrene # Spina Bifida, ostomy care, per RN staffs # Patient has a previously documented Mood disorder/Thoughts of self harm/ suicidal ideation, currently denied, patient was previously given Prozac for mood disorder, but unfortunately lost follow up. - The patient's mood has been quite stable here throughout this hospitalization. # History of Substance abuse, chronic. previous using methamphetamine # GERD, chronic. Pantoprazole prn # HTN, diet controlled Disposition: As per Dr. Phillip's note patient will require likely 2 more days, and patient needs to have better disposition plan prior to d/c greatly appreciate SW/CM input, as this is recurrent admission with similar problems. Social workers are trying to find placement for this patient. Meanwhile we will continue IV antibiotics for his Proteus urinary tract infection and cellulitis. Pain Evaluation: Adequate Pain Control GI Prophylaxis: Proton Pump Inhibitor VTE Prophylaxis: Sub-Q Enoxaparin Resuscitation Status: CPR: Attempt Resuscitation ElburnReji MD Jun 21, 2016 20:00
[2016-06-21 20:16] VITALS: BP 106/76; PULSE 74; RESP 18; O2SAT 98
[2016-06-21] MEDS: HYDROmorphone 1 mg/mL Inj IVPUSH PRN (23:34)
[2016-06-22] MEDS: 0.9% Sodium Chloride 1,000 ML IV SCH ×3 (00:49→20:54)
[2016-06-22 01:03] VITALS: BP 122/78; PULSE 74; RESP 18; O2SAT 98
--- NOTE | 2016-06-22 02:13 | NUR ---
Colostomy bag changed Patient's colostomy site started to have visible leakage around 0130, patient requested to have it changed. Patient did most of this himself. Site cleansed, applied skin prep and stomahesive. Hypafix tape around site, per patient request. Skin underneath was reddened, but all intact. Will monitor closely.
[2016-06-22 05:45] LABS: BASOPHILS % (AUTO) 0.8 % (0-3); EOSINOPHILS % (AUTO) 5.2 % (0-5); MONOCYTES % (AUTO) 7.8 % (4-12); Mean Corpuscular Hemoglobin 29.1 pg (27.0-35.0); Mean Corpuscular Volume 89.2 fL (81-100); NEUTROPHILS % (AUTO) 48.8 % (40-74); Platelet Count 382 bil/L (150-400)
[2016-06-22 06:05] LABS: Magnesium 1.7 mg/dL (1.6-2.6)
[2016-06-22 06:26] VITALS: BP 123/75; PULSE 68; RESP 18; O2SAT 99
[2016-06-22] MEDS: Pantoprazole 40 mg ER24 Tablet PO SCH (06:27)
[2016-06-22] MEDS: Nystatin 100,000 Unit/Gm 15 Gm Powder TOPICAL SCH ×2 (08:39→21:18)
[2016-06-22] MEDS: cefTRIAXone Inj 2,000 MG in Dextrose 5% Minibag Plus 50 ML IV SCH (08:39)
[2016-06-22] MEDS: HYDROmorphone 1 mg/mL Inj IVPUSH PRN (08:40)
[2016-06-22] MEDS ORDERED: Magnesium Sulf 4 Gm/100 mL H2O 4 GM in IV Premix 1 EACH IV ONE (09:30)
[2016-06-22 09:55] VITALS: BP 109/70; PULSE 75; RESP 18; O2SAT 98
--- NOTE | 2016-06-22 11:58 | NUR ---
Social Work Note: Continued Discharge Planning Data & Assessment: EMR reviewed. Per MD in morning rounds, ID has been consulted and patient is not medically ready for discharge at this time. Patient may possibly be ready to discharge in a few days. Patient was referred to SNF, but was declined by [facility] and [facility]. Patient will likely discharge back to homelessness when medically stable. SW to continue to follow if any needs arise. Plan: Anticipated discharge to homelessness when medically ready. [facility] will continue to follow and assist patient in case any needs arise. Ame Lee, PIPE, ACM
[2016-06-22 13:51] VITALS: BP 119/68; PULSE 82; RESP 18; O2SAT 97
[2016-06-22 17:48] VITALS: BP 108/69; PULSE 83; RESP 20; O2SAT 97
--- NOTE | 2016-06-22 18:16 | NUR ---
Melgar removal Dc'd Melgar per MD order. Pt in brief.
[2016-06-22 22:56] VITALS: BP 107/62; PULSE 68; RESP 20; O2SAT 98
[2016-06-23 02:14] VITALS: BP 114/77; PULSE 75; RESP 20; O2SAT 98
--- NOTE | 2016-06-23 02:42 | PCM.PNMED ---
Subjective Date of Service June 22, 2016 Subjective Patient has no new complaints. He believes that he can urinate on his own if the Melgar catheter is removed. His rectal pain is still present. He has no other new complaints. Exam Vital Signs Vital Sign - Last Date Time Temp Pulse Resp B/P Pulse Ox O2 Delivery O2 Flow Rate FiO2 06/23/16 02:14 36.7 75 20 114/77 98 Room Air Intake and Output 06/22/16 06/22/16 06/23/16 Cumulative From/Thru 15:00 23:00 07:00 06/13/16 11:05 - 06/22/16 19:34 Intake Total 3182 ml 65113 ml Output Total 300 ml 2600 ml 69000 ml Balance -300 ml 582 ml 103 ml Intake Oral 1936 ml 23577 ml IV Total 1246 ml 22427 ml Output Urine Total 2600 ml 68612 ml Stool Total 300 ml 3760 ml Emesis 500 ml # Bowel Movements 4 Exam General: Patient is resting comfortably on his Clinitron bed. He continues to be in no apparent distress. HEENT: Head is atraumatic and normocephalic. Eyes: Pupils are equally round and reactive to light and accommodation. Extraocular muscles are intact. Sclera are white, anicteric. Subconjunctival mucosa is pink. Ears and nose are unremarkable. Oropharynx: There is no mucosal lesions, there is no thrush, there is no pharyngitis. Neck: Is supple, there are no nodes, or masses or tenderness. Chest: Is clear to auscultation and percussion. There are no rales, rhonchi, wheezes or rubs. Heart: Rate, rhythm is regular. There is no new murmur, rub or gallop. Abdomen: Good bowel sounds are present. Abdomen is soft, nontender, no organomegaly or masses were appreciated. The ostomy in the left lower quadrant is unremarkable the surrounding erythema continues to improve and there is some dry skin. The erythema in the perineal area continues to improve. Barrier cream has been placed over these areas and there is improvement in the integrity of the skin. Extremities: Are symmetrical and well perfused. The erythema on the left inner thigh continues to improve. There is dry gangrene of the right fifth toe and surrounding tissues. Some of the eschar has fallen off since 06/19/2016. The underlying tissue is healthy appearing. The right fifth toe continues to show evidence of dry gangrene. The left buttock wound was examined with Kimani from the wound care team and their wound is approximately 2 cm in depth and 2 cm in width and extremely thin appearing with beefy red tissue. There is no purulent drainage and there appears to be no tunneling. The right buttock skin breakdown is very superficial. Neurologic: Patient has spina bifida and weakness of the lower extremities. Gait was not tested this time, apparently patient is unable to walk very well at all. Normally gets around in a wheelchair. Cranial nerves II through XII are intact. There are no new sensory or motor deficits. Psychiatric: Patients mood is calm and shows no sign of agitation. Genital: Deferred Rectal: Deferred Lab and Diagnostics Result Diagram: 06/22/1652906/22/16529 Microbiology Name: RAMIREZ HATFIELD JR Age/Sex: 46/M Attend Dr: Filippo Levy MD Acct: [id number] Unit: [id number] Status: ADM IN Location: [facility] 3010-1 Re06/13/16 Disch: Specimen: [id number] Collected: 06/13/16 Status: COMP Req#: [id number] Received: 06/13/16 Source: RANDOM Sp Desc : Ladonna Dr: Janes Marin MD Ordered: URINE CULT Procedure Result Verified Site Microbiology HUSEYIN CULT URINE Final 06/15/16-37 Organism 1 PROTEUS MIRABILIS U COLONY COUNT/QUANTITY >100,000 CFU/ml PROTEUS MIRABILIS Cefazolin-predicts results for the oral agents, cefaclor,cefdinir, cefpodoximen, cefprozil, cefuroximne axetil, cephalexin and loracarbed when used for therapy of uncomplicated UTI's due to E. coli, K. pneumoniae, and Proteus mirabilis. Cefpodoxime, cefdinir and cefuroxime axetil may be tested individually because some isolates may be susceptible to these agents while testing resistant to cefazolin. (CLSI H988-H53 pg 53) 1. PROTEUS MIRABILIS M.I.C Interp --------- ------ * AMPICILLIN <=2 S * CEFAZOLIN (CEPHALOSPORIN) UTI 4 S * CEFEPIME <=1 S * CEFTRIAXONE <=1 S * CEFUROXIME SODIUM 4 S * CIPROFLOXACIN <=0.25 S * ERTAPENEM <=0.5 S * GENTAMICIN <=1 S * LEVOFLOXACIN <=0.12 S * NITROFURANTOIN 128 R * TETRACYCLINE >=16 R * TOBRAMYCIN <=1 S * TRIMETHOPRIM/SULFAMETHOXAZOLE <=20 S X-Rays, CTs and MRIs PROCEDURE: CT ABDOMEN AND PELVIS WITH CONTRAST ([id number]) INDICATIONS: 46-year-old male with perineal scrotal infection. Assess for Remington's gangrene. TECHNIQUE: After the administration of intravenous contrast, 5 mm thick sections acquired from the diaphragm to the symphysis. 5 mm coronal and sagittal reformats were acquired. For radiation dose reduction, the following was used: automated exposure control, adjustment of mA and/or kV according to patient size. COMPARISON: [facility], CT, CT ABD PELVIS W CON, 04/04/2016, 20:33. [facility], CT, CT ABD PELVIS W CON, 08/04/2015, 8:11. FINDINGS: Image quality: Excellent. ABDOMEN: Lung bases: Lung bases are clear. Heart size is normal. Solid organs: Liver and spleen are normal in size and enhancement. Gallbladder remains small and irregular in overall shape. Biliary system is non dilated. Pancreas enhances normally. No adrenal nodules. Kidneys demonstrate normal size and enhancement, without hydronephrosis. Peritoneum and bowel: Bowel loops demonstrate normal wall thickness and caliber , status post segmental sigmoid colon resection with left lower quadrant colostomy. The appendix is normal in caliber. Ventriculoperitoneal shunt is again noted, with small free fluid around the inferior portions of the shunt. Nodes and vessels: No retroperitoneal or mesenteric adenopathy by size criteria. Aorta and inferior vena cava are normal in size, with mild aortic atherosclerosis. Miscellaneous: Peristomal hernia is again noted, containing several nonobstructed small bowel loops. PELVIS: Genitourinary: The bladder is decompressed by a Melgar catheter as before. Miscellaneous: No inguinal hernias. Bilateral prominent inguinal lymph nodes are unchanged. The perineal soft tissues demonstrate no suspicious gas or rim- enhancing fluid collections to suggest abscess. Bones: No suspicious bony lesions. No vertebral body compression fractures. Spina bifida is again noted. IMPRESSION: 1. No CT findings to suggest Remington's gangrene. No perineal soft tissue abscesses. 2. Irregularly contracted gallbladder as before may reflect extensive mural scarring. Recommend correlation with any prior gallbladder surgeries, and consider nonemergent limited abdominal ultrasound for further characterization. 3. Left lower quadrant peristomal hernia as before, containing several nonobstructed small bowel loops. 4. Background spina bifida as before. Dictated by: Fei Stern M.D. on 06/13/2016 at 16:09 Approved by: Fei Stern M.D. on 06/13/2016 at 16:18 PROCEDURE: X-RAY CHEST ONE VIEW, PORTABLE ([id number]) INDICATIONS: SHORTNESS OF BREATH TECHNIQUE: One view of the chest was acquired. COMPARISON: [facility], CR, XR CHEST 2VW, 08/04/2015, 9:15. FINDINGS: Lordotic AP view. Surgical changes and devices: None. Lungs and pleura: No pleural effusions or pneumothorax. Lungs are clear. Mediastinum: Mediastinal contours appear normal. Heart size is normal. Bones and chest wall: No suspicious bony lesions. Overlying soft tissues appear unremarkable. IMPRESSION: No acute cardiopulmonary disease. Dictated by: Kathy Hernandez M.D. on 06/13/2016 at 12:31 Approved by: Kathy Hernandez M.D. on 06/13/2016 at 12:32 Assessment & Plan Patient is a 46-year-old homeless male with spina bifida with colostomy and urinary incontinence, and Chiari 2 malformation s/p DIRECTOR OF OUTPATIENT SERVICES shunt presenting with "skin irritation" to his abdomen, groin and back. # The patient has an extensive erythematous rash, likely cellulitis resulted from urinary leakage with incontinence, present at the time of admission, CT abd didn't show deep tissue involvement, gangrene or abscess -Erythema improving with current tx. -s/p vanc, meropenem, clindamycin, Of note, pt was given vanc/zosyn last time, then switched to Doxycyclin oral upon d/c for 2wk per ID rec. -MRSA swab this admission was negative -A wound care consult placed, - As her appears to be a candidal element to the patient's skin rash will add nystatin powder and oral Diflucan. - I have consulted Dr. Phillip of infectious disease and his consult was appreciated and his recommendations are as follows: "IMPRESSION: This is always a challenging case. This patient has been admitted on numerous occasions with basically soft tissue inflammation around the perineum, groin, and buttocks secondary to stool and urine resting on these surfaces for prolonged periods. The new feature of this admission is the dry gangrene involving the right lateral forefoot and specifically the fifth toe. I have read the acetylene operator's consultation and I am inclined to agree that the dry gangrene does not need immediate surgical intervention and I suspect it also does not need any antibiotic intervention. The patient's Proteus urinary tract infection does deserve a short course of therapy but it does seem to be strictly a lower urinary tract infection and probably five days or so of ceftriaxone would be adequate. There is currently no evidence for MRSA infection or any infection that would require vancomycin. RECOMMENDATIONS: 1. I would continue ceftriaxone for a total of 3-5 days. 2. I have taken the liberty of discontinuing the vancomycin as I see no indication. 3. As I have noted in prior consults on this patient over the last couple years, I think the main thing that would help this patient is to have a clean dry place to live where he can take care of himself. Having the patient out on the street in the rain with an ill-fitting colostomy and urinary incontinence will inevitably lead to more soft tissue inflammation and problems. Sitting in a wheelchair with his right forefoot resting against a solid object probably also contributed to the dry gangrene we see now, and if he had a place to stay, it would seem to alleviate or prevent a lot of these ongoing problems." # Nausea, vomiting, weakness, present at the time of admission, likely due to UTI, proteus+. Resolved -Continue Rocephine 2g qd -Continue zofran prn for n/v # Rectal pain - Have consulted Dr. Abiel Rodríguez of general surgery to evaluate the patient and he was kind enough to do so. Dr. Rodríguez's recommendations are as follows: "A 46-year-old man with increasingly bothersome chronic rectal pain in the setting of longstanding spina bifida. I am not an expert on spina bifida, but what he describes sounds like intermittent neuropathic pain that is increasing in frequency. I do not think that this in and of itself is an indication for colonoscopy though the patient is 46 and would be approaching the age where screening colonoscopy might be recommended anyway. To that effect, GI consultation as an outpatient could be obtained. More importantly, I would recommend that he be seen by a neurologist for consideration of treatment of a neuropathic etiology of his rectal pain." - I have discussed this with patient and he agrees to try Neurontin to help control his rectal pain which is potentially neurogenic. We have started with low dose of gabapentin 100 mg by mouth every 8 hours on 06/21/2016. Likely patient will need to escalate the dose. # Rt foot dry gangrene, POA, foot xray unremarkable, as per Podiatry, no indication for surgery unless it becomes wet gangrene # Spina Bifida, ostomy care, per RN staffs # Patient has a previously documented Mood disorder/Thoughts of self harm/ suicidal ideation, currently denied, patient was previously given Prozac for mood disorder, but unfortunately lost follow up. - The patient's mood has been quite stable here throughout this hospitalization. # History of Substance abuse, chronic. previous using methamphetamine # GERD, chronic. Pantoprazole prn # HTN, diet controlled Disposition: Melgar catheter will be removed. Also services is having difficulty finding placement for the patient and he is currently homeless. Pain Evaluation: Adequate Pain Control GI Prophylaxis: Proton Pump Inhibitor VTE Prophylaxis: Sub-Q Enoxaparin Resuscitation Status: CPR: Attempt Resuscitation BelenReji MD June 23, 2016 02:42
--- NOTE | 2016-06-23 05:19 | NUR ---
Noc activity Pt has been resting comfortably in clinitron bed. Denies any chest pain, sob, n/v or abd discomfort. Colostomy emptied as needed. Blue brief provided as pt reports that he does not know when he's gonna go and he does not have any control over it. Pt's VSS and has been afebrile. IVF and HS meds administered as scheduled. Will continue to monitor.
[2016-06-23] MEDS: Pantoprazole 40 mg ER24 Tablet PO SCH (06:11)
[2016-06-23] MEDS: cefTRIAXone Inj 2,000 MG in Dextrose 5% Minibag Plus 50 ML IV SCH (08:18)
[2016-06-23] MEDS: 0.9% Sodium Chloride 1,000 ML IV SCH ×2 (08:19→18:38)
[2016-06-23] MEDS: Nystatin 100,000 Unit/Gm 15 Gm Powder TOPICAL SCH ×2 (08:24→22:11)
[2016-06-23 10:01] VITALS: BP 118/74; PULSE 73; RESP 18; O2SAT 100
[2016-06-23] MEDS: HYDROmorphone 1 mg/mL Inj IVPUSH PRN ×2 (10:25→11:31)
[2016-06-23] MEDS ORDERED: GABA100C PO (11:49)
--- NOTE | 2016-06-23 13:38 | PCM.PNMED ---
Subjective Date of Service June 23, 2016 Subjective pt denied any complaints, Step mother is visiting at the bedside, pt stated that he is willing to speak to SW again regarding his dispo option, denied that he wants to leave to the street. Exam Vital Signs Vital Sign - Last Date Time Temp Pulse Resp B/P Pulse Ox O2 Delivery O2 Flow Rate FiO2 06/23/16 10:01 36.6 73 18 118/74 100 Room Air Intake and Output 06/22/16 06/22/16 06/23/16 Cumulative From/Thru 15:00 23:00 07:00 06/13/16 11:05 - 06/23/16 06:05 Intake Total 3182 ml 1129 ml 81616 ml Output Total 300 ml 2600 ml 66890 ml Balance -300 ml 582 ml 1129 ml 1232 ml Intake Oral 1936 ml 58620 ml IV Total 1246 ml 1129 ml 48578 ml Output Urine Total 2600 ml 83150 ml Stool Total 300 ml 3760 ml Emesis 500 ml # Bowel Movements 4 Exam NAD MMM, no JVD RRR, nl s1 s2 no mrg CTAB no w,c no rashes on perineum. Rt 5th toe, dry gangrene Ostomy bag in place IVs and Medications Medications Reviewed: Medications were reviewed in detail Lab and Diagnostics Result Diagram: 06/22/1652906/22/16529 Microbiology Name: RAMIREZ HATFIELD JR Age/Sex: 46/M Attend Dr: Filippo Levy MD Acct: [id number] Unit: [id number] Status: ADM IN Location: [facility] [place] 3010-1 Re06/13/16 Disch: Specimen: [id number] Collected: 06/13/16 Status: JOSIAH Reyes#: [id number] Received: 06/13/16 Source: RANDOM Sp Desc : Subm Dr: Janes Marin MD Ordered: URINE CULT Procedure Result Verified Site Microbiology HUSEYIN CULT URINE Final 06/15/16 Organism 1 PROTEUS MIRABILIS U COLONY COUNT/QUANTITY >100,000 CFU/ml PROTEUS MIRABILIS Cefazolin-predicts results for the oral agents, cefaclor,cefdinir, cefpodoximen, cefprozil, cefuroximne axetil, cephalexin and loracarbed when used for therapy of uncomplicated UTI's due to E. coli, K. pneumoniae, and Proteus mirabilis. Cefpodoxime, cefdinir and cefuroxime axetil may be tested individually because some isolates may be susceptible to these agents while testing resistant to cefazolin. (CLSI W849-L20 pg 53) 1. PROTEUS MIRABILIS M.I.C Interp --------- ------ * AMPICILLIN <=2 S * CEFAZOLIN (CEPHALOSPORIN) UTI 4 S * CEFEPIME <=1 S * CEFTRIAXONE <=1 S * CEFUROXIME SODIUM 4 S * CIPROFLOXACIN <=0.25 S * ERTAPENEM <=0.5 S * GENTAMICIN <=1 S * LEVOFLOXACIN <=0.12 S * NITROFURANTOIN 128 R * TETRACYCLINE >=16 R * TOBRAMYCIN <=1 S * TRIMETHOPRIM/SULFAMETHOXAZOLE <=20 S X-Rays, CTs and MRIs PROCEDURE: CT ABDOMEN AND PELVIS WITH CONTRAST ([id number]) INDICATIONS: 46-year-old male with perineal scrotal infection. Assess for Remington's gangrene. TECHNIQUE: After the administration of intravenous contrast, 5 mm thick sections acquired from the diaphragm to the symphysis. 5 mm coronal and sagittal reformats were acquired. For radiation dose reduction, the following was used: automated exposure control, adjustment of mA and/or kV according to patient size. COMPARISON: [facility], CT, CT ABD PELVIS W CON, 04/04/2016, 20:33. [facility], CT, CT ABD PELVIS W CON, 08/04/2015, 8:11. FINDINGS: Image quality: Excellent. ABDOMEN: Lung bases: Lung bases are clear. Heart size is normal. Solid organs: Liver and spleen are normal in size and enhancement. Gallbladder remains small and irregular in overall shape. Biliary system is non dilated. Pancreas enhances normally. No adrenal nodules. Kidneys demonstrate normal size and enhancement, without hydronephrosis. Peritoneum and bowel: Bowel loops demonstrate normal wall thickness and caliber , status post segmental sigmoid colon resection with left lower quadrant colostomy. The appendix is normal in caliber. Ventriculoperitoneal shunt is again noted, with small free fluid around the inferior portions of the shunt. Nodes and vessels: No retroperitoneal or mesenteric adenopathy by size criteria. Aorta and inferior vena cava are normal in size, with mild aortic atherosclerosis. Miscellaneous: Peristomal hernia is again noted, containing several nonobstructed small bowel loops. PELVIS: Genitourinary: The bladder is decompressed by a Melgar catheter as before. Miscellaneous: No inguinal hernias. Bilateral prominent inguinal lymph nodes are unchanged. The perineal soft tissues demonstrate no suspicious gas or rim- enhancing fluid collections to suggest abscess. Bones: No suspicious bony lesions. No vertebral body compression fractures. Spina bifida is again noted. IMPRESSION: 1. No CT findings to suggest Remington's gangrene. No perineal soft tissue abscesses. 2. Irregularly contracted gallbladder as before may reflect extensive mural scarring. Recommend correlation with any prior gallbladder surgeries, and consider nonemergent limited abdominal ultrasound for further characterization. 3. Left lower quadrant peristomal hernia as before, containing several nonobstructed small bowel loops. 4. Background spina bifida as before. Dictated by: Fei Stern M.D. on 06/13/2016 at 16:09 Approved by: Fei Stern M.D. on 06/13/2016 at 16:18 PROCEDURE: X-RAY CHEST ONE VIEW, PORTABLE ([id number]) INDICATIONS: SHORTNESS OF BREATH TECHNIQUE: One view of the chest was acquired. COMPARISON: [facility], CR, XR CHEST 2VW, 08/04/2015, 9:15. FINDINGS: Lordotic AP view. Surgical changes and devices: None. Lungs and pleura: No pleural effusions or pneumothorax. Lungs are clear. Mediastinum: Mediastinal contours appear normal. Heart size is normal. Bones and chest wall: No suspicious bony lesions. Overlying soft tissues appear unremarkable. IMPRESSION: No acute cardiopulmonary disease. Dictated by: Kathy Hernandez M.D. on 06/13/2016 at 12:31 Approved by: Kathy Hernandez M.D. on 06/13/2016 at 12:32 Assessment & Plan Patient is a 46-year-old homeless male with spina bifida with colostomy and urinary incontinence, and Chiari 2 malformation s/p VENDING MACHINE HOST/HOSTESS shunt presenting with "skin irritation" to his abdomen, groin and back. # The patient has an extensive erythematous rash, likely cellulitis resulted from urinary leakage with incontinence, present at the time of admission, CT abd didn't show deep tissue involvement, gangrene or abscess -Erythema improved with current medical tx, pt is medically stable for d/c -s/p vanc, meropenem, clindamycin, Of note, pt was given vanc/zosyn last time, then switched to Doxycyclin oral upon d/c for 2wk per ID rec.pt finished Rocephin course for soft tissue infection 06/22 per ID. -MRSA swab this admission was negative -A wound care consult placed, - As her appears to be a candidal element to the patient's skin rash will add nystatin powder and oral Diflucan. # Nausea, vomiting, weakness, present at the time of admission, likely due to UTI, proteus+. Resolved -Continue Rocephine 2g qd -Continue zofran prn for n/v # Rectal pain, unlikely needs surgical intervention per surgical eval, possibly neuropathic pain from Spina bifida. - continue low dose of gabapentin 100 mg by mouth every 8 hours on 06/21/2016. Likely patient will need to escalate the dose. # Rt foot dry gangrene, POA, foot xray unremarkable, as per Podiatry, no indication for surgery unless it becomes wet gangrene # Spina Bifida, ostomy care, per RN staffs # Patient has a previously documented Mood disorder/Thoughts of self harm/ suicidal ideation, currently denied, patient was previously given Prozac for mood disorder, but unfortunately lost follow up. - The patient's mood has been quite stable here throughout this hospitalization. # History of Substance abuse, chronic. previous using methamphetamine # GERD, chronic. Pantoprazole prn # HTN, diet controlled Disposition: appreciate SW/CM input regarding adult home, will optimize dispo to prevent readmission. GI Prophylaxis: Proton Pump Inhibitor VTE Prophylaxis: Sub-Q Enoxaparin Resuscitation Status: CPR: Attempt Resuscitation Time spent 35min Filippo Levy MD June 23, 2016 13:38
[2016-06-23 17:41] VITALS: BP 111/74; PULSE 84; RESP 18; O2SAT 97
--- NOTE | 2016-06-23 18:51 | PROG NOTE ---
[address] [address] PROGRESS NOTE PATIENT: RAMIREZ HATFIELD : 1970 MR#: [id number] ADMIT: 06/13/2016 JOB ID: [id number] DATE: 06/23/2016 REASON FOR FOLLOWUP: Proteus urinary tract infection and chronic inflammation of the skin within the skin folds of the lower body, as well as dry gangrene of the right lateral forefoot. INTERVAL HISTORY: What I last saw this patient, now about one week ago, he was doing reasonably well with respect to his urinary tract infection as well as his dry gangrene of the right lateral foot. There was no evidence really of ongoing infection, and our plan was to finish up a couple days of ceftriaxone for the Proteus UTI and also to give a short course of fluconazole for what was possibly Megan within the intertriginous zones of the lower body. Since I last saw the patient a week ago, he said he is continuing to slowly improve. He notes that he is slowly improving and appreciates the time he has been afforded here in the hospital to allow his various wounds to heal. He has had no fevers, chills, or sweats. No acute pulmonary or GI symptoms. No nausea or vomiting. He notes he has no pain from his lower extremity wounds. PHYSICAL EXAM: Reveals an afebrile gentleman sitting up in bed, watching TV. He has been afebrile for basically his whole hospital stay. Temperature 36.6, pulse 73, respiratory rate 18, blood pressure 118/74. He is saturating well on room air. His head is without notable abnormality. Oral cavity negative. Lungs fairly clear. Cardiac tones without new murmur. Abdomen is notable for the colostomy which is well secured and not leaking. His abdomen is soft and nontender. There is some mild erythema between the thighs in the inguinal area but it is much improved. His right lateral forefoot dry gangrene has some associated erythema around it but does not appear overtly infected. LABORATORIES: Include a white count stable at 11,000, creatinine 0.62. LFTs are normal. Albumin 3.2. Streptozyme was done on June 17 and returned 1036. Additional micro data includes the urine which grew Proteus mirabilis which was very sensitive to ceftriaxone. In addition, we have negative blood cultures and a negative fungal decubitus culture. MRSA screen also negative. No new imaging is available. IMPRESSION: This is an unfortunate gentleman who is homeless and functionally paraplegic due to his spina bifida. This admission, he has had numerous possible infections including a Proteus urinary tract infection, probable candidal infection within the intertriginous areas below the waist, and also has developed dry gangrene of the right foot. The ASO titer indicates at least some of the skin and soft tissue infection was due to group A Strep. At this point, he is much improved. RECOMMENDATIONS: 1. I would continue with the ceftriaxone through tomorrow, which would complete 10 days of therapy. 2. I agree with the fluconazole he is receiving and I would also continue that through tomorrow, which will complete five days of therapy or 1 g of fluconazole, which is a fairly substantial dose. 3. I agree with continuing the nystatin powder. 4. No specific antibiotics are indicated for the dry gangrene of the right lateral foot at this point, but he will continue to require close Podiatry followup regarding the dry gangrene of the foot and possible need for eventual surgical debridement or revision. 5. ID will go ahead and sign off at this time with the order to stop antibiotics as indicated.
--- NOTE | 2016-06-23 19:36 | NUR ---
Dressing Change Pt states he has a difficult time using the urinal in bed. Uses brief to urinate. Frequent bed checks and brief changes. Dressing to be changed Q24H per WC directions/PRN soiling. PU dressing changed today and skin care provided. Instructed pt the importance of keeping skin dry and clean to properly heal and to call for assistance as needed.
[2016-06-23 22:55] VITALS: BP 116/73; PULSE 66; RESP 18; O2SAT 99
--- NOTE | 2016-06-23 23:44 | NUR ---
right toe removed dressing to right fifth toe. toe is black. but there is an area of maceration laterally. washed toe with wound wash. patted dry. no drainage seen. toe open to air. no dressing instructed patient on the importance of keeping his feet away from the foot board. verbalized understanding. frequent rounding.
[2016-06-24] MEDS: 0.9% Sodium Chloride 1,000 ML IV SCH (04:41)
[2016-06-24 05:00] LABS: BASOPHILS % (AUTO) 0.9 % (0-3); EOSINOPHILS % (AUTO) 4.1 % (0-5); MONOCYTES % (AUTO) 9.2 % (4-12); Mean Corpuscular Hemoglobin 28.5 pg (27.0-35.0); Mean Corpuscular Volume 91.1 fL (81-100); NEUTROPHILS % (AUTO) 46.4 % (40-74); Platelet Count 340 bil/L (150-400)
[2016-06-24 05:26] LABS: Magnesium 1.9 mg/dL (1.6-2.6)
[2016-06-24] MEDS: Pantoprazole 40 mg ER24 Tablet PO SCH (06:21)
--- NOTE | 2016-06-24 06:23 | NUR ---
sleep patient slept well after midnight. incontinent of urine. brief changed as needed. again instructed patient to keep his feet off the foot board. high risk for skin breakdown. patient verbalized understanding.
[2016-06-24 06:38] VITALS: BP 111/68; PULSE 70; RESP 18; O2SAT 96
[2016-06-24] MEDS ORDERED: cefTRIAXone Inj 2,000 MG in Dextrose 5% Minibag Plus 50 ML IV ONE (07:40)
[2016-06-24] MEDS: Nystatin 100,000 Unit/Gm 15 Gm Powder TOPICAL SCH (08:49)
--- NOTE | 2016-06-24 12:19 | NUR ---
Social Work Note: Readiness for Discharge/Discharge Data & Assessment: EMR reviewed. Per MD in morning rounds, pt is medically ready for discharge at this time. Patient was referred to SNF, but was declined by Luly Perera and MARK. Pt states he is now open to [facility] placement. SW to follow up re: expedited NARESH referral and provided pt with contact info for [facility] to follow up on . Pt's wheelchair is in his room. Pt will likely discharge back to homelessness when medically stable. SW provided bus pass to pt per request. Assessment: Pt who would benefit from and was denied for SNF. Plan: discharge to homelessness. SW provided bus ticket. SW to send expedited NARESH referral. Pt to follow up. TONY Navarrete
[2016-06-24 13:23] VITALS: BP 129/77; PULSE 72; RESP 18; O2SAT 98
--- NOTE | 2016-06-24 15:27 | NUR ---
Wound Care Rounded on patient this afternoon only to find him discharged from [facility] at this time. Patient was not scheduled for follow up wound care, will attempt to contact patient for follow up at the wound center.
--- NOTE | 2016-06-24 16:09 | NUR ---
Discharge Reviewed discharge paperwork, care notes and medications with pt - disclaimer signed. PICC line DCd by IV therapy. All belongings gathered together and placed in bags. WC/dressing change on PU on L Buttocks, new brief, skin care, and donated clothes placed on pt. Pt given some supplies for hygiene and colostomy changes, instructed on importance of keeping clean for skin integrity. Pt taken outside in personal (donated) WC, step mother to drive pt to [facility]. Pt was incontinent of urine as assisting to transfer into car. Took pt back to room to change and clean up, step mother leaves - said she "had to do something." Pt given new pants, then taken curbside. Discharging himself to homelessness. States he is planning on going to the [facility] and has done this before.
--- NOTE | 2016-06-25 12:28 | PCM.DC.MED ---
Discharge Summary Date of Service June 24, 2016 Dates of Hospitalization Date of Hospital Admission Jun 13, 2016 at 17:11 Date of Discharge: June 24, 2016 Providers: Admitting Physician: Filippo Yen MD Primary Care Physician: [facility] Attending Physician: Filippo Yen MD Diagnosis at Time of Discharge Diagnosis at Time of Discharge #Cellulitis, superficial fungal infection on lower abdomen, perineum resulted from urinary leakage with incontinence, # Nausea, vomiting, weakness,likely due to UTI, proteus+. Resolved with abx. #UTI, proteus mirabilis # Rectal pain, presumably from neuropathic pain from spina bifida. # Rt foot dry gangrene, # Spina Bifida # Mood disorder # History of Substance abuse, # GERD, # HTN, Procedures XRay, CTs & MRIs PROCEDURE: CT ABDOMEN AND PELVIS WITH CONTRAST ([id number]) INDICATIONS: 46-year-old male with perineal scrotal infection. Assess for Remington's gangrene. TECHNIQUE: After the administration of intravenous contrast, 5 mm thick sections acquired from the diaphragm to the symphysis. 5 mm coronal and sagittal reformats were acquired. For radiation dose reduction, the following was used: automated exposure control, adjustment of mA and/or kV according to patient size. COMPARISON: [facility], CT, CT ABD PELVIS W CON, 04/04/2016, 20:33. [facility], CT, CT ABD PELVIS W CON, 08/04/2015, 8:11. FINDINGS: Image quality: Excellent. ABDOMEN: Lung bases: Lung bases are clear. Heart size is normal. Solid organs: Liver and spleen are normal in size and enhancement. Gallbladder remains small and irregular in overall shape. Biliary system is non dilated. Pancreas enhances normally. No adrenal nodules. Kidneys demonstrate normal size and enhancement, without hydronephrosis. Peritoneum and bowel: Bowel loops demonstrate normal wall thickness and caliber , status post segmental sigmoid colon resection with left lower quadrant colostomy. The appendix is normal in caliber. Ventriculoperitoneal shunt is again noted, with small free fluid around the inferior portions of the shunt. Nodes and vessels: No retroperitoneal or mesenteric adenopathy by size criteria. Aorta and inferior vena cava are normal in size, with mild aortic atherosclerosis. Miscellaneous: Peristomal hernia is again noted, containing several nonobstructed small bowel loops. PELVIS: Genitourinary: The bladder is decompressed by a Melgar catheter as before. Miscellaneous: No inguinal hernias. Bilateral prominent inguinal lymph nodes are unchanged. The perineal soft tissues demonstrate no suspicious gas or rim- enhancing fluid collections to suggest abscess. Bones: No suspicious bony lesions. No vertebral body compression fractures. Spina bifida is again noted. IMPRESSION: 1. No CT findings to suggest Remington's gangrene. No perineal soft tissue abscesses. 2. Irregularly contracted gallbladder as before may reflect extensive mural scarring. Recommend correlation with any prior gallbladder surgeries, and consider nonemergent limited abdominal ultrasound for further characterization. 3. Left lower quadrant peristomal hernia as before, containing several nonobstructed small bowel loops. 4. Background spina bifida as before. Dictated by: Fei Stern M.D. on 06/13/2016 at 16:09 Approved by: Fei Stern M.D. on 06/13/2016 at 16:18 PROCEDURE: X-RAY CHEST ONE VIEW, PORTABLE ([id number]) INDICATIONS: SHORTNESS OF BREATH TECHNIQUE: One view of the chest was acquired. COMPARISON: [facility], CR, XR CHEST 2VW, 08/04/2015, 9:15. FINDINGS: Lordotic AP view. Surgical changes and devices: None. Lungs and pleura: No pleural effusions or pneumothorax. Lungs are clear. Mediastinum: Mediastinal contours appear normal. Heart size is normal. Bones and chest wall: No suspicious bony lesions. Overlying soft tissues appear unremarkable. IMPRESSION: No acute cardiopulmonary disease. Dictated by: Kathy Hernandez M.D. on 06/13/2016 at 12:31 Approved by: Kathy Hernandez M.D. on 06/13/2016 at 12:32 Brief History HPI obtained on 06/13 Patient is a 46-year-old homeless male with spina bifida with colostomy and urinary incontinence, and Chiari 2 malformation s/p FITNESS SUPERVISOR shunt presenting with "skin irritation" to his abdomen, groin and back. Of note, pt had been hospitalized with similar problems in the past, last hospitalization in , pt was treated for celullitis, likely resuled from urinary incontinence, limited mobility with Spina Bifida. [facility], however, pt stated that he was rejected, therefore stayed on the street since then, getting free meal from [employer]. About week ago, pt noticed his skin lesions on his lower abdomen getting worse, oozing, progressively got worse, irritated and painful. decided to seek for help today. ED, VS BP stable, [id number], RR14, afebrile, 100% on RA. patient was noticed extensive excoriated erythema on lower abdomen, perineum and sacral area , with foul smelly, oozing and tender given concern for Remington's gangrene, ABD CT obtained which showed no Remington's gangrene or abscess, no bony involvement. patient received vancomycin, meropenem, clindamycin. labs showed elevated wbc, lactate1.7, UA showed hazy urine, pyuria, many epithelial cells, few bacteria, moderate leukEST. CXR showed no acute findings. Upon interview, pt was pleasant, but not very good historian, c/o pain on skin lesions, but able to communicate, answer some questions. Hospital Course Patient is a 46-year-old homeless male with spina bifida with colostomy and urinary incontinence, and Chiari 2 malformation s/p FITNESS SUPERVISOR shunt presenting with "skin irritation" to his abdomen, groin and back. #Patient was admitted with extensive erythematous rash, likely cellulitis resulted from urinary leakage with incontinence, CT abd didn't show deep tissue involvement, gangrene or abscess. Patient initially started with vancomycin and meropenem clindamycin, which to Rocephin finished a course of 10 days.pt also received diflucan and nystatin for probable skin fungal infection.MRSA swab was negative. He was again noted that this is recurrent episode from being homeless, poor management of his urinary incontinence. Given patient's high needs, patient was referred to multiple different halfway facilities, however, not accepted given patient's history of chemical abuse. Patient was offered other options such as adult home but refused. expedited NARESH referral was given per patient with community resources. Patient was eventually discharged back to the street, knowing the risks of readmission with same conditions. # Nausea, vomiting, weakness, present at the time of admission, likely due to UTI, proteus+. Resolved with abx. # Rectal pain, presumably from neuropathic pain from spina bifida. Surgery was consulted, unlikely needs surgical intervention. Low dose gabapentin 100 mg by mouth every 8 hours tried, symptoms seemed to improve. # Rt foot dry gangrene, POA, foot xray unremarkable, as per Podiatry, no indication for surgery unless it becomes wet gangrene. # Spina Bifida, ostomy care, continued per RN staffs # Patient has a previously documented Mood disorder/Thoughts of self harm/ suicidal ideation, currently denied, patient was previously given Prozac for mood disorder, but unfortunately lost follow up. The patient's mood has been quite stable here throughout this hospitalization. # History of Substance abuse, chronic. previous using methamphetamine, not reported at this time. # GERD, chronic. Pantoprazole prn # HTN, diet controlled Exam Vital Signs (Last) Date Time Temp Pulse Resp B/P Pulse Ox O2 Delivery O2 Flow Rate FiO2 06/24/16 13:23 37.2 72 18 129/77 98 Room Air Exam NAD MMM, no JVD RRR, nl s1 s2 no mrg CTAB no w,c no rashes on perineum. Rt 5th toe, dry gangrene Ostomy bag in place Test 06/13/16 13:06 06/14/16 08:00 06/15/16 04:40 06/15/16 15:20 Prothrombin Time 10.7sec (8.1-12.5) Prothromb Time International Ratio 1.00ratio Lactic Acid Level 1.7mmol/L (0.4-2.0) Erythrocyte Sedimentation Rate 46mm/hr (0-15) Procalcitonin 0.05ng/mL (0.00-0.08) Urine Color Yellow (YELLOW) Urine Appearance Clear (CLEAR,HAZY) Urine pH 7.5 (5.0-8.0) Urine Specific [place] 1.020 (1.003-1.035) Urine Protein Negativemg/dL (NEG,TRACE) Urine Glucose (UA) Negativemg/dL (NEGATIVE) Urine Ketones Negativemg/dL (NEGATIVE) Urine Occult Blood Trace (NEGATIVE) Urine Nitrite Negative (NEGATIVE) Urine Bilirubin Negative (NEGATIVE) Urine Urobilinogen Normalmg/dL (NORMAL) Urine Leukocyte Esterase Negative (NEGATIVE) Urine RBC 0-2/hpf (0-2) Urine WBC 0-5/hpf (0-5) Urine Epithelial Cells None/hpf (NONE-MOD) Urine Crystals Triple phosphate Urine Bacteria Few/hpf (NONE-FEW) Urine Hyaline Casts None/lpf (NONE) Urine Granular Casts None seen (NONE SEEN) Urine Waxy Casts None seen (NONE SEEN) Urine Red Blood Cell Casts None seen (NONE SEEN) Urine White Blood Cell Casts None seen (NONE SEEN) Urine Mucus None seen (None Seen) Urine Trichomonas None seen (NONE SEEN) Urine Yeast None (NONE SEEN) Urinalysis Comment None Urine Culture Reflexed Not indicated Test 06/16/16 06:25 06/17/16 04:50 06/24/16 04:45 Prealbumin 15mg/dL (20-40) Vancomycin Level Trough 15.9mcg/mL Streptozyme 1036.6IU/mL (0.0-200.0) White Blood Count 9.0th/mm3 (3.8-10.1) Red Blood Count 3.83mil/mm3 (4.40-5.80) Hemoglobin 10.9g/dL (13.8-17.2) Hematocrit 34.9% (41.0-50.0) Mean Corpuscular Volume 91.1fL (81-100) Mean Corpuscular Hemoglobin 28.5pg (27.0-35.0) Mean Corpuscular Hemoglobin Concent 31.2% (32.0-37.0) Red Cell Distribution Width 15.4% (12.3-15.4) Platelet Count 340bil/L (150-400) Neutrophils (%) (Auto) 46.4% (40-74) Lymphocytes (%) (Auto) 38.7% (14-46) Monocytes (%) (Auto) 9.2% (4-12) Eosinophils (%) (Auto) 4.1% (0-5) Basophils (%) (Auto) 0.9% (0-3) Sodium Level 138mEq/L (134-144) Potassium Level 4.3mEq/L (3.5-5.2) Chloride Level 103mEq/L (97-108) Carbon Dioxide Level 24mmol/L (18-29) Blood Urea Nitrogen 26mg/dL (6-24) Creatinine 0.59mg/dL (0.76-1.27) Estimat Glomerular Filtration Rate 156mL/min (>59) Glucose Level 92mg/dL (60-99) Calcium Level 9.1mg/dL (8.5-10.1) Phosphorus Level 4.0mg/dL (2.5-4.9) Magnesium Level 1.9mg/dL (1.6-2.6) Total Bilirubin 0.2mg/dL (0.0-1.2) Aspartate Amino Transf (AST/SGOT) 12U/L (0-50) Alanine Aminotransferase (ALT/SGPT) 14U/L (0-44) Alkaline Phosphatase 81U/L (25-150) Total Protein 6.0g/dL (6.4-8.4) Albumin 3.3g/dL (3.4-5.0) Microbiology Results Name: RAMIREZ HATFIELD JR Age/Sex: 46/M Attend Dr: Filippo Yen MD Acct: [id number] Unit: [id number] Status: ADM IN [place] [facility]-1 Re06/13/16 Disch: Specimen: [id number] Collected: 06/13/16 Status: COMP Req#: [id number] Received: 06/13/16 Source: RANDOM Sp Desc : Ladonna Dr: Janes Marin MD Ordered: URINE CULT Procedure Result Verified Site Microbiology HUSEYIN CULT URINE Final 06/15/16 Organism 1 PROTEUS MIRABILIS U COLONY COUNT/QUANTITY >100,000 CFU/ml PROTEUS MIRABILIS Cefazolin-predicts results for the oral agents, cefaclor,cefdinir, cefpodoximen, cefprozil, cefuroximne axetil, cephalexin and loracarbed when used for therapy of uncomplicated UTI's due to E. coli, K. pneumoniae, and Proteus mirabilis. Cefpodoxime, cefdinir and cefuroxime axetil may be tested individually because some isolates may be susceptible to these agents while testing resistant to cefazolin. (CLSI O613-F19 pg 53) 1. PROTEUS MIRABILIS M.I.C Interp --------- ------ * AMPICILLIN <=2 S * CEFAZOLIN (CEPHALOSPORIN) UTI 4 S * CEFEPIME <=1 S * CEFTRIAXONE <=1 S * CEFUROXIME SODIUM 4 S * CIPROFLOXACIN <=0.25 S * ERTAPENEM <=0.5 S * GENTAMICIN <=1 S * LEVOFLOXACIN <=0.12 S * NITROFURANTOIN 128 R * TETRACYCLINE >=16 R * TOBRAMYCIN <=1 S * TRIMETHOPRIM/SULFAMETHOXAZOLE <=20 S Discharge Medications Discharge Medications Fluoxetine (Fluoxetine) 20 Mg Capsule 20 MG PO QAM (Reported) Fluticasone Propionate (Flonase Allergy Relief) 50 Mcg/Actuation [place].susp 1 SPRAY NS HS (Reported) Gabapentin (Neurontin) 100 Mg Capsule 100 MG PO TID Prescribed by: FILIPPO YEN MD Lisinopril (Lisinopril) 20 Mg Tablet 20 MG PO QAM (Reported) Omeprazole (Omeprazole) 20 Mg Capsule.dr 20 MG PO QAM (Reported) As needed Albuterol HFA (Proair HFA) 8.5 Gm Hfa.aer.ad 2 PUFFS INHALATION Q4H PRN PRN For Shortness of Breath (Reported) Amitriptyline (Amitriptyline) 10 Mg Tablet 10 MG PO HS PRN PRN For Insomnia ( Reported) Followup Plan Disposition: home(homeless) Time spent 65min Filippo Yen MD June 25, 2016 12:28
== END 2016-06-24 15:21 | disposition home or self-care (01) | DRG 602 ==
LOC: SED 10:04 → EDBD 10:04 → MPC 17:11
PROVIDERS: ADMIT Internal Medicine; ATTEND Internal Medicine
DX: L03.311 Cellulitis of abdominal wall (principal); L89.323 Pressure ulcer of left buttock, stage 3; N39.0 Urinary tract infection, site not specified; I96 Gangrene, not elsewhere classified; G82.20 Paraplegia, unspecified; L03.315 Cellulitis of perineum; Q05.9 Spina bifida, unspecified; Z93.3 Colostomy status; Z98.2 Presence of cerebrospinal fluid drainage device; Z59.0 Homelessness; R32 Unspecified urinary incontinence; K21.9 Gastro-esophageal reflux disease without esophagitis; I10 Essential (primary) hypertension; L89.890 Pressure ulcer of other site, unstageable; B96.4 Proteus (mirabilis) (morganii) as the cause of diseases classified elsewhere; F17.210 Nicotine dependence, cigarettes, uncomplicated; K62.89 Other specified diseases of anus and rectum; M79.2 Neuralgia and neuritis, unspecified; B36.9 Superficial mycosis, unspecified

== ENCOUNTER 2016-07-01 21:51 | Emergency (ER) | payer MEDICARE, MEDICAID ==
[~2016-07-01] VITALS: Ht 162.6 cm; Wt 72.3 kg
[~2016-07-01 21:51] MED LIST changes: +ALBU8.5H2 INHALATION; +AMIT10TA6 PO; -DOXY100T2 PO; +FLUT9.9S NS; +GABA100C PO; +LISI-567 PO; -MUPI22OI2 NASAL; +OMEP20CA11 PO
[2016-07-01 22:03] VITALS: BP 154/100; PULSE 116; RESP 18; O2SAT 100
--- NOTE | 2016-07-01 23:12 | ED.REPORT ---
HPI-Extremity Problem Lower Date of Service July 01, 2016 ED Provider: Reji Barriga MD 46 year old homeless male who is wheelchair-bound secondary to spina bifida and an everyday smoker with a history of chronic wounds and Chiari 2 malformation presents to the ER brought in by [facility] due to wounds of the left lower extremity. Crisis outreach members from [facility] who are accompanying the patient describe red, inflamed, peeling skin with pus blisters, and report that there is an area to the inside of his left ankle with dark discoloration that has grown in size over the past two hours. They also report redness of the hands , bilaterally. Patient denies fever, chills. He was discharged a week ago from the hospital here after a two week stay for similar, at which time he was treated with IV antibiotics. Nursing Notes Stated Complaint: SKIN BREAKDOWN Chief Complaint: Extremity Trauma Nursing Notes Reviewed: Yes Allergies: Coded Allergies: No Known Allergies (Verified Allergy, Unknown, 04/05/16) Scheduled Fluoxetine (Fluoxetine) 20 Mg Capsule 20 MG PO QAM Fluticasone Propionate (Flonase Allergy Relief) 50 Mcg/Actuation [place].susp 1 SPRAY NS HS Gabapentin (Neurontin) 100 Mg Capsule 100 MG PO TID Lisinopril (Lisinopril) 20 Mg Tablet 20 MG PO QAM Omeprazole (Omeprazole) 20 Mg Capsule.dr 20 MG PO QAM Scheduled PRN Albuterol HFA (Proair HFA) 8.5 Gm Hfa.aer.ad 2 PUFFS INHALATION Q4H PRN PRN For Shortness of Breath Amitriptyline (Amitriptyline) 10 Mg Tablet 10 MG PO HS PRN PRN For Insomnia General Time Seen by MD: 23:11 Chief Complaint Leg injury left Hx Obtained From: Patient Arrived By: Walk-in Onset Occurred: 1 week ago Symptom Duration: Since onset Location: : Leg left Quality: Painful Severity: Current: Moderate Severity: Maximum: Moderate Associated with: Denies: Fever Pertinent Negative: Pt denies other symptoms Similar Sx Previous: Yes Past Medical History Past Medical History Notes: PCP: [facility] clinic Past Medical History Spina bifida History of abdominal wall cellulitis July 2015, resolved (treated with zinc and Zosyn initially, switch to by mouth Augmentin, resolved) GERD History of substance abuse per EMR Skin breakdown of buttocks, s/p diveriting colostomy Chiari 2 malformation 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 Reports: Hypertension Past Surgical History Diverting colostomy Shunt revisions Family History Noncontributory Smoking History Current Every Day Smoker Social History Homeless per notes Alcohol Use: 1-3 per week Drug Use: In recovery, THC Other Social History: Poor social support, Homeless Ambulatory Status Wheelchair Review of Systems Constitutional: Denies: Chills, Fever Musculoskeletal: Reports: Extremity pain (Left Leg), Denies: Back pain, Joint pain, Lumbar pain, Neck pain, Thoracic pain Complete sys rev & neg: except as marked. GI: Denies: Nausea, Vomiting Physical Exam Initial Vital Signs Vital Signs (First) Date Time Temp Pulse Resp B/P Pulse Ox O2 Delivery O2 Flow Rate FiO2 07/01/16 22:03 37.8 116 18 154/100 100 Room Air Initial VS: Reviewed Head / Eyes: Atraumatic, Normocephalic Neck: Supple, Non-tender, Full range of motion Respiratory: Breath sounds normal, Clear to auscultation, No respiratory distress Cardiovascular: Regular rate & rhythm, Heart sounds normal, Intact distal pulses Abdomen / GI: Soft, Non-tender, No guarding, No rebound, No distention Upper Extremities: Vascular intact, Neuro intact, No swelling, No tenderness Skin: Warm, Dry, No cyanosis Neurologic: Alert, Oriented, Nonfocal Lower Extremity / Pelvis / MS: No deformity, Neurologic intact, Vascular intact 4+ edema of the left leg below the knee with blisters. Dusky areas over the left medial lower leg, ankle, and foot, draining serum constantly. General/Constitutional: Awake, Alert, Well developed Interpretation & Diagnostics Lab Results Interpretation Result Diagram: 07/02/16 0111 07/02/16 0111 Test 07/02/16 01:11 07/02/16 01:33 07/02/16 02:00 White Blood Count 13.0th/mm3 (3.8-10.1) Red Blood Count 4.66mil/mm3 (4.40-5.80) Hemoglobin 13.3g/dL (13.8-17.2) Hematocrit 41.0% (41.0-50.0) Mean Corpuscular Volume 88.0fL (81-100) Mean Corpuscular Hemoglobin 28.5pg (27.0-35.0) Mean Corpuscular Hemoglobin Concent 32.4% (32.0-37.0) Red Cell Distribution Width 15.6% (12.3-15.4) Platelet Count 594bil/L (150-400) Neutrophils (%) (Auto) 69.0% (40-74) Lymphocytes (%) (Auto) 20.5% (14-46) Monocytes (%) (Auto) 6.9% (4-12) Eosinophils (%) (Auto) 3.1% (0-5) Basophils (%) (Auto) 0.3% (0-3) Erythrocyte Sedimentation Rate 38mm/hr (0-15) Sodium Level 137mEq/L (134-144) Potassium Level 4.1mEq/L (3.5-5.2) Chloride Level 96mEq/L (97-108) Carbon Dioxide Level 22mmol/L (18-29) Blood Urea Nitrogen 21mg/dL (6-24) Creatinine 0.81mg/dL (0.76-1.27) Estimat Glomerular Filtration Rate 108mL/min (>59) Glucose Level 108mg/dL (60-99) Lactic Acid Level 3.7mmol/L (0.4-2.0) Calcium Level 9.4mg/dL (8.5-10.1) Phosphorus Level 4.2mg/dL (2.5-4.9) Magnesium Level 1.9mg/dL (1.6-2.6) Total Bilirubin 0.3mg/dL (0.0-1.2) Aspartate Amino Transf (AST/SGOT) 14U/L (0-50) Alanine Aminotransferase (ALT/SGPT) 14U/L (0-44) Alkaline Phosphatase 93U/L (25-150) Pro-B-Type Natriuretic Peptide 139pg/mL (0-121) Total Protein 7.2g/dL (6.4-8.4) Albumin 3.7g/dL (3.4-5.0) Lipase 21U/L (13-60) Procalcitonin 0.13ng/mL (0.00-0.08) Hold Mikado Top Tube Received (Received) Prothrombin Time 10.3sec (8.1-12.5) Prothromb Time International Ratio 0.96ratio Activated Partial Thromboplast Time 22.0sec (22.8-33.0) X-Ray Chest Interpretation Chest Xray Interpretation: Normal. View: Portable, 1 view Interpretation / Wet Read by: Wet read ED physician X-Ray Interpretation Xray Interpretation: Soft tissue swelling. No fracture. X-Ray Ordered: Foot left Interpretation / Wet Read by: Wet read ED physician Re-Eval/Medical Decision Med Decision/Clinical Course 46-year-old with spina bifida chronically wheelchair bound, chronic leg wounds and edema, presents with worsening cellulitis and edema of his legs. He has had some subjective fever and chills. He will require admission for IV antibiotics and local wound care. Unfortunate, we have no beds in her already holding for in our emergency department, and so transfer has been sought. Bed is been found at [facility], and he is transported via S ambulance. Source of Hx: Old records Re-Evaluation/Progress #1: Time of Eval: 23:26 Re-Evaluation/Progress Note: Discussed physical examination findings and need for admission. Patient is amenable to the plan. All other questions addressed. Re-Evaluation/Progress #2: Time of Eval: 02:35 Re-Evaluation/Progress Note: Discussed imaging results and need for transfer. Patient is amenable to the plan. All other questions addressed. Consultation : Consulted With: Hospitalist Call Returned at: 02:30 Forging Press Operator: Agrees with eval, Agrees with plan Note: Discussed patient case with Dr. López, Hospitalist at [facility]. Accepts transfer. Counseled Regarding: Diagnosis, Lab results, Need for transfer Discharge & Departure Impression: Primary Impression: Cellulitis of lower extremity Laterality: left Qualified Code: L03.116 - Cellulitis of left lower limb Additional Impressions: Sepsis Sepsis type: sepsis due to unspecified organism Qualified Code: A41.9 - Sepsis, unspecified organism Peripheral edema Disposition: Transfer, Acute Care Facility Receiving Hospital: [facility] Transfer Accepted: Yes Transfer Accepted at: 02:30 Spoke with: Hospitalist (Dr. López) Patient Status: Stable Patient Informed: Yes Discharge Condition All VS Reviewed: Yes Condition: Stable Referrals: Counts include 234 beds at the [facility] (PCP) Scribe Attestation Portions of this note were transcribed by Ava Ferraro. I, Dr. Barriga, personally performed the history, physical exam and medical decision-making; I reviewed and confirmed the accuracy of the information in the transcribed note. Signed by: Marleni Stoddard, 07/01/2016 at 03:09 copies to: Counts include 234 beds at the [facility] Reji Barriga MD July 01, 2016 23:12 AVA FERRARO July 01, 2016 23:16
[2016-07-01] MEDS ORDERED: Vancomycin Dose per Pharmacist XX ONE (23:30)
[2016-07-01] MEDS ORDERED: Meropenem Inj 1,000 MG in 0.9% Sodium Chloride 100 ML IV ONE (23:30)
[2016-07-01] MEDS ORDERED: Vancomycin Inj 1,500 MG in 0.9% Sodium Chloride 500 ML IV ONE (23:45)
[2016-07-02 01:23] LABS: BASOPHILS % (AUTO) 0.3 % (0-3); EOSINOPHILS % (AUTO) 3.1 % (0-5); MONOCYTES % (AUTO) 6.9 % (4-12); Mean Corpuscular Hemoglobin 28.5 pg (27.0-35.0); Platelet Count 594 bil/L (150-400)
[2016-07-02 01:45] LABS: ERYTHROCYTE SEDIMENTATION RATE 38 mm/hr (0-15)
[2016-07-02 02:24] LABS: Magnesium 1.9 mg/dL (1.6-2.6); Phosphorus 4.2 mg/dL (2.5-4.9)
[2016-07-02 02:51] LABS: INR 0.96 ratio
[2016-07-02 03:34] VITALS: BP 122/59; PULSE 98; RESP 26; O2SAT 100
--- NOTE | 2016-07-02 08:19 | DRSVH ---
PROCEDURE: X-RAY LEFT FOOT COMPLETE, MINIMUM THREE VIEWS ([id number]) INDICATIONS: infection, edema TECHNIQUE: 3 views of the foot were acquired. COMPARISON: Right foot radiographs from June 14, 2016. FINDINGS: Bones: No acute fractures or dislocations. Osteopenia. Left foot alignment is similar to alignment on previous right foot radiographs and normal for the patient.. Soft tissues: No tibiotalar joint effusion. Achilles tendon appears normal. IMPRESSION: No acute osseous findings in the left foot. Diffuse left foot soft tissue swelling. Osteo penia unusual for the patient's age. Please correlate for clinical evidence of congenital deformity o r neuropathic left foot. Dictated by: Octavio Rowland M.D. on 07/02/2016 at 8:10 Approved by: Octavio Rowland M.D. on 07/02/2016 at 8:13
--- NOTE | 2016-07-02 08:21 | DRSVH ---
PROCEDURE: X-RAY CHEST ONE VIEW, PORTABLE ([id number]) INDICATIONS: infection, edema TECHNIQUE: One view of the chest was acquired. COMPARISON: [facility], CR, XR CHEST 1VW (PORTABLE), 06/13/2016, 11:22. FINDINGS: Surgical changes and devices: HAND KNITTER shunt projects over the right chest and is contiguous where seen. Lungs and pleura: No pleural effusions or pneumothorax. Lungs are clear. Mediastinum: Mediastinal contours appear normal. Heart size is normal. Bones and chest wall: No suspicious bony lesions. Overlying soft tissues appear unremarkable. IMPRESSION: HAND KNITTER shunt tubing. Otherwise negative chest. Dictated by: Octavio Rowland M.D. on 07/02/2016 at 8:13 Approved by: Octavio Rowland M.D. on 07/02/2016 at 8:14
== END 2016-07-02 04:07 | disposition short-term general hospital (02) ==
LOC: SED 21:51
DX: L03.116 Cellulitis of left lower limb (principal); A41.9 Sepsis, unspecified organism; R60.0 Localized edema; Q05.9 Spina bifida, unspecified; R73.03 Prediabetes; I10 Essential (primary) hypertension; K21.9 Gastro-esophageal reflux disease without esophagitis; F10.10 Alcohol abuse, uncomplicated; F15.10 Other stimulant abuse, uncomplicated; F17.200 Nicotine dependence, unspecified, uncomplicated; Z59.0 Homelessness
CPT/HCPCS: 36415; 71010; 73630; 80053; 83605; 83690; 83735; 83880; 84100; 84145; 85025; 85610; 85651; 85730; 87040; 96365; 96366; 96367; 99285; J2185; J3370; J7040

== ENCOUNTER 2016-08-05 15:39 | Emergency (ER) | payer MEDICARE, MEDICAID ==
[2016-08-05 15:56] VITALS: BP 139/84; PULSE 90; RESP 18; O2SAT 97
--- NOTE | 2016-08-05 16:05 | ED.REPORT ---
HPI-General Illness Date of Service Aug 05, 2016 ED Provider: Brando De Leon MD 46 y/o male with a hx spina bifida, abdominal wall cellulitis, s/p diverting colostomy, hypertension and substance abuse presents to the ED complaining of a disconnected colostomy bag onset prior to arrival. The pt came in with several layers of clothing on to soak the feces. He states "I just did a simple movement and the bag came off". The pt endorses recent alcohol use. He has no other complaints at this time. Nursing Notes Stated Complaint: LEAKING COLOSTOMY BAG Chief Complaint: General Complaint Nursing Notes Reviewed: Yes Allergies: Coded Allergies: No Known Allergies (Verified Allergy, Unknown, 04/05/16) Scheduled Fluoxetine (Fluoxetine) 20 Mg Capsule 20 MG PO QAM Fluticasone Propionate (Flonase Allergy Relief) 50 Mcg/Actuation Easley.susp 1 SPRAY NS HS Gabapentin (Neurontin) 100 Mg Capsule 100 MG PO TID Lisinopril (Lisinopril) 20 Mg Tablet 20 MG PO QAM Omeprazole (Omeprazole) 20 Mg Capsule.dr 20 MG PO QAM Scheduled PRN Albuterol HFA (Proair HFA) 8.5 Gm Hfa.aer.ad 2 PUFFS INHALATION Q4H PRN PRN For Shortness of Breath Amitriptyline (Amitriptyline) 10 Mg Tablet 10 MG PO HS PRN PRN For Insomnia General Time Seen by MD: 15:54 Chief Complaint Other (disconnected colostomy bag) Hx Obtained From: Patient Arrived By: Walk-in Sudden in Onset?: Yes Onset Occurred: 1 - 4 hours ago Symptom Duration: Since onset Severity: Current: No pain currently Severity: Maximum: No pain Recent Healthcare: Recent doctor visit Similar Sx Previous: Yes Past Medical History Past Medical History Notes: [facility] Past Medical History Spina bifida History of abdominal wall cellulitis July 2015, resolved (treated with zinc and Zosyn initially, switch to by mouth Augmentin, resolved) GERD History of substance abuse per EMR Skin breakdown of buttocks, s/p diveriting colostomy 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 Reports: Hypertension Past Surgical History Diverting colostomy Shunt revisions Family History Noncontributory Smoking History Current Every Day Smoker Social History Homeless per notes Alcohol Use: 1-3 per week Drug Use: In recovery, THC Other Social History: Poor social support, Homeless Ambulatory Status Wheelchair Review of Systems Reports: Disconnected colostomy bag Complete sys rev & neg: except as marked. Physical Exam Vital Signs Vital Signs Date Time Temp Pulse Resp B/P Pulse Ox O2 Delivery O2 Flow Rate FiO2 08/05/16 15:56 36.5 90 18 139/84 97 Room Air Initial VS: Reviewed, Vital signs normal Head / Eyes: Atraumatic, Normocephalic Neck: Supple, Full range of motion Respiratory: Breath sounds normal, No respiratory distress Cardiovascular: Regular rate & rhythm, Heart sounds normal Extremities: Vascular intact, Neuro intact, No swelling Skin: Warm, Dry, No cyanosis Neurologic: Alert, Oriented, Nonfocal General/Constitutional: Awake, Alert, Cooperative Abdomen: Atraumatic Pt covered in stool. Ostomy is pink and healthy appearing. Diffuse erythema on the abdomen. Lower Extremity / Pelvis / MS: Atraumatic, Full range of motion, No swelling, Non-tender, No deformity, Neurologic intact, Vascular intact Grade 4 pressure sore on the left buttock noted by presentation specialist. Re-Eval/Medical Decision Source of Hx: Old records Time of Eval: 16:53 Patient Status: Condition improved Evaluation: Capillary refill improved Re-Evaluation/Progress Note: Rechecked pt. channel marketing specialist cleaned the area and placed a new ostomy bag. Discussed lab results, imaging results, diagnosis and plan to discharge. Pt understands and agrees with the plan. F/U instructions and RTER warning given. All questions addressed. Counseled Regarding: Diagnosis, Lab results, Need for follow-up, When/why to return to ED Discharge & Departure Primary Impression: Complication of ostomy Additional Impression: Substance abuse Disposition: Home Discharge Condition All VS Reviewed: Yes Condition: Stable Patient Instructions: Abuse of Alcohol (ED), Colostomy Care (ED) Additional Instructions: Follow-up with your care team as instructed by TONY London. Referrals: [facility] (PCP) Scribe Attestation Portions of this note were transcribed by Kate Byrd. I, , personally performed the history, physical exam and medical decision-making;I reviewed and confirmed the accuracy of the information in the transcribed note. Signed by Marleni Crane. 08/05/16 17:44 copies to: [facility] Brando De Leon MD Aug 05, 2016 16:05 Kate Byrd Aug 05, 2016 16:17
--- NOTE | 2016-08-05 17:29 | NUR ---
Wound Note Homeless 46 yo male with history of spina bifida, ETOH abuse, ischial pressure injury with flap surgery and consequent colostomy. Presents in the ED with completely fecal matter fouled clothing, detached ostomy appliance. Who reports recent discharge from [facility]. After cleaning this patient up with hibiclens soap it was determined that he still has a stage 4 pressure injury at his left ischium which is 4 cm L x 4 cm W x 2 cm D, bone is palpable in the base of the wound, wound does not appear infected and was irrigated with saline and an adhesive foam dressing was placed over the ulcer. Patient also presents with a constellation of wounds at his left lateral ankle that may be secondary to abrasion or trauma, these were covered with an adhesive foam dressing after cleaning, right little toe appears to have been either shortened surgically or auto amputated the distal phalanx (unable to get a clear history from patient on this) with an open wound that is 1 cm in diameter and granular in nature, this was cleaned with saline and redressed with an adhesive foam dressing. Patients periostomal skin was cleaned with betadine then skin prepped and a one piece ostomy appliance was placed, spent time instructing patient in stoma care (he thinks he is an expert) and tried to reinforce that frequent ostomy care would help him out in terms of his need for emergency room visits for a problem that he has the skills to manage. Provided patient with supplies for ostomy care and reminded him that he has an appointment at the wound center made for him by [facility] prior to his discharge.
== END 2016-08-05 18:07 | disposition home or self-care (01) ==
LOC: SED 15:39 → EDBD 15:39 → SED 18:07
DX: K94.03 Colostomy malfunction (principal); F19.10 Other psychoactive substance abuse, uncomplicated; I10 Essential (primary) hypertension; K21.9 Gastro-esophageal reflux disease without esophagitis; F17.200 Nicotine dependence, unspecified, uncomplicated

== ENCOUNTER 2016-08-08 12:16 | Observation (INO) | payer MEDICARE, MEDICAID ==
[~2016-08-08] VITALS: Ht 162.6 cm; Wt 75.0 kg
--- NOTE | 2016-08-08 12:22 | ED.REPORT ---
HPI-General Illness Date of Service Aug 08, 2016 ED Provider: Dr. De Leon 46 y/o male with a hx of spina bifida, abdominal wall cellulitis, s/p diverting colostomy, hypertension and substance abuse presents to the ED complaining of a disconnected colostomy bag onset prior to arrival. The pt states he was pushing his wheelchair with force when the ostomy bag popped out. He is currently experiencing burning sensation on the abdomen due to the stool. He denies any other sx. His last alcoholic drink was yesterday. Nursing Notes Stated Complaint: DETACHED COLOSTOMY BAG Nursing Notes Reviewed: Yes Allergies: Coded Allergies: No Known Allergies (Verified Allergy, Unknown, 04/05/16) Scheduled Fluoxetine (Fluoxetine) 20 Mg Capsule 20 MG PO QAM Fluticasone Propionate (Flonase Allergy Relief) 50 Mcg/Actuation Thompson.susp 1 SPRAY NS HS Gabapentin (Neurontin) 100 Mg Capsule 100 MG PO TID Lisinopril (Lisinopril) 20 Mg Tablet 20 MG PO QAM Omeprazole (Omeprazole) 20 Mg Capsule.dr 20 MG PO QAM Scheduled PRN Albuterol HFA (Proair HFA) 8.5 Gm Hfa.aer.ad 2 PUFFS INHALATION Q4H PRN PRN For Shortness of Breath Amitriptyline (Amitriptyline) 10 Mg Tablet 10 MG PO HS PRN PRN For Insomnia General Time Seen by MD: 12:21 Chief Complaint Other (disconnected colostomy bag) Hx Obtained From: Patient Arrived By: Wheelchair Sudden in Onset?: Yes Onset Occurred: Just prior to arrival Symptom Duration: Since onset Severity: Current: No pain currently Severity: Maximum: No pain Recent Healthcare: Recent doctor visit Similar Sx Previous: Yes Past Medical History Past Medical History Notes: PCP: [facility] Past Medical History Spina bifida History of abdominal wall cellulitis July 2015, resolved (treated with zinc and Zosyn initially, switch to by mouth Augmentin, resolved) GERD History of substance abuse per EMR Skin breakdown of buttocks, s/p diveriting colostomy Chiari 2 malformation s/p SCORER SINGLE 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 Reports: Hypertension Past Surgical History Diverting colostomy Shunt revisions Family History Noncontributory Smoking History Current Every Day Smoker Social History Homeless per notes Alcohol Use: 1-3 per week Drug Use: In recovery, THC Other Social History: Poor social support, Homeless Ambulatory Status Wheelchair Review of Systems Reports: disconnected ostomy bag Reports: burning sensation over the abdomen due to the stool Complete sys rev & neg: except as marked. Physical Exam Vital Signs Vital Signs Date Time Temp Pulse Resp B/P Pulse Ox O2 Delivery O2 Flow Rate FiO2 08/08/16 12:26 36.5 76 16 133/76 Initial VS: Reviewed Head / Eyes: Atraumatic, Normocephalic Neck: Supple, Non-tender, Full range of motion Skin: Warm, Dry, No cyanosis Neurologic: Alert, Oriented, Nonfocal Respiratory / Chest: Atraumatic, Breath sounds NL, Breath sounds = bilat, No wheezing Cardiovascular: Heart rate NL, Regular rhythm, Peripheral circulation NL Mild edema in lower extremities Abdomen: Atraumatic, Soft Tenderness/Guarding/Rebound: Positive: Tender diffuse (mild) Dense erythema across lower abdomen. Back: Atraumatic, Inspection NL, Full range of motion 2cm, grade 4 ulcer over left flank and perianal area Skin: Atraumatic, Warm, No swelling Ecchymosis in both lower extremities. Healing eschar over left malleolus. Re-Eval/Medical Decision Source of Hx: Old records Time of Eval: 12:40 Re-Evaluation/Progress Note: Rechecked pt. Discussed diagnosis and plan to admit. Pt understands and agrees with the plan for admission. All questions addressed. Consultation : Referral / Consult Name: Tanesha Ortega DO Consulted With: Hospitalist Call Returned at: 13:43 Marine Fitter: Will see patient, Agrees with eval, Agrees with plan, Accepts admit Counseled Regarding: Diagnosis, Lab results, Need for admission Discharge & Departure Primary Impression: Skin breakdown Disposition: ADMITTED TO HOSPITAL Discharge Condition All VS Reviewed: Yes Referrals: [facility] (PCP) Scribe Attestation Portions of this note were transcribed by Kate Byrd. I, , personally performed the history, physical exam and medical decision- making;I reviewed and confirmed the accuracy of the information in the transcribed note. Signed by Marleni Crane. 08/08/16 13:58 Brando De Leon MD Aug 08, 2016 12:22 Kate Byrd Aug 08, 2016 12:28
[2016-08-08 12:26] VITALS: BP 133/76; PULSE 76; RESP 16
[2016-08-08] MEDS ORDERED: Ondansetron 2 mg/mL 2 mL Inj IVPUSH PRN (13:50)
[2016-08-08] MEDS ORDERED: Alum-Mag Hydrox-Simeth 30 mL Suspension PO PRN (13:50)
--- NOTE | 2016-08-08 14:20 | NUR ---
Social Work: Readiness for Discharge D: EMR reviewed. Pt is on day 5 of hospitalization. Per MD in AM multi-disciplinary rounds, pt is likely to discharge today. Pt lives at home with parents and will return with parents via POV. SW does not anticipate any discharge needs at this time but will continue to follow if needs arise. A: Pt who is independent at baseline P: Pt lives at home with parents and will return with parents via POV. RADHA does not anticipate any discharge needs at this time but will continue to follow if needs arise. TONY Cisse Addendum: 08/08/16 at 1452 by SONIA DELGADO PLEASE DISREGARD PREVIOUS NOTE - NOTE ENTERED ON WRONG PATIENT.
--- NOTE | 2016-08-08 14:52 | NUR ---
Disregard previous SW note. Entered on wrong pt.
[2016-08-08 14:57] VITALS: BP 136/70; PULSE 72; RESP 16
[2016-08-08 15:07] VITALS: BP 132/80; PULSE 113; RESP 20; O2SAT 100
--- NOTE | 2016-08-08 16:03 | NUR ---
ADMIT Received from the ED via a gurney. Transferred with assist in bed. Patient stated that he feels sore. Denies nausea. No emesis noted. Denies SOB. Colostomy is in place with a small amount of soft, brown stool noted. Decubitus ulcer noted on his L buttocks. Multiple skin issues. Kimani Diallo, KELLENS made aware. He will be in to assess the patient. Patient stated he last smoked Meth 5 hours ago. Belongings are locked up in the closet by security. Sharps container is out of the room. Patient made aware RE: Visitors, belongings, etc. He verbalized understanding. Oriented to room and call light. Addendum: 08/08/16 at 1802 by DARLENE JAIME RN SKIN/CIWA NS wet to dry in his L buttock-Done by WCS. Swab sent to the lab. CIWA score-1 at this time.
[2016-08-08] MEDS ORDERED: Polyethylene Glycol (PEG) 17 Gm Powder PO PRN (16:30)
[2016-08-08] MEDS ORDERED: cefTRIAXone Inj 1,000 MG in Dextrose 5% Minibag Plus 50 ML IV SCH (17:10)
--- NOTE | 2016-08-08 17:21 | PCM.HPMED ---
Subjective Date of Service Aug 08, 2016 Primary Provider: Admitting Physician: Tanesha Ortega DO [facility] Attending Physician: Tanesha Ortega DO Admit Status: From the Emergency Department Chief Complaint: Inability to care for self/colostomy bag History of Present Illness: Patient is a 46-year-old homeless male with spina bifida with colostomy and urinary incontinence and Chiari II malformation status post FOOD GENERAL MANAGER shunting is presenting with inflammed, irritated skinon abdomen groin and back. His colosctomy bag was detached. Patient has been hospitalized several times with similar problems in the recent past. He comes to the ED often with the same issue. He does recall being sent to [facility] from the ED in June, stayed at [place] nearly a month (a wound vac was applied to his sacral ulcer per patient) . He was recently discharged a few days ago and was already seen int he ED once before with feces all over him complaining he just moved his bowels and the bag came off. On 08/08, In the ER patient's vital signs are stable, he was apprpriately cleaned up and now looks much boiler cleaner. During this conversation, patient is sometimes incoherent and some times could not recall details (eyes were rolling) . Last alcohol, drink was yesterday. Last meth use was 5 hrs ago. Because of his frequent visits to the ER note lab work was done, patient was admitted due to concern for skin irritation secondary to stool and urine exposure, skin maceration, also for stage IV sacral decubitus ulcer Review of Systems: Gen.: No weight gain patient has been having fevers and malaise Eyes: no visual disturbances or blurring vision HEENT: No nose/throat drainage, no pain in ears or throat, no hearing loss Lymph: No lymph nodes noted Cardiac: No chest pain, orthopnea, PND, palpitations , pedal edema or dyspnea on exertion Pulmonary: Denies wheezing or bringing up of sputum , worsening dyspnea and cough, left-sided chest pain GI: No anorexia nausea vomiting blood or black in the stool : no dysuria hematuria urinary frequency or decrease in urine output Musculoskeletal: Swollen LE, says he can walk but does not, says he can transfer himself, Neuro: Positive for numbness tingling in LE, No syncope, seizures no loss of consciousness no new focal weakness Psychiatric: New new anxiety insomnia or depression Endocrine: No new heat or cold intolerances polyuria or polydipsia Hematology: No lymphadenopathy or easy bleeding or bruising noted skin: Rash as described in the HPI Complete review of systems performed, pertinent positives and negatives per history of present illness and above, all other systems reviewed and are negative. Allergies Coded Allergies: No Known Allergies (Verified Allergy, Unknown, 04/05/16) Home Medications Prozac, Flonase, gabapentin, and a separate from omeprazole, amitriptyline, albuterol [facility] Spina bifida, abdominal cellulitis 2016, status post diverting colostomy in [facility] that was done for 5 years ago, hypertension, substance abuse, GERD, skin breakdown on his buttocks, Chiari II malformation status post FOOD GENERAL MANAGER shunt revision last revision was in 2001 Surgical History Remarkable for diverting colostomy, shunt placement Family History Remarkable for father who from 10. Cancer, he has diabetes Mother is in [place] health history is unknown Social History Hx Alcohol Use: Yes ("social" or "occasional drunk") Hx Substance Use: Yes (meth) Smoking Status: Current Every Day Smoker Living Arrangement: Homeless (Needs wheel chair to get around) Exam Vital Signs Vital Sign - Last Date Time Temp Pulse Resp B/P Pulse Ox O2 Delivery O2 Flow Rate FiO2 08/08/16 15:07 36.7 113 20 132/80 100 Room Air Exam relatively groomed upper body, clean skin, NAD MMM, no JVD RRR, nl s1 s2 no murmurs Lungs CTA no crackles or wheezes Skin: below periumbilical area to upper thigh, diffuse erythema with multiple excoriations with scabs, tender to palpation Stage 3 Ulcer: Lt buttock, stage 3 pressure sore covered with foul smelly urine , irritated, erythematous. bilateral lower distal ext: mild diffuse erythema, blanching, non-tender. Both legs are swollen atrophic, erythematous care. 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 His old left- sided flank and lower abdominal area and groin area is macerated skin graft is present warm to touch Vascular no palpable pulse in the feet, skin is warm to touch Neuro: Appears to be somewhat under influence as he is rolling eyes, missing details Psych: Pleasant, very comfortable Lab and Diagnostics Labs None Assessment & Plan Cellulitis of skin, POA active -- Admit to floor -- CBC, CMP -- ESR, CRP -- Ceftriaxone 2 g Q24H -- Woundcare is consulted -- Reviewed his prior admissions for the same. Stage 3 Sacral Ulcer: wound culture is ordered, POA, active -- Ceftriaxone for antibiotics -- Wound care is consulted -- Tylenol/Ibuprofen for pain he does have some sensation below the umbilicus Alcohol abuse, chronic, active -- [facility] protocol Chronic hypertension active -- Continue Lisinopril Chronic depression, active --Continue Prozac and amitryptaline Chronic neuropathy, active -- continue gabapentin Patient Status: Patient was admitted under inpatient status with expected length of stay greater than two midnights due to severity of presenting symptoms , risk of adverse event, and complexity of treatment plan Pain Evaluation: Adequate Pain Control Resuscitation Status: CPR: Attempt Resuscitation Time spent 40 min Tanesha Ortega DO Aug 08, 2016 16:34
[2016-08-08 17:46] LABS: BASOPHILS % (AUTO) 0.2 % (0-3); EOSINOPHILS % (AUTO) 2.2 % (0-5); MONOCYTES % (AUTO) 8.8 % (4-12); Mean Corpuscular Hemoglobin 29.5 pg (27.0-35.0); Mean Corpuscular Volume 90.4 fL (81-100); NEUTROPHILS % (AUTO) 68.7 % (40-74); Platelet Count 387 bil/L (150-400)
--- NOTE | 2016-08-08 17:57 | NUR ---
Wound Note Homeless 46 yo male with history of spina bifida, ETOH abuse, ischial pressure injury with flap surgery and consequent colostomy. Was recently seen in thew ED on 08/05 today presents with significant skin excoriation at his left thigh and abdomen most likely secondary to poor seal on ostomy appliance, his current ostomy appliance is well sealed and draining thin yellowish stool. Of note patient also has some stool at his rectum. Patient presents with a stage 3 pressure injury (POA) at his left ischium which is 4 cm L x 4 cm W x 2 cm D, this was cleaned with saline and packed with dry gauze, it does not appear to be infected but was cultured at Dr Vilchis's request. Patient also presents with a constellation of wounds at his left lateral ankle that may be secondary to abrasion or trauma, these were covered with an adhesive foam dressing after cleaning, right little toe appears to have been auto amputated the distal phalanx with an open wound that is 1 cm in diameter and granular in nature, this was cleaned with saline and redressed with an adhesive foam dressing. Nursing can change these dressings daily at ischium and prn for ankle and foot wounds. Wound will recheck on this patient Thursday.
[2016-08-08] MEDS: Multivit-Miner-Folic Acid-Iron Tablet PO SCH (18:09)
[2016-08-08] MEDS: Pantoprazole 40 mg ER24 Tablet PO SCH (18:09)
[2016-08-08] MEDS: Sodium Chloride LOK Flush 10 mL Syringe IVFLUSH SCH ×2 (18:39→23:35)
[2016-08-08] MEDS: cefTRIAXone 2,000 mg/D5W 50 mL IV Minibag Plus IV SCH ×2 (18:40)
[2016-08-08] MEDS ORDERED: Albuterol 2.5 mg/3 mL Inhalation Solution NEB PRN (20:00)
[2016-08-08] MEDS: Fluticasone 0.05% 15 Spray/2 Gm 16 Gm Nasal Spray NASAL SCH (20:14)
[2016-08-08 20:35] VITALS: BP 157/101; PULSE 109; RESP 22; O2SAT 99
[2016-08-08] MEDS: Thiamine Inj 100 MG in 0.9% Sodium Chloride 100 ML IV SCH (21:02)
[2016-08-08] MEDS ORDERED: Potassium Chloride 20 mEq SR Tablet PO ONE (22:55)
[2016-08-09 05:50] VITALS: BP 112/75; PULSE 91; RESP 20; O2SAT 98
--- NOTE | 2016-08-09 06:31 | NUR ---
Stool Pt is noted to have stool coming out of his colostomy and rectum. Pt had liquid stool from the colostomy;a large formed stool and medium liquid from the rectum. Pt has Spina Bifida and is unaware of when this began. Pt has open area to buttocks and the dressing was covered in BM. Gauze reapplied to open area. Care ongoing.
[2016-08-09 06:36] LABS: Mean Corpuscular Hemoglobin 29.4 pg (27.0-35.0); Mean Corpuscular Volume 91.6 fL (81-100)
[2016-08-09] MEDS: Sodium Chloride LOK Flush 10 mL Syringe IVFLUSH SCH ×2 (08:30→16:30)
[2016-08-09] MEDS: Pantoprazole 40 mg ER24 Tablet PO SCH (08:58)
[2016-08-09] MEDS: Multivit-Miner-Folic Acid-Iron Tablet PO SCH (08:59)
[2016-08-09 09:59] VITALS: PULSE 96; RESP 16; O2SAT 98
[2016-08-09 14:09] VITALS: BP 108/65; PULSE 84; RESP 18; O2SAT 100
--- NOTE | 2016-08-09 14:27 | NUR ---
DIVINA explained and signed. Copy of DIVINA and Medicare self administered medication information provided to pt.
--- NOTE | 2016-08-09 17:27 | PCM.PNMED ---
Subjective Date of Service Aug 09, 2016 Subjective PAtient is seen and examined, no new concerns. No overnight fevers, devi snot know if skin is improving. Exam Vital Signs Vital Sign - Last Date Time Temp Pulse Resp B/P Pulse Ox O2 Delivery O2 Flow Rate FiO2 08/09/16 14:09 36.5 84 18 108/65 100 Room Air Intake and Output 08/08/16 08/08/16 08/09/16 Cumulative From/Thru 15:00 23:00 07:00 08/08/16 12:26 - 08/08/16 18:53 Intake Total 800 ml 800 ml Output Total 450 ml 450 ml Balance 350 ml 350 ml Intake Oral 800 ml 800 ml Output Urine/Stool Mix 450 ml 450 ml # Voids 1 1 Exam General: relatively groomed upper body, clean skin, NAD Neck, no JVD Heart: RRR, nl s1 s2 no murmurs Lungs CTA no crackles or wheezes Skin: below periumbilical area to upper thigh, diffuse erythema with multiple excoriations with scabs, tender to palpation Stage 3 Ulcer: Lt buttock, stage 3 pressure sore covered with foul smelly urine , irritated, erythematous. bilateral lower distal ext: mild diffuse erythema, blanching, non-tender. Both legs are swollen atrophic, erythematous care. 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 His old left- sided flank and lower abdominal area and groin area is macerated skin graft is present warm to touch Cellulitis of Left lower leg Vascular palpable pulse in the feet, skin is warm to touch Neuro: Appears sleepy but oriented Psych: Pleasant, very comfortable IVs and Medications Medications Reviewed: Medications were reviewed in detail Lab and Diagnostics Result Diagram: 08/09/16 0600 08/09/16 0600 Assessment & Plan Cellulitis of skin, POA active ongoing -- Leukocytosis improving with abx and hygiene -- CBC, CMP -- ESR WNL, CRP elevated at 7.9 -- Ceftriaxone 2 g Q24H -- Woundcare is consulted -- Reviewed his prior admissions for the same. -- Need to consult Dr. Phillip on how this patient can ever improve while living on the streets and failing to care for colostomy bag. Not available this evening, will try again tomorrow Stage 3 Sacral Ulcer: wound culture is ordered, POA, active ongoing -- Ceftriaxone for antibiotics -- Wound care is consulted -- Tylenol/Ibuprofen for pain he does have some sensation below the umbilicus CEllulitis of Right lower leg, POA active ongoing -- Cont Ceftriaxone 2 g Q24H Alcohol abuse, chronic, active -- [facility] protocol Chronic hypertension active -- Continue Lisinopril Chronic depression, active --Continue Prozac and amitryptaline Chronic neuropathy, active -- continue gabapentin Patient Status: Observation Resuscitation Status: CPR: Attempt Resuscitation Tanesha Ortega DO Aug 09, 2016 17:27
[2016-08-09] MEDS: Thiamine Inj 100 MG in 0.9% Sodium Chloride 100 ML IV SCH (17:57)
[2016-08-09] MEDS: cefTRIAXone 2,000 mg/D5W 50 mL IV Minibag Plus IV SCH ×2 (18:51)
--- NOTE | 2016-08-09 19:23 | NUR ---
Dressing change Dressing change done to backside, pt state pain 8/10 administered PO Tylenol, pt stated pain ok, stated he could live with it. pt turning in bed independently, still having soft stool from rectum and colostomy.
[2016-08-09] MEDS: Fluticasone 0.05% 15 Spray/2 Gm 16 Gm Nasal Spray NASAL SCH (20:28)
[2016-08-09 20:50] VITALS: BP 105/66; PULSE 79; RESP 20; O2SAT 100
[2016-08-10] MEDS: Sodium Chloride LOK Flush 10 mL Syringe IVFLUSH SCH ×4 (00:45→22:39)
[2016-08-10 04:27] LABS: Mean Corpuscular Hemoglobin 29.6 pg (27.0-35.0); Mean Corpuscular Volume 93.1 fL (81-100)
--- NOTE | 2016-08-10 05:41 | NUR ---
Shift Note Assumed pt care at 1900, pt a/o able to make needs known, continues with intermittent IV ABO, reinforced teaching on q2 turns, offloading left buttocks, heels floated, no c/o pain/discomfort throughout night, dressing change on L inner buttocks, call light in reach at all times.
[2016-08-10 07:30] VITALS: BP 130/81; PULSE 87; RESP 18; O2SAT 100
[2016-08-10] MEDS: Pantoprazole 40 mg ER24 Tablet PO SCH (09:28)
[2016-08-10] MEDS: Multivit-Miner-Folic Acid-Iron Tablet PO SCH (09:28)
[2016-08-10 09:29] VITALS: BP 121/81; PULSE 63; RESP 16; O2SAT 98
--- NOTE | 2016-08-10 10:25 | PCM.PNMED ---
Subjective Date of Service Aug 10, 2016 Subjective no complaints, quite interested in finding a place to live Exam Vital Signs Vital Sign - Last Date Time Temp Pulse Resp B/P Pulse Ox O2 Delivery O2 Flow Rate FiO2 08/10/16 09:29 36.6 63 16 121/81 98 Room Air Intake and Output 08/09/16 08/09/16 08/10/16 Cumulative From/Thru 15:00 23:00 07:00 08/08/16 12:26 - 08/10/16 05:40 Intake Total 1210 ml 1356 ml 120 ml 3486 ml Output Total 200 ml 250 ml 900 ml Balance 1010 ml 1106 ml 120 ml 2586 ml Intake Oral 1210 ml 1356 ml 3366 ml IV Total 120 ml 120 ml Urine/Stool Mix 200 ml 250 ml 900 ml # Voids 2 3 1 7 # Bowel Movements 2 1 3 Exam General: Alert and oriented, no acute distress Heart: Regular Lungs: Clear anteriorly and laterally Abdomen: Soft, non-tender, ostomy bag in place, erythema and maceration of surrounding skin especially lower abdomen and groin Extremities: Does have small dressing in place 1 over right fifth toe and the other over left lower anterior mazariegos. Scattered edema more prominent on the left especially near the dressing and some on the dorsum of the foot IVs and Medications Medications Reviewed: Medications were reviewed in detail Lab and Diagnostics Result Diagram: 08/10/16 0350 08/10/16 0350 Assessment & Plan Cellulitis of skin, abdomen and lower extremities and Sacral Ulcer, POA active ongoing -- Leukocytosis resolved with abx and hygiene -- ESR WNL, CRP elevated at 7.9 initially, now 5.9 -- Ceftriaxone 2 g Q24H -- Woundcare is consulted and will see patient tomorrow - Wound culture of sacral ulcer: Probable light growth of Pseudomonas and enterococcus, ID and sensitivity pending - Main issue for his recurring cellulitis and ulcers is his social situation ( homeless) Alcohol abuse, chronic, active -- [facility] protocol Chronic hypertension active -- Continue Lisinopril Chronic depression, active --Continue Prozac and amitryptaline Chronic neuropathy, active -- continue gabapentin Resuscitation Status: CPR: Attempt Resuscitation Padma Dey MD Aug 10, 2016 10:25
[2016-08-10] MEDS: Thiamine Inj 100 MG in 0.9% Sodium Chloride 100 ML IV SCH (10:27)
[2016-08-10 15:38] VITALS: BP 131/88; PULSE 75; RESP 20; O2SAT 99
--- NOTE | 2016-08-10 15:38 | NUR ---
Social Work: Initial Assessment D: EMR reviewed. Pt is a 46 y/o male Mike for severe skin breakdown per H&P. RADHA met with pt at bedside to conduct initial assessment. Pt was alert and oriented x3. Pt gave verbal consent to contact [employer], for discharge planning. Pt is homeless and is wheelchair bound with spina bifida. Pt's insurance is Medicare and HS Supplemental. Pt receives $1500/mo for disability/SSI. Pt does not have LTC insurance or VA benefits. Pt has no reported hx at a SNF or with . Pt states he can drive but does not have a license or vehicle. Pt relies on [employer] for transportation. Pt owns a wheelchair and no other reported DME. Pt states he is independent with ADLs. Pt states he is working with [employer], to secure housing. Pt states his phone number is [phone]. Pt would like help with housing. RADHA will contact Supriya and help coordinate pt's discharge plan per pt's request. Pt states he will use [employer] for transportation once he is medically stable for discharge. Pt likely to discharge back to homeless but SW will work with [facility] Ship Superintendent and MD to coordinate a safe discharge plan. SW will continue to follow for needs. A: Pt who is wheelchair bound and homeless at baseline. P: Pt states he will use [employer] for transportation once he is medically stable for discharge. Pt likely to discharge back to homeless but SW will work with [facility] Ship Superintendent and MD to help coordinate a safe discharge plan. RADHA will continue to follow for needs. TONY Cisse Addendum: 08/10/16 at 1546 by SONIA DELGADO Amended: Links added.
[2016-08-10] MEDS: cefTRIAXone 2,000 mg/D5W 50 mL IV Minibag Plus IV SCH ×2 (18:41)
--- NOTE | 2016-08-10 18:44 | NUR ---
ACTIVITY patient denies pain. Tolerating liquids PO and his diet well. Denies nausea. No emesis noteds. Denies SOB. Patient got up and showered this morning. Transferred to the shower chair with SBA. Colostomy bag in place and was changed this shift. Dressing in his R buttoch changed this shift. No behavioral issues noted. CIWA-/
[2016-08-10 20:07] VITALS: PULSE 75; O2SAT 97
[2016-08-10 20:30] VITALS: BP 114/74; PULSE 82; RESP 18; O2SAT 98
[2016-08-10] MEDS: Fluticasone 0.05% 15 Spray/2 Gm 16 Gm Nasal Spray NASAL SCH (21:40)
[2016-08-11 02:30] VITALS: BP 118/76; PULSE 71; RESP 18; O2SAT 100
--- NOTE | 2016-08-11 05:45 | NUR ---
STOOL/ACTIVITY PT COLOSTOMY WITH GOOD OUTPUT OF BROWN LIQUID STOOL. PT ALSO IS INCONT OF URINE AND HAS LEAKAGE OF STOOL FROM ANUS. DRESSING TO GLUTEAL WOUND CHANGED. PT IS TOLERATING PO FLUIDS AND HIS DIET. 0 C/O NV. PT STATES HE HAS BACK PAIN / BUT IS TOLERABLE. 0 INAPPROPRIATE BEHAVIORS. PT ON BEDREST THIS SHIFT, ABLE TO ASSIST WITH MOVING IN BED FOR CARE. CARE CONTINUES
[2016-08-11] MEDS: Sodium Chloride LOK Flush 10 mL Syringe IVFLUSH SCH ×3 (08:30→20:38)
[2016-08-11] MEDS: Pantoprazole 40 mg ER24 Tablet PO SCH (08:37)
[2016-08-11] MEDS: Multivit-Miner-Folic Acid-Iron Tablet PO SCH (08:37)
[2016-08-11 08:47] VITALS: BP 118/86; PULSE 71; RESP 16; O2SAT 96
--- NOTE | 2016-08-11 11:05 | PCM.PNMED ---
Subjective Date of Service Aug 11, 2016 Subjective No complaints Exam Vital Signs Vital Sign - Last Date Time Temp Pulse Resp B/P Pulse Ox O2 Delivery O2 Flow Rate FiO2 08/11/16 08:47 36.7 71 16 118/86 96 Room Air Intake and Output 08/10/16 08/10/16 08/11/16 Cumulative From/Thru 15:00 23:00 07:00 08/08/16 12:26 - 08/11/16 05:45 Intake Total 2600 ml 1336 ml 570 ml 7992 ml Output Total 1045 ml 600 ml 250 ml 2795 ml Balance 1555 ml 736 ml 320 ml 5197 ml Intake Oral 2600 ml 1100 ml 400 ml 7466 ml IV Total 236 ml 170 ml 526 ml Output Urine Total 870 ml 870 ml Stool Total 175 ml 600 ml 250 ml 1025 ml Urine/Stool Mix 900 ml # Voids 2 6 2 17 # Bowel Movements 3 Exam General: Alert and oriented, no acute distress Heart: Regular Lungs: Clear anteriorly and laterally Abdomen: Soft, non-tender, skin of the lower abdomen and still with erythema but looks less irritated Extremities: Still has erythema over skin graft area on left thigh but otherwise patches of erythema on the leg are much improved, now minimal IVs and Medications Medications Reviewed: Medications were reviewed in detail Lab and Diagnostics Result Diagram: 08/10/16 0350 08/10/16 0350 Assessment & Plan Cellulitis of skin, abdomen and lower extremities and Sacral Ulcer, POA active ongoing -- Leukocytosis resolved with abx and hygiene -- ESR WNL, CRP elevated at 7.9 initially, repeat 5.9 -- Ceftriaxone 2 g Q24H x 3 doses (August 08-) -- Wound culture of sacral ulcer: Probable light growth of Pseudomonas and enterococcus -- Discussed with wound care nurse, says sacral ulcer did not appear infected when evaluated 3 days ago, will recheck today therefore will not try to treat the Pseudomonas and enterococcus from culture which are likely skin colonization/contamination -- Other areas of erythema may be due to skin irritation rather than true cellulitis, will try DC Ceftriaxone and observer -- Main issue for his recurring skin irritation and ulcers is his social situation (homeless and poor hygiene including leaking colostomy bag) Alcohol abuse, chronic, active -- no signs of withdrawal Chronic hypertension active -- Continue Lisinopril Chronic depression, active --Continue Prozac and amitryptaline Chronic neuropathy, active -- continue gabapentin Disposition: Possible discharge in 1-2 days if remains stable off antibiotics and depending on social work manager (homeless and also reported today that he has lost his wheelchair somehow when transported to the hospital) Resuscitation Status: CPR: Attempt Resuscitation Padma Dey MD Aug 11, 2016 11:05
[2016-08-11 12:07] VITALS: BP 118/71; PULSE 78; RESP 16; O2SAT 97
--- NOTE | 2016-08-11 13:54 | NUR ---
UPDATE ON WHEELCHAIR Spoke with Judith from [facility], [place] who stated that when pt was brought in pts buddies were left with his wheelchair and back pack. Only thing that pt came in with was wallet and cellphone. Social work aware.
[2016-08-11 14:54] VITALS: PULSE 78; RESP 16; O2SAT 97
--- NOTE | 2016-08-11 15:24 | NUR ---
Social Work: Continued Discharge Planning D: EMR reviewed. Pt is on day 3 of hospitalization. Pt is homeless. Pt stated he does not know where is wheelchair and backpack are. Pt has Spina Bifida at baseline. vector control specialist called Judith from [facility] and confirmed "that when pt was brought in pts buddies were left with his wheelchair and back pack. Only thing that pt came in with was wallet and cellphone." SW to update pt on location of wheelchair and have pt call friends to locate wheelchair. Pt's cell phone is in pt's room. A: Pt who is homeless and w/c bound at baseline. P: SW to follow-up with pt and have pt contact his friends using his cell-phone to locate his wheelchair prior to discharge. SW to follow-up with [employer] to inform her of pt's stay per pt's request. TONY Cisse
--- NOTE | 2016-08-11 17:35 | NUR ---
Wound Note Patient sen at bedside for wound care Ischial pressure ulcer (POA) is 2 cm x 1.8 cm x 1.8 cm, does not appear infected and is filling in with granulation tissue, this was cleaned with saline and packed with saline moist gauze with calmoseptine to periwound skin, patient has a fissure extending towards the rectum that is 1.5 cm long and 0.3 cm wide, this was cleaned with saline and then calmoseptine was applied. Wounds at left ankle and right little toe are stable and uninfected, cleaned these with saline and redressed with calmoseptine and mepilex dressings. Excoriated skin of abdomen and left thigh from malfunctioning ostomy prior to admit is resolving nicely. Wounds are stable, patient pleasant today and tolerated treatment well.
--- NOTE | 2016-08-11 19:52 | NUR ---
ACTIVITY Patient denies pain. Tolerating liquids PO and his diet well. Denies nausea. No emesis noted. Denies SOB. Turning and repositioning independently in bed. Colostomy is in place and putting out stool. Dressing changed per orders in his L buttocks. No behavioral problems noted.
[2016-08-11 20:10] VITALS: BP 139/89; PULSE 74; RESP 17; O2SAT 98
[2016-08-11] MEDS: Fluticasone 0.05% 15 Spray/2 Gm 16 Gm Nasal Spray NASAL SCH (20:35)
[2016-08-12 04:57] VITALS: BP 142/81; PULSE 79; RESP 17; O2SAT 97
--- NOTE | 2016-08-12 05:03 | NUR ---
activity pt has had an uneventful night. he denies any pain. he repositions himself in bed side to side independently. dressing changed per wound care orders. nurse encouraged pt to participate in ostomy care. he has been pleasant and cooperative with care. bed in low position, call light within reach, hourly rounding continues.
--- NOTE | 2016-08-12 08:21 | NUR ---
TRANSFER OF CARE Care endorsed to Kristen El RN.
[2016-08-12] MEDS: Pantoprazole 40 mg ER24 Tablet PO SCH (08:28)
[2016-08-12] MEDS: Multivit-Miner-Folic Acid-Iron Tablet PO SCH (08:29)
[2016-08-12] MEDS: Sodium Chloride LOK Flush 10 mL Syringe IVFLUSH SCH ×3 (08:30→23:45)
[2016-08-12 09:12] VITALS: PULSE 77; RESP 16; O2SAT 98
[2016-08-12 12:14] VITALS: BP 128/78; PULSE 64; RESP 18; O2SAT 98
--- NOTE | 2016-08-12 14:47 | NUR ---
Social Work: Continued Discharge Planning D: EMR reviewed. Pt is on day 4 of hospitalization. SW met with pt at bedside regarding discharge plan, pt is currently homeless. Pt uses a wheelchair at baseline. Pt has daily wound care needs which pt is not able to attend to independently. [facility] have declined pt. Pt is not a candidate for SNF secondary to his observation status, his history with non compliance at facilities in the past, and his current substance use. Pt tested positive for amphetamines upon admission, which pt admits to. Pt declined CD assessment as he stated he does not have an ongoing substance use problem. Pt was agreeable to CD resources though, which [employer] DRYING MACHINE OPERATOR provided at bedside. Pt is a candidate for HH services through [facility] once he has a stable living situation, whether that be a motel, apartment, or a friend's home. SW to work with regarding HH services. Compa [phone] from [facility] met with pt this AM regarding discharge planning and stable housing. Compa is assisting pt with obtaining housing and coordination of care. SW attempted to contact Compa at her provided number of [phone]. Compa has obtained pt's wheelchair, [facility] has cleaned pt's wheelchair as it was covered in urine/feces. Per Compa, [facility] discarded pt's wheelchair cushion as it was too dirty to salvage. Pt may require a new wheelchair and cushion if he is eligible through [facility]. SW to look into this. Compa is working with pt to potentially obtain housing through [facility] in [place]. Compa confirms that pt has been kicked out of [employer] and [employer] in the past. Compa is working with Vinny at [employer] as well to obtain housing for pt. T/C from Supriya, [facility] Private Watchman [phone], regarding pt's wheelchair and pt's housing plan. Per Supriya, [facility] of [facility] is also involved with pt and is going to meet with pt tomorrow to apply for an apartment. RADHA spoke at length with Supriya regarding pt's options at discharge. RADHA explained that pt's observation status is a barrier to SNF in addition to his history of non-compliance. Supriya stated that pt has money for a motel but that the motel won't take pt until he has an ID available to show when paying for motel, as they have tried motels in the area in the past. Supriya states that she is working with pt on obtaining his ID, but this will not be able to be completed until after discharge. Supriya confirmed that the Outreach Team has attempted to place pt at an [facility] in the past with no success. A: Pt who is homeless and w/c bound at baseline. P: Compa JIMENEZ from [facility], Supriya from [facility] Outreach, and Vinny from [employer] are working on establishing pt's housing to be able to obtain services. Pt has daily wound care needs which pt is not able to attend to independently. [facility] have declined pt. Pt is not a candidate for SNF secondary to his observation status, his history with non compliance at facilities in the past, and his current substance use. SW will work on obtaining a new wheelchair for pt with a cushion if possible. SW will continue to follow. TONY Clinton
--- NOTE | 2016-08-12 15:24 | PCM.PNMED ---
Subjective Date of Service Aug 12, 2016 Subjective Patient feels better today. Exam Vital Signs Vital Sign - Last Date Time Temp Pulse Resp B/P Pulse Ox O2 Delivery O2 Flow Rate FiO2 08/12/16 12:14 36.5 64 18 128/78 98 Room Air Intake and Output 08/11/16 08/11/16 08/12/16 Cumulative From/Thru 15:00 23:00 07:00 08/08/16 12:26 - 08/12/16 04:57 Intake Total 940 ml 1300 ml 97031 ml Output Total 1729 ml 992 ml 5516 ml Balance -789 ml 308 ml 4716 ml Intake Oral 940 ml 1300 ml 9706 ml IV Total 526 ml Output Urine Total 1004 ml 692 ml 2566 ml Stool Total 725 ml 300 ml 2050 ml Urine/Stool Mix 900 ml # Voids 17 # Bowel Movements 3 Exam GENERAL: Alert, not in distress, cooperative HEAD: atraumatic, normocephalic, no bruises. EYES: INOCENCIO, EOMI, anicteric, able to fully open and close eyelids SKIN: Skin color normal, turgor normal. EAR, NOSE, MOUTH, THROAT: Lips, oral mucosa, tongue gums, oropharynx are moist , pink, no lesions. NECK: no jugulovenous distention, supple; ROM normal. RESPIRATORY: Lungs clear to auscultation. Good diaphragmatic excursion CARDIAC: normal S1 and S2; no rubs, murmurs, or gallops; regular rate and rhythm ABDOMEN: Abdomen soft, non-tender. BS normal. No masses or organomegaly, ileostomy present MUSCULOSKELETAL: ROM full, muscles are not tender EXTREMITIES: no pitting edema in LE NEURO: Alert, oriented X 3, Sensation grossly intact., Cranial nerves II-XII intact, Grossly normal motor function. PULSES: 2+ radial, 2+ carotid REVIEW OF SYSTEMS: GENERAL: no malaise, no fevers., SEE HPI HEENT: Negative for frequent or significant headaches NECK: Negative for lumps, goiter, pain and significant neck swelling All other reviewed and negative other than HPI. IVs and Medications Medications Reviewed: Medications were reviewed in detail Lab and Diagnostics Result Diagram: 08/10/16 0350 08/10/16 0350 Assessment & Plan ?Cellulitis of skin, abdomen and lower extremities and Sacral Ulcer - Leukocytosis resolved with abx and hygiene - ESR WNL, CRP elevated at 7.9 initially, repeat 5.9 - Ceftriaxone 2 g Q24H x 3 doses (August 08-) - Wound culture of sacral ulcer: Probable light growth of Pseudomonas and enterococcus - sacral ulcer did not appear infected; Other areas of erythema may be due to skin irritation rather than true cellulitis. Ceftriaxone was d/maryam - Main issue for his recurring skin irritation and ulcers is his social situation (homeless and poor hygiene including leaking colostomy bag) - check CBC and CRP Alcohol abuse - no signs of withdrawal HTN - stable - Continue Lisinopril Chronic depression - stable - Continue Prozac and amitryptaline Chronic neuropathy - stable - continue gabapentin Plan of care, medication side effects, home medication, diagnostic procedures and available alternatives were discussed and reviewed with patient. All questions answered. Patient verbalized understanding, approved and agreed to plan of care. Pain Evaluation: Adequate Pain Control VTE Prophylaxis: Sub-Q Enoxaparin Resuscitation Status: CPR: Attempt Resuscitation Colton Saldaña MD Aug 12, 2016 15:24
--- NOTE | 2016-08-12 15:39 | NUR ---
NUTRITION ASSESSMENT ASSESS: 46 yo male admitted with severe skin breakdown. Pt with good po intake. PMHX: Spinal bifida w/ leg weakness, bowel/bladder incontinence, Chiari 2 malformation s/p CERTIFIED MEDICINE AIDE shunt w/ multiple revisions, prediabetic, HTN, GERD, substance abuse, diverting colostomy. LABS: Reviewed. Alb 3.2 MEDS: Reviewed. GI: 300 ML ostomy output reported today. SKIN: Ischial pressure injury stage III, L ankle wound, R little toe wound, excoriated skin of abdomen and L thigh CURRENT WT: Admit Wt: 75.0 kg DIET: General PO 100% EST. NEEDS: Wounds Kcals: 9046-7834 kcal/day (35-40 kcal/kg BW) Pro: 115-150 g/day (1.5-2.0 g/kg BW) NUTRITION DIAGNOSIS: 1.) Increased nutrient needs related to increased demand for nutrients for wound healing as evidenced by multiple pressure ulcers. NUTRITION INTERVENTION: 1.) Will add melai BID. 2.) Will add Ensure BID to encourage adequate po intake to meet pt est. needs. MONITOR / EVAL: PO intake, labs, weights, wounds, nutrition status. Will continue to monitor per low nutritional risk guidelines. Addendum: 08/12/16 at [address] Diet: heart Healthy, Diabetic diet. PO 100%. Intervention: 2.) Will add glucerna BID instead of ensure as pt is on heart healthy, diabetic diet
[2016-08-12 16:26] LABS: Mean Corpuscular Hemoglobin 29.2 pg (27.0-35.0); Mean Corpuscular Volume 90.9 fL (81-100)
[2016-08-12 19:39] VITALS: PULSE 66; RESP 18; O2SAT 99
--- NOTE | 2016-08-12 19:55 | NUR ---
Activity Pt remained on bedrest, w/c not at hospital and he declined to get OOB. Back pain reported 7/10 Tylenol given. Pt frequently turns self in bed. Slept majority of shift. Bed in low, call light in reach, continue to monitor.
[2016-08-12 19:56] VITALS: BP 118/77; PULSE 57; RESP 16; O2SAT 97
[2016-08-12] MEDS: Fluticasone 0.05% 15 Spray/2 Gm 16 Gm Nasal Spray NASAL SCH (21:35)
--- NOTE | 2016-08-13 03:35 | NUR ---
Activity Pt in bed all shift, repositions self. Able to assist with care by turning. Colostomy in place with good output. Pt is incont. urine. complains of low back pain 09/01, rec'd PRN tylenol with + effects. call light within reach, care continues
[2016-08-13 04:12] VITALS: BP 112/69; PULSE 57; RESP 18; O2SAT 97
[2016-08-13 07:51] VITALS: PULSE 69; RESP 16; O2SAT 98
[2016-08-13] MEDS: Sodium Chloride LOK Flush 10 mL Syringe IVFLUSH SCH ×2 (12:20→18:18)
[2016-08-13] MEDS: Multivit-Miner-Folic Acid-Iron Tablet PO SCH (12:20)
[2016-08-13] MEDS: Pantoprazole 40 mg ER24 Tablet PO SCH (12:21)
--- NOTE | 2016-08-13 14:06 | NUR ---
Social Work: Readiness for Discharge D: EMR reviewed. Pt is on day 5 of hospitalization. Per MD in multi-disciplinary rounds, pt is medically stable. Per Dry Mop Maker and MD, pt's wound care needs have been adjusted so that wound care appointments are scheduled for once weekly vs. daily. Pt is aware of this and this information will be included in his discharge packet. Pt has a long history of admissions at [facility] secondary to chronic cellulitis and wound care needs. Pt is often non-compliant with care. In past admissions pt has been referred to multiple SNFs. [facility] have declined pt. During this admission, pt is not a candidate for SNF secondary to his observation status, his history with non compliance at facilities in the past, and his current substance use. Contin[facility] has attempted to place pt at an [facility] in the past to no success. SW met with pt at bedside regarding discharge plan, pt is agreeable to discharge. Pt's wheelchair is present in pt's room. Per RN, pt has successfully transferred from bed to wheelchair with minimal discomfort from his wound. Pt's wheelchair no longer has a cushion. SW spoke with pt regarding this and he is agreeable to purchasing one once he is discharged. Pt and RN confirm that pt is able to maintain his own colostomy bag independently. Pt understands limitations regarding his wound care. SW explored options for more stable temporary living environment including motel or [facility]. Pt is connected to [facility] and [facility]. SW has reached out to pt's Continued Care liaison Compa and [place] Paul regarding pt's discharge from the hospital. [place] is agreeable and will continue to follow pt in the community to assist with housing needs. Pt is not able to stay at the local motels due to a history of bringing too many guests. Pt acknowledges this. The [facility] has too many steps for pt to navigate with his wheelchair. Pt is also unsure of his financial situation at this time as most of his belongings in his backpack were taken when pt was brought to the hospital. Pt and CARDIAC CARE UNIT NURSE explored transportation options. Pt confirms that if he has money he will be able to coordinate SKAT to and from his wound care appointments. SW explored potentially coordinating HH at [facility] if [facility] and HH was agreeable, which is debatable. After discussion with the pt, pt will have to coordinate transportation to either option and pt would rather go with the wound care clinic because they are absolutely able to care for his wound. Pt is agreeable to weekly wound care appointments. To assist with transportation until pt is able to assess his financial situation, TONY provided pt with a SKAT pass. Pt to discharge to homelessness with weekly wound care appointments. Pt is connected to resources in the community to address his homelessness. Pt is agreeable to discharge, resources have been provided at bedside and updated of pt's discharge. No additional SW needs identified at this time. A: Pt who is homeless and w/c bound at baseline. P: Pt to discharge to homelessness with weekly wound care appointments. Pt's wheelchair is in the room with pt to take home. Bus pass provided to pt. Pt is connected to resources in the community to address his homelessness. Pt is agreeable to discharge, pt's community resources have been provided at bedside and updated of pt's discharge. No additional SW needs identified at this time. TONY Clinton Addendum: 08/13/16 at 1637 by SHAWNA MOORE SS Social Work- Discharge Discharge orders are active, pt is likely to leave after CARDIAC CARE UNIT NURSE has left for the day. Please see above note for discharge plan. TONY Clinton
[2016-08-13] MEDS ORDERED: ALBU8.5H2 INHALATION (14:26)
[2016-08-13] MEDS ORDERED: LISI-567 PO (14:26)
[2016-08-13] MEDS ORDERED: GABA100C PO (14:26)
[2016-08-13] MEDS ORDERED: FLUO20CA25 PO (14:26)
[2016-08-13] MEDS ORDERED: OMEP20CA11 PO (14:26)
[2016-08-13] MEDS ORDERED: FLUT9.9S NS (14:26)
--- NOTE | 2016-08-13 14:27 | PCM.DC.MED ---
Discharge Summary Date of Service Aug 13, 2016 Dates of Hospitalization Date of Hospital Admission Aug 08, 2016 at 14:00 Date of Discharge: Aug 13, 2016 Providers: Admitting Physician: Tanesha Ortega DO [facility] Attending Physician: Tanesha Ortega DO Diagnosis at Time of Discharge Diagnosis at Time of Discharge Chronic Sacral Ulcers. 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 Patient presented with erythematosus irritated skin on abdomen groin and back. His colosctomy bag was detached. Patient has been hospitalized several times with similar problems in the recent past. He comes to the ED often with the same issue. Initially cellulitis was suspected and patient received IV antibiotics. His wound culture of sacral ulcer grew Pseudomonas and enterococcus which were most likely colonization rather than active infection. Antibiotics were d/maryam later as his wounds did not look infected and erythematouse skin was secondary to irritation not infection. CM and SW were consulted, patient was provided with resources and possible placements/housing oportunities but either he declined it or facilities declined him secondary to non-complaines, alcohol and drug use. On the day of discharge patient was at his base line. Patient was advised to f/u with wound clinic, appointments were arranged, vouchers for transportation were provided. SW- "Pt understands limitations regarding his wound care. SW explored options for more stable temporary living environment including motel or [facility]. Pt is connected to [facility] and [facility]. RADHA has reached out to pt's Continued Care liaison Compa and [place] Paul regarding pt's discharge from the hospital. [place] is agreeable and will continue to follow pt in the community to assist with housing needs. " Patient Condition @ Discharge: good Discharge Activity: resume regular activity Discharge Diet: regular diet, heart healthy, low fat, low salt, high fiber Information Provided to Patient: information about discharge medications Discharge Medications: I discussed with patient medication dosage, usage, goals of therapy, side effects, alternatives. During discharge patient was allert, oriented, able to make own informed decisions. We discussed possible severe side effects, adverse reactions, benefits, risks, alternatives of current and newly prescribed medications and diagnostic procedures. Patient verbalized understanding and agreed to current plan of care and discharge. TIME SPENT IN DISCHARGE ACTIVITY: Face to face activity greater then 35 minutes spent in discharge activity. 1. Discussed with patient re: discharge plan of care/treatment, and follow up care/services. 2. Patient agreed with discharge plan and further plan of care, all questions were answered/addressed, no further questions at the time of discharge. Exam Vital Signs (Last) Date Time Temp Pulse Resp B/P Pulse Ox O2 Delivery O2 Flow Rate FiO2 08/13/16 07:51 69 16 98 Room Air 08/13/16 04:12 36.7 112/69 Exam Patient was seen and examined on the day of discharge Test 08/08/16 17:40 08/09/16 06:00 08/10/16 03:50 08/12/16 16:12 Neutrophils (%) (Auto) 68.7% (40-74) Lymphocytes (%) (Auto) 19.7% (14-46) Monocytes (%) (Auto) 8.8% (4-12) Eosinophils (%) (Auto) 2.2% (0-5) Basophils (%) (Auto) 0.2% (0-3) Hold Mock Top Tube Received (Received) Hemoglobin A1c 5.4% (4.8-5.6) Total Bilirubin 0.3mg/dL (0.0-1.2) Aspartate Amino Transf (AST/SGOT) 16U/L (0-50) Alanine Aminotransferase (ALT/SGPT) 9U/L (0-44) Alkaline Phosphatase 90U/L (25-150) Total Protein 6.2g/dL (6.4-8.4) Albumin 3.2g/dL (3.4-5.0) Erythrocyte Sedimentation Rate 44mm/hr (0-15) Sodium Level 142mEq/L (134-144) Potassium Level 4.3mEq/L (3.5-5.2) Chloride Level 108mEq/L (97-108) Carbon Dioxide Level 22mmol/L (18-29) Blood Urea Nitrogen 21mg/dL (6-24) Creatinine 0.82mg/dL (0.76-1.27) Estimat Glomerular Filtration Rate 107mL/min (>59) Glucose Level 100mg/dL (60-99) Calcium Level 8.4mg/dL (8.5-10.1) White Blood Count 8.5th/mm3 (3.8-10.1) Red Blood Count 4.72mil/mm3 (4.40-5.80) Hemoglobin 13.8g/dL (13.8-17.2) Hematocrit 42.9% (41.0-50.0) Mean Corpuscular Volume 90.9fL (81-100) Mean Corpuscular Hemoglobin 29.2pg (27.0-35.0) Mean Corpuscular Hemoglobin Concent 32.2% (32.0-37.0) Red Cell Distribution Width 16.1% (12.3-15.4) Platelet Count 365bil/L (150-400) C-Reactive Protein 0.9mg/dL (0.0-0.5) Discharge Medications Discharge Medications Fluoxetine (Fluoxetine) 20 Mg Capsule 20 MG PO QAM Prescribed by: PIOTR HOWARD MD Fluticasone Propionate (Flonase Allergy Relief) 50 Mcg/Actuation [place].susp 1 SPRAY NS HS Prescribed by: PIOTR HOWARD MD Gabapentin (Neurontin) 100 Mg Capsule 100 MG PO TID Prescribed by: PIOTR HOWARD MD Lisinopril (Lisinopril) 20 Mg Tablet 20 MG PO QAM Prescribed by: PIOTR HOWARD MD Omeprazole (Omeprazole) 20 Mg Capsule.dr 20 MG PO QAM Prescribed by: PIOTR HOWARD MD As needed Albuterol HFA (Proair HFA) 8.5 Gm Hfa.aer.ad 2 PUFFS INHALATION Q4H PRN PRN For Shortness of Breath Prescribed by: MD Piotr PHILLIP Andriy MD Aug 13, 2016 14:27
[2016-08-13 14:43] VITALS: BP 126/80; PULSE 76; RESP 18; O2SAT 98
--- NOTE | 2016-08-13 18:50 | NUR ---
Discharge Pt discharged at 1845 in w/c to street. Pt has bus pass from social work and is aware of appt with wound care next week. Dressing change done and new mepilex in place. Pt cleaned up and has new brief, pants and gown. Colostomy bag emptied. Pt was able to shower earlier. Belongings unlocked by security and packed into bag with blanket, soap, wipes and hand news reel cameraman for pt. New rx's given, care notes and discharge instructions. IV removed intact. VSS, WATTS, A&O x 3. No c/o pain.
== END 2016-08-13 18:45 | disposition home or self-care (01) ==
LOC: EDUNIT# 12:16 → SED 12:16 → EDBD 12:16 → OSC 14:00 → INTOOBSV 14:00
PROVIDERS: ADMIT Family Medicine; ATTEND Family Medicine
DX: L89.153 Pressure ulcer of sacral region, stage 3 (principal); Q07.01 Arnold-Chiari syndrome with spina bifida; R32 Unspecified urinary incontinence; L03.311 Cellulitis of abdominal wall; Z98.2 Presence of cerebrospinal fluid drainage device; Z93.3 Colostomy status; F10.99 Alcohol use, unspecified with unspecified alcohol-induced disorder; F11.90 Opioid use, unspecified, uncomplicated; I10 Essential (primary) hypertension; G89.4 Chronic pain syndrome; F32.9 Major depressive disorder, single episode, unspecified; K21.9 Gastro-esophageal reflux disease without esophagitis; F17.210 Nicotine dependence, cigarettes, uncomplicated; Z59.0 Homelessness; Z79.51 Long term (current) use of inhaled steroids
CPT/HCPCS: 36415; 80048; 80053; 83036; 85025; 85027; 85651; 86140; 87070; 87075; 87077; 87186; 87205; 94799; 96365; 96375; 96376; 97602; 99285; G0378; J0696; J1650

== ENCOUNTER 2016-08-17 20:56 | Inpatient (IN) | payer MEDICARE, MEDICAID ==
[~2016-08-17] VITALS: Ht 162.6 cm; Wt 80.6 kg
[~2016-08-17 20:56] MED LIST changes: -AMIT10TA6 PO
[2016-08-17 21:00] VITALS: BP_SYST 113; BP_SYST 78; BP_DIAS 78; PULSE 100; RESP 20; O2SAT 98
--- NOTE | 2016-08-17 22:58 | ED.REPORT ---
HPI-General Illness Date of Service Aug 17, 2016 ED Provider: Artemio Garcia DO A 46 year old male with a history of colostomy, hypertension, spina bifida, gangrene of the right foot and borderline diabetes presents to the ED complaining of bilateral lower extremity edema. The pt has noticed increased swelling, heat and redness in the last several days but was not especially concerned about it. He denies fever. The pt was admitted for sepsis and discharged in stable condition on 06/25/2016. There was not evidence of infection in the lower extremities at that point. The pt is also requesting extra colostomy bags, which prompted him to visit the ED tonight. Nursing Notes Stated Complaint: INFECTION ON STOMACH Chief Complaint: Male Abdominal Pain Nursing Notes Reviewed: Yes Allergies: Coded Allergies: No Known Allergies (Verified Allergy, Unknown, 08/17/16) Scheduled Fluoxetine (Fluoxetine) 20 Mg Capsule 20 MG PO QAM Fluticasone Propionate (Flonase Allergy Relief) 50 Mcg/Actuation [place].susp 1 SPRAY NS HS Gabapentin (Neurontin) 100 Mg Capsule 100 MG PO TID Lisinopril (Lisinopril) 20 Mg Tablet 20 MG PO QAM Omeprazole (Omeprazole) 20 Mg Capsule.dr 20 MG PO QAM Scheduled PRN Albuterol HFA (Proair HFA) 8.5 Gm Hfa.aer.ad 2 PUFFS INHALATION Q4H PRN PRN For Shortness of Breath General Time Seen by MD: 22:57 Chief Complaint Other (bilateral lower extremity edema) Hx Obtained From: Patient Arrived By: Walk-in Sudden in Onset?: No Symptom Duration: Since onset Recent Healthcare: Recent doctor visit, Recent hospitalization Similar Sx Previous: Yes Past Medical History Past Medical History Notes: PCP: [facility] Past Medical History Spina bifida History of abdominal wall cellulitis July 2015, resolved (treated with zinc and Zosyn initially, switch to by mouth Augmentin, resolved) GERD Gangrene (right foot) History of substance abuse per EMR Skin breakdown of buttocks, s/p diveriting colostomy Chiari 2 malformation 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 Prediabetic Substance abuse: Amphetamine, ETOH, tobacco Reports: Hypertension Past Surgical History Diverting colostomy Shunt revisions Family History Noncontributory Smoking History Current Every Day Smoker Social History Alcohol Use: 1-3 per week Drug Use: In recovery, THC Other Social History: Poor social support, Homeless (intermittently) Ambulatory Status Wheelchair Review of Systems bilateral lower extremity redness and swelling Full Review of Systems Respiratory: Denies: Non-productive cough, Shortness of breath Cardiovascular: Denies: Chest pain GI: Denies: Abdominal pain Skin: Denies Rash Complete sys rev & neg: except as marked. Physical Exam Vital Signs Vital Signs Date Time Temp Pulse Resp B/P Pulse Ox O2 Delivery O2 Flow Rate FiO2 08/17/16 21:00 37.1 100 20 113/78 98 Room Air Initial VS: Reviewed General/Constitutional: Awake, Alert Head / Eyes: Atraumatic, Normocephalic, PERRL, EOMI ENT: Atraumatic, Airway patent, Mucous membranes moist Neck: Atraumatic, Supple, Full range of motion Respiratory / Chest: Atraumatic, Breath sounds NL, Breath sounds = bilat, No respiratory distress Cardiovascular: Heart rate NL, Regular rhythm, Heart sounds NL Abdomen: Soft, Non-tender colostomy site looks good Back: Atraumatic, Full range of motion Upper Extremities Upper Extremity / MS: Atraumatic, Full range of motion Lower Extremity / Pelvis / MS: Full range of motion bright red erythema of bilateral lower extremities macerated wound of the right fifth toe, granulomatous looking stub patches of erythema and ecchymosis on bilateral feet Skin: Dry Neurologic: Oriented X3, Speech NL, No motor deficits, No sensory deficits Psychiatric: Affect NL, Mood NL Interpretation & Diagnostics Interpretation & Diagnostics: US DVT: CONCLUSION: Negative for DVT. Lab Results Interpretation Result Diagram: 08/18/16 0005 08/18/16 0005 Test 08/18/16 00:05 White Blood Count 13.9th/mm3 (3.8-10.1) Red Blood Count 4.29mil/mm3 (4.40-5.80) Hemoglobin 12.8g/dL (13.8-17.2) Hematocrit 39.1% (41.0-50.0) Mean Corpuscular Volume 91.1fL (81-100) Mean Corpuscular Hemoglobin 29.8pg (27.0-35.0) Mean Corpuscular Hemoglobin Concent 32.7% (32.0-37.0) Red Cell Distribution Width 16.2% (12.3-15.4) Platelet Count 424bil/L (150-400) Neutrophils (%) (Auto) 60.2% (40-74) Lymphocytes (%) (Auto) 27.7% (14-46) Monocytes (%) (Auto) 8.6% (4-12) Eosinophils (%) (Auto) 2.9% (0-5) Basophils (%) (Auto) 0.2% (0-3) Sodium Level 139mEq/L (134-144) Potassium Level 4.4mEq/L (3.5-5.2) Chloride Level 102mEq/L (97-108) Carbon Dioxide Level 24mmol/L (18-29) Blood Urea Nitrogen 16mg/dL (6-24) Creatinine 0.63mg/dL (0.76-1.27) Estimat Glomerular Filtration Rate 144mL/min (>59) Glucose Level 105mg/dL (60-99) Lactic Acid Level 1.2mmol/L (0.4-2.0) Calcium Level 8.6mg/dL (8.5-10.1) Total Bilirubin 0.2mg/dL (0.0-1.2) Aspartate Amino Transf (AST/SGOT) 18U/L (0-50) Alanine Aminotransferase (ALT/SGPT) 14U/L (0-44) Alkaline Phosphatase 98U/L (25-150) Total Protein 6.3g/dL (6.4-8.4) Albumin 3.1g/dL (3.4-5.0) Pulse Oximetry Interpretation Pulse Oximetry Interpretation: 98% on room air Pulse Oximetry: Pulse Ox normal Re-Eval/Medical Decision Med Decision/Clinical Course It is very difficult to say if the fact this gentleman has cellulitis. He certainly has leukocytosis and hot red swollen feet with the right one being significantly worse than how was described at his discharge. There is no DVT. I will treat him with broad-spectrum antibiotics and plan to admit him to the hospital. Blood cultures have been drawn. Source of Hx: Old records Time of Eval: 01:48 Patient Status: Condition improved Re-Evaluation/Progress Note: Pt rechecked, who is resting. The diagnosis and plan for admission are discussed. The pt understands and agrees with the plan. All questions are addressed at this time. Consultation : Referral / Consult Name: Kathy Brennan DO Call Returned at: 01:27 Web Applications Architect: Agrees with eval, Agrees with plan, Accepts admit Note: Spoke with Dr. Brennan, hospitalist, regarding pt's case. Dr. Brennan agrees with the evaluation and agrees to admit the pt. Counseled Regarding: Diagnosis, Lab results, Need for admission Discharge & Departure Primary Impression: Cellulitis Site of cellulitis: extremity Site of cellulitis of extremity: lower extremity Laterality: unspecified laterality Qualified Code: L03.119 - Cellulitis of unspecified part of limb Disposition: ADMITTED TO HOSPITAL Discharge Condition All VS Reviewed: Yes Condition: Stable Referrals: Replaced by [facility] (PCP) Marleni Attestation Portions of this note were transcribed by Estela De León. I, Dr. Gacria personally performed the history, physical exam and medical decision-making; I reviewed and confirmed the accuracy of the information in the transcribed note. Signed by: Marleni Kerr, 08/18/2016 and 0156. copies to: Replaced by [facility] Artemio Garcia DO Aug 17, 2016 22:58 ESTELA DE LEÓN Aug 17, 2016 23:46
[2016-08-18 00:19] LABS: BASOPHILS % (AUTO) 0.2 % (0-3); EOSINOPHILS % (AUTO) 2.9 % (0-5); MONOCYTES % (AUTO) 8.6 % (4-12); Mean Corpuscular Hemoglobin 29.8 pg (27.0-35.0); Mean Corpuscular Volume 91.1 fL (81-100); NEUTROPHILS % (AUTO) 60.2 % (40-74); Platelet Count 424 bil/L (150-400)
[2016-08-18] MEDS ORDERED: Piperacillin-Tazo 3.375 Gm Inj 3.375 GM in Dextrose 5% Minibag Plus 50 ML IV ONE (00:25)
[2016-08-18] MEDS ORDERED: Vancomycin Inj 1,500 MG in 0.9% Sodium Chloride 500 ML IV ONE (00:29)
[2016-08-18] MEDS: Sodium Chloride LOK Flush 10 mL Syringe IVFLUSH SCH ×3 (00:30→16:45)
[2016-08-18] MEDS ORDERED: Ondansetron 2 mg/mL 2 mL Inj IVPUSH PRN ×2 (02:05→03:20)
[2016-08-18] MEDS ORDERED: Alum-Mag Hydrox-Simeth 30 mL Suspension PO PRN ×2 (02:05→03:20)
[2016-08-18 02:43] VITALS: BP 107/72; PULSE 87; RESP 18; O2SAT 99
--- NOTE | 2016-08-18 03:00 | PCM.HPMED ---
Subjective Date of Service Aug 18, 2016 Primary Provider: Admitting Physician: Kathy Brennan DO Primary Care Physician: [facility] Attending Physician: Kathy Brennan DO Admit Status: From the Emergency Department Chief Complaint: Bilateral leg edema/erythema History of Present Illness: Patient is a 46 year old male with a history of spina bifida, colostomy secondary to skin breakdown from chronic fecal incontinence, gangrene of the right foot, hypertension, and borderline diabetes who presents to the ED complaining of bilateral lower extremity edema and erythema. The pt has noticed increased swelling, heat and redness in the last several days but was not especially concerned about it. He denies fever, chills, sweats, dizziness, syncope, nausea, vomiting, or change in stool output. The pt was admitted for sepsis and discharged in stable condition on 06/25/2016. There was not evidence of infection in the lower extremities at that point. The states the reason for his visit was that he was actually out of colostomy bags. In the ED, temp was 36.7, HR 87, RR 18, BP 107/72, 99 on room air. WBC 13.9 with 60.2% neutrophils. Hb 12.8, Hct 39.1. Lactic acid 1.2. Bilateral venous doppler was negative for DVT. Review of Systems: Comprehensive review of systems conducted and was negative except for the pertinent positives listed above. Allergies Coded Allergies: No Known Allergies (Verified Allergy, Unknown, 08/18/16) Home Medications Albuterol HFA inh Fluoxetine 20 mg daily Fluticasone nasal spray Gabapentin 100 mg TID Lisinopril 20 mg daily Omeprazole 20 mg daily PMH Spina bifida History of abdominal wall cellulitis July 2015, resolved (treated with Vanc and Zosyn initially, switch to PO Augmentin, resolved) GERD Gangrene (right foot) History of substance abuse per EMR Skin breakdown of buttocks, s/p diveriting colostomy Chiari 2 malformation s/p ROOM SERVICE RUNNER shunt with revision in 2001 Prediabetic Substance abuse: Amphetamine, ETOH, tobacco Hypertension Surgical History Diverting colostomy Shunt revisions Family History Father: Diabetes, pancreatic cancer Social History Hx Alcohol Use: Yes Alcoholic Drinks Per Day: socially Hx Substance Use: Yes (meth) Smoking Status: Current Every Day Smoker Exam Vital Signs Vital Sign - Last Date Time Temp Pulse Resp B/P Pulse Ox O2 Delivery O2 Flow Rate FiO2 6/26/17 02:43 36.7 87 18 107/72 99 Room Air Exam General: Alert, Oriented X3, Cooperative, No acute distress Head: Normocephalic, atraumatic. External ears normal. Eyes: PERRLA, EOMI. Anicteric sclerae. Mouth: Mouth normal, Mucous membranes moist/pink Neck: Neck supple with full range of motion. Chest& Lungs: Clear to auscultation bilaterally with no crackles, wheezes, or rhonchi. Cardiovascular: Regular rate/rhythm, Normal S1, Normal S2, No murmurs/rubs/ gallops Abdomen: Non-tender, Non-distended, No masses, Normoactive bowel tones, Soft. Ostomy intact with some surrounding erythema. Musculoskeletal: Normal range of motion Extremities: Bilateral lower extremity edema and erythema. Right 5th toe amputation with erythema. Bilateral erythematous areas on forearm with blisters consistent with sunburn. Neurological: Decreased/absent sensation bilateral lower extremities. Normal speech. CN II-XII grossly normal. Lab and Diagnostics Result Diagram: 08/18/16 0005 08/18/16 0005 Assessment & Plan Patient is a 46 year old male with a history of spina bifida, colostomy secondary to skin breakdown from chronic fecal incontinence, gangrene of the right foot, hypertension, and borderline diabetes who presents to the ED complaining of bilateral lower extremity edema and erythema Sepsis, acute, POA -meets sepsis criteria WBC>12, HR >90, RR =20 -treatment as below Bilateral leg cellulitis - Pt presents with bilateral lower extremity edema and erythema, worsened from previous presentation. WBC is elevated at 13.8. He has a history of MRSA, resistant enterococcus, and Pseudomonas, so will require extensive antibiotic coverage. Will cover with Vancomycin and Zosyn, and monitor for TREVOR. He has a history of lower extremity neuropathy and walks occasionally with a walker. He states his right 5th toe amputation was accidental at home and he was not aware of it when it happened. He is at risk for further injury - Vancomycin and Zosyn IV. Monitor BMP daily for any TREVOR. - Wound care consult - Monitor CBC and BMP daily - Wound cultures, blood cultures pending - X ray of bilateral lower extremities pending - Procalcitonin pending History of diverting colostomy - Pt has erythema surrounding colostomy, and has run out of colostomy bags. Will have colostomy bag set up and site cleaned. - Wound care to evaluate Depression, chronic - Continue home fluoxetine Hypertension - Continue home lisinopril GERD - Continue home omeprazole Other Medical Conditions Spina bifida History of abdominal wall cellulitis July 2015, resolved (treated with Vanc and Zosyn initially, switch to PO Augmentin, resolved) Gangrene (right foot) History of substance abuse per EMR Skin breakdown of buttocks, s/p diveriting colostomy Chiari 2 malformation s/p ROOM SERVICE RUNNER shunt with revision in 2001 Prediabetic Substance abuse: Amphetamine, ETOH, tobacco - Bowel regimen as needed - Antiemetic as needed Patient is admitted under observation status with expected length of stay less than 2 midnights due to severity of presenting symptoms, risk of adverse event, and complexity of treatment plan. Attending Statement The patient was seen and examined together with house staff on 08/18/2016 and I agree with the history, exam and plan as outlined in the note above. Gary Ram Aug 18, 2016 03:00 Kathy Brennan DO Aug 18, 2016 05:04
[2016-08-18 03:01] VITALS: BP 116/77; PULSE 85; RESP 18; O2SAT 100
[2016-08-18] MEDS ORDERED: Polyethylene Glycol (PEG) 17 Gm Powder PO PRN (03:20)
--- NOTE | 2016-08-18 04:10 | NUR ---
admit; 46 YR old male to room 1007 via gurney from . at approx. 0245. See admit screens. Swollen legs, various reddened areas on his body. Open area left buttocks area.
--- NOTE | 2016-08-18 04:44 | NUR ---
LAB; wound culture of right little toe sent to the lab.
[2016-08-18] MEDS: Pantoprazole 40 mg ER24 Tablet PO SCH (04:51)
--- NOTE | 2016-08-18 06:30 | PCM.CONPHA ---
Subjective Date of Service: Aug 18, 2016 Requesting Provider: Gary Ram Bilateral leg edema/erythema History of Present Illness CELLULITIS Reason for Pharmacy Consult: Vancomycin Dosing Objective Assessment/Plan Assessment/Plan A/ - 46 y/o male patient needed Vancomycin therapy for cellulitis. He has hx of spina bifida, gangrene of right foot, MRSA, polysubstance abuse. Wound care ordered - Afebrile, WBC: 13.9, blood cultures (2) pending - Received loading dose of Vancomycin 1500mg iv in ED @0200, Zosyn also initiated and continued - Wt: 80.6 kg, ht: 162.56cm, BMI: 30.5kg/m2, SCr: 0.63 mg/dL, estimated clearance >125 ml/min, t1/2 ~ 6hrs, Vd~48 L - Trough target: 10-15 P/ - Give Vancomycin 750mg iv q8h. Trough level ordered before 4th dose @0130 on 08/19. This regimen would produce a trough around 12 Pharmacy will continue to follow and make necessary adjustment Thank you for consulting clinical pharmacy in the care of this patient Mukesh Abbott Aug 18, 2016 06:30
--- NOTE | 2016-08-18 08:17 | DRSVH ---
PROCEDURE: US VENOUS LEG DUPLEX BILATERAL INDICATIONS: legs are hot, red and swollen TECHNIQUE: Real-time imaging, as well as color and pulse Doppler interrogation, were performed of the deep veins of both legs from the inguinal ligament to the popliteal fossa. COMPARISON: None. FINDINGS: The deep veins are normally compressible, and free of intraluminal thrombus. Color and pu lse Doppler demonstrate normal phasic intravascular flow. There is normal augmentation response to d istal compression maneuver. IMPRESSION: No sonographic evidence of deep venous thrombus bilaterally. Dictated by: Octavio Rowland M.D. on 08/18/2016 at 8:15 Approved by: Octavio Rowland M.D. on 08/18/2016 at 8:16
[2016-08-18] MEDS ORDERED: Vancomycin Dose per Pharmacist XX SCH (08:30)
[2016-08-18] MEDS ORDERED: Cefepime Inj 2,000 MG in Dextrose 5% Minibag Plus 100 ML IV SCH (08:30)
[2016-08-18] MEDS: Heparin 5,000 Unit/mL Inj SUBQ SCH ×2 (08:36→16:45)
[2016-08-18] MEDS: Piperacillin-Tazo 3.375 Gm Inj 3.375 GM in Dextrose 5% Minibag Plus 50 ML IV SCH ×2 (08:37→17:32)
[2016-08-18 09:02] VITALS: BP 108/68; PULSE 78; RESP 18; O2SAT 98
[2016-08-18] MEDS ORDERED: Vancomycin Inj 750 MG in 0.9% Sodium Chloride 250 ML IV SCH (10:00)
[2016-08-18 13:21] VITALS: BP 104/63; PULSE 73; RESP 16; O2SAT 97
--- NOTE | 2016-08-18 13:25 | NUR ---
Case Management- IMM explained and signed by patient. Copy placed given to patient and orginal placed in chart. Tyra Lopez RN/ UR
--- NOTE | 2016-08-18 13:53 | DRSVH ---
PROCEDURE: X-RAY RIGHT FOOT COMPLETE, MINIMUM THREE VIEWS ([id number]) INDICATIONS: Cellulitis, R 5th toe amputation TECHNIQUE: 3 views of the foot were acquired. COMPARISON: [facility], CR, XR FOOT 3VW RT, 06/14/2016, 10:23. FINDINGS: Bones: Interval progression of osteopenia and advanced degenerative change causing partial midfoot fu bassam. Irregularity of the remaining bones at a partial right fifth toe amputation site may represent osteomyelitis. Soft tissues: No tibiotalar joint effusion. Achilles tendon appears normal. IMPRESSION: 1. Possible osteomyelitis at the right fifth toe amputation site. If clinical exam cannot confirm rec ommend an MRI with and without contrast. 2. Progression of generalized severe osteoporosis and degenerative change causing partial midfoot fus ion may be due to Charcot foot. Please correlate for advanced diabetes or neurologic impairment. Dictated by: Octavio Rowland M.D. on 08/18/2016 at 13:48 Approved by: Octavio Rowland M.D. on 08/18/2016 at 13:51
--- NOTE | 2016-08-18 13:55 | DRSVH ---
PROCEDURE: X-RAY LEFT FOOT COMPLETE, MINIMUM THREE VIEWS ([id number]) INDICATIONS: L leg cellulitis TECHNIQUE: 3 views of the foot were acquired. COMPARISON: [facility], CR, XR FOOT 3VW LT, 07/01/2016, 23:29. FINDINGS: Bones: No acute fractures. Interval progression of severe osteopenia and degenerative change greatest in the tibiotalar and tail navicular joints. No specific radiographic evidence of myelitis Soft tissues: No tibiotalar joint effusion. Achilles tendon appears normal. IMPRESSION: 1. No specific radiographic evidence of osteomyelitis. 2. Interval progression of osteopenia and hindfoot degenerative change. Please correlate for clinical evidence of severe diabetes or neuropathic dysfunction. Dictated by: Octavio Rowland M.D. on 08/18/2016 at 13:52 Approved by: Octavio Rowland M.D. on 08/18/2016 at 13:54
--- NOTE | 2016-08-18 15:43 | NUR ---
Wound note Patient seen at bedside for wound care and dressing recommendations. Ischial pressure ulcer looks worse than last time I saw patient, likely due to increased time up in his chair. Now measures 3 cm L x 3 cm W x 1.8 cm deep, wound base a combination light pink granulation tissue and dusky white granulation tissue. This wound does not tunnel, recommend daily dressing change using 2x2 gauze to pack this wound and calmoseptine to protect periwound skin. This wound was cleaned with saline and gauze. Patient also presents with bruising and a cluster of open areas at his left lateral lower leg (likely from banging his legs on wheelchair footrests), right ankle and right lateral forefoot, these are dressed with abd pad and kerlix wrapped, these can be changed daily. Wounds do not appear ionfected, patient reports he has a place to live now so we are hopeful that he will be able to make follow up appointments at the wound center once he is discharged.
[2016-08-18] MEDS ORDERED: cefTRIAXone Inj 2,000 MG in Dextrose 5% Minibag Plus 50 ML IV SCH (16:00)
[2016-08-18 20:00] VITALS: BP 128/78; PULSE 87; RESP 17; O2SAT 98
--- NOTE | 2016-08-18 20:11 | CONS ---
[address] [address] CONSULTATION REPORT PATIENT: RAMIREZ HATFIELD : 1970 MR#: [id number] ADMIT: 08/18/2016 JOB ID: [id number] DATE OF SERVICE: 08/18/2016 CONSULTATION REQUESTED BY: Dr. Levy to evaluate the patient's right foot for possible osteomyelitis and the need for amputation of the right fifth toe. HISTORY OF PRESENT ILLNESS: The patient is a 46-year-old male with a history of spina bifida. He has a colostomy, impaired fasting glucose, hypertension, and history of multiple lower extremity ulcerations in the past. He had a gangrenous right 5th toe and states that it auto-amputated at some point, since the last admission when he was discharged on June 25. He was then seen by Dr. Bowens, who deferred any kind of intervention due to the patient's high risk of dehiscence and postoperative complications. He was admitted overnight due to leukocytosis and redness in his legs with suspicion of cellulitis. X-rays of his right foot showed some worsening of the bony contour, but given the patient's history of auto amputation of dry gangrenous tissue, it is more likely that changes on x-ray are typical for this kind of process. The patient denies fevers, chills, nausea, or vomiting. No change in GI or status since the last admission. No pain, no chest pains. REVIEW OF SYSTEMS: Negative as except as stated above. ALLERGIES: None known. PAST MEDICAL HISTORY: Spina bifida. Multiple bouts of cellulitis including abdominal wall, gastroesophageal reflux, dry gangrene right foot, history of substance abuse, namely methamphetamines, multiple decubitus ulcerations, lower extremity abrasions, hypertension. SURGICAL HISTORY: Diverting colostomy, shunt revisions. FAMILY HISTORY: Father had diabetes and pancreatic cancer and in 2012. No other significant family history. SOCIAL HISTORY: The patient she uses alcohol, methamphetamines, and smokes about a pack a day. HOME MEDICATIONS: Reviewed per EMR includin. Fluoxetine 20 mg daily. 2. Fluticasone. 3. Albuterol. 4. Gabapentin 100 mg three times a day. 5. Lisinopril 20 mg daily. 6. Omeprazole 20 mg daily. PHYSICAL EXAMINATION: The patient is alert, oriented, in no acute distress. Vital signs, on my arrival, temperature 36.8 degrees Celsius, pulse 73, respirations 16, blood pressure 104/63, pulse ox 97% at room air. Imaging of the right foot has shown fragmentation of the right 5th toe auto amputation site, clinically correlated. 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 Left foot x-ray shows diffuse osteopenia as well with degenerative changes in the joint, equina varus foot deformity but otherwise no acute findings. Venous duplex was negative for DVT. Focused lower extremity examination shows bilateral lower leg erythema. Some of it is patchy erythema present at baseline. Scars along the left lateral foot including the left 5th toe from previous decubitus ulcerations. Currently, there are abrasions on the left lower extremity that are covered with gauze and tape and were not further inspected due to review of rehab specialist notes from earlier today and the patient's own assessment of very shallow abrasions. The right lateral foot also shows a shallow abrasion with no significant sign of infection. The right 5th toe shows a soft brown eschar with a small amount of localized purulence and a small ring of erythema. Upon debridement of this eschar, the underlying tissue is granular and appears healthy. The purulence did not appear to be an abscess but rather just stagnated drainage. Pulse: Barely palpable DP and PT. Feet are warm and well perfused. Cap refill to the toes is less than 3 seconds. ASSESSMENT: Cellulitis, bilateral lower extremity decubitus ulceration, right fifth toe, with eschar formation at the level of the subcutaneous tissue. Auto amputation status stable. PLAN: This patient has a complex medical history including gangrene that was likely secondary to repeat insults to the soft tissue. His right 5th toe has a healthy granular wound bed that does not track to bone at this point. The mild bone fragmentation present at the distal aspect of the stump is currently not very concerning for osteomyelitis given clinical appearance. I excised the eschar and nonviable-appearing soft tissue and skin down to bleeding tissue of this toe. There was no bone encountered. This was all at the level of the skin and subcutaneous tissue measuring 1 cm x 1 cm prior to debridement and 1.3 x 1.2 cm after the debridement, 0.2 cm in depth. Original depth was flush with the surrounding skin. I used a #15 scalpel and saline wash ahead of time and dressed it with Xeroform gauze and Kerlix with an ABD pad for cushioning. The patient will be ordered some offloading heel boots, foam boots so that he can take them home with him and avoid any further insults to his lower extremities. Follow up will be scheduled outpatient at the [facility]ound Care Center with any of our providers, but preferably with one of our nurse practitioners who can continue to monitor his posterior buttock wound over the next few weeks. At this point, I will sign off. Further wound care orders should be followed based on Kimani Diallo's recommendations. There are no changes from my standpoint. ELLIOTT
[2016-08-19] MEDS: Sodium Chloride LOK Flush 10 mL Syringe IVFLUSH SCH ×2 (00:13→08:26)
[2016-08-19] MEDS: Heparin 5,000 Unit/mL Inj SUBQ SCH ×2 (00:14→10:58)
[2016-08-19] MEDS ORDERED: Vancomycin Serum Trough XX ONE (01:30)
[2016-08-19] MEDS: Piperacillin-Tazo 3.375 Gm Inj 3.375 GM in Dextrose 5% Minibag Plus 50 ML IV SCH (01:35)
--- NOTE | 2016-08-19 04:30 | NUR ---
Pressure Ulcer Dressing/Skin On initial assessment, patient did not have any packing in the open pressure ulcer on the left buttock. Wound was cleaned with Normal Saline and packed with two 2x2.s This was done twice as packing falls out when patient changes brief. Patient denied pain. Patients legs, arms and abdomen red with some areas blistering. VSS. Call light within reach. Care continues.
[2016-08-19 05:28] VITALS: BP 128/80; PULSE 83; RESP 17; O2SAT 97
[2016-08-19 05:28] LABS: BASOPHILS % (AUTO) 0.3 % (0-3); EOSINOPHILS % (AUTO) 4.4 % (0-5); MONOCYTES % (AUTO) 7.5 % (4-12); Mean Corpuscular Hemoglobin 29.3 pg (27.0-35.0); Mean Corpuscular Volume 90.6 fL (81-100); NEUTROPHILS % (AUTO) 55.5 % (40-74); Platelet Count 397 bil/L (150-400)
[2016-08-19 05:51] LABS: ERYTHROCYTE SEDIMENTATION RATE 5 mm/hr (0-15)
[2016-08-19 06:00] LABS: Magnesium 2.3 mg/dL (1.6-2.6); Phosphorus 3.6 mg/dL (2.5-4.9)
[2016-08-19] MEDS: Pantoprazole 40 mg ER24 Tablet PO SCH ×2 (06:32→10:56)
[2016-08-19] MEDS ORDERED: FLUT16SP (07:33)
[2016-08-19] MEDS ORDERED: ALBU18HF INH (07:34)
[2016-08-19 09:06] VITALS: BP 129/80; PULSE 86; RESP 18; O2SAT 98
[2016-08-19] MEDS ORDERED: CEPH-512 PO (10:04)
--- NOTE | 2016-08-19 10:50 | PCM.DIMED ---
Discharge Instructions Date of Service Aug 19, 2016 Dates of Hospitalization Aug 18, 2016 at 01:29 Discharge Diagnosis Discharge Diagnosis Probable lower extremity cellulitis, non-infected sacral pressure ulcer, bilateral lower extremity decubitus ulceration, Right fifth toe dry gangrene with eschar formation at the level of the subcutaneous tissue. Auto amputation status Medication Instructions Additional med instructions Please continue Keflex 500mg four times per day for 7more days Diet Discharge Diet: No restrictions Activity Discharge Activity: No restrictions Patient Instructions Patient Instructions You were hospitalized with possible soft tissue infection in your leg. You were seen by Commercial Attorney and noted non-infected ulcers, Instruction> offloading heel boots, foam boots so that he can take them home with him and avoid any further insults to his lower extremities. Follow up will be scheduled outpatient at the Wound Care Center with any of our Follow-up plan Please follow-up with your primary doctor and wound care center Follow-up Provider: [facility] Follow-up with PCP in: 2 weeks Filippo Levy MD Aug 19, 2016 10:08
--- NOTE | 2016-08-19 12:14 | NUR ---
Social Work: Initial Assessment D: EMR reviewed. Pt is a 46 y/o male admitted for cellulitis, leukocytosis per H&P. RADHA met with pt at bedside to conduct initial assessment. Pt was alert and oriented x3. Pt gave verbal consent to contact [facility] [employer], for discharge planning. Pt recently found housing with assistance from Supriya Pandey. Pt states his new address is [address] [place] [address] [address] [place]. Pt is wheelchair bound with spina bifida and states the new apartment is building ramp for him to enter his home. Pt's insurance is Medicare and HS Supplemental. Pt receives $1500/mo for disability/SSI. Pt does not have LTC insurance or VA benefits. Pt has no reported hx at a SNF or with HH. Pt states he can drive but does not have a license or vehicle. Pt relies on [employer] for transportation. Pt owns a wheelchair and no other reported DME. Pt states he is independent with ADLs. Pt states he is working with [employer] [employer] Prevention Operations [employer], to help furnish his new apartment. Pt states his phone number is [phone]. Pt stated he is very happy he now has housing. RADHA received MD order to coordinate HH for RN 3x/week. RADHA confirmed that pt is homebound. SW confirmed pt can received HH and pt was very agreeable. SW provided [facility] list. [facility] SW will place referral to [facility] for RN 3x/week. Pt states he will use [employer] for transportation once he is medically stable for discharge. Pt likely to discharge home with HH RN 3x/week. SW will [facility] and follow-up with update note. A: Pt who is wheelchair bound and for whom HH RN 3x/week has been deemed medically necessary. P: Pt states he will use [employer] for transportation once he is medically stable for discharge. Pt states he will use [employer] for transportation once he is medically stable for discharge. Pt likely to discharge home with HH RN 3x/week. SW will make referral to [facility] and follow-up with update note. SW will continue to follow for needs. TONY Cisse Addendum: 08/19/16 at 1219 by SONIA LUA SS Amended: Links added.
--- NOTE | 2016-08-19 13:13 | NUR ---
Social Work: Readiness for Discharge D: EMR reviewed. Pt is on day 1 of hospitalization. RADHA referred pt to [facility] and pt has been accepted. Per MD in AM multi-disciplinary rounds, pt is medically stable and will discharge today. Pt to discharge home via [employer] or friends and open with [facility] for RN 3x/week. Ramu from [facility] picked-up F2F and confirmed [facility] will open with pt tomorrow. A: Pt who is w/c bound at baseline and for whom [facility] RN 3x/week has been deemed medically necessary. P: Pt to discharge home today via [employer] or friends. Pt to open with [facility] RN 3x/week. [facility] has received F2F and access. TONY Cisse
--- NOTE | 2016-08-19 14:29 | NUR ---
Social Work: Discharge D: EMR reviewed. Pt is on day 1 of hospitalization. SW referred pt to [facility] and pt has been accepted. Per MD in AM multi-disciplinary rounds, pt is medically stable and will discharge today. Pt to discharge home via [employer] or friends and open with [facility] for RN 3x/week. Ramu from [facility] picked-up F2F and confirmed [facility] will open with pt tomorrow. A: Pt who is w/c bound at baseline and for whom RN 3x/week has been deemed medically necessary. P: Pt to discharge home today via [employer] or friends. Pt to open with [facility] RN 3x/week. [facility] has received F2F and access. RADHA placed T/C to Ramu at [facility] to confirm pt's phone number and address. TONY Cisse
[2016-08-19 15:17] VITALS: BP 119/72; PULSE 71; RESP 18; O2SAT 98
--- NOTE | 2016-08-19 18:27 | NUR ---
Discharge Patient was discharged home this afternoon. Patient was given discharge instructions by our charge nurse. Pt will have home health set up by our social services technician. Pt left in his own wheelchair.
--- NOTE | 2016-08-20 13:26 | PCM.DC.MED ---
Discharge Summary Date of Service Aug 19, 2016 Dates of Hospitalization Date of Hospital Admission Aug 18, 2016 at 01:29 Date of Discharge: Aug 19, 2016 Providers: Admitting Physician: Filippo Yen MD [facility]: Filippo Yen MD Diagnosis at Time of Discharge Diagnosis at Time of Discharge Probable lower extremity cellulitis, non-infected sacral pressure ulcer, bilateral lower extremity decubitus ulceration, Right fifth toe dry gangrene with eschar formation at the level of the subcutaneous tissue. Auto amputation status Consultations Podiatry Dr. Khanna Brief History HPI obtained on 08/18 by on 08/18 Patient is a 46 year old male with a history of spina bifida, colostomy secondary to skin breakdown from chronic fecal incontinence, gangrene of the right foot, hypertension, and borderline diabetes who presents to the ED complaining of bilateral lower extremity edema and erythema. The pt has noticed increased swelling, heat and redness in the last several days but was not especially concerned about it. He denies fever, chills, sweats, dizziness, syncope, nausea, vomiting, or change in stool output. The pt was admitted for sepsis and discharged in stable condition on 06/25/2016. There was not evidence of infection in the lower extremities at that point. The states the reason for his visit was that he was actually out of colostomy bags. In the ED, temp was 36.7, HR 87, RR 18, BP 107/72, 99 on room air. WBC 13.9 with 60.2% neutrophils. Hb 12.8, Hct 39.1. Lactic acid 1.2. Bilateral venous doppler was negative for DVT. Hospital Course Patient is a 46 year old male with a history of spina bifida, colostomy secondary to skin breakdown from chronic fecal incontinence, gangrene of the right foot, hypertension, and borderline diabetes who presents to the ED complaining of bilateral lower extremity edema and erythema acute dx Bilateral leg cellulitis, uncomplicated, nonpurulent, non-infected ulcer on Left ankle pt met SIRS criteria, was started on vancomycin and zosyn. Follow up labs showed unremarkable PCT and wbc rapidly resolved. MRSA swab negative. BCX remained negative. Given nonpurulent cellulitis, non-infected ulcer, no systemic signs of infection, abx was deescalated to Keflex. Pt developed this recurrent cellulitis in the setting of decreased sensation of LE from Spina bifida, which will inevitably makes him prone to recurrent infection. Given mild cognitive dysfunction, higher level of needs, patient was discharged to home with HH Dry gangrene Right 5th toe, this is chronic problem known from previous hospitalization. Given foot xray showed possible OM, was consulted, it showed healthy granular wound bed that does not track to bone at this point, I&D was performed. patient was recommended to follow up at Wound care center by Podiatry service. Sacral pressure sore, in the setting of Spina Bifida, WC bound This also looked not infected per exam by wound care, 3 cm L x 3 cm W x 1.8 cm deep, wound base a combination light pink granulation tissue and dusky white granulation tissue. Dressing was changed in house. chronic dx History of diverting colostomy, noted to have mild skin irritation surrounding colostomy, and has run out of colostomy bags, supplied provided, site was cleaned. 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 Prediabetic Substance abuse: Amphetamine, ETOH, tobacco Exam Vital Signs (Last) Date Time Temp Pulse Resp B/P Pulse Ox O2 Delivery O2 Flow Rate FiO2 08/19/16 15:17 36.6 71 18 119/72 98 Room Air Exam Patient was examined on the day of discharge Test 08/18/16 00:05 08/19/16 05:03 Lactic Acid Level 1.2mmol/L (0.4-2.0) White Blood Count 9.0th/mm3 (3.8-10.1) Red Blood Count 4.37mil/mm3 (4.40-5.80) Hemoglobin 12.8g/dL (13.8-17.2) Hematocrit 39.6% (41.0-50.0) Mean Corpuscular Volume 90.6fL (81-100) Mean Corpuscular Hemoglobin 29.3pg (27.0-35.0) Mean Corpuscular Hemoglobin Concent 32.3% (32.0-37.0) Red Cell Distribution Width 16.4% (12.3-15.4) Platelet Count 397bil/L (150-400) Neutrophils (%) (Auto) 55.5% (40-74) Lymphocytes (%) (Auto) 32.1% (14-46) Monocytes (%) (Auto) 7.5% (4-12) Eosinophils (%) (Auto) 4.4% (0-5) Basophils (%) (Auto) 0.3% (0-3) Erythrocyte Sedimentation Rate 5mm/hr (0-15) Sodium Level 140mEq/L (134-144) Potassium Level 4.9mEq/L (3.5-5.2) Chloride Level 103mEq/L (97-108) Carbon Dioxide Level 24mmol/L (18-29) Blood Urea Nitrogen 12mg/dL (6-24) Creatinine 0.67mg/dL (0.76-1.27) Estimat Glomerular Filtration Rate 135mL/min (>59) Glucose Level 93mg/dL (60-99) Calcium Level 9.1mg/dL (8.5-10.1) Phosphorus Level 3.6mg/dL (2.5-4.9) Magnesium Level 2.3mg/dL (1.6-2.6) Total Bilirubin 0.2mg/dL (0.0-1.2) Aspartate Amino Transf (AST/SGOT) 11U/L (0-50) Alanine Aminotransferase (ALT/SGPT) 11U/L (0-44) Alkaline Phosphatase 81U/L (25-150) Total Protein 6.2g/dL (6.4-8.4) Albumin 3.3g/dL (3.4-5.0) Procalcitonin 0.05ng/mL (0.00-0.08) Discharge Medications Discharge Medications Cephalexin (Keflex) 500 Mg Capsule 500 MG PO QID Prescribed by: FILIPPO YEN MD Fluoxetine (Fluoxetine) 20 Mg Capsule 20 MG PO QAM Prescribed by: PAUL HOWARD MD Fluticasone Propionate (Fluticasone Propionate Nasal) 16 Gm [place].susp 1 SPRAY NA HS (Reported) Gabapentin (Neurontin) 100 Mg Capsule 100 MG PO TID Prescribed by: PAUL HOWARD MD Lisinopril (Lisinopril) 20 Mg Tablet 20 MG PO QAM Prescribed by: PAUL HOWARD MD Omeprazole (Omeprazole) 20 Mg Capsule.dr 20 MG PO QAM Prescribed by: PAUL HOWARD MD As needed Albuterol Sulfate (Ventolin HFA Inhaler) 200 Puff/18 Gm Inhaler 2 PUFFS INH Q4H PRN PRN For Shortness of Breath (Reported) Additional med instructions Please continue Keflex 500mg four times per day for 7more days Followup Plan Disposition: Home with home health Follow-up plan Please follow-up with your primary doctor and wound care center Discharge Diet: No restrictions Discharge Activity: No restrictions Patient Instructions You were hospitalized with possible soft tissue infection in your leg. You were seen by Court Magistrate and noted non-infected ulcers, Instruction> offloading heel boots, foam boots so that he can take them home with him and avoid any further insults to his lower extremities. Follow up will be scheduled outpatient at the Wound Care Center with any of our Follow-up Provider: [facility] Follow-up with PCP in: 2 weeks Time spent 65 minutes Filippo Yen MD Aug 19, 2016 17:26
== END 2016-08-19 16:49 | disposition home health service (06) | DRG 571 ==
LOC: SED 20:56 → OBSVTOIN 08-18 01:29 → OSC 08-18 01:29 → INTOOBSV 08-18 01:29
PROVIDERS: ADMIT Internal Medicine; ATTEND Internal Medicine
PROC: 0JBQ0ZZ Excision of Right Foot Subcutaneous Tissue and Fascia, Open Approach (ICD-10-PCS; principal; 2016-08-18)
DX: L03.116 Cellulitis of left lower limb (principal); G82.22 Paraplegia, incomplete; L03.115 Cellulitis of right lower limb; I10 Essential (primary) hypertension; K21.9 Gastro-esophageal reflux disease without esophagitis; Q05.9 Spina bifida, unspecified

== ENCOUNTER 2016-08-21 10:59 | Emergency (ER) | payer MEDICARE, MEDICAID ==
[~2016-08-21] VITALS: Ht 162.6 cm; Wt 72.7 kg
[~2016-08-21 10:59] MED LIST changes: +ALBU18HF INH; -ALBU8.5H2 INHALATION; +CEPH-512 PO; +FLUT16SP; -FLUT9.9S NS
[2016-08-21 11:06] VITALS: BP 125/92; PULSE 83; RESP 16; O2SAT 99
--- NOTE | 2016-08-21 11:10 | ED.REPORT ---
HPI-Psychiatric Illness Date of Service Aug 21, 2016 ED Provider: The patient is a 46 year old wheelchair bound male with history of spina bifida , Chiari 2 malformation s/p DIRECTOR CONSUMER AFFAIRS shunt, abdominal wall cellulitis, GERD, hypertension, and polysubstance abuse, who was brought to the emergency department by EMS and police for suicidal ideations. The patient told police that he was going to shoot himself in the head with a bullet. The patient does not have a gun but feels that he can get access to one easily. He also states, "I just don't know what is real or not anymore." When interviewed the patient's main concern seems to be a colostomy issue. He reports having pain around his colostomy site. He was discharged from the hospital 2 days ago for toe dry gangrene and cellulitis. He has not been taking his antibiotics. Nursing Notes Stated Complaint: PAIN/SUICIDAL Chief Complaint: Psychiatric Complaint Nursing Notes Reviewed: Yes Allergies: Coded Allergies: No Known Allergies (Verified Allergy, Unknown, 08/21/16) Scheduled Cephalexin (Keflex) 500 Mg Capsule 500 MG PO QID Fluoxetine (Fluoxetine) 20 Mg Capsule 20 MG PO QAM Fluticasone Propionate (Fluticasone Propionate Nasal) 16 Gm [place].susp 1 SPRAY NA HS Gabapentin (Neurontin) 100 Mg Capsule 100 MG PO TID Lisinopril (Lisinopril) 20 Mg Tablet 20 MG PO QAM Omeprazole (Omeprazole) 20 Mg Capsule.dr 20 MG PO QAM Scheduled PRN Albuterol Sulfate (Ventolin HFA Inhaler) 200 Puff/18 Gm Inhaler 2 PUFFS INH Q4H PRN PRN For Shortness of Breath General Time Seen by MD: 11:09 Chief Complaint Suicidal ideation Hx Obtained From: Patient, EMS, Police Arrived By: Ambulance, Police Onset Occurred: More than a week ago... Symptom Duration: Since onset Progression Since Onset: Constant, Gradually worsening Severity: Current: No pain currently Severity: Maximum: No pain Recent Healthcare: Recent doctor visit, Recent hospitalization Similar Sx Previous: Yes Risk-Psychiatric Illness Suicide Risk Stratification Suicide Risk Factors - Adult: : Access to firearms: Substance abuse RF Statements: Risk factors reviewed Past Medical History Past Medical History Notes: PCP: [facility] Past Medical History Spina bifida History of abdominal wall cellulitis July 2015, resolved (treated with zinc and Zosyn initially, switch to by mouth Augmentin, resolved) GERD Gangrene (right foot) History of substance abuse per EMR Skin breakdown of buttocks, s/p diveriting colostomy Chiari 2 malformation s/p DIRECTOR CON[employer] shunt with revision in 2001 Prediabetic Substance abuse: Amphetamine, ETOH, tobacco Reports: Hypertension Past Surgical History Diverting colostomy Shunt revisions Family History Noncontributory Smoking History Current Every Day Smoker Social History Alcohol Use: 1-3 per week Drug Use: In recovery, THC Other Social History: Poor social support, Local resident, Homeless Ambulatory Status Wheelchair Review of Systems Review of Systems Note: +colostomy problem Psychiatric: Reports: Depression, Suicidal ideation, Unable to control self Complete sys rev & neg: except as marked. Physical Exam Initial Vital Signs Vital Signs (First) Date Time Temp Pulse Resp B/P Pulse Ox O2 Delivery O2 Flow Rate FiO2 08/21/16 11:06 36.7 83 16 125/92 99 Room Air Initial VS: Reviewed Head / Eyes: Atraumatic, Normocephalic, PERRL ENT: Mucous membranes moist, Conjunctiva normal, No scleral icterus Neck: Supple, Non-tender, Full range of motion Cardiovascular: Regular rate & rhythm, Heart sounds normal, Intact distal pulses Extremities: Vascular intact, Neuro intact Skin: Warm, Dry, No cyanosis General/Constitutional: Awake, Alert, Cooperative Neurologic: Oriented X3, Speech NL, No motor deficits, No sensory deficits, Memory NL PSY: Odd affect. Good eye contact. The patient will not answer if he is suicidal or homicidal. He refuses to participate in more of a mental healthy examination. Abdomen: Soft, Non-tender, No guarding, No rebound, BS normoactive, No distention Brown stool out of colostomy. Back: No midline vertebral tend There is a large deep sacral decubitus ulcer with healthy pink healing tissue around it. Does not appear infected. Lower Extremity / Pelvis / MS: Neurologic intact, Vascular intact Cellulitis of both lower extremities that goes up to the mid tibia bilaterally. It is warm to the touch. Did not seem tender. Neurovascular intact. Interpretation & Diagnostics Lab Results Interpretation Result Diagram: 08/21/16 1155 08/21/16 1155 Test 08/21/16 11:55 White Blood Count 10.4th/mm3 (3.8-10.1) Red Blood Count 5.26mil/mm3 (4.40-5.80) Hemoglobin 15.6g/dL (13.8-17.2) Hematocrit 47.9% (41.0-50.0) Mean Corpuscular Volume 91.1fL (81-100) Mean Corpuscular Hemoglobin 29.7pg (27.0-35.0) Mean Corpuscular Hemoglobin Concent 32.6% (32.0-37.0) Red Cell Distribution Width 16.2% (12.3-15.4) Platelet Count 406bil/L (150-400) Neutrophils (%) (Auto) 61.0% (40-74) Lymphocytes (%) (Auto) 27.7% (14-46) Monocytes (%) (Auto) 7.0% (4-12) Eosinophils (%) (Auto) 3.6% (0-5) Basophils (%) (Auto) 0.4% (0-3) Erythrocyte Sedimentation Rate 28mm/hr (0-15) Sodium Level 140mEq/L (134-144) Potassium Level 4.5mEq/L (3.5-5.2) Chloride Level 102mEq/L (97-108) Carbon Dioxide Level 24mmol/L (18-29) Blood Urea Nitrogen 14mg/dL (6-24) Creatinine 0.61mg/dL (0.76-1.27) Estimat Glomerular Filtration Rate 150mL/min (>59) Glucose Level 84mg/dL (60-99) Calcium Level 9.6mg/dL (8.5-10.1) Total Bilirubin < 0.2mg/dL (0.0-1.2) Aspartate Amino Transf (AST/SGOT) 10U/L (0-50) Alanine Aminotransferase (ALT/SGPT) 13U/L (0-44) Alkaline Phosphatase 97U/L (25-150) C-Reactive Protein 2.3mg/dL (0.0-0.5) Total Protein 7.1g/dL (6.4-8.4) Albumin 3.9g/dL (3.4-5.0) Thyroid Stimulating Hormone (TSH) 0.801uIU/mL (0.450-4.500) Hold Mock Top Tube Received (Received) Re-Eval/Medical Decision Med Decision/Clinical Course Patient presents with 2 issues, one is that he has bilateral lower extremity cellulitis and has not been taking his Keflex. His auto body repair technician is consulted and agrees with outpatient management of this with Keflex. The other and more pressing issue, is that this patient made suicidal statements to individuals and was brought in by the police for suicidal ideations. The patient has not been forthcoming with this information, currently awaiting mental health evaluation. Source of Hx: Old records, EMS Consultation #1: Referral / Consult Name: Alyce Khanna DPM Requested Call at: 13:52 Call Returned at: 13:54 Note: Spoke with the auto body repair technician. She agrees with plan for discharge on Keflex. Consultation #2: Consulted With: pick pack worker Call Returned at: 14:00 Note: ED aids social worker is aware of the patient. Counseled Regarding: Diagnosis, Lab results Discharge & Departure Shift Change Sign-Out Response to Therapy: Discussed Impression: Primary Impression: Suicidal ideation Discharge Condition All VS Reviewed: Yes Condition: Stable Referrals: [facility] (PCP) Care Transferred to: Dr. Ocasio Care Transferred at: 15:01 Marleni Attestation Portions of this note were transcribed by Etelvina Mccurdy. I, Dr. Ruth personally performed the history, physical exam and medical decision-making; I reviewed and confirmed the accuracy of the information in the transcribed note. Signed by: Marleni Valentin, 08/21/2016 at 1500. copies to: [facility] Ulises Ruth DO Aug 21, 2016 11:10 Etelvina Mccurdy Aug 21, 2016 11:29
[2016-08-21 12:12] LABS: BASOPHILS % (AUTO) 0.4 % (0-3); EOSINOPHILS % (AUTO) 3.6 % (0-5); Mean Corpuscular Hemoglobin 29.7 pg (27.0-35.0); Mean Corpuscular Volume 91.1 fL (81-100); Platelet Count 406 bil/L (150-400)
[2016-08-21 12:57] LABS: ERYTHROCYTE SEDIMENTATION RATE 28 mm/hr (0-15)
[2016-08-21] MEDS ORDERED: cefTRIAXone Inj 1,000 MG in Dextrose 5% Minibag Plus 50 ML IV ONE (13:00)
[2016-08-21] MEDS ORDERED: cefTRIAXone Inj 1,000 MG, Lidocaine PF 1% Inj 2.1 ML in Syringe 0 EACH IM ONE (14:00)
[2016-08-21 14:43] VITALS: BP 115/75; PULSE 79; RESP 13; O2SAT 100
[2016-08-21] MEDS ORDERED: _Cephalexin 500 mg Capsule PO SCH (20:30)
== END 2016-08-21 18:30 ==
LOC: SED 10:59 → EDBD 10:59 → EDUNIT# 10:59 → SED 18:30
DX: R45.851 Suicidal ideations (principal); S91.301A Unspecified open wound, right foot, initial encounter; S91.302A Unspecified open wound, left foot, initial encounter; X58.XXXA Exposure to other specified factors, initial encounter; Y93.89 Activity, other specified; Y92.89 Other specified places as the place of occurrence of the external cause; Y99.8 Other external cause status; L03.115 Cellulitis of right lower limb; L03.116 Cellulitis of left lower limb; F43.0 Acute stress reaction; L89.159 Pressure ulcer of sacral region, unspecified stage; I10 Essential (primary) hypertension; K21.9 Gastro-esophageal reflux disease without esophagitis; R73.03 Prediabetes; F17.200 Nicotine dependence, unspecified, uncomplicated; Z98.2 Presence of cerebrospinal fluid drainage device; Z93.3 Colostomy status; Z59.0 Homelessness
CPT/HCPCS: 36415; 80053; 82075; 84443; 85025; 85651; 86140; 96372; 99284; J0696

== ENCOUNTER 2016-08-31 14:42 | Emergency (ER) | payer MEDICARE, MEDICAID ==
[~2016-08-31] VITALS: Ht 162.6 cm; Wt 72.7 kg
[2016-08-31 14:44] VITALS: BP 112/78; PULSE 95; RESP 17; O2SAT 98
--- NOTE | 2016-08-31 15:18 | ED.REPORT ---
HPI-General Illness Date of Service Aug 31, 2016 ED Provider: History of Present Illness: Patient was changing his colonoscopy bag today and did not have one to replace it with. He used tape and a Ziploc bag to cover his colostomy site. The skin around his cluster-type erythematous but not tender, and no new pain. He has no other complaints. He states he does have help sitting up his appointments and medical supplies but had run out of colostomy bags. History of abdominal wall cellulitis as well as gluteal cellulitis and infection. He thinks he is taking an antibiotic at this time. Nursing Notes Stated Complaint: COLOSTOMY ISSUE Chief Complaint: General Complaint Nursing Notes Reviewed: Yes Allergies: Coded Allergies: No Known Allergies (Verified Allergy, Unknown, 08/21/16) Scheduled Cephalexin (Keflex) 500 Mg Capsule 500 MG PO QID Cephalexin (Keflex) 500 Mg Capsule 500 MG PO QID Fluoxetine (Fluoxetine) 20 Mg Capsule 20 MG PO QAM Fluticasone Propionate (Fluticasone Propionate Nasal) 16 Gm [place].susp 1 SPRAY NA HS Gabapentin (Neurontin) 100 Mg Capsule 100 MG PO TID Lisinopril (Lisinopril) 20 Mg Tablet 20 MG PO QAM Omeprazole (Omeprazole) 20 Mg Capsule.dr 20 MG PO QAM Scheduled PRN Albuterol Sulfate (Ventolin HFA Inhaler) 200 Puff/18 Gm Inhaler 2 PUFFS INH Q4H PRN PRN For Shortness of Breath General Time Seen by MD: 15:12 Chief Complaint Abdominal pain (mild skin irritation, from bandages, not new) Needs colonoscopy bag Hx Obtained From: Patient Sudden in Onset?: Yes Onset Occurred: Just prior to arrival Location: : Abdomen Quality: Burning Radiation: : Does not radiate Severity: Current: Mild Severity: Maximum: Mild Recent Healthcare: Recent doctor visit, Recent hospitalization Similar Sx Previous: Yes Past Medical History Past Medical History Notes: PCP: David darby Past Medical History Spina bifida History of abdominal wall cellulitis July 2015, resolved (treated with zinc and Zosyn initially, switch to by mouth Augmentin, resolved) GERD Gangrene (right foot) History of substance abuse per EMR Skin breakdown of buttocks, s/p diveriting colostomy Chiari 2 malformation s/p 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 EDUCATION 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 with revision in 2001 Prediabetic Substance abuse: Amphetamine, ETOH, tobacco Reports: Hypertension Past Surgical History Diverting colostomy Shunt revisions Family History Noncontributory Smoking History Current Every Day Smoker Social History Alcohol Use: 1-3 per week Drug Use: In recovery, THC Other Social History: Poor social support, Local resident, Homeless Ambulatory Status Wheelchair Review of Systems Needs colonoscopy bags Physical Exam Vital Signs Vital Signs Date Time Temp Pulse Resp B/P Pulse Ox O2 Delivery O2 Flow Rate FiO2 08/31/16 17:01 90 20 124/75 98 Room Air 08/31/16 14:44 37.1 95 17 112/78 98 Room Air Initial VS: Reviewed, Vital signs normal General/Constitutional: Awake, Alert, Well appearing Respiratory / Chest: Breath sounds NL, No respiratory distress, No rales, No rhonchi, No wheezing Cardiovascular: Heart rate NL, Regular rhythm, Heart sounds NL, Cap refill not delayed, Peripheral circulation NL Abdomen: Atraumatic, Soft, Non-tender Erythema noted over lower abdomen. No tenderness noted. There is erythematous around colostomy site. Patient states he is very sensitive to the adhesives from the bags. Re-Eval/Medical Decision Med Decision/Clinical Course Patient changed his own colostomy bag. He does not know if he is on cephalexin currently, it does look like he was prescribed it on 08/20/2016, he states he is still taking an antibiotic although none of his pills or 4 times a day. And he should have been done with this prescription already. Will prescribe cephalexin to treat for possible abdominal cellulitis and he will check his bottles at home and make sure he is not already taking this. Patient understands Discharge & Departure Primary Impression: Abdominal wall cellulitis Additional Impression: Complication of ostomy Disposition: Home Discharge Condition All VS Reviewed: Yes Condition: Stable Patient Instructions: Cellulitis (ED) Additional Instructions: Take cephalexin as prescribed. Check your other bottles and make sure you are not already taking this. It will be 4 times a day for 7 days. Return if erythema worsens or pain worsens and return immediately if this occurs. Otherwise follow-up with your PCP later this week for recheck. Referrals: [facility] (PCP) EDSupervising Provider for APC: Regina Doran MD, Linnea K ARNP Aug 31, 2016 15:18
[2016-08-31] MEDS ORDERED: CEPH-512 PO (16:55)
[2016-08-31 17:01] VITALS: BP 124/75; PULSE 77; PULSE 90; RESP 20; O2SAT 98
== END 2016-08-31 17:02 | disposition home or self-care (01) ==
LOC: SED 14:42
DX: K94.00 Colostomy complication, unspecified (principal); L03.311 Cellulitis of abdominal wall; K21.9 Gastro-esophageal reflux disease without esophagitis; I10 Essential (primary) hypertension; F17.200 Nicotine dependence, unspecified, uncomplicated